=== PATIENT | male | born 1935 | race Caucasian/White ===

== ENCOUNTER 2023-11-28 12:00 | Inpatient (IN) | payer MEDICARE, SELFPAY ==
[2023-11-26 16:48] VITALS: BMI 20.9
[2023-11-26 16:52] VITALS: BP 122/97
[2023-11-26 16:53] VITALS: BP 122/97
[2023-11-26 17:00] VITALS: BP 129/72
[2023-11-26 17:09] LABS: % Basophils 0.5 % (0-2); % Eosinophils 0.1 % (0-6); % Immature Granulocytes 0.4 % (0-0.5); % Lymphocytes 9.1 % (20.5-51.1); % Monocytes 8.4 % (1.7-9.3); % Neutrophils 81.5 % (42.2-75.2); Absolute Basophils 0.1 10^3/uL (0-0.2); Absolute Monocytes 0.9 10^3/uL (0.1-0.6); Hematocrit 36.9 % (39.0-52.0); Mean Corp Hgb Conc. 35.2 g/dL (33.0-37.0); Mean Corpuscular Hgb 32.2 pg (27.0-31.0); Mean Corpuscular Volume 91.3 fL (80.0-94.0); Mean Platelet Volume 9.7 fL (7.4-10.4); Nucleated Red Blood Cells % 0 % (-); Platelet Count 215 10^3/uL (130-400); Red Blood Cell Count 4.04 10^6/uL (4.70-6.10); Red Cell Dist. Width 12.8 % (11.5-14.5)
[2023-11-26 17:25] LABS: ALT (SGPT) 37 U/L (0-50); AST (SGOT) 84 U/L (17-59); Albumin 4.6 g/dl (3.5-5.0); Alkaline Phosphatase 80 U/L (38-126); Blood Urea Nitrogen 24 mg/dl (9-20); Calcium 9.5 mg/dl (8.4-10.2); Carbon Dioxide 21 mmol/L (22-30); Chloride 107 mmol/L (98-107); Estimated Creatinine Clearance 55 ml/min; Glucose 90 mg/dl (70-99); Potassium 4.1 mmol/L (3.5-5.1); Sodium 136 mmol/L (135-145); Total Bilirubin 0.8 mg/dl (0.2-1.3); Total Protein 6.8 g/dl (6.3-8.2); eGFR > 60.00
[2023-11-26 17:54] LABS: Urine Albumin Trace (Neg - Trace); Urine Bilirubin Negative (Negative); Urine Character Clear (Clear); Urine Color Yellow; Urine Glucose Negative (Negative); Urine Ketone 1+ (Negative); Urine Leukocyte Negative (Negative); Urine Nitrite Negative (Negative); Urine Occult Blood 3+ (Negative); Urine Urobilinogen Negative (Neg - 1+)
[2023-11-26 18:00] VITALS: BP 135/57
[2023-11-26 18:11] LABS: Urine Mucus Few
[2023-11-26 18:12] LABS: Urine Bacteria Few (Negative); Urine Red Blood Cell 0-2 /HPF (0-2); Urine Squamous Cell 0-2 /LPF (Few); Urine White Cell 0-2 /HPF (0-5)
[2023-11-26 19:00] VITALS: BP 156/70
--- NOTE | 2023-11-26 19:04 | ED.GENMED ---
History of Present Illness
General
Chief Complaint: Weakness
Source: patient
Exam Limitations: none
Time Seen by Provider: 11/26/23 18:55
Nursing documentation reviewed up to this point in time: agreed with
Travel History
Have you had any contact with someone who has COVID-19?: No
Do you have any symptoms of coronavirus? Fever > 100 degrees, chills, cough, shortness of breath, sore throat, loss of taste or smell, muscle aches, or headache?: No
History of Present Illness
History of Present Illness:
Patient presents to ED secondary to sudden onset of lower leg weakness, which caused him to fall multiple times this afternoon. He had difficult time standing up after he fell, due to weakness. Denies loss of sensation. Denies back pain. Denies
headache. Denies dizziness. Denies chest palpitations. Denies loss of consciousness. Of note, since arrival to ED, patient states that despite having the urge, he is having trouble urinating. Denies recent illness. Denies recent change in
medications or diet. Denies previous history of similar symptoms.
Past History
Past History
ED Past Medical History: Cancer
ED Past Surgical History: Urological
Social History
Tobacco: Non-smoker
Review of Systems
Review of Systems
Allergies reviewed?: Yes
All Other Systems: ROS reviewed and negative except as documented in HPI and ROS
Constitutional: Reports no symptoms
EENT: Reports no symptoms
Respiratory: Reports no symptoms
Cardiac: Reports no symptoms
ABD/GI: Reports no symptoms
: Reports difficulty voiding
Musculoskeletal: Reports no symptoms; Denies back pain
Skin: Reports no symptoms
Neurological: Reports other (leg weakness)
Phy Exam
Physical Exam
Physical Exam:
Physical Exam
General: no apparent distress, not acutely ill. afebrile
Head: nc/at. eomi
Neck: supple. no meningeal signs.
Heart: s1/s2 regular rate and rhythm, no murmur. equal radial pulses.
Lungs: no acute respiratory distress. clear bilaterally
Abdomen: normal bowel sounds. not tender.
Neuro: alert and oriented. no focal neurological deficits
Skin: no rash
Psychiatric: well kept. interactive and cooperative
Extremities: no edema. no calf tenderness.
Course
Orders/Labs/Results
Orders:
Orders
11/26/23 16:58
CMP [Comprehensive Metabolic Panel] Urgent
Complete Blood Count/With Diff Urgent
11/26/23 17:40
UA Reflex to Culture [Urinalysis Reflex To Culture] Urgent
Date Specimen was Collected: 11/26/23
Time Specimen was Collected: 16:53
Urine Microscopic Reflex Cult Urgent
11/26/23 19:02
Bladder Scan- Treatment ONCE
11/26/23 19:07
Lidocaine 2% [Lidocaine Uro-Jet 2%] 1 syringe .ROUTE .[facility]
11/26/23 19:15
Fry [Fry Placement- Treatment] ONCE
Reason for insertion: Acute Retention
11/26/23 22:26
0.9% Sodium Chloride 500 ml [Nss] 500 ml IV BOLUS
11/26/23 22:38
Admit/Transfer Patient As Directed
Co-Sign Provider:
Level of Care: Observation services
Assign to:: Medical/Surgical
Physician / Group: Hospitalist
Diagnosis: urinary retention, weakness
Reason for Hospitalization: weakness,
Expected length of stay greater than two midnights?: No
ELOS- Estimated Length of Stay in days: 1
I certify the patient meets the requirements for IP care: No
11/26/23 22:41
Code Status As Directed
Resuscitation Status: Full Code
11/27/23 00:00
CT Head W/o Iv Contrast Urgent
Reason For Exam: mental status change
11/27/23 02:05
0.9% Sodium Chloride 1000 ml [Nss] 1,000 ml IV 75 mls/hr
Acetaminophen [Tylenol] 650 mg PO Q4HPRN PRN
11/27/23 02:05
Consult Notification Routine
Specialty to Notify: Urology
Date consulting provider notified: 11/27/23
Time consulting provider notified: 09:28
Notified:: Provider
UROLOGY CONSULT Routine
Consulting Provider: Rodri Vivar
Was physician already notified: No
Comment: acute urinary retention
Activity As Directed
Activity Level: With Assistance
Fry Catheter [Catheter- Indwelling] As Directed
Reason for insertion: Acute Retention
Discontinue Date/Time: 11/29/23 0600
Orthostatic Vital Signs As Directed
Orthostatic VS Frequency: Daily
Vital Signs As Directed
Frequency: Per unit guidelines
PT Consult [Pt Eval And Treat] Routine
Activity Level: With Assistance
11/27/23 06:45
Basic Metabolic Panel IN AM
Complete Blood Count/No Diff IN AM
TSH IN AM
Vitamin B12 IN AM
11/27/23 08:00
Ascorbic Acid [Vitamin C] 250 mg PO DAILY
Metoprolol Xl [Toprol Xl] 12.5 mg PO DAILY
11/27/23 Dinner
Regular
At Your Request: Limited Participation
Abnormal Lab Results
11/26/23 11/26/23
16:58 17:40
WBC 11.0 H 10^3/uL
(4.8-10.8)
RBC 4.04 L 10^6/uL
(4.70-6.10)
Hct 36.9 L %
(39.0-52.0)
MCH 32.2 H pg
(27.0-31.0)
Absolute Neuts (auto) 9.0 H 10^3/uL
(1.4-6.5)
Absolute Lymphs (auto) 1.0 L 10^3/uL
(1.2-3.4)
Absolute Monos (auto) 0.9 H 10^3/uL
(0.1-0.6)
Neutrophils % 81.5 H %
(42.2-75.2)
Lymphocytes % 9.1 L %
(20.5-51.1)
Carbon Dioxide 21 L mmol/L
(22-30)
BUN 24 H mg/dl
(9-20)
AST 84 H U/L
(17-59)
Urine Ketones 1+ A
(Negative)
Ur Occult Blood Reflex 3+ A
(Negative)
Urine Bacteria (Reflex) Few A
(Negative)
11/26/23 16:58
11/26/23 16:58
Vital Signs
Initial and Last Documented VS:
Initial Vital Signs
Temp Pulse Resp BP Pulse Ox
98.9 F 92 16 122/97 94
11/26/23 16:52 11/26/23 16:52 11/26/23 16:52 11/26/23 16:52 11/26/23 16:52
Last Documented Vital Signs
Temp Pulse Resp BP Pulse Ox
98.2 F 73 16 125/58 93
11/27/23 07:00 11/27/23 08:19 11/27/23 07:00 11/27/23 08:19 11/27/23 07:00
MDM/Problems Addressed
MDM/Problems Addressed:
Bladder scan : > 300 ml urine. After fry insertion, immediate removal of 600ml urine noted with improved symptoms.
Pt with difficulty ambulating with use of walker in ED, due to weakness. No sensory deficit. Motor strength intact while lying in bed. No back pain. ? dehydration, as patient admittedly doesn't drink enough water. Will admit for further evaluation
and treatment, including hydration. If symptoms persist, may benefit from neurology evaluation.
*Critical Care Note
Total Time (30-74mins, 75-104mins- exclusive of procedures): Not Applicable
ED Attending Note
-
Portions of this chart may have been created with voice recognition software.� Occasional wrong word or��sound alike� substitutions may have occurred due to the inherent limitations of voice recognition software.
Discharge Plan
Departure
Patient Disposition: Admit
Date of Disposition: 11/26/23
Time of Disposition: 22:25
Admit to: Med/Surg
Presentation/result/management discussed w/ accepting MD/DO: Hospitalist
Discharge Problem:
Weakness, Dehydration, Acute urinary retention
Interventions
Interventions:
*Risk Screen - Suicide Last Done: 11/26/23 16:52
*General Assessment Last Done: 11/26/23 16:52
*Neglect/Abuse Screening Last Done: 11/26/23 16:52
ED- Fall Risk Assessment Last Done: 11/26/23 16:52
*ED COVID-19 Vaccine History Last Done: 11/26/23 16:52
*Nursing Disposition Last Done: 11/27/23 01:55
ED- Cardiac Assessment Last Done: 11/26/23 16:52
ED- Neurological Assessment Last Done: 11/26/23 16:52
ED- Pulmonary Assessment Last Done: 11/26/23 16:52
Discharge Date and Time
Discharge Date/Time: 11/27/23 01:55
[2023-11-26 20:00] VITALS: BP 143/58
--- NOTE | 2023-11-26 22:48 | HPS.HSE ---
Family Physician
-
Family Physician: * NONE
Chief Complaint
-
Weakness
History of Present Illness
This is an 88-year-old male who has past medical history of remote prostate cancer status post radical prostatectomy, hypertension, aortic insufficiency, afib, presents to the emergency department with bilateral lower extremity weakness and falls
and found to be in acute urinary retention.
Patient lives at home with spouse and uses a walker. Reports being in generally good health and denied sense of weakness, ataxia or vertigo prior to today. He reports that after getting up he suddenly felt very weak in his lower extremities and
could not support himself. He fell to the floor. This then occurred multiple times. He had 1 episode where he hit the back of his head. Before today patient denied any recent falls stating that his last fall was about 4 years ago. He goes very
regularly to physical therapy and has been doing well there. He denies any pain in his hips, knees or ankles. He denies any swelling in his lower extremities. He is status post left total hip arthroplasty several years ago. Patient denies any
paresthesias, numbness or tingling. He denies any back pain. He denies any bladder or bowel incontinence.
Patient does have a history of nocturia getting up up to 6 times at night to urinate by the bedside. He is status post radical prostectomy from 20 years ago. Denies receiving any radiation or chemotherapy. Denies any recent dysuria or hematuria.
While he was in the emergency department had a large to urinate but could not and had a bladder scan which showed urinary retention and a urinary catheter was placed. After placement of urinary cath patient then also had a rather large bowel
movement.
Patient denies any dizziness, lightheadedness, palpitations, chest pain, dyspnea on exertion, or shortness of breath total lower extremity edema. He reports that he has been on 2 blood pressure medications for at least the last 6 months including
metoprolol and losartan. Medical records indicate that the patient takes metoprolol for arrhythmia with history of atrial fibrillation.
In the emergency department patient was hemodynamically stable with a blood pressure of 140/58, of 94, oxygen saturation of 90% on room air. CBC was unremarkable. Chemistries also unremarkable. He had a UA which was negative for an acute
infection.
Medical History
Past Medical History
Past Medical History: Reports Arrhythmia
Past Surgical History: Reports None
Social History
Tobacco: Non-smoker
Alcohol: None
Drug: None
Personal: Single
Living: Assisted Living
Employment: Retired
Family History
Family History: Not pertinent
Allergies / Home Medications
Allergies reflects when Allergies were last updated in [employer].
Home Medications with original date entered in [employer]
Allergy/Medication List:
Allergies
Allergy/AdvReac Type Severity Reaction Status Date / Time
No Known Allergies Allergy Verified 11/26/23 16:49
Home Medications
Res-Q [place] 2 cap PO DAILY Supplement 06/25/23
ascorbic acid (vitamin C) 250 mg tablet (Vitamin C) 250 mg PO DAILY Supplement 06/25/23
apixaban 5 mg tablet (Eliquis) 5 mg PO BID Blood clot prevention/tx #60 tabs 06/29/23
metoprolol succinate 25 mg tablet,extended release 24 hr 12.5 mg PO DAILY Arrhythmia #30 tabs 06/29/23
guaifenesin 600 mg tablet, extended release 12 hr 600 mg PO Q12 #20 tabs 07/01/23
Review of Systems
-
History Source: Patient
Constitutional: Reports Fatigue
EENT: Reports No Symptoms
Respiratory: Reports No Symptoms
Cardiac: Reports No Symptoms
Abdomen/GI: Reports No Symptoms
: Reports Frequency and Urgency
Musculoskeletal: Reports No Symptoms
Skin: Reports No Symptoms
Neurological: Reports Weakness
Endocrine: Reports No Symptoms
Hematologic/Lymphatic: Reports No Symptoms
Psych: Reports No Symptoms
Physical Exam
Vital Signs
Vital Signs
Temp Pulse Resp BP Pulse Ox
98.9 F 94 17 143/58 93
11/26/23 16:52 11/26/23 20:00 11/26/23 19:00 11/26/23 20:00 11/26/23 18:30
Physical Exam
General: Well Developed, No Apparent Distress, Comfortable and Conversant
HEENT: NormoCephalic, Anicteric, Moist mucous membranes, Atraumatic and PERRLA
Respiratory: Clear
Cardiac: S1/S2, Regular Rhythm and Murmur
Breast: Deferred by me
GI: Soft, Non Tender and Non Distended
Rectal: Deferred by Provider
Genito-urinary: Clear Urine and Kee
Musculoskeletal: No Clubbing, No Cyanosis and No Edema
Skin: Warm
Neuro: AO x 3, Nonfocal/grossly intact, Cranial Nerves Intact, No Sensory Deficits and DTR's Intact & Symmetrical
Hematologic/Lymphatic: No Lymphadenopathy
Psych: Calm and Intact Judgment/Insight
Laboratory Results
-
11/26/23 16:58
11/26/23 16:58
Laboratory Results
Total Bilirubin 0.8 mg/dl (0.2-1.3) 11/26/23 16:58
AST 84 U/L (17-59) H 11/26/23 16:58
ALT 37 U/L (0-50) 11/26/23 16:58
Alkaline Phosphatase 80 U/L (38-126) 11/26/23 16:58
Data Reviewed
-
CT Scan: Report Reviewed by me
Lab Data: Labs Reviewed by me
Old Records: Reviewed
Impression/Plan
-
IMPRESSION:
PLAN:
1. Weakness/Fall - Multiple falls with complaint of bilateral lower extremity weakness and ambulatory dysfunction. No focal neurological deficits. While laying down, strenght 5/5 bilaterally in LE. No bladder/bowel incontinence and other alarm
signs. No evidence of acute myopathy and patient not on abx or statin currently. No signs of acute infection. No joint pain or swelling. Suspect mild dehydration given elvation in BUN/Cr ratio. Patient very knowledgeable but unaware of his
atrial fibrillation diagnosis suggesting some memory loss.
- admit to [facility]
- head ct
- iv fluids
- orthostatic vs, check tsh, cpk, b12
- orthostatic vital signs
- PT evaluation
2. Urinary retention - H/O prostate Ca s/p radical prostatectomy. Nocturia and urinary frequency now with urinary retention.
- s/p urinary catheter, since no prostate hold off tamsulosin
- urology consultation
3. AFIB - AFIb last year in setting of COVID 19 infection. States he no longer takes the apixaban.
- hold apixaban in setting of fall
- continue metoprolol succinate
DVT PPX lovenox sq
Full Code.
[2023-11-26] MEDS: NSS 500 IV (23:07)
[2023-11-27 02:08] VITALS: BP 123/60; BMI 18.3
--- NOTE | 2023-11-27 02:30 | PTCARENOTE ---
Patient arrived from ED via stretcher to 338-1 -- pulled from stretcher to bed with assist of 3 people. Patient alert, appears to be confused to situation at times. Patient forgetful. Call fletcher within reach, demonstrates appropriate use of call fletcher
and rings for assistance. Will monitor.
[2023-11-27] MEDS: NSS 1000 IV ×2 (03:30→16:49)
[2023-11-27 07:00] VITALS: BP 113/48
[2023-11-27 07:31] LABS: Hematocrit 35.7 % (39.0-52.0); Hemoglobin 12.2 g/dL (13.0-18.0); Mean Corp Hgb Conc. 34.2 g/dL (33.0-37.0); Mean Corpuscular Hgb 31.7 pg (27.0-31.0); Mean Corpuscular Volume 92.7 fL (80.0-94.0); Platelet Count 215 10^3/uL (130-400); Red Blood Cell Count 3.85 10^6/uL (4.70-6.10); Red Cell Dist. Width 12.9 % (11.5-14.5); White Blood Cell Count 6.6 10^3/uL (4.8-10.8)
[2023-11-27 08:11] LABS: Blood Urea Nitrogen 18 mg/dl (9-20); Calcium 8.7 mg/dl (8.4-10.2); Carbon Dioxide 19 mmol/L (22-30); Chloride 110 mmol/L (98-107); Estimated Creatinine Clearance 52 ml/min; Glucose 85 mg/dl (70-99); Potassium 3.8 mmol/L (3.5-5.1); Sodium 136 mmol/L (135-145); eGFR > 60.00
[2023-11-27] MEDS: TOPROL XL 12.5 MG PO (08:19)
[2023-11-27] MEDS: VITAMIN C 250 MG PO (08:19)
[2023-11-27 08:22] LABS: Creatine Phosphokinase 4313 U/L (55-170)
[2023-11-27 08:26] LABS: TSH 3.56 uIU/ml (0.47-4.68)
[2023-11-27 08:45] LABS: Vitamin B12 825 pg/ml (239-931)
[2023-11-27 11:07] VITALS: BP 116/52; PULSE 92; O2SAT 91
--- NOTE | 2023-11-27 12:41 | W.PN.URO.CBU ---
Today's Communication / Plan
-
Plan voiding trial before discharge home
Assessment / Plan
-
History of prostate cancer s/p radical prostatectomy > 20 years ago
---
New urine retention possibly secondary to constipation v. neurogenic give acute LE weakness
Diagnosis
-
Date of Service: November 27, 2023
-
Patient Diagnosis:
Patient was admitted 11/26/23 due to LE weakness/sudden inability to walk
---
He was found to be in acute urine retention
A Kee catheter was placed w/o event
Subsequently, he had a large BM
Renal function was preserved
Microscopic urinalysis was benign
---
Past urologic history is notable for prostate cancer
Patient is s/p radical retropubic prostatectomy over 20 years ago: Dr. Javier @ [facility]
His PSA has remained undetectable
He has had no urine retention or significant voiding dysfunction before yesterday
Subjective
-
Comfortable
Objective
-
Vital Signs
Temp Pulse Resp BP Pulse Ox
98.2 F 73 16 125/58 93
11/27/23 07:00 11/27/23 08:19 11/27/23 07:00 11/27/23 08:19 11/27/23 07:00
Intake and Output
11/26/23 11/27/23 11/28/23
06:59 06:59 06:59
Intake Total 480 / 480
Output Total 200 / 200
Balance 480 / 480 -200 / -200
Intake:
Oral fluids 240 / 240
IV fluids (Total) 200 / 200
IV piggybacks 40 / 40
Output:
Urine, Kee 200 / 200
Laboratory Results
11/27/23 06:45
11/27/23 06:45
Review of Systems
-
Constitutional: No Symptoms
Respiratory: No Symptoms
Cardiac: No Symptoms
Abdomen/GI: No Symptoms
: Difficulty Voiding
Physical Exam
-
General - well nourished, no acute distress
Abdomen - soft, non-tender
Genitalia - normal with indwelling Kee draining clear urine
Skin - warm & dry with no rash
[2023-11-27 15:00] VITALS: BP 111/55
--- NOTE | 2023-11-27 15:04 | W.PN.HOSP.TC ---
Today's Communication/Plan
-
continue IVF
add OT
Assessment / Plan
Assessment / Plan
Assessment:
Weakness/Fall - Multiple falls with complaint of bilateral lower extremity weakness and ambulatory dysfunction.� No focal neurological deficits.� While laying down, strength 5/5 bilaterally in LE.� No bladder/bowel incontinence and other alarm
signs.� No evidence of acute myopathy and patient not on abx or statin currently.� No signs of acute infection.� No joint pain or swelling.� Suspect mild dehydration given elevation in BUN/Cr ratio.� Patient very knowledgeable but unaware of his
atrial fibrillation diagnosis suggesting some memory loss.
- head CT negative
- check orthostatics
- TSH/B12 ok
- PT/OT- SNF recommended
Rhabdomyolysis from fall
- continue IVF; trend CPK
Urinary retention - H/O prostate Ca s/p radical prostatectomy.� Nocturia and urinary frequency now with urinary retention.�
- s/p urinary catheter, since no prostate hold off tamsulosin
- urology following; eventual void trial prior to DC or at [facility] pending dispo outcome.
Parox A. FIB - AFIb last year in setting of COVID 19 infection.� States he no longer takes the apixaban.�
- hold apixaban in setting of fall; possibly resume in 24 hours
- continue metoprolol succinate
DVT ppx: Lovenox
code: Full
Anticipated Discharge: 24 - 48 hours
Subjective/Interval History
-
Date of Service: November 27, 2023
reports weakness is slightly improving
Objective Data
-
Labs:
Laboratory Results
11/27/23
06:45
WBC 6.6
Hgb 12.2 L
Hct 35.7 L
Plt Count 215
Sodium 136
Potassium 3.8
Chloride 110 H
Carbon Dioxide 19 L
BUN 18
Creatinine 0.8
Glucose 85
Calcium 8.7
Vital Signs:
Vital Signs
Temp Pulse Resp BP Pulse Ox
98.2 F 73 16 125/58 93
11/27/23 07:00 11/27/23 08:19 11/27/23 07:00 11/27/23 08:19 11/27/23 07:00
I&O
11/26/23 11/27/23 11/28/23
06:59 06:59 06:59
Intake Total 480 / 480
Output Total 200 / 200
Balance 480 / 480 -200 / -200
Physical Exam
-
General: Well Developed and Well Nourished
HEENT: Normocephalic and Atraumatic
Respiratory: Negative Wheezes or Rales
Cardiac: Regular Rhythm and S1/S2
GI: Soft and Nontender
Genito-urinary: No Costovertebral Tender
Musculoskeletal: No Edema
Neuro: AO x 3
Hematologic / Lymphatic: No Lymphadenopathy
Psych: Calm
Data Reviewed
-
Total Time Spent with Patient (in minutes): 45
Labs: Labs Reviewed by me
--- NOTE | 2023-11-27 15:54 | CM ---
Reviewed chart, placed a call to patient's son to obtain information for assessment. He stated that patient lives with his spouse in a multistory home with two steps to enter. Patient is dependent with his ADLs, personal care, dressing and bathing
and therefore he has private aids who come in 6 days a week from 10am to 5pm. His also helps support him the best that she can.
The aids do all the ruling machine operator, cooking, cleaning and laundry. They do the shopping and run the other errands and can take patient to the doctors when he has an appointment.
Patient's son stated that patient has a commode, grab bars in the shower and a shower chair.
He has never had VN services. He goes to outpatient PTx1 a week.
He has never been to a SNF and is adverse to going.
Patient's stated that he is aware that the indication on behalf of medical staff will most likely be SNF, he feels that between his support, the aids and his , patient can safely come home. He expressed that he would discuss VN services with
patient to determine whether he is agreeable.
Plan: Case management will continue to follow and assist with discharge planning. Tentative home with VN.
[2023-11-27 16:05] VITALS: BP 113/54; BP 124/58; BP 131/70; PULSE 121; PULSE 89; PULSE 93
[2023-11-27 17:59] LABS: Creatine Phosphokinase 3326 U/L (55-170)
[2023-11-28 00:09] VITALS: BP 121/52
[2023-11-28] MEDS: NSS 1000 IV (02:49)
[2023-11-28 05:47] LABS: Hematocrit 34.7 % (39.0-52.0); Hemoglobin 11.9 g/dL (13.0-18.0); Mean Corp Hgb Conc. 34.3 g/dL (33.0-37.0); Mean Corpuscular Hgb 31.9 pg (27.0-31.0); Mean Platelet Volume 9.9 fL (7.4-10.4); Platelet Count 181 10^3/uL (130-400); Red Blood Cell Count 3.73 10^6/uL (4.70-6.10); Red Cell Dist. Width 12.8 % (11.5-14.5); White Blood Cell Count 6.8 10^3/uL (4.8-10.8)
[2023-11-28 06:09] LABS: Blood Urea Nitrogen 16 mg/dl (9-20); Calcium 8.2 mg/dl (8.4-10.2); Carbon Dioxide 19 mmol/L (22-30); Chloride 112 mmol/L (98-107); Estimated Creatinine Clearance 60 ml/min; Glucose 85 mg/dl (70-99); Potassium 3.7 mmol/L (3.5-5.1); Sodium 134 mmol/L (135-145); eGFR > 60.00
[2023-11-28 06:18] LABS: Creatine Phosphokinase 2461 U/L (55-170)
--- NOTE | 2023-11-28 06:36 | W.PN.HOSP.TC ---
Addendum entered and electronically signed by Rpi Lozano MD 11/28/23 12:36:
Passed trial of Void, discharge moved up to 2pm pending meat pickler by family/home health aide, discussed with patient and his son.
Original Note:
Today's Communication/Plan
-
IVF completed
Trial of Void
Likely discharge later today 5PM pending trial of void results
Home with VN
Assessment / Plan
Assessment / Plan
Physical Exam
General: Well Developed and Well Nourished
HEENT: Normocephalic and Atraumatic
Respiratory: Negative Wheezes or Rales
Cardiac: Regular Rhythm and S1/S2
GI: Soft and Nontender
Genito-urinary: No Costovertebral Tender, Kee in placed
Musculoskeletal: No Edema
Neuro: AO x 3
Hematologic / Lymphatic: No Lymphadenopathy
Psych: Calm
Assessment:
Weakness/Fall - Multiple falls with complaint of bilateral lower extremity weakness and ambulatory dysfunction.� No focal neurological deficits.� While laying down, strength 5/5 bilaterally in LE.� No bladder/bowel incontinence and other alarm
signs.� No evidence of acute myopathy and patient not on abx or statin currently.� No signs of acute infection.� No joint pain or swelling.� Suspect mild dehydration given elevation in BUN/Cr ratio.� Patient very knowledgeable but unaware of his
atrial fibrillation diagnosis suggesting some memory loss.
- head CT negative for acute abn's
- orthostatics negative for hypotension, possible postural tachycardia syndrome noted HR increased from 89 supine to 121 standing, outpatient follow up recommended
- TSH/B12 wnl
- PT/OT- SNF recommended patient however declines preferring home VN
Rhabdomyolysis from fall
- IVF completed; CPK trending down, outpatient follow up labwork recommended.
Mild Hypocalcemia repleted
Urinary retention - H/O prostate Ca s/p radical prostatectomy.� Nocturia and urinary frequency now with urinary retention.�
- s/p urinary catheter
- urology eval appreciated, trial of void prior to discharge.
Parox A. FIB - AFIb last year in setting of COVID 19 infection.� States he no longer takes the apixaban.�
- hold apixaban in setting of fall
- continue metoprolol succinate
-follow up with cardiology Dr Newman outpatient in 1 week recommended
DVT ppx: Lovenox
code: Full
Medically stable for discharge home with home services and outpatient follow up recommendations.
Discussed with patient and his son Clifton Paulson
Total Time Preparing Discharge ___50____ minutes including examination of the patient, summary of the hospital stay, instructions for continuing care to all relevant caregivers; and preparation of discharge records, prescriptions, and referral
forms if necessary.
Anticipated Discharge: Today
Subjective/Interval History
-
Date of Service: November 28, 2023
Seen and examined at bedside in no acute distress resting comfortably in bed. Reports overall feeling well, eager to go home. Refuses rehab, though agreeable to visiting nurse services.
Objective Data
-
Labs:
Laboratory Results
11/28/23
05:13
WBC 6.8
Hgb 11.9 L
Hct 34.7 L
Plt Count 181
Sodium 134 L
Potassium 3.7
Chloride 112 H
Carbon Dioxide 19 L
BUN 16
Creatinine 0.7
Glucose 85
Calcium 8.2 L
Vital Signs:
Vital Signs
Temp Pulse Resp BP Pulse Ox
98.3 F 76 20 121/52 93
11/28/23 00:09 11/28/23 00:09 11/28/23 00:09 11/28/23 00:09 11/28/23 00:09
I&O
11/26/23 11/27/23 11/28/23
06:59 06:59 06:59
Intake Total 480 / 480 3410 / 3410
Output Total 500 / 500
Balance 480 / 480 2910 / 2910
[2023-11-28 07:00] VITALS: BP 124/60
[2023-11-28] MEDS: VITAMIN C 250 MG PO (08:03)
[2023-11-28] MEDS: TOPROL XL 12.5 MG PO (08:03)
--- NOTE | 2023-11-28 08:57 | W.PN.URO.CBU ---
Today's Communication / Plan
-
Voiding trial before discharge home
Assessment / Plan
-
History of prostate cancer s/p radical prostatectomy > 20 years ago
---
New urine retention possibly secondary to constipation v. neurogenic give acute LE weakness
Diagnosis
-
Date of Service: November 28, 2023
-
Patient Diagnosis:
Patient was admitted 11/26/23 due to LE weakness/sudden inability to walk
---
He was found to be in acute urine retention
A Kee catheter was placed w/o event
Subsequently, he had a large BM
Renal function was preserved
Microscopic urinalysis was benign
---
Past urologic history is notable for prostate cancer
Patient is s/p radical retropubic prostatectomy over 20 years ago: Dr. Javier @ [facility]
His PSA has remained undetectable
He has had no urine retention or significant voiding dysfunction before yesterday
Subjective
-
Feels well
Stronger
Objective
-
Vital Signs
Temp Pulse Resp BP Pulse Ox
98.1 F 78 18 124/60 93
11/28/23 07:00 11/28/23 07:00 11/28/23 07:00 11/28/23 07:00 11/28/23 07:00
Intake and Output
11/27/23 11/28/23 11/29/23
06:59 06:59 06:59
Intake Total 480 / 480 3410 / 3410
Output Total 500 / 500 625 / 625
Balance 480 / 480 2910 / 2910 -625 / -625
Intake:
Oral fluids 240 / 240 960 / 960
IV fluids (Total) 200 / 200 2450 / 2450
IV piggybacks 40 / 40
Output:
Urine, Kee 500 / 500 625 / 625
Laboratory Results
11/28/23 05:13
11/28/23 05:13
Review of Systems
-
Constitutional: Fatigue
Respiratory: No Symptoms
Cardiac: No Symptoms
Abdomen/GI: No Symptoms
: Difficulty Voiding
Neurological: No Symptoms
Physical Exam
-
General - well developed, well nourished, no acute distress
Abdomen - soft, non-tender
Genitalia - normal with Kee draining clear urine
[2023-11-28 09:15] VITALS: BP 129/66; PULSE 86
[2023-11-28] MEDS: CALCIUM GLUCONATE 100 IV (09:47)
--- NOTE | 2023-11-28 12:24 | W.DCSUMMARY ---
Discharge Summary
Discharge Data
Date of Admission: 11/26/23
Date of Discharge: 11/28/23
-
Pending Results: No
Discharge Plan
-
Patient Disposition: Home with Home Care
Discharge Diagnosis/Procedures: Rhabdomyolysis, Weakness/Falls, history paroxysmal atrial fibrillation, Possible Postural Tachycardia Syndrome, Urinary Retention
Condition: Fair
Diet: Regular
Activity: As tolerated and With Walker
Driving Restrictions: Not until seen by your Dr
Bathing Restrictions: None
Blood Work: Please repeat Creatine Kinase and BMP with primary care provider in 1 week of discharge.
Other Services: VN, PT and OT
Activity Restrictions/Additional Instructions:
Please follow up with Primary Care Provider and Cardiology in 1 week of discharge.
Referrals:
Donovan Newman MD [Active] - in one week
NONE,* [Family Provider] -
Prescriptions:
Continued
ascorbic acid (vitamin C) [Vitamin C] 250 mg Tablet
250 mg PO DAILY
Res-Q Power Of [place]
2 cap PO DAILY
Patient Comments:
06/25/23- vitamin d3 25mcg, omega 1500mg, epa 520mg, dha 880mg
metoprolol succinate 25 mg Tablet Extended Release 24 Hr
12.5 mg PO DAILY Qty: 30 11RF
guaifenesin 600 mg Tablet Extended Release 12hr
600 mg PO Q12 Qty: 20 0RF
Discontinued
Eliquis 5 mg Tablet
5 mg PO BID Qty: 60 11RF
Discharge Orders:
Discharge Patient (As Directed); Ordered 11/28/23
Ordered By: Rpi Lozano
--- NOTE | 2023-11-28 15:37 | CM ---
MD entered order for discharge.
Spoke with patient he said he was ready for discharge.
IMM reviewed and signed on chart.
Offered VN he requested [facility] and referral placed in care port.
His lawn caretaker will drive him home.
PLAN : Home with care givers and [facility] fax [phone]
== END 2023-11-28 14:34 | disposition home health service (06) | DRG 558 ==
LOC: EICU 12:00
PROVIDERS: Emergency Medicine; Internal Medicine; ADMITTING PHYSICIAN Internal Medicine; ATTENDING PHYSICIAN Internal Medicine; CONSULT PHYSICIAN Specialist; EMERGENCY PHYSICIAN Emergency Medicine
DX: M62.82 Rhabdomyolysis (principal); E83.51 Hypocalcemia; R33.9 Retention of urine, unspecified
CPT/HCPCS: 51702; 51798; 70450; 80048; 80053; 81003; 81015; 82550; 82607; 84443; 85025; 85027; 97116; 97162; 97166; 97530; 99285; G0378

== ENCOUNTER → 2024-01-10 13:10 | Outpatient (REF) | payer MEDICARE, OTHER, SELFPAY ==
[2024-01-10 14:25] LABS: Blood Urea Nitrogen 33 mg/dl (9-20); Calcium 9.9 mg/dl (8.4-10.2); Carbon Dioxide 20 mmol/L (22-30); Chloride 107 mmol/L (98-107); Creatine Phosphokinase 122 U/L (55-170); Glucose 113 mg/dl (70-99); Potassium 4.4 mmol/L (3.5-5.1); Sodium 135 mmol/L (135-145); eGFR > 60.00
== END ==
LOC: REG 13:10
PROVIDERS: ATTENDING PHYSICIAN Internal Medicine Cardiovascular Disease; FAMILY PHYSICIAN Internal Medicine
DX: I48.0 Paroxysmal atrial fibrillation (principal); M62.82 Rhabdomyolysis
CPT/HCPCS: 36415; 80048; 82550

== ENCOUNTER 2024-03-03 19:00 | Inpatient (IN) | payer MEDICARE, OTHER, SELFPAY ==
[2024-03-03 16:01] VITALS: BMI 19.8
--- NOTE | 2024-03-03 16:22 | ED.GENMED ---
History of Present Illness
General
Chief Complaint: Fainting Sensation
Source: patient and family
Exam Limitations: none
Time Seen by Provider: 03/03/24 16:04
Nursing documentation reviewed up to this point in time: agreed with
History of Present Illness
History of Present Illness:
88-year-old male presents emergency department after feeling weak and son lowering to the ground. He was in the parking lot, to get a haircut. His son came yesterday and noted the temperature to be 85 degrees in the house, heat was turned on.
Past History
Past History
ED Past Medical History: Cancer
ED Past Surgical History: Urological
Social History
Tobacco: Non-smoker
Alcohol: None
Drug: None
Personal:
Living: with family
Employment: Retired
Review of Systems
Review of Systems
Allergies reviewed?: Yes
All Other Systems: Not applicable
Constitutional: Reports no symptoms
EENT: Reports no symptoms
Respiratory: Reports no symptoms
Cardiac: Reports other (Near syncope)
ABD/GI: Reports no symptoms
: Reports no symptoms
Musculoskeletal: Reports no symptoms
Skin: Reports no symptoms
Neurological: Reports weakness
Endocrine: Reports no symptoms
Hematologic/Lymphatic: Reports no symptoms
Psychiatric: Reports no symptoms
Phy Exam
Physical Exam
Physical Exam:
Physical Exam
General: Elderly, frail
Neck: supple. no meningeal signs. normal posterior pharynx
Heart: s1/s2 regular rate and rhythm, no murmur. equal radial
pulses.
HEENT: Pupils equal round reactive to light, EOMI
Lungs: no acute respiratory distress. clear bilaterally
Abdomen: normal bowel sounds. not tender. no CVAT
Neuro: alert and oriented. no focal neurological deficits cranial nerves II through XII intact
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
Psychiatric: well kept. interactive and cooperative
Extremities: no edema. no calf tenderness. negative homans. good distal pulses
Course
Orders/Labs/Results
Orders:
Orders
03/03/24 16:18
CT Head W/o Iv Contrast Urgent
Comment:
Reason For Exam: fall, difficulty walking
03/03/24 16:19
IV Insert/Care/Rem.- Treatment PRN
03/03/24 16:21
0.9% Sodium Chloride 1000 ml [Nss] 1,000 ml IV BOLUS
03/03/24 16:32
Complete Blood Count/With Diff Urgent
Comprehensive Metabolic Panel Urgent
Magnesium Urgent
Abnormal Lab Results
03/03/24
16:32
RBC 3.76 L 10^6/uL
(4.70-6.10)
Hgb 11.9 L g/dL
(13.0-18.0)
Hct 33.1 L %
(39.0-52.0)
MCH 31.6 H pg
(27.0-31.0)
Absolute Neuts (auto) 6.9 H 10^3/uL
(1.4-6.5)
Absolute Monos (auto) 1.0 H 10^3/uL
(0.1-0.6)
Lymphocytes % 15.7 L %
(20.5-51.1)
Monocytes % 9.9 H %
(1.7-9.3)
Carbon Dioxide 20 L mmol/L
(22-30)
BUN 26 H mg/dl
(9-20)
Glucose 104 H mg/dl
(70-99)
03/03/24 16:32
03/03/24 16:32
Vital Signs
Initial and Last Documented VS:
Initial Vital Signs
Temp Pulse Resp Pulse Ox
98.4 F 102 30 91
03/03/24 16:02 03/03/24 16:02 03/03/24 16:02 03/03/24 16:02
Last Documented Vital Signs
Temp Pulse Resp Pulse Ox
98.4 F 102 30 91
03/03/24 16:02 03/03/24 16:02 03/03/24 16:02 03/03/24 16:02
MDM/Problems Addressed
Differential Diagnosis Includes:
Heat exhaustion, syncope, dysrhythmia
MDM/Problems Addressed:
88-year-old male with syncope episode, possibly due to heat exhaustion. No dysrhythmia noted on EKG or cardiac tracing. Admit to hospital for further evaluation
Chronic conditions affecting care: Arrhythmia
Acute Exacerbation and/or Progression of Chronic Illness: Arrhythmia
*Radiology
Radiology exam reviewed: preliminary read by ED provider (CT head no acute findings)
*Pulse Oximetry
Patient hypoxic: no
*EKG
Interpreted by ED Provider?: Yes
EKG Intrepretation Date: 03/03/24
EKG Intrepretation Time: 16:08
Interpretation: abnormal
Comparison EKG: no comparison EKG present
Heart Rate: 100
Rate: normal
Rhythm: sinus
[place]: normal axis
Interval: normal interval
QRS Pattern: right bundle branch block and other (lafb)
Ischemia: no ischemia
*Airplane Pilot Commercial Interpretation
Rate: normal
Interpretation: normal
Heart Rate: 85
Rhythm: sinus and PVC's
*Critical Care Note
Total Time (30-74mins, 75-104mins- exclusive of procedures): Not Applicable
Patient Management
Social determinants of health affecting care: Living situation
Discussion with other providers: Hospitalist
Escalation/DeEscalation of care consider admission/obs:
admit indicated
ED Attending Note
-
Portions of this chart may have been created with voice recognition software.� Occasional wrong word or��sound alike� substitutions may have occurred due to the inherent limitations of voice recognition software.
Discharge Plan
Departure
Patient Disposition: Admit
Date of Disposition: 03/03/24
Time of Disposition: 17:31
Admit to: Telemetry
Presentation/result/management discussed w/ accepting MD/DO: Hospitalist
Patient with high blood pressure during this ER visit?: Yes
Condition: Good
Discharge Problem:
Syncope
Prescriptions:
No Action
ascorbic acid (vitamin C) [Vitamin C] 250 mg Tablet
250 mg PO DAILY
Res-Q Power Of The Sea
2 cap PO DAILY
Patient Comments:
06/25/23- vitamin d3 25mcg, omega 1500mg, epa 520mg, dha 880mg
metoprolol succinate 25 mg Tablet Extended Release 24 Hr
12.5 mg PO DAILY Qty: 30 11RF
guaifenesin 600 mg Tablet Extended Release 12hr
600 mg PO Q12 Qty: 20 0RF
Referrals:
Jong Beaver MD [Family Provider] -
Interventions
Interventions:
*Risk Screen - Suicide Last Done: 03/03/24 16:02
*General Assessment Last Done: 03/03/24 16:02
*Neglect/Abuse Screening Last Done: 03/03/24 16:02
*ED COVID-19 Vaccine History Last Done: 03/03/24 16:02
ED- Cardiac Assessment Last Done: 03/03/24 16:16
ED- Neurological Assessment Last Done: 03/03/24 16:16
Discharge Date and Time
Print Language: [place]
[2024-03-03] MEDS: NSS 1000 IV ×2 (16:35→21:00)
[2024-03-03 16:39] LABS: % Basophils 0.5 % (0-2); % Eosinophils 1.4 % (0-6); % Immature Granulocytes 0.2 % (0-0.5); % Lymphocytes 15.7 % (20.5-51.1); % Monocytes 9.9 % (1.7-9.3); % Neutrophils 72.3 % (42.2-75.2); Absolute Basophils 0.1 10^3/uL (0-0.2); Absolute Eosinophils 0.1 10^3/uL (0-0.7); Absolute Lymphocytes 1.5 10^3/uL (1.2-3.4); Absolute Neutrophils 6.9 10^3/uL (1.4-6.5); Hematocrit 33.1 % (39.0-52.0); Hemoglobin 11.9 g/dL (13.0-18.0); Mean Corpuscular Hgb 31.6 pg (27.0-31.0); Mean Platelet Volume 9.4 fL (7.4-10.4); Nucleated Red Blood Cells % 0 % (-); Platelet Count 313 10^3/uL (130-400); Red Blood Cell Count 3.76 10^6/uL (4.70-6.10); Red Cell Dist. Width 12.9 % (11.5-14.5); White Blood Cell Count 9.6 10^3/uL (4.8-10.8)
[2024-03-03 16:56] LABS: ALT (SGPT) 25 U/L (0-50); AST (SGOT) 31 U/L (17-59); Albumin 3.7 g/dl (3.5-5.0); Alkaline Phosphatase 69 U/L (38-126); Blood Urea Nitrogen 26 mg/dl (9-20); Carbon Dioxide 20 mmol/L (22-30); Chloride 105 mmol/L (98-107); Estimated Creatinine Clearance 65 ml/min; Glucose 104 mg/dl (70-99); Magnesium 2.1 mg/dl (1.6-2.3); Potassium 4.2 mmol/L (3.5-5.1); Sodium 135 mmol/L (135-145); Total Bilirubin 0.7 mg/dl (0.2-1.3); Total Protein 6.3 g/dl (6.3-8.2); eGFR > 60.00
--- NOTE | 2024-03-03 18:43 | HPS.HSE ---
Family Physician
-
Family Physician: Jong Beaver MD
Chief Complaint
-
near syncope
History of Present Illness
Patient is an 88-year-old male with a history of aortic insufficiency and prostate cancer status post surgery who was with his son (he is a electrophysiology mold closer visiting from [place]) in the parking lot of a [employer]. He walked
further across the parking lot since they could not get a spot of close. He started to feel weak and went to his knees, his son helped lower him to the ground. The patient specifically denied chest pain, shortness of breath, headache,
lightheadedness, feeling faint, dizziness, nausea, vomiting, constipation, diarrhea. He stated that he has not been eating nor drinking well. He has not had any weight loss. In addition, his heater in his home was on (despite it being over 90
degrees outside). Patient attributes this to 'stupidity'. Patient is being admitted.
Medical History
Past Medical History
Past Medical History: Reports Other
Additional Past Medical History:
Aortic insufficiency
Prostate cancer
Past Surgical History: Reports Other
Additional Past Surgical History:
Prostate cancer surgery
Social History
Tobacco: Former Smoker
Alcohol: None
Drug: None
Personal:
Living: With Family
Family History
Family History: Not pertinent
Allergies / Home Medications
Allergies reflects when Allergies were last updated in [facility].
Home Medications with original date entered in [facility]
Allergy/Medication List:
Allergies
Allergy/AdvReac Type Severity Reaction Status Date / Time
No Known Allergies Allergy Verified 11/26/23 16:49
Home Medications
ascorbic acid (vitamin C) 500 mg tablet (Vitamin C) 500 mg PO DAILY 03/03/24
cholecalciferol (vitamin D3) 25 mcg (1,000 unit) tablet (Vitamin D3) 25 mcg PO DAILY 03/03/24
omega 2-jxr-qqr-fish oil 1,000 mg (120 mg-180 mg) capsule (Fish Oil) 1 cap PO DAILY 03/03/24
Review of Systems
-
History Source: Patient
A 12 point ROS was completed and negative except as noted: Yes
Constitutional: Reports Fatigue (Weakness)
EENT: Reports No Symptoms
Respiratory: Reports No Symptoms
Cardiac: Reports No Symptoms
Abdomen/GI: Reports No Symptoms
: Reports No Symptoms
Musculoskeletal: Reports No Symptoms
Skin: Reports No Symptoms
Neurological: Reports Weakness
Endocrine: Reports No Symptoms
Hematologic/Lymphatic: Reports No Symptoms
Psych: Reports No Symptoms
Physical Exam
Vital Signs
Vital Signs
Temp Pulse Resp Pulse Ox
98.4 F 102 30 91
03/03/24 16:02 03/03/24 16:02 03/03/24 16:02 03/03/24 16:02
Physical Exam
General: Other (Elderly frail male in no apparent distress)
HEENT: NormoCephalic, Anicteric and Oxygen
Respiratory: Clear; No Wheezes, Rales, Rhonchi or Crackles
Cardiac: S1/S2 and Regular Rhythm; No Bradycardia or Tachycardia
GI: Soft, Non Tender, Non Distended and Normal Bowel Sounds
Musculoskeletal: No Clubbing, No Cyanosis and No Edema
Skin: Warm and Dry
Neuro: Awake and Alert
Psych: Calm
Laboratory Results
-
03/03/24 16:32
03/03/24 16:32
Laboratory Results
Total Bilirubin 0.7 mg/dl (0.2-1.3) 03/03/24 16:32
AST 31 U/L (17-59) 03/03/24 16:32
ALT 25 U/L (0-50) 03/03/24 16:32
Alkaline Phosphatase 69 U/L (38-126) 03/03/24 16:32
Impression/Plan
-
Patient is an 88-year-old male
Near syncope--I suspect this is some mild dehydration from inadequate p.o. intake especially with fluids along with having the heater on in his home--ADMIT to telemetry--continue IV fluids for rehydration--PT/OT in a.m.
Prostate cancer--noted
DVT prophylaxis--none, low risk
CODE STATUS--full code
[2024-03-03 19:00] VITALS: BP 140/105
[2024-03-03 20:17] VITALS: BP 119/53
[2024-03-03 22:27] VITALS: BP 100/51
--- NOTE | 2024-03-03 23:39 | PTCARENOTE ---
Pt noted with very mild R sd facial droop at times, able to lift both sides of lips when asked evenly, showed pt his reflection pt stating he looks baseline. House EMPLOYMENT SUPERVISOR aware no new orders at this time .
[2024-03-04] VITALS (9 sets, daily range): BP systolic 101–139; BP diastolic 50–72; PULSE 98–107; O2SAT 94–95
--- NOTE | 2024-03-04 01:56 | W.PN.UPDATE ---
Update Note
Progress Note Update
son would like ua and culture checked and cxr checked in am
[2024-03-04 04:54] LABS: Urine Albumin Negative (Neg - Trace); Urine Bilirubin Negative (Negative); Urine Character Clear (Clear); Urine Color Yellow; Urine Glucose Negative (Negative); Urine Ketone 1+ (Negative); Urine Leukocyte Negative (Negative); Urine Nitrite Negative (Negative); Urine Occult Blood Negative (Negative); Urine Urobilinogen Negative (Neg - 1+)
--- NOTE | 2024-03-04 05:30 | PTCARENOTE ---
Pt refusing AM labs.
[2024-03-04] MEDS: VITAMIN D3 (cholecalciferol) 25 MCG PO (07:59)
[2024-03-04] MEDS: VITAMIN C 500 MG PO (07:59)
--- NOTE | 2024-03-04 08:03 | W.PN.HOSP.TC ---
Today's Communication/Plan
-
await cards eval
await PT/OT
await CXR
await orthostatic VS
stop IVF
wean O2 off
Assessment / Plan
Assessment / Plan
Patient is an 88-year-old male
Near syncope--I suspect this is some mild dehydration from inadequate p.o. intake especially with fluids along with having the heater on in his home--stop IV fluids--PT/OT in a.m.--check orthostatic VS
abnormal tele--reading as afib but not convinced this is not sinus rhythm with PACs--nevertheless, will consult cards
Prostate cancer--noted
DVT prophylaxis--none, low risk
CODE STATUS--full code
pt refused labs this AM
Anticipated Discharge: Within 24 hours
Subjective/Interval History
-
Date of Service: March 04, 2024
pt sitting in the chair saying he is fine--nursing reports confusion
Objective Data
-
Labs:
Laboratory Results
03/04/24
06:00
WBC Pending
Hgb Pending
Hct Pending
Plt Count Pending
Sodium Pending
Potassium Pending
Chloride Pending
Carbon Dioxide Pending
BUN Pending
Creatinine Pending
Glucose Pending
Calcium Pending
Vital Signs:
max temp for 24 hours
03/03/24
16:02
Temp 98.4 F
Vital Signs
Temp Pulse Resp BP Pulse Ox
98.2 F 80 16 138/61 95
03/04/24 07:55 03/04/24 07:55 03/04/24 07:55 03/04/24 07:55 03/04/24 07:55
I&O
06/22/24 06/23/24 06/24/24
06:59 06:59 06:59
Intake Total 800 / 800
Output Total 210 / 210
Balance 590 / 590
Review of Systems
-
All other systems: Reviewed and negative
Physical Exam
-
General: Other (chronically ill frail elderly male in NAD)
HEENT: Normocephalic, Atraumatic and Oxygen
Respiratory: Clear to Auscultation; Negative Wheezes or Rhonchi
Cardiac: Regular Rhythm (with ectopy) and S1/S2; Negative Murmur
GI: Soft, Nontender, Nondistended and Normal Bowel Sounds
Musculoskeletal: No Clubbing, No Cyanosis and No Edema
Neuro: Awake and Alert
Psych: Calm
[2024-03-04 10:38] LABS: Hematocrit 34.8 % (39.0-52.0); Hemoglobin 12.2 g/dL (13.0-18.0); Mean Corp Hgb Conc. 35.1 g/dL (33.0-37.0); Mean Corpuscular Hgb 31.4 pg (27.0-31.0); Mean Corpuscular Volume 89.5 fL (80.0-94.0); Mean Platelet Volume 9.4 fL (7.4-10.4); Platelet Count 281 10^3/uL (130-400); Red Blood Cell Count 3.89 10^6/uL (4.70-6.10); Red Cell Dist. Width 12.8 % (11.5-14.5); White Blood Cell Count 9.3 10^3/uL (4.8-10.8)
[2024-03-04 10:53] LABS: Blood Urea Nitrogen 18 mg/dl (9-20); Calcium 9.1 mg/dl (8.4-10.2); Carbon Dioxide 20 mmol/L (22-30); Chloride 107 mmol/L (98-107); Estimated Creatinine Clearance 76 ml/min; Glucose 98 mg/dl (70-99); Magnesium 2.1 mg/dl (1.6-2.3); Potassium 3.9 mmol/L (3.5-5.1); Sodium 136 mmol/L (135-145); eGFR > 60.00
[2024-03-04] MEDS: SENOKOT-S 1 TABLET PO ×2 (11:32→21:12)
[2024-03-04 11:36] LABS: TSH 3.49 uIU/ml (0.47-4.68)
--- NOTE | 2024-03-04 12:36 | CM ---
Addendum entered by Kenisha Cee 03/04/24 15:24:
Of note, stairglide is being installed tomorrow.
Addendum entered by Kenisha Cee 03/04/24 12:39:
Of note, son resides in [place] and daughter resides 2 hours away.
Original Note:
CM following re: d/c planning.
CM met with pt and son at bedside to complete IA.
Pt resides with in private residence.
He has stairs to get upstairs to bedroom.
Pt uses a walker as ambulatory aid.
He has a SLITTING MACHINE OPERATOR who assists with all ADS 6 days per week, 10am-8pm.
Son states pt's is physically independent, although cognitively declining.
Pt is current with [facility].
He would like to resume services once d/c'd.
Per son, they likely would not pursue rehab.
PCP is Dr. Beaver and pharmacy [facility].
CM will continue to follow and watch therapy notes/recs.
--- NOTE | 2024-03-04 15:57 | W.PN.UPDATE ---
Update Note
Progress Note Update
Spoke with patient's son Clifton, regarding physical therapy and Occupational Therapy recommendations for either skilled or acute rehab
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
He wants to transition him to more wheelchairs and scooters if at all possible. They are installing a stair lift in his home (the patient's) tomorrow.
Based on this information, will place consult to case management to restart visiting nurses/PT/OT as outpatient.
Plan for discharge after echocardiogram in AM.
--- NOTE | 2024-03-04 17:22 | CON.CAR ---
Consultation
Consultation Request
Date/Time Consultation Requested: 03/03/24
Date/Time Consultation Performed: 03/03/24
Requesting Provider: Dr. Montes De Oca
Performing Provider: Dr. Leon
Reason for Consultation: Evaluation for arrhythmia
Medical History
-
Chief Complaint: Weakness,near syncope
History of Present Illness:
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
recently transitioned care to Dr. Donovan Newman. Dr. Paulson has a past medical history of new atrial fibrillation diagnosed in June 2023 in the setting of COVID, nonischemic cardiomyopathy, aortic valve insufficiency, history of cerebellar
infarct, history of normal pressure hydrocephalus, recurrent falls and gait dysfunction. He also has a history of prostate cancer status post radical retropubic prostatectomy over 20 years ago at [facility]. No history of known coronary artery
disease; no recent ischemic evaluation. His son Clifton who is an bioinformatics associate out of state has been visiting his father and was with him at the time of his event. They were together in [place] to go get a haircut when he had profound
weakness and was guided onto the ground by his son. No overt syncope, no head trauma and fortunately no injuries. His son who arrived the day before found his father had the heat on his house turned on and it was [address] Paulson and
his son both admit that he does not drink enough water. EMS was called with initial vitals, pulse 116 bpm, blood pressure 121/73. Pulse ox 92% on room air. CT of the head 03/03/2024 with no acute intracranial abnormality with moderate atrophy and
small vessel ischemic disease. Visualized sinuses were clear. Twelve-lead EKG sinus rhythm with fusion complexes and PACs. Right bundle branch block/left anterior hemiblock. Septal infarct age-indeterminate. Overnight patient was treated with
IV fluids with improved symptoms. Orthostatic vitals were negative. Cardiology was asked to see him for concern for atrial fibrillation. Patient has a history of atrial fibrillation diagnosed in June 2023 in the setting of COVID. He was
briefly on anticoagulation which was then discontinued due to concern for falls. He had also previously been on metoprolol which was also discontinued. At the time of his visit with Dr. Newman in January plan was for a repeat quality assurance monitor and 2D
echocardiogram. 5-day Bard[facility] CAM back in January showed sinus rhythm with average heart rate 76 bpm, range 47-97 bpm. No significant bradycardia arrhythmia or AV block or pauses. No recurrent atrial fibrillation or flutter. 98 episodes of atrial
tachycardia longest 34.3 seconds with a range of 128 to 205 bpm. He had 3 episodes of NSVT, longest/fastest 5 beats at 148 bpm. He had occasional PACs, burden 2.9% and rare P VCs, 1%. His 2D echocardiogram is yet to be completed
Past medical/surgical history: Hypertension not currently on antihypertensive therapy, nonischemic cardiomyopathy without recent decompensations or use of outpatient diuretics, aortic insufficiency, prostate cancer, history of paroxysmal atrial
fibrillation diagnosed July 04 in the setting of COVID, COVID June 2023, recurrent falls, left hip T CARO, normal pressor hydrocephalus, history of silver infarct
Past Medical History
Past Medical History: Other (See HPI)
Past Surgical History: Other (See HPI)
Social History
Tobacco: Non-Smoker
Alcohol: None
Drug: None
Living: Alone
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
Family History
Family History: Reviewed & Not Pertinent
Allergies / Home Medications
Allergy/AdvReac Type Severity Reaction Status Date / Time
No Known Allergies Allergy Verified 11/26/23 16:49
�Medication �Instructions �Recorded �Confirmed �Type
ascorbic acid (vitamin C) 500 mg 500 mg PO DAILY 03/03/24 03/03/24 History
tablet (Vitamin C)
cholecalciferol (vitamin D3) 25 25 mcg PO DAILY 03/03/24 03/03/24 History
mcg (1,000 unit) tablet (Vitamin
D3)
omega 0-hco-ipw-fish oil 1,000 mg 1 cap PO DAILY 03/03/24 03/03/24 History
(120 mg-180 mg) capsule (Fish Oil)
Review of Systems
-
History Source: Patient, Family and Transfer Record
All other systems: Negative unless noted
Constitutional: Fatigue
EENT: No Symptoms
Respiratory: No Symptoms
Cardiac: No Symptoms
Abdomen/GI: No Symptoms
Musculoskeletal: No Symptoms
Neurological: Dizzy and Weakness
Endocrine: No Symptoms
Hematologic/Lymphatic: No Symptoms
Physical Exam
Vital Signs
Temp Pulse Resp BP Pulse Ox
98.8 F 88 16 119/60 92
03/04/24 15:20 03/04/24 15:20 03/04/24 15:20 03/04/24 15:20 03/04/24 15:20
Lab Results
03/04/24 10:25
03/04/24 10:25
Physical Exam
General: Well Developed, Well Nourished, No Apparent Distress and Comfortable
HEENT: Normocephalic, Anicteric and Moist Mucous Membranes
Respiratory: Other (Bronchovesicular breath sounds decreased right base. No wheezes or rhonchi)
Cardiac: S1/S2, Regular Rhythm (With ectopy) and Murmur (2/6 SM)
GI: Soft, Non Tender, Non Distended and Normal Bowel Sounds
Musculoskeletal: No Edema
Neuro: AO x 3 and Nonfocal/Grossly Intact
Psych: Calm
Impression / Plan
-
Bmw Service Technician: Dr. Newman
Impression:
Near syncope, suspect dehydration but patient also has history of rapid PAT as well as a prior history of atrial fibrillation and frequent ectopy which may have contributed to his event
Paroxysmal atrial fibrillation, episode in June 2023 in the setting of COVID
Occasional PACs/frequent PAT on recent quality assurance monitor in January 2024 with rare PVCs and NSVT
Bifascicular block on twelve-lead EKG
Aortic insufficiency
History of nonischemic cardiomyopathy
History of prostate cancer status post prostatectomy
History of falls/gait dysfunction
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
Plan:
Near syncope likely multifactorial with known gait dysfunction and deconditioning, dehydration and possibly cardiac arrhythmia
-Blood pressures stable and patient clinically improved with IV hydration
-Available EKGs and telemetry reviewed this admission with frequent PACs, PVCs with brief bigeminy, NSVT and runs of brief PAT but no definite atrial fibrillation
-Could reinitiate low-dose Toprol-XL however we will hold off given lower blood pressure trends
-Discussed with patient's son who is an bioinformatics associate in [place]. Could offer outpatient repeat quality assurance monitor however he prefers to wait until outpatient follow-up with Dr. Newman to discuss further
History of cardiomyopathy and aortic insufficiency previously advised to have outpatient 2D echocardiogram not yet completed
-Will arrange for 2D echocardiogram Tuesday morning.
History of paroxysmal atrial fibrillation in the setting of COVID June 2023
-Was briefly on Eliquis anticoagulation which was then discontinued due to fall risk
Case and plan discussed with patient's son Clifton who is an bioinformatics associate in [place]
Case reviewed with Dr. Newman
Anticipate discharge home tomorrow following echocardiogram
Outpatient cardiac follow-up to be arranged with Dr. Newman
Data Reviewed
-
EKG: Report Reviewed by me
Radiology: Report Reviewed by me
Medical Tests (Nuc Med, Echo etc): Report Reviewed by me
Labs: Labs Reviewed by me
Old Records: Reviewed
--- NOTE | 2024-03-04 20:24 | PTCARENOTE ---
Pt refusing orthostatic vital signs for shift.
[2024-03-05] VITALS (7 sets, daily range): BP systolic 108–141; BP diastolic 50–64; PULSE 86–102; BMI 19.6
--- NOTE | 2024-03-05 03:25 | PTCARENOTE ---
Pts pulse ox 90-91% RA- pt refusing o2 at this time.
[2024-03-05] MEDS: VITAMIN C 500 MG PO (08:25)
[2024-03-05] MEDS: SENOKOT-S 1 TABLET PO (08:25)
[2024-03-05] MEDS: VITAMIN D3 (cholecalciferol) 25 MCG PO (08:26)
[2024-03-05 09:22] LABS: Glucose - Point of Care 108 mg/dl (70-99)
--- NOTE | 2024-03-05 09:28 | W.PN.CARDCBS ---
Addendum entered and electronically signed by Mikala Leon DO 03/05/24 13:48:
I saw and examined the patient.
The Python Programmer's note was reviewed and I agree with the note.
Comment: Patient seen and examined following rapid response this morning for SVT. Rhythm strips and EKG reviewed favoring rapid symptomatic atrial tachycardia with brief syncopal episode. 2D echocardiogram pending. Updated family over the phone.
Patient is currently lying supine without complaints. Denies chest pain pressure. Denies shortness of breath or dizziness.
GEN: No distress lying supine.
LUNGS: CTA b/l, no wheezes/rales
CV: Regular with ectopy, S1/S2, 2/6 syst murmur
EXT: No edema
Echo 03/05/2024: Study pending.
Plan:
-Presented with near syncope. Morgan to be multifactorial w/ gait dysfunction, deconditioning, dehydration, and possible cardiac arrhythmia.
-BP stable and patient symptomatically improved w/ IV hydration, however in AM 03/05 patient having rapid bursts of atrial tachycardia into the 190s. During one episode, patient briefly lost consciousness. EMERGENCY SERVICE RESTORER called, however patient quickly
recovered. He reports he felt a warmth as his only symptom and denied feeling dizzy, lightheaded, chest pain, palpitations, or SOB. He feels improved currently despite HR briefly going into 180s still.
-Given episode of tachycardia w/ brief syncope, will start low dose Toprol 12.5mg daily with now dose and hopefully uptitrate to twice daily
-Given history of hypertension would prefer to monitor on telemetry another 24 hours
-Echo pending 03/05/2024-discussed with echo tach and he will be done soon
-Does have h/o afib in the setting of Covid 06/2023. Briefly anticoagulated, however then was d/c due to fall risk.
-K stable at 3.9. Mag 2.1 03/04.
-TSH 3.49 03/04.
-Trop pending.
-Plan discussed with son, Dr. Paulson over the phone
-Discussed with Dr. Blake
Original Note:
Today's Communication / Plan
-
Follow on telemetry.
Start Toprol 12.5mg daily
BP stable, follow.
Echo pending
Impression / Plan
-
Ict Managers: Dr. Newman
Impression:
Near syncope, suspect dehydration but patient also has history of rapid PAT as well as a prior history of atrial fibrillation and frequent ectopy which may have contributed to his event
Paroxysmal atrial fibrillation, episode in June 2023 in the setting of COVID
Occasional PACs/frequent PAT on recent ekg monitor tech in January 2024 with rare PVCs and NSVT
Bifascicular block on twelve-lead EKG
Aortic insufficiency
History of nonischemic cardiomyopathy
History of prostate cancer status post prostatectomy
History of falls/gait dysfunction
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
Echo 03/05/2024: Study pending.
Plan:
-Presented with near syncope. Morgan to be multifactorial w/ gait dysfunction, deconditioning, dehydration, and possible cardiac arrhythmia.
-BP stable and patient symptomatically improved w/ IV hydration, however in AM 03/05 patient having rapid bursts of atrial tachycardia into the 190s. During one episode, patient briefly lost consciousness. EMERGENCY SERVICE RESTORER called, however patient quickly
recovered. He reports he felt a warmth as his only symptom and denied feeling dizzy, lightheaded, chest pain, palpitations, or SOB. He feels improved currently despite HR briefly going into 180s still.
-Given episode of tachycardia w/ brief syncope, will start low dose Toprol 12.5mg daily with now dose. Follow HR on telemetry.
-Echo pending 03/05/2024.
-BP stable this AM, follow w/ initiation of Toprol. Does have h/o hypotension for which toprol was previously discontinued.
-Does have h/o afib in the setting of Covid 06/2023. Briefly anticoagulated, however then was d/c due to fall risk.
-K stable at 3.9. Mag 2.1 03/04.
-TSH 3.49 03/04.
-Trop pending.
HPI: I had the pleasure to meet Dr. Paulosn after he presented to [facility] yesterday with with an episode of profound leg weakness and near syncope. 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
but recently transitioned care to Dr. Donovan Newman. Dr. Paulson has a past medical history of new atrial fibrillation diagnosed in June 2023 in the setting of COVID, nonischemic cardiomyopathy, aortic valve insufficiency, history of cerebellar
infarct, history of normal pressure hydrocephalus, recurrent falls and gait dysfunction. He also has a history of prostate cancer status post radical retropubic prostatectomy over 20 years ago at [facility]. No history of known coronary artery
disease; no recent ischemic evaluation. His son Clifton who is an swage tender out of state has been visiting his father and was with him at the time of his event. They were together in [place] to go get a haircut when he had profound
weakness and was guided onto the ground by his son. No overt syncope, no head trauma and fortunately no injuries. His son who arrived the day before found his father had the heat on his house turned on and it was [address] Paulson and
his son both admit that he does not drink enough water. EMS was called with initial vitals, pulse 116 bpm, blood pressure 121/73. Pulse ox 92% on room air. CT of the head 03/03/2024 with no acute intracranial abnormality with moderate atrophy and
small vessel ischemic disease. Visualized sinuses were clear. Twelve-lead EKG sinus rhythm with fusion complexes and PACs. Right bundle branch block/left anterior hemiblock. Septal infarct age-indeterminate. Overnight patient was treated with
IV fluids with improved symptoms. Orthostatic vitals were negative. Cardiology was asked to see him for concern for atrial fibrillation. Patient has a history of atrial fibrillation diagnosed in June 2023 in the setting of COVID. He was
briefly on anticoagulation which was then discontinued due to concern for falls. He had also previously been on metoprolol which was also discontinued. At the time of his visit with Dr. Newman in January plan was for a repeat ekg monitor tech and 2D
echocardiogram. 5-day Bardy CAM back in January showed sinus rhythm with average heart rate 76 bpm, range 47-97 bpm. No significant bradycardia arrhythmia or AV block or pauses. No recurrent atrial fibrillation or flutter. 98 episodes of atrial
tachycardia longest 34.3 seconds with a range of 128 to 205 bpm. He had 3 episodes of NSVT, longest/fastest 5 beats at 148 bpm. He had occasional PACs, burden 2.9% and rare P VCs, 1%. His 2D echocardiogram is yet to be completed
Progress Note - Ict Managers
Subjective
Date of Service: March 05, 2024
Feeling well after brief syncopal episode this AM. No complaints currently.
Objective
Labs:
03/04/24 10:25
Labs
Hgb 12.2 g/dL (13.0-18.0) L 03/04/24 10:25
Hct 34.8 % (39.0-52.0) L 03/04/24 10:25
Plt Count 281 10^3/uL (130-400) 03/04/24 10:25
Sodium Cancelled 03/05/24 06:47
Potassium Cancelled 03/05/24 06:47
BUN Cancelled 03/05/24 06:47
Creatinine Cancelled 03/05/24 06:47
Glucose Cancelled 03/05/24 06:47
Vital Signs and I&O:
Vital Signs
Temp Pulse Resp BP Pulse Ox
98.2 F 86 18 113/59 91
03/05/24 07:30 03/05/24 07:30 03/05/24 07:30 03/05/24 07:30 03/05/24 07:30
Vital Signs
Temp Pulse Resp BP Pulse Ox
98.2 F 86 18 113/59 91
03/05/24 07:30 03/05/24 07:30 03/05/24 07:30 03/05/24 07:30 03/05/24 07:30
Intake & Output
03/03/24 03/04/24 03/05/24 03/06/24
06:59 06:59 06:59 06:59
Intake Total 800 / 800 720 / 720
Output Total 210 / 210 125 / 125
Balance 590 / 590 595 / 595
Physical Exam
Physical Exam
GEN: No distress, awake, alert, oriented x3
HEENT: supple, anicteric, mmm
LUNGS: CTA b/l, no wheezes/rales
CV: Irreg, S1/S2, 2/6 syst murmur
EXT: No clubbing, cyanosis, or edema
NEURO: Gross non-focal
SKIN: Warm, dry, no rash
[2024-03-05 09:38] LABS: % Basophils 0.6 % (0-2); % Immature Granulocytes 0.3 % (0-0.5); % Lymphocytes 13.8 % (20.5-51.1); % Monocytes 9.4 % (1.7-9.3); % Neutrophils 74.9 % (42.2-75.2); Absolute Basophils 0.1 10^3/uL (0-0.2); Absolute Eosinophils 0.1 10^3/uL (0-0.7); Absolute Lymphocytes 1.5 10^3/uL (1.2-3.4); Absolute Neutrophils 8.1 10^3/uL (1.4-6.5); Hematocrit 40.1 % (39.0-52.0); Hemoglobin 13.8 g/dL (13.0-18.0); Mean Corp Hgb Conc. 34.4 g/dL (33.0-37.0); Mean Corpuscular Volume 90.1 fL (80.0-94.0); Mean Platelet Volume 9.1 fL (7.4-10.4); Nucleated Red Blood Cells % 0 % (-); Platelet Count 323 10^3/uL (130-400); Red Blood Cell Count 4.45 10^6/uL (4.70-6.10); Red Cell Dist. Width 12.6 % (11.5-14.5); White Blood Cell Count 10.8 10^3/uL (4.8-10.8)
[2024-03-05 09:51] LABS: INR 1.08; PT 13.9 Sec (11.4-14.6)
[2024-03-05 09:52] LABS: APTT 32.8 Sec (23.4-35.0)
[2024-03-05] MEDS: TOPROL XL 12.5 MG PO ×2 (10:17→20:21)
[2024-03-05 10:43] LABS: Blood Urea Nitrogen 16 mg/dl (9-20); Calcium 9.1 mg/dl (8.4-10.2); Carbon Dioxide 20 mmol/L (22-30); Chloride 105 mmol/L (98-107); Estimated Creatinine Clearance 75 ml/min; Glucose 98 mg/dl (70-99); Potassium 3.9 mmol/L (3.5-5.1); Sodium 133 mmol/L (135-145); eGFR > 60.00
[2024-03-05 10:55] LABS: Troponin I 0.029 ng/ml
--- NOTE | 2024-03-05 11:12 | RR ---
A Rapid Response was called on this patient, please see Rapid Response form.
--- NOTE | 2024-03-05 12:22 | W.PN.HOSP.TC ---
Today's Communication/Plan
-
Echocardiogram
Assessment / Plan
Assessment / Plan
Episode of supraventricular tachycardia this morning prolonged, with HR 190 range, 03/05 with LOC lasting ~5 seconds
will hold on dc awaiting cardio input, Metoprolol added to Tx
Rhythm primarily NSR with freq PAC's, acute episode appears to be a.fib with rvr
Near syncope prior to admission
concern that this was arrythmia
Hx of nonischemic cardiomyopathy
Hx of CVA
Covid 06/2023
Hx of Prostate Cancer
P:echo
await further input from cardio
Anticipated Discharge: 24 - 48 hours
Subjective/Interval History
-
Date of Service: March 05, 2024
Awake, alert currently
Objective Data
-
Labs:
Laboratory Results
03/05/24 03/05/24 03/05/24
06:47 07:53 09:20
WBC 10.8
Hgb 13.8
Hct 40.1
Plt Count 323
PT 13.9
INR 1.08
APTT 32.8
Sodium Cancelled Cancelled Cancelled
Potassium Cancelled Cancelled Cancelled
Chloride Cancelled Cancelled Cancelled
Carbon Dioxide Cancelled Cancelled Cancelled
BUN Cancelled Cancelled Cancelled
Creatinine Cancelled Cancelled Cancelled
Glucose Cancelled Cancelled Cancelled
Calcium Cancelled Cancelled Cancelled
03/05/24
10:25
WBC
Hgb
Hct
Plt Count
PT
INR
APTT
Sodium 133 L
Potassium 3.9
Chloride 105
Carbon Dioxide 20 L
BUN 16
Creatinine 0.6 L
Glucose 98
Calcium 9.1
Vital Signs:
Vital Signs
Temp Pulse Resp BP Pulse Ox
98.7 F 91 20 112/50 99
03/05/24 11:10 03/05/24 11:10 03/05/24 11:10 03/05/24 11:10 03/05/24 11:10
I&O
03/04/24 03/05/24 03/06/24
06:59 06:59 06:59
Intake Total 800 / 800 720 / 720
Output Total 210 / 210 125 / 125
Balance 590 / 590 595 / 595
Review of Systems
-
History Source: Patient and Coordinated Provider (reviewed with JOSEPH Rausch)
Constitutional: Denies Fever
EENT: Reports No Symptoms Reported
Respiratory: Reports No Symptoms
Cardiac: Denies Chest Pain
Abdomen/GI: Reports No Symptoms; Denies Abdominal Pain
Physical Exam
-
General: Well Developed, Well Nourished and No Apparent Distress
HEENT: Normocephalic and Atraumatic
Respiratory: Clear to Auscultation; Negative Wheezes, Rales or Rhonchi
Cardiac: Regular Rhythm and S1/S2
GI: Soft, Nontender and Nondistended
Musculoskeletal: No Clubbing, No Cyanosis and No Edema
Neuro: Awake, Alert and Oriented (mild cognitive impairment)
--- NOTE | 2024-03-05 17:26 | CM ---
Spoke with pt and his son Babatunde [phone] who is a MD at bedside.He had a rapid this am.
PT barby said SNF VS home
Pt and son requested [facility] again at in.Referral placed [facility] Friedman Aware.
Pt had a stair glide installed today,
He has an aid Shahem 6 days a week will increases to 7 days.
On oxygen 2 liters 97% .
PLAN Home with [facility] for oxygen need
[2024-03-06 03:55] VITALS: BP 123/63
[2024-03-06 07:55] VITALS: BP 121/56
[2024-03-06] MEDS: VITAMIN D3 (cholecalciferol) 25 MCG PO (08:52)
[2024-03-06] MEDS: TOPROL XL 12.5 MG PO (08:52)
[2024-03-06] MEDS: VITAMIN C 500 MG PO (08:52)
--- NOTE | 2024-03-06 10:40 | W.PN.CARDCBS ---
Addendum entered and electronically signed by Ariel Galaviz DO 03/06/24 13:31:
I saw and examined the patient.
The Supervisor Erection Shop's note was reviewed and I agree with the note.
Comment:
Plan:
Continue Toprol XL 12.5 mg twice daily for atrial tachycardia.
Recent echo reviewed and stable.
Troponins were negative.
He had a history of atrial fibrillation in the setting of COVID in June 2023 and was briefly anticoagulated however this was stopped due to his significant bleeding risk with his fall risk.
Status and plan was discussed with his son who is an solar applications development engineer in [place].
Outpatient follow-up set up.
Stable for DC from cardiac standpoint.
Original Note:
Today's Communication / Plan
-
Cont Toprol XL 12.5 mg BID
Stable for d/c to home from a cardiac standpoint
Impression / Plan
-
PCP: Dr. Beaver
Investigation Manager: Dr. Newman
Impression:
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
Near syncope, suspect dehydration but patient also has history of rapid PAT as well as a prior history of atrial fibrillation and frequent ectopy which may have contributed to his event
Paroxysmal atrial fibrillation, episode in June 2023 in the setting of COVID
Occasional PACs/frequent PAT on recent microbiology lab technician in January 2024 with rare PVCs and NSVT
Bifascicular block on twelve-lead EKG
Aortic insufficiency
History of nonischemic cardiomyopathy
History of prostate cancer status post prostatectomy
History of falls/gait dysfunction
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
Echo 04/05/23: AMS study, EF 50-55%, no significant change, trace MR, mild TR, moderate aortic insufficiency
Echo 03/05/24: EF 50-55%, mild conc LVH, mild to mod MR, mod to sev aortic regurgitation, mild TR with PAP 32 mmHg
Plan:
-Overnight tele reviewed and patient has PVCs, but no recurrence of rapid arrhythmia.
-BP and resting HR tolerating addition of Toprol XL 12.5 mg BID.
-Troponin undetectable
-Echo reviewed and is stable
-Does have h/o afib in the setting of Covid 06/2023. Briefly anticoagulated, however then was d/c due to fall risk.
-Called and talked with patient's son, Cliftonsofiya Paulson, who is an EP in [place]. Reviewed the tele from 03/05/24 and overnight. Reviewed addition of Toprol XL 12.5 mg BID. Patient and son would prefer d/c to home 03/06/24. Patient is stable from a
cardiac standpoint for d/c to home.
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
but recently transitioned care to Dr. Donovan Newman. Dr. Paulson has a past medical history of new atrial fibrillation diagnosed in June 2023 in the setting of COVID, nonischemic cardiomyopathy, aortic valve insufficiency, history of cerebellar
infarct, history of normal pressure hydrocephalus, recurrent falls and gait dysfunction. He also has a history of prostate cancer status post radical retropubic prostatectomy over 20 years ago at [facility]. No history of known coronary artery
disease; no recent ischemic evaluation. His son Clifton who is an solar applications development engineer out of state has been visiting his father and was with him at the time of his event. They were together in [place] to go get a haircut when he had profound
weakness and was guided onto the ground by his son. No overt syncope, no head trauma and fortunately no injuries. His son who arrived the day before found his father had the heat on his house turned on and it was [address] Paulson and
his son both admit that he does not drink enough water. EMS was called with initial vitals, pulse 116 bpm, blood pressure 121/73. Pulse ox 92% on room air. CT of the head 03/03/2024 with no acute intracranial abnormality with moderate atrophy and
small vessel ischemic disease. Visualized sinuses were clear. Twelve-lead EKG sinus rhythm with fusion complexes and PACs. Right bundle branch block/left anterior hemiblock. Septal infarct age-indeterminate. Overnight patient was treated with
IV fluids with improved symptoms. Orthostatic vitals were negative. Cardiology was asked to see him for concern for atrial fibrillation. Patient has a history of atrial fibrillation diagnosed in June 2023 in the setting of COVID. He was
briefly on anticoagulation which was then discontinued due to concern for falls. He had also previously been on metoprolol which was also discontinued. At the time of his visit with Dr. Newman in January plan was for a repeat microbiology lab technician and 2D
echocardiogram. 5-day Bardy CAM back in January showed sinus rhythm with average heart rate 76 bpm, range 47-97 bpm. No significant bradycardia arrhythmia or AV block or pauses. No recurrent atrial fibrillation or flutter. 98 episodes of atrial
tachycardia longest 34.3 seconds with a range of 128 to 205 bpm. He had 3 episodes of NSVT, longest/fastest 5 beats at 148 bpm. He had occasional PACs, burden 2.9% and rare P VCs, 1%. His 2D echocardiogram is yet to be completed
Progress Note - Investigation Manager
Subjective
Date of Service: March 06, 2024
He feels well, he wants to go home
Objective
Labs:
03/05/24 09:20
03/05/24 10:25
Labs
Hgb 13.8 g/dL (13.0-18.0) 03/05/24 09:20
Hct 40.1 % (39.0-52.0) 03/05/24 09:20
Plt Count 323 10^3/uL (130-400) 03/05/24 09:20
PT 13.9 Sec (11.4-14.6) 03/05/24 09:20
INR 1.08 03/05/24 09:20
APTT 32.8 Sec (23.4-35.0) 03/05/24 09:20
Sodium 133 mmol/L (135-145) L 03/05/24 10:25
Potassium 3.9 mmol/L (3.5-5.1) 03/05/24 10:25
BUN 16 mg/dl (9-20) 03/05/24 10:25
Creatinine 0.6 mg/dL (0.7-1.3) L 03/05/24 10:25
Glucose 98 mg/dl (70-99) 03/05/24 10:25
Troponins
03/05/24 03/05/24
09:20 10:25
Troponin I Cancelled 0.029
Vital Signs and I&O:
Vital Signs
Temp Pulse Resp BP Pulse Ox
98.4 F 91 20 121/56 93
03/06/24 07:55 03/06/24 08:52 03/06/24 07:55 03/06/24 08:52 03/06/24 07:55
Vital Signs
Temp Pulse Resp BP Pulse Ox
98.4 F 91 20 121/56 93
03/06/24 07:55 03/06/24 08:52 03/06/24 07:55 03/06/24 08:52 03/06/24 07:55
Intake & Output
03/04/24 03/05/24 03/06/24 03/07/24
06:59 06:59 06:59 06:59
Intake Total 800 / 800 720 / 720 780 / 780
Output Total 210 / 210 125 / 125 175 / 175
Balance 590 / 590 595 / 595 605 / 605
Physical Exam
Physical Exam
GEN: NAD. AAOx3
HEENT: EOMI, MMM
LUNGS: No audible wheeze
CV: SR with PVCs on tele
EXT: No edema B/L
NEURO: Gross non-focal
SKIN: No rash
[2024-03-06 11:35] VITALS: BP 109/50
--- NOTE | 2024-03-06 12:30 | CM ---
Son Babatunde [phone] who is a MD at bedside.
PT eval said SNF VS home
Pt weaned off oxygen Now Room air.
Pt and son requested [facility] again at [facility].Referral placed [facility] Aware.Pt accepted
Pt had a stair glide installed .
He has an aid Shahem 6 days a week will increases to 7 days.
PLAN Home with [facility] fax [phone]
--- NOTE | 2024-03-06 13:00 | W.PN.HOSP.TC ---
Today's Communication/Plan
-
dc to home, pt refuses SNF. Has home health aide
Assessment / Plan
Assessment / Plan
Episode of supraventricular tachycardia yesterday morning prolonged, with HR 190 range, 03/05 with LOC lasting ~5 seconds
cardio started Metoprolol added to Tx and has cleared for dc. Call placed to son, let message on voice mail
reviewed with cardio
Rhythm primarily NSR with freq PAC's, acute episode appears to be a.fib with rvr
Near syncope prior to admission
concern that this was arrhythmia
Hx of nonischemic cardiomyopathy
Hx of CVA
Covid 06/2023
Hx of Prostate Cancer
echo: Normal left ventricular chamber size. Low normal left ventricular systolic
function. No gross regional wall motion abnormalities. Left ventricular
ejection fraction is 50-55% by visual estimate. Mild concentric left
ventricular hypertrophy.
Normal right ventricular size and function.
Mild to moderate mitral regurgitation.
Moderate to severe aortic regurgitation.
Mild tricuspid regurgitation. Estimated pulmonary artery pressure of 32 mmHg
assuming a right atrial pressure of 3 mmHg.
P:dc now
see dictated note
More than 30 minutes spent in discharge including
Final examination of the patient
Summarizing hospital stay
Instructions for continuing care to all relevant caregivers
Preparation of discharge records, prescriptions, and referral forms
Total time spent (in minutes): 45
Anticipated Discharge: Today
Subjective/Interval History
-
Date of Service: March 06, 2024
Feels well and is anxiously awaiting dc
Objective Data
-
Vital Signs:
Vital Signs
Temp Pulse Resp BP Pulse Ox
98.6 F 89 24 109/50 94
03/06/24 11:35 03/06/24 11:35 03/06/24 11:35 03/06/24 11:35 03/06/24 11:35
I&O
03/05/24 03/06/24 03/07/24
06:59 06:59 06:59
Intake Total 720 / 720 780 / 780
Output Total 125 / 125 175 / 175
Balance 595 / 595 605 / 605
Review of Systems
-
History Source: Patient and Physician (reviewed with cardio)
Constitutional: Denies Fever
EENT: Reports No Symptoms Reported
Respiratory: Reports No Symptoms
Cardiac: Denies Chest Pain
Abdomen/GI: Reports No Symptoms; Denies Abdominal Pain
Physical Exam
-
General: Well Developed, Well Nourished and No Apparent Distress
HEENT: Normocephalic and Atraumatic
Respiratory: Clear to Auscultation; Negative Wheezes, Rales or Rhonchi
Cardiac: Regular Rhythm and S1/S2
GI: Soft, Nontender and Nondistended
Musculoskeletal: No Clubbing, No Cyanosis and No Edema
Neuro: Awake, Alert and Oriented (mild cognitive impairment)
--- NOTE | 2024-03-06 15:45 | W.DS.TRANS ---
DC Summary - Contact And Service Clerks Supervisor
-
Discharge Instructions:
Discharge Diagnosis/Procedures Near syncope, prostate cancer, history of normal
pressure hydrocephalus, history of cerebellar
infarct
Diet As tolerated,Regular
Activity As tolerated
Driving Restrictions Not until seen by your Dr
Bathing Restrictions None
Other Services VN,PT,OT
Instructions:
Stand-Alone Forms:
Changes to Home Medications: Yes
Discharge Medications:
DC Medications w/original date entered in [employer]
ascorbic acid (vitamin C) 500 mg tablet (Vitamin C) 500 mg PO DAILY 03/03/24
cholecalciferol (vitamin D3) 25 mcg (1,000 unit) tablet (Vitamin D3) 25 mcg PO DAILY 03/03/24
omega [id number] oil 1,000 mg (120 mg-180 mg) capsule (Fish Oil) 1 cap PO DAILY 03/03/24
metoprolol succinate 25 mg tablet,extended release 24 hr 12.5 mg (1/2 x 25 mg) PO BID Arrhythmia #60 tabs 03/06/24
polyethylene glycol 3350 17 gram oral powder packet (HealthyLax) 17 g PO DAILYPRN PRN constipation #0 ea 03/06/24
sennosides 8.6 mg-docusate sodium 50 mg tablet (Stool Softener-Laxative) 1 tab PO BIDPRN PRN constipation #0 tabs 03/06/24
Home Medication Changes
Toprol XL added
prn laxatives added
Pending Results: No
== END 2024-03-06 13:49 | disposition home health service (06) | DRG 309 ==
LOC: 4 EAST ACU 19:00
PROVIDERS: Nurse Practitioner Family; ADMITTING PHYSICIAN Internal Medicine; ATTENDING PHYSICIAN Internal Medicine; CONSULT PHYSICIAN Internal Medicine Cardiovascular Disease; EMERGENCY PHYSICIAN Emergency Medicine; FAMILY PHYSICIAN Internal Medicine
DX: I47.19 Other supraventricular tachycardia (principal); I42.8 Other cardiomyopathies; R55 Syncope and collapse; I10 Essential (primary) hypertension; I08.3 Combined rheumatic disorders of mitral, aortic and tricuspid valves; I45.2 Bifascicular block; E86.0 Dehydration; I49.3 Ventricular premature depolarization; R53.81 Other malaise; R26.89 Other abnormalities of gait and mobility; Z91.81 History of falling; Z85.46 Personal history of malignant neoplasm of prostate; Z90.79 Acquired absence of other genital organ(s); Z87.891 Personal history of nicotine dependence; Z86.73 Personal history of transient ischemic attack (TIA), and cerebral infarction without residual deficits; Z86.16 Personal history of COVID-19; Z86.79 Personal history of other diseases of the circulatory system
CPT/HCPCS: 70450; 71046; 80048; 80053; 81003; 82962; 83735; 84443; 84484; 85025; 85027; 85610; 85730; 93005; 93306; 96360; 97162; 97166; 99284

== ENCOUNTER 2024-03-15 15:05 | Inpatient (IN) | payer MEDICARE, OTHER, SELFPAY ==
[2024-03-15] VITALS (40 sets, daily range): BP systolic 68–150; BP diastolic 51–93; PULSE 2–169; BMI 19.8
[2024-03-15] MEDS: CARDIZEM 10 MG IV (11:58)
[2024-03-15] MEDS: CARDIZEM 125 IV (12:02)
[2024-03-15 12:17] LABS: % Basophils 0.3 % (0-2); % Immature Granulocytes 0.8 % (0-0.5); % Lymphocytes 7.5 % (20.5-51.1); % Monocytes 5.2 % (1.7-9.3); % Neutrophils 86.2 % (42.2-75.2); Absolute Basophils 0.1 10^3/uL (0-0.2); Absolute Immature Granulocytes 0.3 10^3/uL (0-0.05); Absolute Lymphocytes 2.4 10^3/uL (1.2-3.4); Absolute Monocytes 1.6 10^3/uL (0.1-0.6); Absolute Neutrophils 27.1 10^3/uL (1.4-6.5); Hematocrit 39.7 % (39.0-52.0); Hemoglobin 13.9 g/dL (13.0-18.0); Mean Corpuscular Hgb 30.9 pg (27.0-31.0); Mean Corpuscular Volume 88.2 fL (80.0-94.0); Mean Platelet Volume 9.2 fL (7.4-10.4); Nucleated Red Blood Cells % 0 % (-); Platelet Count 483 10^3/uL (130-400); Red Cell Dist. Width 13.2 % (11.5-14.5); White Blood Cell Count 31.4 10^3/uL (4.8-10.8)
[2024-03-15] MEDS: MORPHINE SULFATE 2 MG IV (12:24)
[2024-03-15 12:30] LABS: AST (SGOT) 41 U/L (17-59); Albumin 3.7 g/dl (3.5-5.0); Alkaline Phosphatase 80 U/L (38-126); Blood Urea Nitrogen 32 mg/dl (9-20); Calcium 9.6 mg/dl (8.4-10.2); Carbon Dioxide 23 mmol/L (22-30); Chloride 103 mmol/L (98-107); Glucose 125 mg/dl (70-99); Potassium 4.7 mmol/L (3.5-5.1); Sodium 139 mmol/L (135-145); Total Bilirubin 0.8 mg/dl (0.2-1.3); Total Protein 6.5 g/dl (6.3-8.2); eGFR > 60.00
[2024-03-15 12:43] LABS: NT-proBNP 3300 pg/ml; Troponin I 0.045 ng/ml
[2024-03-15] MEDS: NSS 500 IV (12:53)
[2024-03-15 13:07] LABS: ALT (SGPT) 44 U/L (0-50)
[2024-03-15] MEDS: ZOSYN 100 IV (13:10)
[2024-03-15] MEDS: VANCOCIN 535 MG IV (13:24)
[2024-03-15] MEDS: NSS 1000 IV ×2 (13:37→19:42)
[2024-03-15 13:39] LABS: COVID-19 Antigen Negative (Negative)
--- NOTE | 2024-03-15 15:08 | ED.GENMED ---
History of Present Illness
General
Chief Complaint: Breathing Problem
Source: patient and ambulance crew
Exam Limitations: none
Time Seen by Provider: 03/15/24 11:52
Nursing documentation reviewed up to this point in time: agreed with
History of Present Illness
History of Present Illness:
The patient is a 88-year-old man with a past medical history of atrial fibrillation not on blood thinners brought in by ambulance for severe shortness of breath and elevated heart rate. Patient arrived on nasal oxygen and acute respiratory
distress. Patient denies chest pain. Patient tells me he does not want to be intubated. BiPAP ordered. Patient tells me he has a history of A-fib
Past History
Past History
ED Past Medical History: Arrthythmia, Cancer (Prostate) and NIDDM
ED Past Surgical History: Urological
Social History
Tobacco: Former smoker
Alcohol: None
Drug: None
Personal:
Living: with family
Employment: Retired
Family History
Family History: Other
Review of Systems
Review of Systems
Allergies reviewed?: Yes
Unable to obtain full review of systems at this time due to: due to acuity
Other source history: ambulance crew
Phy Exam
Physical Exam
Physical Exam:
Physical Exam
General: Patient appears anxious, very tachypneic but awake and able to answer simple questions
Neck: supple. no meningeal signs. normal psoterior pharynx
Heart: Tachycardic, irregular
Lungs: Severe tachypnea
Abdomen: normal bowel sounds. not tender. no CVAT
Neuro: alert and oriented. no focal neurological deficits
Skin: no rash
Psychiatric: well kept. interactive and cooperative
Extremities: no edema. no calf tenderness. negative homans. good distal pulses
Scores
Heart Failure Risk
Heart Failure Risk Score: Not Applicable
Course
Orders/Labs/Results
Orders:
Orders
03/15/24
Electrocardiogram (*1) Stat
Reason for Study: Atrial Fibrillation
03/15/24 11:56
Diltiazem 125 mg/125 ml Nss [Cardizem] 125 mg in 125 ml .ROUTE .STK-MED
Diltiazem HCl [Cardizem] 25 mg .ROUTE .STK-MED ONE
03/15/24 11:57
Diltiazem HCl [Cardizem] 10 mg IV NOW STA
03/15/24 11:58
CR Chest Portable - 1 View Urgent
Comment:
Reason For Exam: SOB
Reason Study Needs to be Portable: Patient Unstable
03/15/24 12:00
Diltiazem 125 mg/125 ml Nss [Cardizem] 125 mg in 125 ml IV PER PROTOCOL
Initial dose in mg/hr, then titrate:: 5
Titrate to keep:: Heart rate 80-100 bpm
Titrate by mg/hr:: 5 mg/hr
Frequency of titrations (minutes):: 15
Maximum dose in mg/hr:: 15
03/15/24 12:07
Complete Blood Count/With Diff Urgent
Comprehensive Metabolic Panel Urgent
NT-proBNP Urgent
Troponin I Urgent
03/15/24 12:14
Morphine Sulfate 2 mg IV NOW STA
03/15/24 12:22
Furosemide [Lasix] 100 mg .ROUTE .STK-MED ONE
03/15/24 12:45
Piperacillin/Tazo 4.5 Gram [Zosyn] 4.5 gram in 100 ml IV NOW
03/15/24 12:48
0.9% Sodium Chloride 500 ml [Nss] 500 ml IV BOLUS
03/15/24 12:57
Vancomycin [Vancocin] 1,750 mg 0.9% Sodium Chloride 500 ml [Nss] 500 ml IV NOW
03/15/24 13:04
COVID-19 Antigen Urgent
Source: Nasal Swab
Blood Culture Urgent
JUAN Source: Blood/Venous
Specimen Description:
03/15/24 13:37
0.9% Sodium Chloride 1000 ml [Nss] 1,000 ml IV BOLUS
03/15/24 14:30
Troponin I Q6H
03/15/24 14:31
Admit/Transfer Patient As Directed
Co-Sign Provider:
Level of Care: Inpatient admission
Assign to:: ICU
Physician / Group: Hospitalist
Transfer to: ICU
Diagnosis: Acute hypoxic respiratory insufficiency
Patient Condition: Critical
Reason for Hospitalization: Acute hypoxic respiratory insufficiency
Expected length of stay greater than two midnights?: Yes
ELOS- Estimated Length of Stay in days: 6
I certify the patient meets the requirements for IP care: Yes
03/15/24 14:33
Code Status As Directed
Resuscitation Status: Limited DNR
Limited DNR: -No intubation
03/15/24 14:53
PULMONARY CONSULT Routine
Consulting Provider: Gopal England
Was physician already notified: Yes
03/15/24 20:30
Troponin I Q6H
03/16/24 02:30
Troponin I Q6H
03/16/24 08:30
Troponin I Q6H
Abnormal Lab Results
03/15/24
12:07
WBC 31.4 H 10^3/uL
(4.8-10.8)
RBC 4.50 L 10^6/uL
(4.70-6.10)
Plt Count 483 H 10^3/uL
(130-400)
Abs Immat Gran (auto) 0.3 H 10^3/uL
(0-0.05)
Absolute Neuts (auto) 27.1 H 10^3/uL
(1.4-6.5)
Absolute Monos (auto) 1.6 H 10^3/uL
(0.1-0.6)
Immature Gran % 0.8 H %
(0-0.5)
Neutrophils % 86.2 H %
(42.2-75.2)
Lymphocytes % 7.5 L %
(20.5-51.1)
BUN 32 H mg/dl
(9-20)
Glucose 125 H mg/dl
(70-99)
Troponin I 0.045 H* ng/ml
03/15/24 12:07
03/15/24 12:07
Vital Signs
Initial and Last Documented VS:
Initial Vital Signs
Pulse Resp BP Pulse Ox
170 38 110/83 78
03/15/24 11:50 03/15/24 11:50 03/15/24 11:50 03/15/24 11:50
Last Documented Vital Signs
Temp Pulse Resp BP Pulse Ox
98.1 F 142 27 92/53 96
03/15/24 12:10 03/15/24 14:45 03/15/24 14:45 03/15/24 14:45 03/15/24 14:45
MDM/Problems Addressed
Differential Diagnosis Includes:
CHF, pneumonia, PE
MDM/Problems Addressed:
Patient presents with acute respiratory distress
Chronic conditions affecting care: Arrhythmia
Acute Exacerbation and/or Progression of Chronic Illness:
Patient presents with rapid A-fib
Acute Exacerbation and/or Progression of Chronic Illness: Arrhythmia
*Radiology
Radiology exam reviewed: preliminary read by ED provider (Large right-sided infiltrate) and radiology read reviewed
*Pulse Oximetry
Patient hypoxic: yes
*EKG
Interpreted by ED Provider?: Yes
Interpretation: abnormal
Comparison EKG: changes noted
Rate: tachycardiac
Rhythm: a-fib
Merom: left axis deviation
Interval: normal interval
QRS Pattern: normal QRS
Ischemia: non-specific ST changes
*Dragline Operator Helper Interpretation
Rate: tachycardiac
Interpretation: abnormal
Rhythm: a-fib
*Critical Care Note
Total Time (30-74mins, 75-104mins- exclusive of procedures): 76 minutes
comment:
76 minutes critical care given to patient occluding frequent reassessments of his respiratory effort, heart rate, reviewing his blood work, recent discharge, speaking to his , reviewing his chest x-ray and EKG
Data Reviewed
Review of Other/Old Records Reveals: Discharge Summary (Discharge summary reviewed from February 2024 when patient was admitted for syncope likely due to cardiac arrhythmia)
Source: patient and ambulance crew
ED Attending Note
-
Portions of this chart may have been created with voice recognition software.� Occasional wrong word or��sound alike� substitutions may have occurred due to the inherent limitations of voice recognition software.
Discharge Plan
Departure
Patient Disposition: Admit
Date of Disposition: 03/15/24
Time of Disposition: 12:49
Admit to: ICU
Presentation/result/management discussed w/ accepting MD/DO: Hospitalist
Patient with high blood pressure during this ER visit?: No
Condition: Critical
Covid-19: Negative COVID-19
Prescriptions:
No Action
ascorbic acid (vitamin C) [Vitamin C] 500 mg Tablet
500 mg PO DAILY
cholecalciferol (vitamin D3) [Vitamin D3] 25 mcg (1,000 unit) Tablet
25 mcg PO DAILY
omega 8-ewy-jby-fish oil [Fish Oil] 1,000 mg (120 mg-180 mg) Capsule
1 cap PO DAILY
metoprolol succinate 25 mg Tablet Extended Release 24 Hr
12.5 mg PO BID Qty: 60 11RF
polyethylene glycol 3350 [HealthyLax] 17 gram Powder In Packet
17 g PO DAILYPRN PRN (Reason: constipation) Qty: 0 0RF
alendronate 70 mg Tablet
70 mg PO QWEEK
multivitamin Tablet
1 tab PO DAILY
triamcinolone acetonide 0.025 % Cream
1 applic TOPICAL DAILY
docusate sodium 100 mg Tablet
100 mg PO TID
resveratrol 100 mg Capsule
100 mg PO DAILY
Interventions
Interventions:
*Risk Screen - Suicide Last Done: 03/15/24 12:00
*General Assessment Last Done: 03/15/24 12:00
*Neglect/Abuse Screening Last Done: 03/15/24 12:00
ED- Fall Risk Assessment Last Done: 03/15/24 12:00
ED- Cardiac Assessment Last Done: 03/15/24 14:37
ED- Pulmonary Assessment Last Done: 03/15/24 12:00
Discharge Date and Time
Print Language: HUNGARIAN
--- NOTE | 2024-03-15 15:47 | CON.INTV ---
Consultation
Consultation Request
Date/Time Consultation Requested: 03/15
Date/Time Consultation Performed: 03/15
Reason for Consultation: Critical care
Medical History
-
History of Present Illness:
History primarily obtained from the at the bedside, some history from the patient but most history from the chart. 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
03/06/2024. At that time he was recommended to have oxygen therapy at home but he refused. He also refused snf facility. He went home with a home health aide. According to his , also things are going wrong including weakness,
shortness of breath with simple activity, difficulty swallowing, choking. There is no clear history of falls. Patient is not on blood thinners. He was brought by ambulance because of shortness of breath, and upon arrival he was very clear about
not wanting to be intubated. ED records suggest tachypnea, rapid shallow breathing. Initial vitals pulse 170, breathing at 38, blood pressure 110/83, 78% on nasal cannula. Patient was placed on BiPAP, given morphine, Lasix, nebulized therapy, IV
fluids, vancomycin/Zosyn. Chest x-ray suggested right-sided pneumonia. Patient was also given diltiazem but reports suggest hypotension. Patient admitted to ICU for further management
During my assessment, patient is on BiPAP with no use of accessory muscles, able to answer short answer questions. He is moving all extremities. He denies chest pain, nausea, abdominal pain, palpitations, lightheadedness. was at bedside to
corroborate
.
PMH: Tachyarrhythmia, history of prostate cancer, diabetes, history of atrial fibrillation not on anticoagulation, cardiomyopathy, records that suggest exertional rhabdomyolysis, history of total hip replacement complicated by postoperative DVT.
History of COVID infection hospitalized in 2022. Multiple falls in the past
Past Medical History
Past Medical History: None (See above)
Past Surgical History: None (See above)
Social History
Tobacco: Non-smoker
Alcohol: None
Drug: None
Personal:
Living: With Family
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
Family History
Family History: Reviewed & Not Pertinent
Allergies / Home Medications
Allergies
Allergy/AdvReac Type Severity Reaction Status Date / Time
No Known Allergies Allergy Verified 11/26/23 16:49
Home Medications
�Medication �Instructions �Recorded �Confirmed �Last Taken �Type
ascorbic acid (vitamin C) 500 mg 500 mg PO DAILY 03/03/24 03/15/24 03/03/24 History
tablet (Vitamin C)
cholecalciferol (vitamin D3) 25 25 mcg PO DAILY 03/03/24 03/15/24 03/03/24 History
mcg (1,000 unit) tablet (Vitamin
D3)
omega 3-tsz-ugk-fish oil 1,000 mg 1 cap PO DAILY Supplement 03/03/24 03/15/24 03/03/24 History
(120 mg-180 mg) capsule (Fish Oil)
metoprolol succinate 25 mg 12.5 mg (1/2 x 25 mg) PO BID 03/06/24 03/15/24 Unknown Rx
tablet,extended release 24 hr Arrhythmia #60 tabs
polyethylene glycol 3350 17 gram 17 g PO DAILYPRN PRN constipation 03/06/24 03/15/24 Unknown Rx
oral powder packet (HealthyLax) #0 ea
alendronate 70 mg tablet 70 mg PO QWEEK osteoporosis 03/15/24 03/15/24 Unknown History
docusate sodium 100 mg tablet 100 mg PO TID Constipation 03/15/24 03/15/24 Unknown History
multivitamin 1 tab PO DAILY Supplement 03/15/24 03/15/24 Unknown History
resveratrol 100 mg capsule 100 mg PO DAILY Supplement 03/15/24 03/15/24 Unknown History
triamcinolone acetonide 0.025 % 1 applic topical DAILY 03/15/24 03/15/24 Unknown History
topical cream
Review of Systems
-
Unable to Obtain full review of systems at this time due to: Acuity
History Source: Family
Vitals / Labs / Diagnostic Testing
Vital Signs
Temp Pulse Resp BP Pulse Ox
98.1 F 142 27 92/53 96
03/15/24 12:10 03/15/24 14:45 03/15/24 14:45 03/15/24 14:45 03/15/24 14:45
Lab Data
03/15/24 12:07
03/15/24 12:07
Diagnostic Testing:
Physical Exam
-
HEENT: Normocephalic and Anicteric
Cardiovascular: S1/S2, Regular Rhythm (Tachycardic), Murmur (n), Rub (n), Peripheral Edema (n) and Calf Tenderness (n)
Respiratory: Wheeze (n), Rales (n), Rhonchi (n), Non-Labored Respirations and Other (Slight decreased right base)
GI: Soft, Non Distended and Tender
Neurology: Awake, Alert and No Motor Deficits (Moving all extremities, follows commands)
Skin: Other (No clubbing, no cyanosis)
General: Comfortable (Lying flat)
Assessment
-
88-year-old male with history of atrial fibrillation not on anticoagulation, aortic insufficiency, history of postoperative DVT with recent hospital stay for syncope in the setting of rapid atrial tachycardia/dehydration. Patient was initially
treated with beta-nancy therapy and was discharged home. Now presents with hypoxia, right-sided pneumonia, tachycardia. Respiratory status improved on BiPAP, present with 78% saturation on nasal cannula. Patient admitted to ICU for further
management
Acute hypoxic respiratory insufficiency
78% on nasal cannula
Requiring noninvasive ventilation
Right-sided pleural parenchymal infiltrate
Suspect combination of fluid and pneumonitis
Tachycardia, SVT
Heart rate 170s
Recent hospital stay for atrial tachycardia in the s. with LOC
Leukocytosis with left shift
Possible aspiration syndrome
Mild elevated troponin
Moderate MR/severe AR
Per echo 03/05/2024
Conditions present prior to admission
History of atrial fibrillation
Not on anticoagulation due to fall risk
Bifascicular block
History of nonischemic cardiomyopathy
Recent EF normal
History of cerebellar stroke
History of normal pressure hydrocephalus
History of postoperative DVT, left hip replacement
History of exertional rhabdomyolysis
History of COVID June 2023,
Plan/recommendations
At this time, patient remains critically ill. Presented in respiratory distress, tachypnea, rapid shallow breathing
Patient is clear about no intubation
Was given morphine, antibiotics, Lasix and IV fluids
Placed on BiPAP, now much more comfortable
Patient is presently lying flat without difficulty
Blood work and chest x-ray suggestive of possible right pneumonia
describes possible aspiration syndrome
Moving forward
Continue with noninvasive ventilation, BiPAP
Empiric antibiotics for suspected aspiration pneumonia. Zosyn/vancomycin is appropriate
Patient was given diltiazem for rate control
Patient was discharged on beta-nancy therapy during last hospital stay
Consider IV Lopressor as needed as blood pressure tolerates
Patient is well-known to cardiology (patient's son is EP physician)
Would not hesitate to have cardiology involved for rate control. During prior hospital stay, heart rate was as high as 190 with syncopal event
Especially given valvular disease
Aspiration precautions, head of bed elevated as able
Follow fluid status carefully given valvular disease. Recent echocardiogram with normal EF
Patient at risk for flash pulmonary edema
Patient and have made it clear that they do not want intubation
Once improved from current setting, may benefit from speech and swallow evaluation
Reviewed at length with critical care nursing, , patient and primary service
TCCT 35 min
--- NOTE | 2024-03-15 16:00 | PTCARENOTE ---
Received patient to room 3366 on Bipap. Patient is AAOx3. 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 Patient is on Bipap 15/5 with oxygen saturation in mid 90s. He has coarse decreased breath sounds
throughout. He is in a rapid afib rhythm in 160s-170s. No edema noted. Call placed to Cardiology for rate control. Patient is NPO, was grossly incontinent of urine. Condom cath placed. Skin is intact, although there is a large area of bruising
over sternum. Was not told of any CPR or falls during handoff. Full CHG bath completed. Will review orders and obtain labs.
[2024-03-15] MEDS: DECADRON 4 MG IV ×2 (16:43→21:27)
[2024-03-15] MEDS: CORDARONE 103 MG IV (16:52)
[2024-03-15] MEDS: CORDARONE 518 MG IV (16:53)
[2024-03-15 16:56] LABS: Lactic Acid 2.4 mmol/L (0.7-2.0)
[2024-03-15 16:59] LABS: APTT 28.2 Sec (23.4-35.0); INR 1.31; PT 16.3 Sec (11.4-14.6)
[2024-03-15 17:09] LABS: Magnesium 2.2 mg/dl (1.6-2.3)
[2024-03-15] MEDS: STERILE WATER FOR INJECTION 10 ML IV (17:11)
[2024-03-15] MEDS: LOVENOX 40 MG SC (17:11)
[2024-03-15] MEDS: MAXIPIME 2000 MG IV (17:11)
[2024-03-15 17:12] LABS: Troponin I 0.093 ng/ml
--- NOTE | 2024-03-15 18:11 | PTCARENOTE ---
Patient now in sinus rhythm, strip on chart
--- NOTE | 2024-03-15 18:15 | HPS.HSE ---
Addendum entered and electronically signed by Farhat Peña MD 03/16/24 03:07:
Attending Addendum-
I performed a history and physical exam of the patient and discussed his management with the resident. I reviewed the resident's note and agree with the documented findings and plan of care CC/HPI-came to ed with due to extreme SOB and CP. Seen
in ed and started on bipap currently patient feels improved on it. Feels weak Full 12 point ROS reviewed and negative except as documented Exam- vitals reviewed in EMR Gen mod distress heart irreg irreg lungs- rhonchi RLL abd soft LE +1 pitting
edema
# Sepsis secondary to PNA
- likely aspiration
- start decadron
- cont vanco/zosyn day 1
- repeat labs on am
# Acute Hypoxemic Respiratory failure
- admit to ICU 03/15
- cont bipap for now
- wean as tolerated
- pulm consult
# NIMI
- trend trop- peaked at .093
# Atrial Fibrillation with RVR and hypotension
- dc Cardizem gtt
- start amiodarone
- appreciate cards input - t/c NOAC when more stable
# Leukocytosis
- repeat CBC
- from sepsis
# prostate ca-
- care per onc
CODE- DNI
Dispo eventual dc home with if possible
Time spent coordinating care, review of plan of care with resident, personally reviewed previous records in EMR, med rec, labs, radiology, d/w nursing, family, and cards �- 80 mins
Original Note:
Family Physician
-
Family Physician: NOT KNOW UNKNOWN - PT DOES
Chief Complaint
-
Shortness of breath and weakness
History of Present Illness
Record obtained from patient's previous chart, patient's and home health provider. Patient is a 88-year-old male with known past medical history of sinus tachycardia presented to the emergency department with severe shortness of breath and
increased heart rate. Patient had difficulty providing history because of shortness of breath, however his home health informed that the patient was feeling shortness of breath and weakness for more than 1 week but it dramatically worsened over the
last few hours . During evaluation, his oxygen saturation was found to be 78% and pulse of 170 he was put on a BiPAP. EKG showed poor tracing and probable atrial fibrillation with PVC and Cardizem drip was started which improved the heart rate
however his blood pressure dropped to 68/54 which prompted to stop the Cardizem drip and bolus of normal saline was administered. Chest x-ray showed right middle and lower lobe opacity suspicious of pneumonia. He was started on vancomycin and Zosyn
Medical History
Past Medical History
Past Medical History: Reports Arrhythmia
Additional Past Medical History:
Prostate cancer, NIDDM, Covid-19
Past Surgical History: Reports Urological
Additional Past Surgical History:
Urological
Social History
Tobacco: Non-smoker
Living: With Family
Family History
Family History: Not pertinent
Allergies / Home Medications
Allergies reflects when Allergies were last updated in [facility].
Home Medications with original date entered in [facility]
Allergy/Medication List:
NKDA
Review of Systems
-
History Source: Family and Other (Home health provider)
Respiratory: Reports Trouble Breathing
Cardiac: Reports Palpitations
Neurological: Reports Weakness
Physical Exam
Vital Signs
Vital Signs
Temp Pulse Resp BP Pulse Ox
98.1 F 97 23 92/59 94
03/15/24 12:10 03/15/24 18:02 03/15/24 18:02 03/15/24 18:02 03/15/24 18:10
Physical Exam
General: Respiratory Distress and Appears in Distress
Respiratory: Wheezes
Cardiac: Irregular Rhythm
GI: Soft
Neuro: Awake
Psych: Intact Judgment/Insight
Laboratory Results
-
03/15/24 12:07
03/15/24 12:07
Laboratory Results
PT 16.3 Sec (11.4-14.6) H 03/15/24 16:34
INR 1.31 03/15/24 16:34
APTT 28.2 Sec (23.4-35.0) 03/15/24 16:34
pH Cancelled 03/15/24 16:07
pCO2 Cancelled 03/15/24 16:07
pO2 Cancelled 03/15/24 16:07
HCO3 Cancelled 03/15/24 16:07
Lactic Acid 2.4 mmol/L (0.7-2.0) H 03/15/24 16:34
Total Bilirubin 0.8 mg/dl (0.2-1.3) 03/15/24 12:07
AST 41 U/L (17-59) 03/15/24 12:07
ALT 44 U/L (0-50) 03/15/24 12:07
Alkaline Phosphatase 80 U/L (38-126) 03/15/24 12:07
Troponin I 0.093 ng/ml H* D 03/15/24 16:34
Data Reviewed
-
Diagnostic Radiology: Report Reviewed by me and Discussed with Physician
Lab Data: Labs Reviewed by me, Discussed with Physician and Discussed with Patient
Impression/Plan
-
88-year-old male with known past medical history of sinus tachycardia presented to the emergency department with severe shortness of breath and increased heart rate.
# SEPSIS
- WBC 31.4
- Suspicion of aspiration pneumonia
- Aspiration precautions, head of bed elevated as tolerated
- start Maxipime
- Continue Dexamethasone Q6
# Acute hypoxic respiratory insufficiency
- Improving O2 sat
- Continue BIPAP
- Speech eval pending
# Tachycardia/ A-Fib with PVC
- Repeat EKG
- Continue Telemetry
- Appreciate cardio input
- Moderate MR/severe AR(Per echo 03/05/2024)
- Continue Amiodarone
- Trop I High- series pending
Limited code( No intubation)
DVT Prophylaxis: Lovenox
--- NOTE | 2024-03-15 19:00 | PTCARENOTE ---
Received patient at 1900. Pt. currently in bed. Somnolent but arousable, oriented. Afebrile. Heart rhythm currently sinus. Amiodarone gtt infusing. Blood pressure normotensive. Currently on Bipap. Lungs sound coarse. Pt. is NPO. Condom catheter in
place, draining without issue. Skin as documented. Discussed plan of care with patient. Vital signs stable at this time.
[2024-03-15 20:43] LABS: Urine Albumin Trace (Neg - Trace); Urine Bilirubin Negative (Negative); Urine Character Very Cloudy (Clear); Urine Color Yellow; Urine Glucose Negative (Negative); Urine Ketone Trace (Negative); Urine Leukocyte Negative (Negative); Urine Nitrite Negative (Negative); Urine Occult Blood Trace (Negative); Urine Urobilinogen Negative (Neg - 1+)
[2024-03-15 20:46] LABS: Lactic Acid 1.3 mmol/L (0.7-2.0)
[2024-03-15 20:55] LABS: Urine Amorphous Seen
[2024-03-15 20:59] LABS: Troponin I 0.089 ng/ml
--- NOTE | 2024-03-15 23:45 | PTCARENOTE ---
Pt. assessment unchanged. Remains on amiodarone gtt. Heart rhythm normal sinus. Patient with no complaints of pain or discomfort. Vital signs stable at this time.
[2024-03-16] VITALS (22 sets, daily range): BP systolic 91–114; BP diastolic 43–88; PULSE 2–102; O2SAT 98–99; BMI 20.2
[2024-03-16] MEDS: STERILE WATER FOR INJECTION 10 ML IV (01:01)
[2024-03-16] MEDS: MAXIPIME 2000 MG IV (01:01)
[2024-03-16] MEDS: VANCOCIN 200 IV (03:58)
--- NOTE | 2024-03-16 04:30 | PTCARENOTE ---
Pt. assessment remains unchanged. AM labs drawn. Vital signs stable at this time.
[2024-03-16 04:40] LABS: % Basophils 0.1 % (0-2); % Immature Granulocytes 0.8 % (0-0.5); % Lymphocytes 3.5 % (20.5-51.1); % Monocytes 4.2 % (1.7-9.3); % Neutrophils 91.4 % (42.2-75.2); Absolute Immature Granulocytes 0.2 10^3/uL (0-0.05); Absolute Lymphocytes 0.8 10^3/uL (1.2-3.4); Absolute Neutrophils 21.8 10^3/uL (1.4-6.5); Hematocrit 34.4 % (39.0-52.0); Hemoglobin 11.5 g/dL (13.0-18.0); Mean Corp Hgb Conc. 33.4 g/dL (33.0-37.0); Mean Corpuscular Hgb 30.4 pg (27.0-31.0); Mean Platelet Volume 9.4 fL (7.4-10.4); Nucleated Red Blood Cells % 0 % (-); Platelet Count 337 10^3/uL (130-400); Red Blood Cell Count 3.78 10^6/uL (4.70-6.10); Red Cell Dist. Width 13.2 % (11.5-14.5); White Blood Cell Count 23.9 10^3/uL (4.8-10.8)
[2024-03-16] MEDS: ZOSYN 100 IV ×4 (04:47→21:53)
[2024-03-16] MEDS: DECADRON 4 MG IV (04:48)
[2024-03-16 05:16] LABS: Blood Urea Nitrogen 30 mg/dl (9-20); Calcium 8.6 mg/dl (8.4-10.2); Carbon Dioxide 19 mmol/L (22-30); Chloride 111 mmol/L (98-107); Estimated Creatinine Clearance 58 ml/min; Glucose 130 mg/dl (70-99); Potassium 4.6 mmol/L (3.5-5.1); Sodium 139 mmol/L (135-145); eGFR > 60.00
[2024-03-16] MEDS: NSS 1000 IV (06:28)
--- NOTE | 2024-03-16 07:17 | W.PN.INTV ---
Today's Communication / Plan
Recommendations
Transition to high flow
Right chest ultrasound
Aspiration precautions
Amiodarone therapy per cardiology
Discontinue Decadron
Okay for transfer out of ICU. Pulmonary will continue to follow
Assessment
-
88-year-old male with history of atrial fibrillation not on anticoagulation, aortic insufficiency, history of postoperative DVT with recent hospital stay for syncope in the setting of rapid atrial tachycardia/dehydration. Patient was initially
treated with beta-nancy therapy and was discharged home. Now presents with hypoxia, right-sided pneumonia, tachycardia. Respiratory status improved on BiPAP, present with 78% saturation on nasal cannula. Patient admitted to ICU for further
management
Acute hypoxic respiratory insufficiency
78% on nasal cannula
Requiring noninvasive ventilation
Right-sided pleural parenchymal infiltrate
Suspected pleural fluid with mild tracheal shift
Tachycardia, SVT
Heart rate 170s
Recent hospital stay for atrial tachycardia in the 190s. with LOC
Leukocytosis with left shift
Possible aspiration syndrome
Mild elevated troponin
Moderate MR/severe AR
Per echo 03/05/2024
Conditions present prior to admission
History of atrial fibrillation
Not on anticoagulation due to fall risk
Bifascicular block
History of nonischemic cardiomyopathy
Recent EF normal
History of cerebellar stroke
History of normal pressure hydrocephalus
History of postoperative DVT, left hip replacement
History of exertional rhabdomyolysis
History of COVID June 2023,
Plan/recommendations
At this time, patient is improved from respiratory standpoint, remains on BiPAP
Patient is clear about no intubation
Chest x-ray this morning with suspected right pleural effusion with mild tracheal shift
Converted to sinus rhythm, on amiodarone
Patient is presently lying flat without difficulty
Blood work and chest x-ray suggestive of possible right pneumonia
describes possible aspiration syndrome
Moving forward
Continue with current supportive care
Will transition from BiPAP to high flow
Check right chest ultrasound. Suspect he will require thoracentesis for therapeutic reasons. Patient is refusing thoracentesis at this time. Lets see what the ultrasound shows
Empiric antibiotics for suspected aspiration pneumonia. Zosyn/vancomycin is appropriate. Will discontinue vancomycin as indicated
Patient was given diltiazem for rate control, developed hypotension
Now on amiodarone, in sinus rhythm
Patient was discharged on beta-nancy therapy during last hospital stay
Cardiology following
Patient is well-known to cardiology (patient's son is EP physician)
Aspiration precautions, head of bed elevated as able
Follow fluid status carefully given valvular disease. Recent echocardiogram with normal EF
Patient at risk for flash pulmonary edema
DVT prophylaxis: On enoxaparin. History of atrial fibrillation noted, no anticoagulation due to fall risk
Patient and have made it clear that they do not want intubation
Patient confirmed this this morning
Reviewed at length with critical care nursing, primary service, cardiology
Okay for transfer out of ICU. Pulmonary will continue to follow briefly
Subjective Dataa
Subjective Data
Date of Service:
Date of Service: March 16, 2024
Subjective:
Patient converted to sinus rhythm, started on amiodarone drip last p.m. Remains on BiPAP this morning. Patient without complaints.
Objective Data
Data Reviewed
Vital Signs / I&O / Oxygen:
Vital Signs
Temp Pulse Resp BP Pulse Ox
97.5 F 85 27 105/50 94
03/16/24 07:09 03/16/24 07:00 03/16/24 07:00 03/16/24 07:00 03/16/24 07:00
Intake and Output
03/15/24 03/16/24 03/17/24
06:59 06:59 06:59
Intake Total 2300.1 / 2300.1
Output Total 500 / 500
Balance 1800.1 / 1800.1
SaO2 94
Physical Exam
General: Comfortable
HEENT: Normocephalic, Anicteric and Other (BiPAP in place)
Cardiovascular: S1-S2, Regular Rhythm, Murmur (n) and Rub (n)
Respiratory: Wheeze (n), Crackles (n), Rhonchi (n), Non-Labored Respirations and Other (Decreased right side)
GI: Soft, Non Distended and Non Tender
Neurology: Awake, Alert, Oriented and No Motor Deficits (Moves all extremities)
Skin: Cyanosis (n) and Rash (Petechial rash chest wall, chronic per family)
Labs/Micro/Reports
Lab Data
03/16/24 04:26
03/16/24 04:26
Laboratory Results
03/15/24 03/15/24
16:07 16:34
PT 16.3 H
INR 1.31
APTT 28.2
pH Cancelled
pCO2 Cancelled
pO2 Cancelled
HCO3 Cancelled
O2 Delivery Level Cancelled
--- NOTE | 2024-03-16 07:41 | CON.CAR ---
Addendum entered and electronically signed by Augustin Pat MD 03/16/24 13:15:
Per request of son, who is an it support technician, start heparin, consider DOAC if no invasive procedures
Addendum entered and electronically signed by Augustin Pat MD 03/16/24 12:59:
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
Now readmitted with dyspnea and acute hypoxemic respiratory failure necessitating BiPAP. Patient had refused intubation, now with right-sided pneumonia and with rapid atrial fibrillation, initially on diltiazem and now on amiodarone with conversion
to sinus rhythm, now, does not thoracentesis
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
hydrocephalus, postoperative DVT
SH: Retired [employer], , non-smoker, does not drink alcohol
PSH: Prostatectomy, ORIF left hip
FH: Noncontributory
ROS negative except as above
95/51, pulse 79, 28, afebrile, sats 96%'s, weight is 63.8 kg, ill-appearing but not uncomfortable, tachypneic, relatively frail, head neck exam unremarkable, diminished breath sounds on right greater than left, regular rate and rhythm with loud
aortic regurgitation murmur, JVD somewhat elevated abdomen benign, not much edema
Chest x-ray diffuse opacification right lung, no mediastinal shift
Ultrasound right chest with effusion
EKG atrial fibrillation, left axis deviation, PVCs versus aberrant ventricular conduction, right bundle branch block
White count 23.9, hemoglobin 11.5, BUN and creatinine 30 and 0.8, potassium 4.6, troponin 0.07, proBNP 3300
Echo 02/2024: EF 50-55%, mild LVH, mild to moderate MR, moderate to severe AI, mild TR
Assessment:
Acute hypoxic respiratory failure, requiring BIPAP on arrival
Paroxysmal atrial fibrillation
Possible R PNA, concern for aspiration
Suspected acute on chronic HFpEF
Moderate to severe aortic regurgitation
Mild to moderate mitral regurgitation
Atrial tachycardia
Paroxysmal atrial fibrillation, with RVR on arrival
Not anticoagulated due to fall risk
Elevated troponin, suspected nonischemic myocardial injury in setting of above
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
Bifascicular block
Nonischemic cardiomyopathy with improved ejection fraction
History of prostate cancer s/p prostatectomy
History of falls/gait dysfunction
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
History of L hip fracture s/p repair with post op DVT
DNI code status
ECHO 03/05/24: EF 50 to 55%, mild concentric LVH, mild to moderate MR, moderate to severe AR, mild TR, PAP 32 mmHg
Plan:
He presents with paroxysmal atrial fibrillation with acute respiratory failure, possible pneumonia and a large effusion. Small effusion was likely present in late February, so unclear whether current effusion is parapneumonic from pneumonia or whether
it represents HFpEF. Patient probably would be best served with thoracentesis though unclear he will consent. He asked if he could be dealt with with diuretics and I suggested this may be unlikely. Will discuss with son.
He is not a candidate for anticoagulation related to fall risk.
He has converted to sinus rhythm on amiodarone. Would favor oral amiodarone. Will call his son who is an it support technician.
He likely has an element of acute on chronic HFpEF related to aortic regurgitation. proBNP is 3300.
We will continue to follow.
Original Note:
Consultation
Consultation Request
Date/Time Consultation Performed: 03/16/24
Requesting Provider: Dr. Peña
Performing Provider: Adele Matamoros PA-C for Dr. COURTNEY Pat
Reason for Consultation: afib with RVR, SOB
Medical History
-
Chief Complaint: SOB
History of Present Illness:
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
post prostatectomy with admission to [facility] 02/2024 for syncope in setting of rapid atrial tachycardia. Toprol 12.5 mg twice daily was added, and patient was recommended SNF, however went home based on his preferences. He had been
recommended home oxygen therapy last admission as well, however refused. Since his discharge, he has had weakness, shortness of breath, and reported difficulty swallowing/choking. Patient denies this when asked this morning. On arrival to ER
last night, patient was tachypneic and hypoxic with O2 sat of 78% on nasal cannula. He was then placed on BiPAP therapy. He refuses intubation. His chest x-ray read as right-sided pneumonia. He was given morphine, Lasix, nebulizer, antibiotics,
IVF. He was initially placed on IV Cardizem gtt for atrial fibrillation with rapid ventricular response, however was hypotensive with this. Was transitioned to IV Amio gtt. he is in sinus rhythm this morning. Cardiology consulted for evaluation
PMH:
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
Paroxysmal atrial fibrillation
Not anticoagulated due to fall risk
Occasional PACs/frequent PAT on recent cafeteria monitor in January 2024 with rare PVCs and NSVT
Bifascicular block
Mod to severe aortic insufficiency by echo 02/2024
History of nonischemic cardiomyopathy, recovered
History of prostate cancer status post prostatectomy
History of falls/gait dysfunction
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
History of L hip fracture s/p repair with post op DVT
Past Medical History
Past Medical History: Other (See HPI)
Past Surgical History: Other (See HPI)
Social History
Tobacco: Non-Smoker
Alcohol: None
Drug: None
Living: Alone
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
Family History
Family History: Reviewed & Not Pertinent
Allergies / Home Medications
Allergy/AdvReac Type Severity Reaction Status Date / Time
No Known Allergies Allergy Verified 11/26/23 16:49
�Medication �Instructions �Recorded �Confirmed �Type
ascorbic acid (vitamin C) 500 mg 500 mg PO DAILY 03/03/24 03/15/24 History
tablet (Vitamin C)
cholecalciferol (vitamin D3) 25 25 mcg PO DAILY 03/03/24 03/15/24 History
mcg (1,000 unit) tablet (Vitamin
D3)
omega 9-bmb-zcf-fish oil 1,000 mg 1 cap PO DAILY Supplement 03/03/24 03/15/24 History
(120 mg-180 mg) capsule (Fish Oil)
metoprolol succinate 25 mg 12.5 mg (1/2 x 25 mg) PO BID 03/06/24 03/15/24 Rx
tablet,extended release 24 hr Arrhythmia #60 tabs
polyethylene glycol 3350 17 gram 17 g PO DAILYPRN PRN constipation 03/06/24 03/15/24 Rx
oral powder packet (HealthyLax) #0 ea
alendronate 70 mg tablet 70 mg PO QWEEK osteoporosis 03/15/24 03/15/24 History
docusate sodium 100 mg tablet 100 mg PO TID Constipation 03/15/24 03/15/24 History
multivitamin 1 tab PO DAILY Supplement 03/15/24 03/15/24 History
resveratrol 100 mg capsule 100 mg PO DAILY Supplement 03/15/24 03/15/24 History
triamcinolone acetonide 0.025 % 1 applic topical DAILY 03/15/24 03/15/24 History
topical cream
Review of Systems
-
History Source: Patient
All other systems: Negative unless noted
Physical Exam
Vital Signs
Temp Pulse Resp BP Pulse Ox
97.5 F 85 27 105/50 94
03/16/24 07:09 03/16/24 07:00 03/16/24 07:00 03/16/24 07:00 03/16/24 07:00
Lab Results
03/16/24 04:26
03/16/24 04:26
Troponin I Cancelled 03/16/24 08:30
Qek-D-Irfyyiwlcam Pept 3300 pg/ml 03/15/24 12:07
Physical Exam
General: Other (on BIPAP. frail appearing elderly male)
HEENT: Normocephalic, Anicteric and Moist Mucous Membranes
Respiratory: Other (decreased at R base)
Cardiac: S1/S2, Regular Rhythm and Murmur
GI: Soft, Non Tender, Non Distended and Normal Bowel Sounds
Musculoskeletal: No Clubbing, No Cyanosis and No Edema
Skin: Warm and Dry
Neuro: Awake, Alert and Oriented
Impression / Plan
-
Primary Lieutenant Governor: Dr. Newman
Assessment:
Presentation with SOB
Acute hypoxic respiratory failure, requiring BIPAP on arrival
Leukocytosis
R PNA
Concern for aspiration
Atrial tachycardia
Paroxysmal atrial fibrillation, with RVR on arrival
Not anticoagulated due to fall risk
Elevated troponin, suspected nonischemic myocardial injury in setting of above
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
Bifascicular block
Mild to mod MR by echo 02/2024
Mod to severe AI by echo 02/2024
History of NICM, recovered
History of prostate cancer s/p prostatectomy
History of falls/gait dysfunction
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
History of L hip fracture s/p repair with post op DVT
DNI code status
ECHO 03/05/24: EF 50 to 55%, mild concentric LVH, mild to moderate MR, moderate to severe AR, mild TR, PAP 32 mmHg
Plan:
-Patient presented in respiratory distress, requiring BiPAP. He refuses intubation
-Continue treatment of pneumonia per pole shaver helper/primary service. concern for aspiration contributing
-proBNP 3300. was given dose of IV lasix in ER 03/15. weight may be up 1-2 pounds from DC 03/05 if accurate. CXR also with possible effusion, not able to be excluded. would consider dose of IV lasix again today as BP tolerates
-EKG from admission appears most consistent with atrial fibrillation with rapid ventricular response, however also has history of PAT.
-Was initially placed on IV Cardizem, however given hypotension was then transitioned to IV amiodarone. He is now back in a normal rhythm.
-He is to be trialed off BiPAP and if able to tolerate po, will plan to transition to po amiodarone later today
-he has previously refused OAC given history of falls/orthostasis. [id number] score of 5 for age, vascular disease, history of CVA. can discuss again with patient this admission.
-recent echo with results as above, will not repeat at this time
-trop peaked at 0.09 overnight. no CP. suspected nonischemic myocardial injury. will manage conservatively
-d/w nursing. d/w pole shaver helper
Data Reviewed
-
EKG: Tracing Personally Visualized and interpreted
Radiology: Report Reviewed by me
Medical Tests (Nuc Med, Echo etc): Report Reviewed by me
Labs: Labs Reviewed by me
Old Records: Reviewed
--- NOTE | 2024-03-16 08:14 | PHA.VAN.IN ---
Assessment
- Assessment
Renal Function: Appears similar to baseline (SCr 0.6-0.8)
Maximum Temperature: 99.2
Minimum Temperature: 97.5
Concomitant Antimicrobials: piperacilin-tazobactam
AUC Dosing Plan
- Dosing Variables
Dosing Weight (kg): 63.8
Dosing CrCl (ml/min): 58
Vd coefficient (L/kg): 0.7
- Empiric Dosing
Initial / Loading Dose: 1750 mg 03/15 13:24
Maintenance Regimen: 1250 mg q24h starting 03/17; 1000 mg given 03/16 at 03:58
Estimated AUC (mcg*h/mL): 547
Estimated Peak (mcg*h/mL): 39.1
Estimated Trough (mcg/ml): 11.7
Estimated Half Life (H): 13.2
- Monitoring
No levels ordered at this time: consider in the upcoming days
MRSA Screen: Ordered per protocol (PCR)
Pharmacokinetics Vancomycin I
- -
Patient Age: 88
Patient Sex: Male
Vancomycin Day #: 1
Indication: Pulmonary/Respiratory
Requesting Provider: Dr Peña
Pertinent Antimicrobial Allergies:
no known allergies
Height / Weight:
Height 5 ft 10 in
Actual Weight 63.8 kg
- Vital Signs / Lab Results
Temp Pulse Resp BP Pulse Ox
97.5 F 85 27 105/50 98
03/16/24 07:09 03/16/24 07:00 03/16/24 07:00 03/16/24 07:00 03/16/24 08:07
Lab Results - Hematology
03/15/24 03/16/24
12: 04:26
WBC 31.4 H 23.9 H
Lab Results - Chemistry
03/15/24 03/16/24
12: 04:26
BUN 32 H 30 H
Creatinine 1.0 0.8
Estimated Creat Clear 58
Albumin 3.7
03/15/24 03/15/24 03/16/24
16:34 20:17 06:00
Lactic Acid 2.4 H 1.3 Cancelled
Lab Results - Urine
03/15/24
20:17
Urine Nitrite (Reflex) Negative
Leukocyte Esterase Rfl Negative
Urine WBC (Reflex)
--- NOTE | 2024-03-16 08:41 | PTCARENOTE ---
Received pt this am on bipap, requesting it's removal. After speaking with Dr England, pt transitioned to high flow with sats high 90s, tachypneic, but in no distress. Mouth care completed. Pt assisted to wash face. Bedside swallow eval
completed and pt did well, resident aware and diet ordered. Otherwise please refer to flowsheets.
--- NOTE | 2024-03-16 09:15 | W.PN.HOSP.TC ---
Addendum entered and electronically signed by Farhat Peña MD 03/16/24 21:25:
Attending Addendum-
I saw and evaluated the patient. I reviewed the resident�s note and agree with findings and plan as documented in the resident�s note. refusing thoracentesis. states he feels SOB. per coughs with food. patient refusing VFSS. Full 12 point ROS
reviewed and negative except as documented Exam- vitals reviewed in EMR Gen mod distress heart irreg irreg lungs- decreased BS RLL abd soft LE +1 pitting edema non palp bladder
# Sepsis secondary to PNA
- likely aspiration
- DC decadron
- cont vanco/zosyn day 2
- repeat labs on am
# Right Pleural Effusion
- advised to obtain therapeutic and diagnostic thoracentesis
- patient states he will think about it
- son (EP doc) updated and states he will convince his dad to get it done
- check US to quantify
# Acute Hypoxemic Respiratory failure
- weaned off bipap to high flow NC
- transfer to IMU
- pulm consult appreciated
# NIMI
- trend trop- peaked at .093
# Atrial Fibrillation with RVR and hypotension
- convert gtt to PO amiodarone
- reverted back to NSR
- appreciate cards input
- start heparin gtt follow aptt per protocol
- transition to NOAC when able
# Leukocytosis
- resolving
- follow cbc until resolution
- from sepsis
# prostate ca-
- care per onc
CODE- DNI
Dispo eventual dc home with if possible likely will require increased assistance on DC
Time spent coordinating care, review of plan of care with resident, personally reviewed previous records in EMR, med rec, labs, radiology, d/w nursing, family, POA, pulm and cards �- 65 mins
Original Note:
Today's Communication/Plan
-
- Amiodarone p.o.
- Transfer to IMU
-Continue Zosyn
Assessment / Plan
Assessment / Plan
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 He was then placed on BiPAP therapy. He refuses intubation. His
chest x-ray read as right-sided pneumonia.
# Sepsis secondary to PNA
-Likely aspiration
-Discontinue Decadron
-Continue Zosyn day 2
-Repeat labs
-Appreciate speach/swallow evaluation
# Acute hypoxemic respiratory failure
-Currently on High flow 5L
-Wean as tolerated
-Speech eval pending
# Pleural effusion
-CXR #2 shows opacity within the right hemithorax, slightly worsened, large pleural effusion and underlying airspace consolidation
-Ultrasound: Large right pleural effusion, amendable to thoracocentesis
-Successful ultrasound-guided thoracentesis, yielding 1650 cc of cloudy greenish-yellow pleural fluid.
-Post procedure CXR shows significant improved Right Pleural effusion.
# Nonischemic MO
-Troponin peaked at 0.093 overnight. No chest pain
-Troponin decreased to 0.070
-Manage conservatively per cardio recommendations
# Atrial fibrillation with RVR
-Amiodarone p.o.
-Appreciate cardio input
-CHADS2 VASC score 5
-Moderate MR/severe AR(Per echo 03/05/2024)
# Leukocytosis
-Likely from sepsis
# Prostate cancer
-Status post prostatectomy
CODE STATUS: DNI
Anticipated Discharge: 24 - 48 hours
Subjective/Interval History
-
Date of Service: March 16, 2024
Objective Data
-
Labs:
Laboratory Results
03/16/24
04:26
WBC 23.9 H
Hgb 11.5 L
Hct 34.4 L
Plt Count 337 D
Sodium 139
Potassium 4.6
Chloride 111 H
Carbon Dioxide 19 L
BUN 30 H
Creatinine 0.8
Glucose 130 H
Calcium 8.6
Vital Signs:
Vital Signs
Temp Pulse Resp BP Pulse Ox
97.5 F 85 27 105/50 98
03/16/24 07:09 03/16/24 07:00 03/16/24 07:00 03/16/24 07:00 03/16/24 08:07
I&O
03/15/24 03/16/24 03/17/24
06:59 06:59 06:59
Intake Total 2300.1 / 2416.8 233.4 / 233.4
Output Total 500 / 500
Balance 1800.1 / 1916.8 233.4 / 233.4
Review of Systems
-
History Source: Patient
Respiratory: Reports Trouble Breathing; Denies Cough
Cardiac: Denies Chest Pain
Abdomen/GI: Denies Abdominal Pain
Musculoskeletal: Denies Joint Pain
Neuro: Denies Dizzy or Headache
Physical Exam
-
General: Well Developed, Well Nourished and Other (on High flow O2)
HEENT: Normocephalic and Atraumatic
Respiratory: Rhonchi
Cardiac: Regular Rhythm and S1/S2
GI: Soft and Nontender
Skin: Warm
Neuro: Awake, Alert and Oriented
Psych: Calm
Data Reviewed
-
Ultrasound: Report Reviewed by me, Discussed with Physician, Discussed with Patient and Discussed with Family
Labs: Labs Reviewed by me, Discussed with Physician and Discussed with Patient
--- NOTE | 2024-03-16 10:08 | PTCARENOTE ---
bedside us completed. Pt currently being seen by speech
[2024-03-16] MEDS: PACERONE 400 MG PO ×3 (10:42→21:52)
--- NOTE | 2024-03-16 11:04 | CM ---
CM reviewed chart. CM introduced self and role. ST was in room assessing patient's swallowing capabilities. One ST's assessment was complete, CM interviewed patient at bedside. He is alert and oriented and sitting upright in his bed.
PCP: Dr. Elvis Torres
Pharmacy: [facility]
Living situation: Patient lives with his , daughter and caregiver, who all provide care for patient. He lives in a 2-story home.
Finances: Patient denies any social insecurities. He able to afford his housing, clothing, medications, food, utilities and transportation.
DME/Ambulation: Patient owns a transport chair, w/c, has an elevator on 2nd floor and ramp. Ambulates with a gait and is followed.
Transportation: Patient will most likely need transportation set up once he is discharged. Patient does not drive.
Agreeable to home health care?: Yes, current with [facility]. Current with Palliative care.
Case management spoke with patient about discharge plan and gave CM's main office phone number. Caregiver and patient verbalized understanding.
ANTICIPATED DISCHARGE DISPOSITION:
Return to home. Will have resumption of care with [facility].
CM will continue to follow case and available for further assistance.
--- NOTE | 2024-03-16 11:04 | PTOTSP ---
SPEECH THERAPY SWALLOW EVALUATION:
Patient exhibits clinical signs of oropharyngeal dysphagia, likely chronic related to predisposing dysphagia risk factors (history of cerebellar infarct, HF), and exacerbated by precipitating dysphagia risk factors including weakness related to
sepsis secondary to suspected aspiration pneumonia in the setting of advanced age. Patient remains at high risk for aspiration and related complications given increased mean peak pharyngeal pressure secondary to HFNC and current respiratory and
pulmonary status. Patient is not exhibiting any overt signs of aspiration at beside; However, given pneumonia in Right lobe, suspicious for aspiration-related infection, along with report of choking per chart review, unable to rule out
aspiration at bedside. Recommend Videofluoroscopic Swallowing Study to further assess swallow physiology prior to diet initiation. Discussed with patient recommendation for VSE including rationale as well as risk factors for aspiration and related
complications. Patient refused VSE, reporting it was 'foolish and worthless.' Discussed with Dr. Peña and RN Danielle. ST to continue to follow, monitor CXR and labs, provide ongoing patient/family education regarding aspiration risks/precautions and
rationale for VSE, complete VSE if/when patient becomes agreeable, and provide continued diagnostic swallow therapy as able/appropriate. Educated patient on aspiration risks and precautions; Patient verbally reported he understood recommendations;
Continued to refused VSE. Defer to MD for diet recommendation at this time. Medications whole with water, one at a time. Strict aspiration precautions in place including: Supervision/assist as needed with meals; Only provide p.o. if SpO2>90% or
RR<30; Upright positioning; Small single sips/bites; Slow rate of intake; Oral care 3x/day to reduce risk for nosocomial infection; Close monitoring of CXR and labs/respiratory status; D/c oral diet if any signs of aspiration or a decline in mental
or respiratory status.
RECOMMEND:
1) Videofluoroscopic Swallowing Study - patient refusing at this time
2) Defer to MD for diet given patient refusing VSE
3) Medications whole with liquid, one at a time as tolerated
4) Aspiration precautions: Supervision/assist as needed with meals; Only provide p.o. if SpO2>90% or RR<30; Upright positioning; Small single sips/bites; Slow rate of intake; Oral care 3x/day to reduce risk for nosocomial infection; Close monitoring
of CXR and labs/respiratory status; D/c oral diet if any signs of aspiration or a decline in mental or respiratory status
5) Speech therapy to follow as able/appropriate
--- NOTE | 2024-03-16 11:10 | PTCARENOTE ---
pt without complaint. refused lunch. not very hungry. pt also refused to have thoracentesis. wants to rest, condom cath replaced after pt incontinent/leaked from previous cc. high flow has been weaned as charted. currently 50/50. no resp
distress noted sats mid90s. otherwise please see flowsheets.
--- NOTE | 2024-03-16 13:37 | W.PN.UPDATE ---
Update Note
Progress Note Update
Reviewed ultrasound findings with the patient. Large right pleural effusion, amenable to thoracentesis
Patient is adamant about not pursuing right thoracentesis despite multiple conversations regarding potential benefit
He remains on high flow oxygen but he is adamant about being short of breath. He denies shortness of breath.
I recommended therapeutic thoracentesis on the right especially going of the weekend.
He continues to refuse.
I spoke with his son Dr. Babatunde Paulson by phone reviewing workup to date and recommendation for right thoracentesis. Son is in agreement for thoracentesis and will be discussing with his father regarding the importance of this. If patient refuses
thoracentesis, the son states we should be considering comfort measures which she thinks his father is not ready for therefore suspect thoracentesis will be pursued later today
Discussed briefly with interventional radiology. Awaiting approval by patient/family
[2024-03-16 14:18] LABS: APTT 30.4 Sec (23.4-35.0)
--- NOTE | 2024-03-16 14:27 | PTCARENOTE ---
weaned to midflow by resp therapist and then transported to IR for thoracentesis after son called and convinced pt to have procedure.
--- NOTE | 2024-03-16 15:03 | CM ---
CM reviewed patient's chart. Patient laying in hospital bed in room and alert and oriented to person, place, time and situation. CM introduced self and role. CM spoke with patient at bedside
PCP: Dr. Beaver
Pharmacy: [facility]
Living situation: Patient lives with his in a ranch-style home. Patient stated there are a few steps to go up, once inside of the home. No steps to enter from outside.
Finances: Patient denies any social insecurities. He able to afford his housing, clothing, medications, food, utilities and transportation. 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
DME/Ambulation: Patient owns a walker. He independent and utilizes the walker for ambulation.
Transportation: Patient will most likely need transportation set up once he is discharged. Patient does not drive. He has a haul driver named Venkata Randhawa.
Agreeable to home health care?: Yes, if needed. Per case management note from ; patient has a LIME TRIMMER come into the home 6 days/week and is there from 10AM to 8PM.
Case management spoke with patient about discharge planning and gave CM's main office phone number. Patient verbalized understanding.
ANTICIPATED DISCHARGE DISPOSITION:
Return to home with possible home oxygen.
CM will continue to follow case and available for further assistance.
[2024-03-16 15:24] LABS: Body Fluid pH 6.81
[2024-03-16 15:28] LABS: Body Fluid Mononuclear 5.8 %; Body Fluid Polymorphonuclear 94.2 %; Body Fluid WBC 8159 /CUMM
[2024-03-16 15:30] LABS: Body Fluid Second Tech LD
[2024-03-16] MEDS: HEPARIN 2000 UNITS IV (15:39)
[2024-03-16 15:40] LABS: Body Fluid Glucose < 30 mg/dl; Body Fluid Protein 4.3 g/dl; Body Fluid Triglycerides 32 mg/dl
[2024-03-16] MEDS: TYLENOL 650 MG PO (15:40)
[2024-03-16] MEDS: HEPARIN 25000 UNITS/250 ML IV (15:41)
[2024-03-16 15:50] LABS: Body Fluid LDH 1197 U/L
--- NOTE | 2024-03-16 16:05 | PTCARENOTE ---
Pt returned from IR after thora, c/o pain 02/19 to puncture area. Site c/d/i with dry bandaid. Oxygen further weaned to 8lmidflow with sats 94-95%. Upon return, pt started on heparin gtt as ordered, with initial bolus of 2000u. ABX also given as
ordered. Pt given oral meds, some coughing noted with oral meds, cues given to put head down to swallow and no coughing noted. Otherwise no changes.
[2024-03-16] MEDS: SENOKOT-S 1 TABLET PO (16:56)
--- NOTE | 2024-03-16 22:25 | PTCARENOTE ---
Pt with no urine out put, bladder scanned for 300ml, pt is not uncomfortable at this time, educated patient the importance of needing to be straight cathed at 400ml, and pt made it clear he does not want to be straight cathed. education provided.
[2024-03-17] VITALS (12 sets, daily range): BP systolic 88–104; BP diastolic 41–92; BMI 19.7
[2024-03-17] MEDS: ZOSYN 100 IV ×4 (04:45→22:08)
[2024-03-17 05:31] LABS: APTT 61.8 Sec (23.4-35.0)
--- NOTE | 2024-03-17 05:39 | W.PN.INTV ---
Today's Communication / Plan
Recommendations
Continue antibiotics
Remains on heparin drip
Wean oxygen as able
Aspiration precautions
Repeat chest x-ray 03/19 or sooner if clinically indicated
Assessment
-
88-year-old male with history of atrial fibrillation not on anticoagulation, aortic insufficiency, history of postoperative DVT with recent hospital stay for syncope in the setting of rapid atrial tachycardia/dehydration. Patient was initially
treated with beta-nancy therapy and was discharged home. Now presents with hypoxia, right-sided pneumonia, tachycardia. Respiratory status improved on BiPAP, present with 78% saturation on nasal cannula. Patient admitted to ICU for further
management
Acute hypoxic respiratory insufficiency
78% on nasal cannula
Requiring noninvasive ventilation
Right-sided pleural parenchymal infiltrate
Suspected pleural fluid with mild tracheal shift
S/P RT THORA 03/17 (-[id number])
Exudate/pH less than 7
Tachycardia, SVT
Heart rate 170s
Recent hospital stay for atrial tachycardia in the s. with LOC
Leukocytosis with left shift
Possible aspiration syndrome
Mild elevated troponin
Moderate MR/severe AR
Per echo 03/05/2024
Conditions present prior to admission
History of atrial fibrillation
Not on anticoagulation due to fall risk
Bifascicular block
History of nonischemic cardiomyopathy
Recent EF normal
History of cerebellar stroke
History of normal pressure hydrocephalus
History of postoperative DVT, left hip replacement
History of exertional rhabdomyolysis
History of COVID June 2023,
Plan/recommendations
At this time, patient is improved from respiratory standpoint, on nasal cannula
Status post right thoracentesis, consistent with exudate, pH less than 7
Empyema characteristics
Post thoracentesis chest x-ray with residual right pleural effusion
Upon reviewing prior x-ray from last hospital stay, there may have been a mild posterior basilar infiltrate on the lateral view
No symptoms or signs suggestive of pneumonia during prior hospital stay
Remains in sinus rhythm on amiodarone
Moving forward
Continue with current supportive care
Continue to wean oxygen as able
Empiric antibiotics, Zosyn continues for suspected aspiration pneumonia, parapneumonic effusion
Follow clinically for recurrence
Consider repeat chest x-ray 03/19
Patient was given diltiazem for rate control, developed hypotension
Now on amiodarone, in sinus rhythm
Patient was discharged on beta-nancy therapy during last hospital stay
Cardiology following
Patient is well-known to cardiology (patient's son is EP physician: Clifton Paulson)
Heparin therapy started
Aspiration precautions, head of bed elevated as able
Follow fluid status carefully given valvular disease. Recent echocardiogram with normal EF
DVT prophylaxis: currently on heparin drip. History of atrial fibrillation noted, no anticoagulation due to fall risk
Patient and have made it clear that they do not want intubation
Reviewed at length with critical care nursing
Subjective Dataa
Subjective Data
Date of Service:
Date of Service: March 17, 2024
Subjective:
Patient is feeling well. He denies any shortness of breath, chest pain, nausea or currently eating breakfast. Appears to be in good spirits
Objective Data
Data Reviewed
Vital Signs / I&O / Oxygen:
Vital Signs
Temp Pulse Resp BP Pulse Ox
96.0 F L 72 25 95/46 96
03/17/24 03:17 03/17/24 05:00 03/17/24 05:00 03/17/24 04:00 03/17/24 05:00
Intake and Output
03/15/24 03/16/24 03/17/24
06:59 06:59 06:59
Intake Total 2300.1 / 2416.8 1499.8 / 1499.8
Output Total 500 / 500 200 / 200
Balance 1800.1 / 1916.8 1299.8 / 1299.8
SaO2 96
Nasal Cannula flow liters per 40
minute
Physical Exam
General: Comfortable
HEENT: Normocephalic, Anicteric and Other (BiPAP in place)
Cardiovascular: S1-S2, Regular Rhythm, Murmur (n) and Rub (n)
Respiratory: Wheeze (n), Crackles (n), Rhonchi (n), Non-Labored Respirations and Other (Slight decreased right base)
GI: Soft, Non Distended and Non Tender
Neurology: Awake, Alert, Oriented and No Motor Deficits (Moves all extremities)
Skin: Cyanosis (n) and Rash (Petechial rash chest wall, chronic per family)
Labs/Micro/Reports
Lab Data
03/16/24 13:13
03/16/24 04:26
Laboratory Results
03/16/24 03/16/24
13:59 22:10
APTT 30.4 47.0 H
Microbiology
03/16/24 15:02 Pleural Fluid Gram Stain - Preliminary
03/15/24 18:00 Blood/Venous Blood Culture - Preliminary
No Growth in 24 hours- Final report to follow
03/15/24 13:04 Blood/Venous Blood Culture - Preliminary
No Growth in 24 hours- Final report to follow
03/16/24 08:45 Nose Nasal Screen MRSA (PCR) - Final
MRSA not detected - performed by PCR methodology.
[2024-03-17] MEDS: PACERONE 400 MG PO ×3 (07:31→22:08)
[2024-03-17] MEDS: SENOKOT-S 1 TABLET PO ×2 (07:31→19:58)
--- NOTE | 2024-03-17 07:51 | W.PN.CARDCBS ---
Today's Communication / Plan
-
Doing better
Decrease amiodarone to 200 mg 3 times daily
Stop heparin, start Eliquis
Impression / Plan
-
Primary International First Officer: Dr. Newman
Assessment:
Presentation with SOB
Acute hypoxic respiratory failure, requiring BIPAP on arrival
Leukocytosis
R PNA
Concern for aspiration
Atrial tachycardia
Paroxysmal atrial fibrillation, with RVR on arrival
Not anticoagulated due to fall risk
Elevated troponin, suspected nonischemic myocardial injury in setting of above
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
Bifascicular block
Mild to mod MR by echo 02/2024
Mod to severe AI by echo 02/2024
History of NICM, recovered
History of prostate cancer s/p prostatectomy
History of falls/gait dysfunction
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
History of L hip fracture s/p repair with post op DVT
DNI code status
ECHO 03/05/24: EF 50 to 55%, mild concentric LVH, mild to moderate MR, moderate to severe AR, mild TR, PAP 32 mmHg
Plan:
He is markedly improved status postthoracentesis of what seemed to be an early empyema.
Antibiotics per hospitalist and primary team.
No evidence of HFpEF at present, presumably mid flow oxygen result of pneumonia. AI murmur is more difficult to hear today.
Stop heparin, start Eliquis for presumably 5 mg twice daily based on renal function today
QT interval is prolonged decrease amiodarone to 200 mg 3 times daily, then 200 mg twice daily for 1 month then 200 mg a day
All of the above had been discussed with son Clifton who is an merchant mill utility worker yesterday
Progress Note - International First Officer
Subjective
Date of Service: March 17, 2024:
Patient feels much better
Status post thoracentesis of 1.65 L of cloudy right pleural fluid yesterday, chemistries below
PMH/PSH/SH/FH: Reviewed
Allergies: None
Outpatient cardiac medications: Metoprolol ER 12.5 mg twice daily omega-3 fatty acids
Current meds: IV heparin
Zosyn, amiodarone 400 3 times daily, albuterol nebs as needed
ROS: Negative except as above
Fluid pH 6.81, glucose less than 30, white count is 8159, LDH is 1197, protein is 4.3
White count was 23.9 yesterday, BUN and creatinine are 30 and 0.8 with a potassium of 4.6, troponin is 0.070
EKG today sinus rhythm, prolonged QT, incomplete right bundle branch block, left anterior fascicular block, nonspecific ST segment elevation lateral leads
Objective
Labs:
03/16/24 13:13
03/16/24 04:26
Labs
Hgb Cancelled 03/16/24 13:13
Hct Cancelled 03/16/24 13:13
Plt Count Cancelled 03/16/24 13:13
PT 16.3 Sec (11.4-14.6) H 03/15/24 16:34
INR 1.31 03/15/24 16:34
APTT 61.8 Sec (23.4-35.0) H 03/17/24 04:58
Sodium 139 mmol/L (135-145) 03/16/24 04:26
Potassium 4.6 mmol/L (3.5-5.1) 03/16/24 04:26
BUN 30 mg/dl (9-20) H 03/16/24 04:26
Creatinine 0.8 mg/dL (0.7-1.3) 03/16/24 04:26
Glucose 130 mg/dl (70-99) H 03/16/24 04:26
Troponins
03/15/24 03/15/24 03/15/24
12:07 16:34 20:17
Troponin I 0.045 H* 0.093 H* D 0.089 H*
03/16/24 03/16/24
04:26 08:30
Troponin I 0.070 H* Cancelled
Vital Signs and I&O:
Vital Signs
Temp Pulse Resp BP Pulse Ox
35.6 C L 72 25 95/46 96
03/17/24 03:17 03/17/24 05:00 03/17/24 05:00 03/17/24 04:00 03/17/24 05:00
Vital Signs
Temp Pulse Resp BP Pulse Ox
35.6 C L 72 25 95/46 96
03/17/24 03:17 03/17/24 05:00 03/17/24 05:00 03/17/24 04:00 03/17/24 05:00
Intake & Output
03/14/24 03/15/24 03/16/24 03/17/24
07:59 07:59 07:59 07:59
Intake Total 2416.8 / 2533.5 1390.6 / 1390.6
Output Total 500 / 500 200 / 200
Balance 1916.8 / 2033.5 1190.6 / 1190.6
Physical Exam
Physical Exam
95/46, pulse 72, weight is 62.3 kg, down 1.5 kg from yesterday, saturations 96% now on mid flow
No distress, wants to eat breakfast, head neck exam unremarkable, markedly diminished breath sounds on right, regular rate and rhythm, soft AI murmur, abdomen benign, extremities without clubbing cyanosis or edema, JVD okay, neuro nonfocal
--- NOTE | 2024-03-17 09:38 | PTCARENOTE ---
Assumed care of pt. VSS. Assessment performed as documented. Tolerated breakfast and meds without issue. O2 weaned to 6L nc with SpO2 93%. Discussed plan of care with son via telephone. Max assist OOB to chair.
--- NOTE | 2024-03-17 09:59 | W.PN.HOSP.TC ---
Addendum entered and electronically signed by Farhat Peña MD 03/17/24 22:34:
Attending Addendum-
I saw and evaluated the patient. I reviewed the resident�s note and agree with findings and plan as documented in the resident�s note. went into rapid afib overnight. feels greatly improved after thoracentesis 'they took out 600ccs' Patient not
clear on events. Full 12 point ROS reviewed and negative except as documented Exam- vitals reviewed in EMR Gen NAD heart irreg irreg lungs- decreased BS RLL abd soft LE +1 pitting edema non palp bladder fry in place
# Sepsis secondary to PNA
- likely aspiration
- DC decadron
- cont zosyn day 3
- vanco dc'd (MRSA neg)
- repeat labs in am
# Right Pleural Effusion
- s/p thoracentesis 7/5 - 1650mls
- fluid sent for analysis
- exudate per lights criteria
- check PFO3 (pleural fluid only 3)
- await cx results also sent for cytology w h/o cancer
- repeat cxr in am
# Acute Hypoxemic Respiratory failure
- weaned off bipap to 6L high flow NC
- continue care in ICU
- pulm input appreciated
# NIMI
- trend trop- peaked at .093
# Atrial Fibrillation with RVR and hypotension
- paroxysmal
- convert gtt to PO amiodarone- decrease amio due to QT prolongation
- appreciate cards input
- hep gtt->eliquis
# Transaminitis-
- unclear etiology ? passive congestion vs amiodarone
- cont to trend
- check abd US
- check acute hep panel
- hold tylenol
# Urinary Retention/BPH
- Fry placed
- start Flomax
- voiding trial soon when more ambultory
-
# Leukocytosis
- resolving
- follow cbc until resolution
- from sepsis
# Prostate ca-
- care per onc a OP
CODE- DNI
Dispo eventual dc home with if possible likely will require increased assistance on DC
Time spent coordinating care, review of plan of care with resident, personally reviewed previous records in EMR, med rec, labs, radiology, d/w nursing, cards�- 60 mins
Original Note:
Today's Communication/Plan
-
-d/c vanco, continue zosyn
-decrease amiodarone
-d/c heparin, start eliquis
- aspiration precautions
- Bowel regimen
Assessment / Plan
Assessment / Plan
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 He was then placed on BiPAP therapy. He refuses intubation. His
chest x-ray read as right-sided pneumonia and Large pleural effusion and he underwent thoracocentesis on 03/16/24, 1650 cc of cloudy greenish-yellow pleural fluid was removed.
# Sepsis secondary to PNA
-Likely aspiration
-Discontinue Decadron
-d/c Vanco
-MRSA screen negatuve.
-Continue Zosyn day 3
-Repeat labs
-Appreciate speach/swallow evaluation
# Acute hypoxemic respiratory failure
-markedly improved status post thoracentesis
-Currently on mid flow 6L, 02 sat 94
-Wean as tolerated
# Pleural effusion
-CXR #2 shows opacity within the right hemithorax, slightly worsened, large pleural effusion and underlying airspace consolidation
-Ultrasound: Large right pleural effusion, amendable to thoracocentesis
-Successful ultrasound-guided thoracentesis, yielding 1650 cc of cloudy greenish-yellow pleural fluid.
-Post procedure CXR shows significant improved Right Pleural effusion.
- Check repeat CXR
- Per Lights criteria exudative pleural effusion
# Nonischemic MD
-Troponin peaked at 0.093 on 03/15. No chest pain
-Troponin decreased to 0.070
-Manage conservatively per cardio recommendations
# Atrial fibrillation with RVR
-NSR in the morning however develped A fib with RVR in the evening
-Qt prolongation
-Amiodarone p.o., decreased to 200mg TID by cardio
- Stop heparin, Start Eliquis
-Appreciate cardio input
-CHADS2 VASC score 5
-Moderate MR/severe AR(Per echo 03/05/2024)
# Constipation/Abdomen fullness
- bowel regimen
- Abd Xray clear
# Leukocytosis
-Likely from sepsis
# Prostate cancer
-Status post prostatectomy
CODE STATUS: DNI
Dispo to home with and health aide
Anticipated Discharge: 24 - 48 hours
Subjective/Interval History
-
Date of Service: March 17, 2024
Objective Data
-
Labs:
Laboratory Results
03/16/24 03/17/24 03/17/24
22:10 04:58 09:35
WBC Pending
Hgb Pending
Hct Pending
Plt Count Pending
APTT 47.0 H 61.8 H
Sodium
Potassium
Chloride
Carbon Dioxide
BUN
Creatinine
Glucose
Calcium
03/17/24 03/17/24
09:36 11:45
WBC
Hgb
Hct
Plt Count
APTT Cancelled
Sodium Pending
Potassium Pending
Chloride Pending
Carbon Dioxide Pending
BUN Pending
Creatinine Pending
Glucose Pending
Calcium Pending
Vital Signs:
Vital Signs
Temp Pulse Resp BP Pulse Ox
97.5 F 76 27 97/46 94
03/17/24 08:06 03/17/24 09:00 03/17/24 09:00 03/17/24 08:00 03/17/24 08:00
I&O
03/16/24 03/17/24 03/18/24
06:59 06:59 06:59
Intake Total 2300.1 / 2416.8 1507.3 / 1518.8 34.5 / 34.5
Output Total 500 / 500 200 / 200
Balance 1800.1 / 1916.8 1307.3 / 1318.8 34.5 / 34.5
Review of Systems
-
History Source: Patient
Respiratory: Denies Cough
Cardiac: Denies Chest Pain
Abdomen/GI: Denies Abdominal Pain
Physical Exam
-
General: Well Developed and No Apparent Distress
HEENT: Normocephalic
Respiratory: Decreased Breath Sounds (Right)
Cardiac: Irregular Rhythm
GI: Soft and Nontender
Skin: Warm and Dry
Psych: Calm
Data Reviewed
-
Diagnostic Radiology: Report Reviewed by me
Labs: Labs Reviewed by me, Discussed with Physician and Discussed with Patient
[2024-03-17 10:32] LABS: % Basophils 0.1 % (0-2); % Immature Granulocytes 1.3 % (0-0.5); % Lymphocytes 5.9 % (20.5-51.1); % Monocytes 4.3 % (1.7-9.3); % Neutrophils 88.4 % (42.2-75.2); Absolute Immature Granulocytes 0.3 10^3/uL (0-0.05); Absolute Lymphocytes 1.3 10^3/uL (1.2-3.4); Absolute Monocytes 0.9 10^3/uL (0.1-0.6); Absolute Neutrophils 19.3 10^3/uL (1.4-6.5); Hemoglobin 11.5 g/dL (13.0-18.0); Mean Corp Hgb Conc. 34.8 g/dL (33.0-37.0); Mean Corpuscular Hgb 30.9 pg (27.0-31.0); Mean Corpuscular Volume 88.7 fL (80.0-94.0); Mean Platelet Volume 9.8 fL (7.4-10.4); Nucleated Red Blood Cells % 0 % (-); Platelet Count 368 10^3/uL (130-400); Red Blood Cell Count 3.72 10^6/uL (4.70-6.10); Red Cell Dist. Width 13.2 % (11.5-14.5); White Blood Cell Count 21.8 10^3/uL (4.8-10.8)
[2024-03-17] MEDS: ELIQUIS 5 MG PO ×2 (10:40→19:58)
[2024-03-17 10:48] LABS: Blood Urea Nitrogen 30 mg/dl (9-20); Calcium 8.7 mg/dl (8.4-10.2); Carbon Dioxide 20 mmol/L (22-30); Chloride 106 mmol/L (98-107); Estimated Creatinine Clearance 56 ml/min; Glucose 110 mg/dl (70-99); Potassium 4.1 mmol/L (3.5-5.1); Sodium 135 mmol/L (135-145); eGFR > 60.00
[2024-03-17 11:25] LABS: ALT (SGPT) 142 U/L (0-50); AST (SGOT) 245 U/L (17-59); Albumin 2.8 g/dl (3.5-5.0); Alkaline Phosphatase 83 U/L (38-126); Direct Bilirubin 0.3 mg/dl (0.0-0.4); LDH 332 U/L (120-246); Total Bilirubin 0.6 mg/dl (0.2-1.3); Total Protein 5.3 g/dl (6.3-8.2)
--- NOTE | 2024-03-17 13:56 | PTCARENOTE ---
Pt returned to afib. ECG performed, hospitalist team at bedside and aware. Dr. COURTNEY Pat notified by text and amiodarone 1600 dose given early as instructed. Maintaining MAP>65
[2024-03-17] MEDS: MIRALAX 17 GRAMS PO (19:58)
[2024-03-18] VITALS (10 sets, daily range): BP systolic 84–128; BP diastolic 47–71
[2024-03-18] MEDS: ZOSYN 100 IV ×4 (04:20→21:48)
[2024-03-18 04:46] LABS: Hematocrit 29.6 % (39.0-52.0); Hemoglobin 10.9 g/dL (13.0-18.0); Mean Corp Hgb Conc. 36.8 g/dL (33.0-37.0); Mean Corpuscular Hgb 31.1 pg (27.0-31.0); Mean Corpuscular Volume 84.6 fL (80.0-94.0); Mean Platelet Volume 9.7 fL (7.4-10.4); Platelet Count 324 10^3/uL (130-400); Red Cell Dist. Width 13.2 % (11.5-14.5); White Blood Cell Count 12.8 10^3/uL (4.8-10.8)
[2024-03-18 05:12] LABS: ALT (SGPT) 150 U/L (0-50); AST (SGOT) 159 U/L (17-59); Albumin 2.6 g/dl (3.5-5.0); Alkaline Phosphatase 79 U/L (38-126); Blood Urea Nitrogen 31 mg/dl (9-20); Calcium 8.6 mg/dl (8.4-10.2); Carbon Dioxide 20 mmol/L (22-30); Chloride 108 mmol/L (98-107); Estimated Creatinine Clearance 56 ml/min; Glucose 96 mg/dl (70-99); Potassium 4.2 mmol/L (3.5-5.1); Sodium 135 mmol/L (135-145); Total Bilirubin 0.7 mg/dl (0.2-1.3); eGFR > 60.00
--- NOTE | 2024-03-18 06:34 | PTCARENOTE ---
Pt Aox3, VSS, Afib on monitor HR 100-11, continued Amiodarone 400 TID. BP were stable overnight. Pt c/o of constipation, Miralax and Senna given, pt requesting suppository, reached out to house COMBAT CONTROL MANAGER.
--- NOTE | 2024-03-18 07:06 | W.PN.INTV ---
Today's Communication / Plan
Recommendations
Chest x-ray 03/19
Consider repeat right thoracentesis depending on findings
Continue antibiotics, follow-up pleural fluid cultures
Aspiration precautions
Constipation regimen
Assessment
-
88-year-old male with history of atrial fibrillation not on anticoagulation, aortic insufficiency, history of postoperative DVT with recent hospital stay for syncope in the setting of rapid atrial tachycardia/dehydration. Patient was initially
treated with beta-nancy therapy and was discharged home. Now presents with hypoxia, right-sided pneumonia, tachycardia. Respiratory status improved on BiPAP, present with 78% saturation on nasal cannula. Patient admitted to ICU for further
management
Acute hypoxic respiratory insufficiency
78% on nasal cannula
Requiring noninvasive ventilation
Right-sided pleural parenchymal infiltrate
Suspected pleural fluid with mild tracheal shift
S/P RT THORA 03/17 (-[id number])
Exudate/pH less than 7
Tachycardia, SVT
Heart rate 170s
Recent hospital stay for atrial tachycardia in the 190s. with LOC
Leukocytosis with left shift
Possible aspiration syndrome
Mild elevated troponin
Moderate MR/severe AR
Per echo 03/05/2024
Constipation
Conditions present prior to admission
History of atrial fibrillation
Not on anticoagulation due to fall risk
Bifascicular block
History of nonischemic cardiomyopathy
Recent EF normal
History of cerebellar stroke
History of normal pressure hydrocephalus
History of postoperative DVT, left hip replacement
History of exertional rhabdomyolysis
History of COVID June 2023,
Plan/recommendations
At this time, patient is improved from respiratory standpoint, on nasal cannula, 4 L
Status post right thoracentesis, consistent with exudate, pH less than 7
Empyema characteristics
Post thoracentesis chest x-ray with residual right pleural effusion
Upon reviewing prior x-ray from last hospital stay, there may have been a mild posterior basilar infiltrate on the lateral view
No symptoms or signs suggestive of pneumonia during prior hospital stay
Remains on amiodarone, atrial fibrillation noted
Primary complaint is constipation
Moving forward
Continue with current supportive care
Continue to wean oxygen as able
Empiric antibiotics, Zosyn continues for suspected aspiration pneumonia, parapneumonic effusion
Follow clinically for recurrence
Repeat chest x-ray 03/19
Follow-up pleural fluid cultures
Patient was given diltiazem for rate control, developed hypotension
Now on amiodarone
Patient was discharged on beta-nancy therapy during last hospital stay
Cardiology following
Patient is well-known to cardiology (patient's son is EP physician: Clifton Paulson)
Heparin therapy started, transitioned to Eliquis
Aspiration precautions, head of bed elevated as able
Follow fluid status carefully given valvular disease. Recent echocardiogram with normal EF
Constipation regimen
DVT prophylaxis: transition to Eliquis. History of atrial fibrillation noted, no anticoagulation in the past due to fall risk
Disposition efforts
Subjective Dataa
Subjective Data
Date of Service:
Date of Service: March 18, 2024
Subjective:
Patient denies any respiratory distress, shortness of breath, chest pain, cough. Primary complaint is constipation. He is demanding a suppository. Otherwise lying flat without any respiratory distress. Atrial fibrillation noted, given additional
dose of amiodarone
Objective Data
Data Reviewed
Vital Signs / I&O / Oxygen:
Vital Signs
Temp Pulse Resp BP Pulse Ox
97.6 F 123 20 114/67 94
03/18/24 03:14 03/18/24 06:00 03/18/24 06:00 03/18/24 06:00 03/18/24 06:00
Intake and Output
03/17/24 03/18/24 03/19/24
06:59 06:59 06:59
Intake Total 1507.3 / 1518.8 46.0 / 46.0
Output Total 200 / 200 650 / 650
Balance 1307.3 / 1318.8 -604.0 / -604.0
SaO2 94
Nasal Cannula flow liters per 6
minute
Physical Exam
General: Comfortable
HEENT: Normocephalic, Anicteric and Other (BiPAP in place)
Cardiovascular: S1-S2, Irregular Rhythm, Murmur (n) and Rub (n)
Respiratory: Wheeze (n), Crackles (n), Rhonchi (n), Non-Labored Respirations and Other (Slight decreased right base)
GI: Soft, Non Distended and Non Tender
Neurology: Awake, Alert, Oriented and No Motor Deficits (Moves all extremities)
Skin: Cyanosis (n) and Rash (Petechial rash chest wall, chronic per family)
Labs/Micro/Reports
Lab Data
03/18/24 04:19
03/18/24 04:19
Laboratory Results
03/17/24
11:45
APTT Cancelled
Microbiology
03/16/24 15:02 Pleural Fluid Body Fluid Culture - Preliminary
No Growth After 18-24 Hours
03/16/24 15:02 Pleural Fluid Gram Stain - Preliminary
03/15/24 18:00 Blood/Venous Blood Culture - Preliminary
No Growth in 48 hours- Final report to follow
03/15/24 13:04 Blood/Venous Blood Culture - Preliminary
No Growth in 48 hours- Final report to follow
03/16/24 08:45 Nose Nasal Screen MRSA (PCR) - Final
MRSA not detected - performed by PCR methodology.
[2024-03-18] MEDS: MIRALAX 17 GRAMS PO ×2 (07:24→20:11)
[2024-03-18] MEDS: SENOKOT-S 1 TABLET PO ×2 (07:25→20:08)
[2024-03-18] MEDS: DULCOLAX 10 MG RECTAL (07:30)
[2024-03-18] MEDS: PACERONE 400 MG PO ×3 (07:35→21:47)
[2024-03-18] MEDS: ELIQUIS 5 MG PO ×2 (07:35→20:08)
[2024-03-18] MEDS: FLOMAX PO (07:52)
--- NOTE | 2024-03-18 08:40 | PTCARENOTE ---
Assumed care at 0700. Pt anxious and very concerned about current constipation. Stating his abdomen is cramping and gassy. Abd appears mildly distended and tympanic. Gave AM meds including laxative and stool softener. Administered suppository as
requested by patient. Afib continues with HR 100-120. BP WNL. Assessment as noted.
--- NOTE | 2024-03-18 09:53 | W.PN.HOSP.TC ---
Addendum entered and electronically signed by Farhat Peña MD 03/18/24 22:51:
Attending Addendum-
I saw and evaluated the patient. I reviewed the resident�s note and agree with findings and plan as documented in the resident�s note. was in afib yesterday and this morning. feels greatly improved after thoracentesis. seen with family present. Full
12 point ROS reviewed and negative except as documented Exam- vitals reviewed in EMR Gen NAD heart NSR lungs- decreased BS RLL abd soft LE +1 pitting edema non palp bladder
# Sepsis secondary to PNA
- likely aspiration
- cont zosyn day 3
- vanco dc'd (MRSA neg)
- repeat labs in am
- refusing VFSS
# Right Pleural Effusion
- s/p thoracentesis 03/16 - 1650mls
- fluid sent for analysis- cx NGTD
- exudate
- await cx results also sent for cytology w h/o cancer
- repeat cxr 03/19
- may need repeat tap
# Acute Hypoxemic Respiratory failure
- weaned off bipap to 4L now
- continue care in ICU
- pulm input appreciated
# NIMI
- trend trop- peaked at .093
# AE HFpEF
- elevated pBNP
- lasix IV x 1
# Atrial Fibrillation with RVR and hypotension
- paroxysmal
- convert gtt to PO amiodarone- per cards decrease amiodarone due to QT prolongation EKG reviewed [id number]
- appreciate cards input
- hep gtt->eliquis
# Transaminitis-
- improving
- unclear etiology ? passive congestion vs amiodarone
- cont to trend
- check abd US
- check acute hep panel
- hold tylenol
# Urinary Retention/BPH
- start Flomax- pt refusing
-
# Leukocytosis
- resolving
- follow cbc daily
- from sepsis
# Prostate ca-
- care per onc a OP
CODE- DNI
Dispo eventual dc home with if possible likely will require increased assistance on DC
Time spent coordinating care, review of plan of care with resident, personally reviewed previous records in EMR, med rec, labs, radiology, d/w nursing, cards, POA and daughter�- 58 mins
Original Note:
Today's Communication/Plan
-
- transfer to gen floor
- continue amiodarone
- continue eliquis
- 1x dose of Lasix per cardio
- repeat CXR 03/19
Assessment / Plan
Assessment / Plan
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 He was then placed on BiPAP therapy. He refuses intubation. His
chest x-ray read as right-sided pneumonia and Large pleural effusion and he underwent thoracocentesis on 03/16/24, 1650 cc of cloudy greenish-yellow pleural fluid was removed.
# Sepsis secondary to PNA
-Likely aspiration
-Discontinue Decadron
-d/c Vanco
-MRSA screen negatuve.
-Continue Zosyn day 3
-Repeat labs
-Appreciate speach/swallow evaluation
# Acute hypoxemic respiratory failure
-markedly improved status post thoracentesis
-Currently on NC 4L, 02 sat 96
-Wean as tolerated
# Pleural effusion
-CXR #2 shows opacity within the right hemithorax, slightly worsened, large pleural effusion and underlying airspace consolidation
-Ultrasound: Large right pleural effusion, amendable to thoracocentesis
-Successful ultrasound-guided thoracentesis, yielding 1650 cc of cloudy greenish-yellow pleural fluid.- pending cytology
-Post procedure CXR shows significant improved Right Pleural effusion.
- Check repeat Abdomen/CXR shows Persistent pulmonary opacity in the right lung base, potentially airspace disease and/or small pleural fluid.
- Per Lights criteria exudative pleural effusion
- Check repeat CXR- pending
- pro BNP elevated;1 dose of Lasix IV 40mg per cardio
# Nonischemic ID
-Troponin peaked at 0.093 on 03/15. No chest pain
-Troponin decreased to 0.070
-Manage conservatively per cardio recommendations
# Atrial fibrillation with RVR
- A fib with RVR in the morning
- Repeat EKG in evening: SINUS RHYTHM WITH PREMATURE SUPRAVENTRICULAR COMPLEXES.
- continue Amiodarone p.o. 400mg TID by cardio
- continue Eliquis
-Appreciate cardio input
-CHADS2 VASC score 5
-Moderate MR/severe AR(Per echo 03/05/2024)
# Urinary retention
-Kee placed
-Voiding trial soon
# Transaminitis
-Elevated AST, ALT
-Unclear etiology
-pending USG
# Constipation/Abdomen fullness
- bowel regimen
- Abd Xray clear
- bisacodyl suppository
# Leukocytosis
-Likely from sepsis
# Prostate cancer
-Status post prostatectomy
CODE STATUS: DNI
Dispo to home with and health aide
Anticipated Discharge: 24 - 48 hours
Subjective/Interval History
-
Date of Service: March 18, 2024
Objective Data
-
Labs:
Laboratory Results
03/18/24
04:19
WBC 12.8 H
Hgb 10.9 L
Hct 29.6 L
Plt Count 324
Sodium 135
Potassium 4.2
Chloride 108 H
Carbon Dioxide 20 L
BUN 31 H
Creatinine 0.8
Glucose 96
Calcium 8.6
Total Bilirubin 0.7
AST 159 H
ALT 150 H
Alkaline Phosphatase 79
Vital Signs:
Vital Signs
Temp Pulse Resp BP Pulse Ox
97.0 F 107 24 109/60 94
03/18/24 08:03 03/18/24 08:00 03/18/24 08:00 03/18/24 08:00 03/18/24 08:00
I&O
03/17/24 03/18/24 03/19/24
06:59 06:59 06:59
Intake Total 1507.3 / 1518.8 46.0 / 46.0 200 / 200
Output Total 200 / 200 650 / 650
Balance 1307.3 / 1318.8 -604.0 / -604.0 200 / 200
Review of Systems
-
History Source: Patient
Constitutional: Denies Fever
Respiratory: Denies Cough
Cardiac: Denies Palpitations
Abdomen/GI: Denies Abdominal Pain
Genitourinary: Denies Dysuria
Musculoskeletal: Denies Joint Pain
Neuro: Denies Headache
Hematologic / Lymphatic: Denies Bleeding
Physical Exam
-
General: Well Developed and Well Nourished
HEENT: Normocephalic and Atraumatic
Respiratory: Decreased Breath Sounds
Cardiac: Irregular Rhythm
GI: Nontender
Neuro: Awake, Alert and Oriented
Psych: Calm
Data Reviewed
-
Labs: Labs Reviewed by me, Discussed with Physician and Discussed with Patient
--- NOTE | 2024-03-18 10:01 | PTCARENOTE ---
Pt continues to be fowcused on constipation with no relief from suppository, requesting 2nd suppository. Milk and molasses emema given as ordered and requested.
[2024-03-18 10:41] LABS: NT-proBNP 4760 pg/ml
--- NOTE | 2024-03-18 11:02 | PTCARENOTE ---
Multiple large BMs noted. Pt stating +relief.
--- NOTE | 2024-03-18 11:59 | W.PN.CARDCBS ---
Today's Communication / Plan
-
Lasix 40 mg IV x 1
Continue amiodarone 400 3 times daily
Continue Eliquis
Impression / Plan
-
Primary Technology Infusion Specialist: Dr. Newman
Assessment:
Presentation with SOB
Acute hypoxic respiratory failure, requiring BIPAP on arrival
Leukocytosis
R PNA
Concern for aspiration
Atrial tachycardia
Paroxysmal atrial fibrillation, with RVR on arrival
Not anticoagulated due to fall risk
Elevated troponin, suspected nonischemic myocardial injury in setting of above
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
Bifascicular block
Mild to mod MR by echo 02/2024
Mod to severe AI by echo 02/2024
History of NICM, recovered
History of prostate cancer s/p prostatectomy
History of falls/gait dysfunction
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
History of L hip fracture s/p repair with post op DVT
DNI code status
ECHO 03/05/24: EF 50 to 55%, mild concentric LVH, mild to moderate MR, moderate to severe AR, mild TR, PAP 32 mmHg
Plan:
He continues to improve a bit day by day.
He was in atrial fibrillation throughout most of yesterday and into this morning but now back in sinus rhythm on amiodarone 400 3 times daily instead of 200 3 times daily.
Continue current dose of amiodarone, continue Eliquis.
proBNP is elevated to 4770, given IV Lasix 40 mg x 1. We could consider spironolactone, SGLT2 antagonist, though utility may be limited. Eventual possible restart of metoprolol.
Recheck EKG for QT interval, reestablishment of sinus rhythm, etc.
He is markedly improved status postthoracentesis of what seemed to be an early empyema.
Antibiotics per hospitalist and primary team.
No evidence of HFpEF at present, presumably mid flow oxygen result of pneumonia. AI murmur is more difficult to hear today.
Stop heparin, start Eliquis for presumably 5 mg twice daily based on renal function today
QT interval is prolonged decrease amiodarone to 200 mg 3 times daily, then 200 mg twice daily for 1 month then 200 mg a day
Discussed with Babatunde
Progress Note - Technology Infusion Specialist
Subjective
Date of Service: March 18, 2024:
He feels well, went into atrial fibrillation yesterday afternoon, remained in A-fib throughout the night but converted to sinus rhythm recently as amiodarone was increased back to 400 3 times daily. He feels well, now on telemetry. proBNP this
morning is elevated. He has received Lasix x 1. LFTs are relatively stable
PMH/PSH/SH/FH: Reviewed
Allergies: None
Outpatient medications: Metoprolol ER 12.5 mg twice daily,
Current medications: Albuterol/ipratropium nebs as needed, Zosyn, apixaban 5 twice daily, amiodarone 400 3 times daily, tamsulosin
ROS: Negative except as above
125/71, pulse 110, still atrial fibrillation, respirate 26, sats 92% on 6 L, weight is 63.1 kg, up 1 kg, was 63.4 kg on admission, intake and output incomplete, diminished breath sounds on right greater than left left relatively clear, JVD not bad,
AR murmur is not loud. Heart rate now 90s.
KUB yesterday unremarkable
White count 12.8, hemoglobin 10.9, platelets 324, CO2 20, BUN and creatinine 31 and 0.8, potassium 4.2, proBNP is 4760, had been 3330, AST is 159, had been 245, was normal on admission, ALT is 150 had been 142
EKG atrial fibrillation, right bundle branch block, left anterior fascicular block, cannot exclude lateral PA
Objective
Labs:
03/18/24 04:19
03/18/24 04:19
Labs
Hgb 10.9 g/dL (13.0-18.0) L 03/18/24 04:19
Hct 29.6 % (39.0-52.0) L 03/18/24 04:19
Plt Count 324 10^3/uL (130-400) 03/18/24 04:19
PT 16.3 Sec (11.4-14.6) H 03/15/24 16:34
INR 1.31 03/15/24 16:34
APTT Cancelled 03/17/24 11:45
Sodium 135 mmol/L (135-145) 03/18/24 04:19
Potassium 4.2 mmol/L (3.5-5.1) 03/18/24 04:19
BUN 31 mg/dl (9-20) H 03/18/24 04:19
Creatinine 0.8 mg/dL (0.7-1.3) 03/18/24 04:19
Glucose 96 mg/dl (70-99) 03/18/24 04:19
Troponins
03/15/24 03/15/24 03/15/24
12:07 16:34 20:17
Troponin I 0.045 H* 0.093 H* D 0.089 H*
03/16/24 03/16/24
04: 08:30
Troponin I 0.070 H* Cancelled
Vital Signs and I&O:
Vital Signs
Temp Pulse Resp BP Pulse Ox
36.7 C 110 26 125/71 92
03/18/24 11:48 03/18/24 11:00 03/18/24 11:00 03/18/24 10:00 03/18/24 09:00
Vital Signs
Temp Pulse Resp BP Pulse Ox
36.7 C 110 26 125/71 92
03/18/24 11:48 03/18/24 11:00 03/18/24 11:00 03/18/24 10:00 03/18/24 09:00
Intake & Output
07/02/0203/17/24 03/18/24 03/19/24
07:59 07:59 07:59 07:59
Intake Total 2416.8 / 2533.5 1402.1 / 1413.6 34.5 / 234.5 200 / 200
Output Total 500 / 500 200 / 200 650 / 650
Balance 1916.8 / 2033.5 1202.1 / 1213.6 -615.5 / -415.5 200 / 200
Physical Exam
Physical Exam
See above
--- NOTE | 2024-03-18 12:52 | PTCARENOTE ---
Report given to 4W RN. Pt pulled to new bed and escorted by RN and family to [id number].
[2024-03-18] MEDS: LASIX 40 MG IV (14:31)
[2024-03-18] MEDS: FLUSH (NSS) 2 FLUSH IV (14:33)
[2024-03-18] MEDS: KCL 20 MEQ PO (14:33)
[2024-03-18] MEDS: FLUSH (NSS) 1 FLUSH IV (17:12)
[2024-03-19] VITALS (8 sets, daily range): BP systolic 104–120; BP diastolic 48–56; PULSE 83–87; O2SAT 93–95; BMI 19.7
[2024-03-19] MEDS: ZOSYN 100 IV ×4 (03:20→21:01)
[2024-03-19] MEDS: SENOKOT-S PO (07:27)
[2024-03-19] MEDS: MIRALAX PO (07:27)
[2024-03-19] MEDS: ELIQUIS 5 MG PO (07:30)
[2024-03-19] MEDS: PACERONE 400 MG PO (07:30)
[2024-03-19] MEDS: FLOMAX PO (07:33)
--- NOTE | 2024-03-19 09:13 | W.PN.HOSP.TC ---
Addendum entered and electronically signed by Maikol Hernandez MD 03/20/24 14:23:
Add on to diagnosis list:
Left Heel, deep dermal stage 2 vs stage 3 Pressure Injury
Addendum entered and electronically signed by Maikol Hernandez MD 03/19/24 18:03:
I saw and evaluated the patient. I reviewed the resident�s note and agree with findings and plan as documented in the resident�s note.
Complaining of some dry cough. Remains hypoxic on 3 to oxygen through nasal cannula. Not dyspneic.
Lung exam relatively clear except minute crackles at lung bases. No wheezing.
Regular rhythm, no murmur on auscultation
1. Sepsis secondary to pneumonia -suspected aspiration related
-Chest x-ray from admission reviewed
-Patient currently on IV Zosyn continue
-WBC has trended down remains afebrile
-Blood culture negative.
-Patient declined of undergo VSE
2. Acute hypoxic respiratory failure
Right-sided pleural effusion
-Patient is s/p thoracentesis of 1.6 L exudative fluid. Culture negative. Cytopathology pending
-Suspecting parapneumonic in nature versus other reason
-Repeat chest x-ray ordered and pending
-Home oxygen assessment done -oxygenation 95% on room air.
3. Parox afib / RVR
Problem QTc
-Currently on oral amiodarone, dose has been decreased to 200 mg twice daily
-Remains in sinus rhythm, continue monitoring on telemetry
-Cardiology has signed off
4. Generalized weakness
-PT recommended for patient to undergo rehab placement although patient declined. Spouse at bedside
-High risk for fall and further complication, will discuss again tomorrow.
Possible discharge tomorrow AM
Will need to consider for repeat pulmonary imaging based on clinical improvement.
Original Note:
Today's Communication/Plan
-
- continue/decrease amiodarone
- continue eliquis
- repeat CXR 03/20
Assessment / Plan
Assessment / Plan
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 He was then placed on BiPAP therapy. He refuses intubation. His
chest x-ray read as right-sided pneumonia and Large pleural effusion and he underwent thoracocentesis on 03/16/24, 1650 cc of cloudy greenish-yellow pleural fluid was removed.
# Sepsis secondary to PNA
-Likely aspiration
-d/c Vanco
-MRSA screen negatuve.
-Continue Zosyn day 4
-Repeat labs in AM
# Acute hypoxemic respiratory failure
-markedly improved status post thoracentesis
-Currently on NC 3L, 02 sat 96
-Wean as tolerated
-Check Home Oxygen assessment
# Right Pleural effusion
-Successful ultrasound-guided thoracentesis, yielding 1650 cc of cloudy greenish-yellow pleural fluid.- pending cytology
-Post procedure -CXR 03/19: Small to moderate partially layering right pleural effusion with associated atelectasis, slightly progressed.
-Per Lights criteria exudative pleural effusion
- Check repeat CXR
- pro BNP elevated;1 dose of Lasix IV 40mg per cardio on 03/18
# Nonischemic DE
-Troponin peaked at 0.093 on 03/15. No chest pain
-Troponin decreased to 0.070
-Manage conservatively per cardio recommendations
- hold toprol xl per cardio
# Atrial fibrillation with RVR
- 03/19 EKG : Normal SINUS RHYTHM
- continue/decrease Amiodarone p.o. 200mg BID by cardio
- continue Eliquis
-Appreciate cardio input
-CHADS2 VASC score 5
-Moderate MR/severe AR(Per echo 03/05/2024)
# Urinary retention
-Kee placed
-Voiding trial soon
# Transaminitis
-Elevated AST, ALT
-Unclear etiology
- USG: Hepatomegaly and slightly increased echogenicity in the liver, compatible with underlying hepatocellular disease, which most commonly relates to mild fatty infiltration of the liver.
# Constipation/Abdomen fullness
- bowel regimen
- Abd Xray clear
# Leukocytosis
-Likely from sepsis
# Prostate cancer
-Status post prostatectomy
CODE STATUS: DNI
Dispo to home with and health aide
Anticipated Discharge: 24 - 48 hours
Subjective/Interval History
-
Date of Service: March 19, 2024
Objective Data
-
Labs:
Laboratory Results
03/19/24 03/19/24
08:32 08:42
WBC Pending
Hgb Pending
Hct Pending
Plt Count Pending
Sodium Pending
Potassium Pending
Chloride Pending
Carbon Dioxide Pending
BUN Pending
Creatinine Pending
Glucose Pending
Calcium Pending
Vital Signs:
Vital Signs
Temp Pulse Resp BP Pulse Ox
98.7 F 71 20 108/54 95
03/19/24 07:29 03/19/24 07:29 03/19/24 07:29 03/19/24 07:29 03/19/24 07:29
I&O
03/18/24 03/19/24 03/20/24
06:59 06:59 06:59
Intake Total 46.0 / 46.0 780 / 780
Output Total 650 / 650
Balance -604.0 / -604.0 780 / 780
Review of Systems
-
History Source: Patient
Constitutional: Denies Fever
Respiratory: Denies Trouble Breathing
Cardiac: Denies Chest Pain
Musculoskeletal: Denies Joint Pain
Neuro: Reports Weakness; Denies Headache
Physical Exam
-
General: Well Nourished and No Apparent Distress
HEENT: Normocephalic and Atraumatic
Respiratory: Decreased Breath Sounds
Cardiac: Regular Rhythm
GI: Soft and Nontender
Skin: Warm and Dry
Psych: Calm
Data Reviewed
-
Labs: Labs Reviewed by me, Discussed with Physician and Discussed with Patient
[2024-03-19 09:19] LABS: % Basophils 0.1 % (0-2); % Eosinophils 0.3 % (0-6); % Immature Granulocytes 1.7 % (0-0.5); % Lymphocytes 9.8 % (20.5-51.1); % Monocytes 8.1 % (1.7-9.3); Absolute Immature Granulocytes 0.2 10^3/uL (0-0.05); Absolute Lymphocytes 1.3 10^3/uL (1.2-3.4); Absolute Monocytes 1.1 10^3/uL (0.1-0.6); Absolute Neutrophils 10.7 10^3/uL (1.4-6.5); Hemoglobin 11.8 g/dL (13.0-18.0); Mean Corp Hgb Conc. 34.7 g/dL (33.0-37.0); Mean Corpuscular Hgb 30.2 pg (27.0-31.0); Mean Platelet Volume 9.7 fL (7.4-10.4); Nucleated Red Blood Cells % 0.1 % (-); Platelet Count 352 10^3/uL (130-400); Red Blood Cell Count 3.91 10^6/uL (4.70-6.10); Red Cell Dist. Width 13.2 % (11.5-14.5); White Blood Cell Count 13.4 10^3/uL (4.8-10.8)
[2024-03-19 09:37] LABS: Blood Urea Nitrogen 24 mg/dl (9-20); Calcium 8.7 mg/dl (8.4-10.2); Carbon Dioxide 18 mmol/L (22-30); Chloride 107 mmol/L (98-107); Estimated Creatinine Clearance 56 ml/min; Glucose 91 mg/dl (70-99); Potassium 3.6 mmol/L (3.5-5.1); Sodium 137 mmol/L (135-145); eGFR > 60.00
--- NOTE | 2024-03-19 09:52 | W.PN.CARDCBS ---
Addendum entered and electronically signed by Ariel Galaviz DO 03/19/24 12:28:
I saw and examined the patient.
The Truss Builder's note was reviewed and I agree with the note.
Comment:
Plan:
Remains sinus rhythm. Reduce amiodarone to 200 mg twice daily. He will continue amiodarone for 2 weeks at twice daily then once daily after.
Telemetry reviewed.
Continue Eliquis.
With blood pressure on the lower side, will hold off on resuming Toprol-XL at this time.
EF is preserved by echo.
Outpatient cardiac follow-up to be arranged.
Discussed with primary service
Stable from a cardiac standpoint for discharge.
Original Note:
Today's Communication / Plan
-
Amiodarone dose lowered
Impression / Plan
-
Primary Surface Lay Out Technician: Dr. Newman
Assessment:
Presentation with SOB
Acute hypoxic respiratory failure, requiring BIPAP on arrival
Leukocytosis
R PNA
Concern for aspiration
Atrial tachycardia
Paroxysmal atrial fibrillation
Not anticoagulated due to fall risk
Elevated troponin, suspected nonischemic myocardial injury in setting of above
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
Bifascicular block
Mild to mod MR by echo 02/2024
Mod to severe AI by echo 02/2024
History of NICM, recovered
History of prostate cancer s/p prostatectomy
History of falls/gait dysfunction
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
History of L hip fracture s/p repair with post op DVT
DNI code status
Echo 04/05/23: AMS study, EF 50-55%, no significant change, trace MR, mild TR, moderate aortic insufficiency
ECHO 03/05/24: EF 50 to 55%, mild concentric LVH, mild to moderate MR, moderate to severe AR, mild TR, PAP 32 mmHg
Plan:
-Tele reviewed by me 03/19/24 and he appears to be in SR with occasional PACs. Will decrease amiodarone to 200 mg BID starting 03/19/24. Plan will be for amiodarone 200 mg BID for 2 weeks then once daily thereafter.
-Recheck ECG in AM, ordered
-Outpatient dose of Eliquis 5 mg BID restarted 03/17/24 AM.
-Weight is down 2 lbs overnight after Lasix 40 mg IV x1 on 03/18/24. Patient denies symptomatic change.
-EF preserved at 50-55% by echo
-Will not restart outpatient dose of Toprol XL 12.5 mg daily due to BP 108/54
Progress Note - Surface Lay Out Technician
Subjective
Date of Service: March 19, 2024
He feels well, he thinks he is better than he was at admission
Objective
Labs:
03/19/24 08:42
03/19/24 08:32
Labs
Hgb 11.8 g/dL (13.0-18.0) L 03/19/24 08:42
Hct 34.0 % (39.0-52.0) L 03/19/24 08:42
Plt Count 352 10^3/uL (130-400) 03/19/24 08:42
PT 16.3 Sec (11.4-14.6) H 03/15/24 16:34
INR 1.31 03/15/24 16:34
APTT Cancelled 03/17/24 11:45
Sodium 137 mmol/L (135-145) 03/19/24 08:32
Potassium 3.6 mmol/L (3.5-5.1) 03/19/24 08:32
BUN 24 mg/dl (9-20) H 03/19/24 08:32
Creatinine 0.8 mg/dL (0.7-1.3) 03/19/24 08:32
Glucose 91 mg/dl (70-99) 03/19/24 08:32
Vital Signs and I&O:
Vital Signs
Temp Pulse Resp BP Pulse Ox
98.7 F 71 20 108/54 95
03/19/24 07:29 03/19/24 07:29 03/19/24 07:29 03/19/24 07:29 03/19/24 07:29
Vital Signs
Temp Pulse Resp BP Pulse Ox
98.7 F 71 20 108/54 95
03/19/24 07:29 03/19/24 07:29 03/19/24 07:29 03/19/24 07:29 03/19/24 07:29
Intake & Output
03/17/24 03/18/24 03/19/24 03/20/24
06:59 06:59 06:59 06:59
Intake Total 1507.3 / 1518.8 46.0 / 46.0 780 / 780
Output Total 200 / 200 650 / 650
Balance 1307.3 / 1318.8 -604.0 / -604.0 780 / 780
Physical Exam
Physical Exam
GEN: NAD. AAOx3
HEENT: EOMI, MMM
LUNGS: No audible wheeze
CV: SR with PVCs on tele
EXT: No edema B/L
NEURO: Gross non-focal
SKIN: No rash
[2024-03-19] MEDS: FLUSH (NSS) 1 FLUSH IV (10:42)
[2024-03-19 10:47] LABS: ALT (SGPT) 117 U/L (0-50); AST (SGOT) 64 U/L (17-59); Alkaline Phosphatase 74 U/L (38-126)
--- NOTE | 2024-03-19 13:17 | W.PN.PUL3 ---
Today's Communication / Plan
-
NPO p MN for chest tube given complicated parapneumonic effusion with medium risk of 3-month mortality
Hold off on additional diuresis
Continue with broad-spectrum antibiotics
PT/OT, as tolerated
Supplemental oxygen to maintain SpO2 >90-94%
Assessment
-
88-year-old male with history of atrial fibrillation not on anticoagulation, aortic insufficiency, history of postoperative DVT with recent hospital stay for syncope in the setting of rapid atrial tachycardia/dehydration. Patient was initially
treated with beta-nancy therapy and was discharged home. Now presents with hypoxia, right-sided pneumonia, tachycardia. Respiratory status improved on BiPAP, present with 78% saturation on nasal cannula. Patient admitted to ICU for further
management
Acute hypoxic respiratory insufficiency
78% on nasal cannula requiring noninvasive ventilation now on supplemental oxygen
Right-sided pleural parenchymal infiltrate
Right sided pleural effusion with mild tracheal shift s/p right-sided thoracentesis on 03/16 with removal of 1.65L of greenish-yellow pleural fluid with pleural fluid pH 6.81 and glucose <30, consistent with complicated effusion, likely parapneumonic
vs malignant - RAPID score: 4
Tachycardia, SVT
Heart rate 170s
Recent hospital stay for atrial tachycardia in the s. with LOC
Leukocytosis with left shift
Possible aspiration syndrome
Mild elevated troponin
Moderate MR/severe AI
Per echo 03/05/2024
Constipation
Conditions present prior to admission
History of atrial fibrillation
Not on anticoagulation due to fall risk
Bifascicular block
History of nonischemic cardiomyopathy
Recent EF normal
History of cerebellar stroke
History of normal pressure hydrocephalus
History of postoperative DVT, left hip replacement
History of exertional rhabdomyolysis
History of COVID June 2023,
Plan/recommendations
At this time, patient is improved from respiratory standpoint, on nasal cannula, 4 L
Status post right thoracentesis, consistent with exudate, pH less than 7
Empyema characteristics
Post thoracentesis chest x-ray with residual right pleural effusion
Upon reviewing prior x-ray from last hospital stay, there may have been a mild posterior basilar infiltrate on the lateral view
No symptoms or signs suggestive of pneumonia during prior hospital stay
Remains on amiodarone, atrial fibrillation noted
Primary complaint is constipation
Moving forward
Continue with current supportive care
Continue to wean oxygen as able
Empiric antibiotics, Zosyn (started 03/16) continues for suspected aspiration pneumonia, parapneumonic effusion
Follow clinically for recurrence
Repeat chest x-ray today shows slight worsening of RLL opacification, likely due to re-accumulation of pleural fluid compared to last CXR from 03/16/2024 --> IR consult for chest tube insertion given pleural fluid pH<7.2, glucose <40 and LDH>1000;
RAPID score is 4, indicating a medium risk of 3-month mortality (17.8%)
Follow-up pleural fluid cultures - NGTD
Follow-up pleural fluid cytopathology
Patient was given diltiazem for rate control, developed hypotension
Now on amiodarone
Patient was discharged on beta-nancy therapy during last hospital stay
Cardiology following
Patient is well-known to cardiology (patient's son is EP physician: Clifton Paulson)
Continue with Eliquis
Aspiration precautions, head of bed elevated as able
Follow fluid status carefully given valvular disease. Recent echocardiogram with normal EF
Constipation regimen
DVT prophylaxis: Eliquis. History of atrial fibrillation noted, no anticoagulation in the past due to fall risk --> risk versus benefit discussion regarding continuation of Eliquis should occur before patient is discharged on NOAC
Total time spent today was 35 minutes for this encounter. Time includes reviewing laboratory test/imaging results, reviewing pertinent medical records, obtaining and reviewing medical history, performing an appropriate exam, ordering medications,
tests and procedures. Time also includes documentation of this encounter, coordinating patient care and communicating with other healthcare professionals. Total time does not include separately billed tests performed on this date of service.
Subjective Data
-
Date of Service:
Date of Service: March 19, 2024
Chief Complaint: Pulmonary Follow Up
Subjective:
Seen and evaluated today at bedside. Currently on 4 L/min nasal cannula. Sleeping with at bedside as well as forensic computer examiner. No acute events reported overnight.
Review of Systems
General: Other (Negative unless mentioned above)
Objective Data
Data Reviewed
Vital Signs / I&O / Oxygen:
Vital Signs
Temp Pulse Resp BP Pulse Ox
98.7 F 71 20 108/54 95
03/19/24 07:29 03/19/24 07:29 03/19/24 07:29 03/19/24 07:29 03/19/24 07:29
Intake and Output
03/18/24 03/19/24 03/20/24
06:59 06:59 06:59
Intake Total 46.0 / 46.0 780 / 780
Output Total 650 / 650
Balance -604.0 / -604.0 780 / 780
SaO2 95
Nasal Cannula flow liters per 4
minute
Physical Exam
General: Respiratory Distress (Negative) and Comfortable
HEENT: Normocephalic and Anicteric
Cardiovascular: S1-S2 and Peripheral Edema (Trace LE edema b/l)
Respiratory: Wheeze (Negative), Crackles (Bibasilar (R >L)), Rhonchi (Negative) and Other (Reduced inspiratory effort)
GI: Soft, Non Distended and Non Tender
Neurology: Tremors (Negative) and Other (Sleeping but easily arousable and following commands)
Skin: Warm, Dry and Jaundice (Negative)
Labs/Micro/Reports
Lab Data
03/19/24 08:42
03/19/24 08:32
Microbiology
03/15/24 13:04 Blood/Venous Blood Culture - Preliminary
No Growth in 4 days- Final report to follow
03/16/24 15:02 Pleural Fluid Body Fluid Culture - Final
No Growth After 72 Hours
03/16/24 15:02 Pleural Fluid Gram Stain - Final
03/15/24 18:00 Blood/Venous Blood Culture - Preliminary
No Growth in 72 hours- Final report to follow
03/16/24 08:45 Nose Nasal Screen MRSA (PCR) - Final
MRSA not detected - performed by PCR methodology.
--- NOTE | 2024-03-19 15:30 | WOUNDNOTE ---
[facility] RN note: Patient seen for HAPU report for a L heel DTI. Patient admitted 03/15/24 for respiratory failure. Patient lives with his and has paid caregivers. Patient has a small stage 3 vs deep dermal stage 2 L heel pressure injury upper
posterior heel. Unsure if was present on admission or admitted with. Scant ss drainage. Ulcer pink with some yellow fibrin. Sacrum blanchable red. Patient for discharge tomorrow as per JOSEPH Mariano. present who states he drinks Boost protein drink
daily at home but that he hasn't been drinking the Boost she brings in for him from home. PO intake poor. Instructed patient and pressure injury prevention measures and heel relief measures. Patient at risk for pressure injury despite
preventative measures in place d/t overall medical condition and poor nutrition. +Palpable pedal pulses. Foam dressing changed on L heel. Protective foam applied R heel. Assisted patient from chair to bed with walker and help from JOSEPH Mariano. Calazime
ointment being used to sacral/buttocks/sujatha skin. t/c SPD and ordered Minh Екатерина lite boots. JOSEPH Mariano to apply. Updated Dr. Hernandez who approved local care and soft heel relief boots as tolerated. Care plan and discharge instructions updated. [place] texted
CM Beverly Antunez re: recommend VN; patient has a L heel pressure injury.
--- NOTE | 2024-03-19 16:01 | WOUNDNOTE ---
[facility] RN note: Patient seen for HAPU report for a L heel DTI. Patient admitted 03/15/24 for respiratory failure. Patient lives with his and has paid caregivers. Patient has a small stage 3 vs deep dermal stage 2 L heel pressure injury upper
posterior heel. Unsure if was present on admission or admitted with. Scant ss drainage. Ulcer pink with some yellow fibrin. +Palpable pedal pulses. Sacrum blanchable red. Patient for discharge tomorrow as per JOSEPH Mariano. present who states he
drinks Boost protein drink daily at home but that he hasn't been drinking the Boost she brings in for him from home. PO intake poor. Instructed patient and pressure injury prevention measures and heel relief measures. Foam dressing changed on
L heel. Protective foam applied R heel. Assisted patient from chair to bed with walker and help from JOSEPH Mariano. Calazime ointment being used to sacral/buttocks/sujatha skin. t/c SPD and ordered Minh Екатерина lite boots. JOSEPH Mariano to apply. Updated Dr. Hernandez who
approved local care and soft heel relief boots as tolerated. Care plan and discharge instructions updated. [place] texted Cotton Farmer Beverly Antunez re: recommend VN; patient has L heel pressure injury.
--- NOTE | 2024-03-19 17:04 | CM ---
chart reviewed and recommendation is for skilled placement, adult protective caseworker spoke with patient and spouse caregiver also present, will need to follow up with family for possible skilled placement.
Plan; Physical therapy are recommending skilled placement.
[2024-03-19 19:22] LABS: Hepatitis B Surface Antigen Negative (Negative)
[2024-03-19 19:32] LABS: Hepatitis A IgM Antibody Negative (Negative); Hepatitis B Core Ab, IgM Negative (Negative)
[2024-03-19 19:41] LABS: Hepatitis B Core Ab, Total Negative (Negative); Hepatitis B Surface Antibody Positive; Hepatitis C Antibody Negative (Negative)
[2024-03-19] MEDS: PACERONE 200 MG PO (20:55)
[2024-03-19] MEDS: SENOKOT-S 1 TABLET PO (20:55)
[2024-03-19] MEDS: MIRALAX 17 GRAMS PO (20:56)
[2024-03-20] VITALS (14 sets, daily range): BP systolic 0–126; BP diastolic 45–94; BMI 19.2
[2024-03-20] MEDS: ZOSYN 100 IV ×3 (03:15→19:48)
--- NOTE | 2024-03-20 07:02 | W.PN.HOSP.TC ---
Addendum entered and electronically signed by Maikol Hernandez MD 03/20/24 15:24:
I saw and evaluated the patient. I reviewed the resident�s note and agree with findings and plan as documented in the resident�s note.
Patient is off oxygen. Denies dyspnea.
No acute issues overnight
1. Sepsis secondary to pneumonia -suspected aspiration related
-Chest x-ray from admission reviewed
-Patient currently on IV Zosyn continue, declined the dose.
-WBC has trended down remains afebrile
-Blood culture negative.
-Patient declined of undergo VSE
2. Acute hypoxic respiratory failure - resolved
Right-sided pleural effusion
-Patient is s/p thoracentesis of 1.6 L exudative fluid. Culture negative. Cytopathology pending
-Suspecting parapneumonic in nature versus other reason
-Repeat chest x-ray showing some mod effusion.
-Home oxygen assessment done -oxygenation 95% on room air.
-Discussed with pulmonology and planning to get evaluated for CT tube placement.
3. Parox afib / RVR
Problem QTc
-Currently on oral amiodarone, dose has been decreased to 200 mg twice daily
-Remains in sinus rhythm, continue monitoring on telemetry
-Eliquis held from yesterday for chest tube placement , could be restarted after CT tube placed.
4. Generalized weakness
-PT recommended for patient to undergo rehab placement although patient declined. Spouse at bedside
-High risk for fall and further complication, patient adamant being discharged home
Care plan discussed with pulmonology
Original Note:
Today's Communication/Plan
-
- Chest tube placement
- continue amiodarone, resume eliquis after tube.
- continue zosyn- will switch to augmentin if d/c home
Assessment / Plan
Assessment / Plan
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 He was then placed on BiPAP therapy. He refuses intubation. His
chest x-ray read as right-sided pneumonia and Large pleural effusion and he underwent thoracocentesis on 03/16/24, 1650 cc of cloudy greenish-yellow pleural fluid was removed.
# Sepsis secondary to PNA
-Likely aspiration
-MRSA screen negative- d/c vanco.
-Continue Zosyn day 5
-Repeat labs in AM
# Acute hypoxemic respiratory failure
-markedly improved status post thoracentesis
-O2 sat 93% on room air
# Right Pleural effusion- exudative
-03/16 Successful ultrasound-guided thoracentesis, yielding 1650 cc of cloudy greenish-yellow pleural fluid.- pending cytology
-Post procedure -CXR 03/19: Small to moderate partially layering right pleural effusion with associated atelectasis, slightly progressed.
- 03/20 CXR: Small to moderate right pleural effusion
- Pulmonology recommended Chest Tube given complicated parapneumonic effusion
- pro BNP elevated;1 dose of Lasix IV 40mg per cardio on 03/18
# Nonischemic PR
-Troponin peaked at 0.093 on 03/15. No chest pain
-Troponin decreased to 0.070
-Manage conservatively per cardio recommendations
- hold toprol xl per cardio due to intermittent hypotension
# Atrial fibrillation with RVR
- 03/20 EKG : Normal SINUS RHYTHM
- continue Amiodarone p.o. 200mg BID
- Eliquis dose held starting 03/19/24 PM for planned chest tube to be placed by IR 03/20/24
- Resume Eliquis after chest tube placement
-Appreciate cardio input
-CHADS2 VASC score 5
-Moderate MR/severe AR(Per echo 03/05/2024)
# Left heel ulcer- pressure ulcer stage 2
- clean with saline, honey gel, silicone border foam, change every 2 days and prn loosened dressing.
# Urinary retention
-Kee placed
-Voiding trial soon
# Transaminitis
-Elevated AST, ALT
-Unclear etiology
-USG: Hepatomegaly and slightly increased echogenicity in the liver, compatible with underlying hepatocellular disease, which most commonly relates to mild fatty infiltration of the liver.
# Constipation/Abdomen fullness
- bowel regimen
- Abd Xray clear
# Leukocytosis
-Likely from sepsis
# Prostate cancer
-Status post prostatectomy
CODE STATUS: DNI
Dispo to home with and health aide
Anticipated Discharge: Within 24 hours
Subjective/Interval History
-
Date of Service: March 20, 2024
Objective Data
-
Labs:
Laboratory Results
03/20/24
06:00
WBC Pending
Hgb Pending
Hct Pending
Plt Count Pending
Sodium Pending
Potassium Pending
Chloride Pending
Carbon Dioxide Pending
BUN Pending
Creatinine Pending
Glucose Pending
Calcium Pending
Total Bilirubin Pending
AST Pending
ALT Pending
Alkaline Phosphatase Pending
Vital Signs:
Vital Signs
Temp Pulse Resp BP Pulse Ox
97.6 F 68 16 111/57 97
03/20/24 03:35 03/20/24 03:35 03/20/24 03:35 03/20/24 03:35 03/20/24 03:35
I&O
03/19/24 03/20/24 03/21/24
06:59 06:59 06:59
Intake Total 780 / 780 680 / 680
Output Total 500 / 500
Balance 780 / 780 180 / 180
Review of Systems
-
History Source: Patient
Constitutional: Denies Fever
Respiratory: Denies Cough
Cardiac: Denies Chest Pain
Abdomen/GI: Denies Abdominal Pain
Musculoskeletal: Denies Joint Pain
Neuro: Denies Headache
Physical Exam
-
General: Well Nourished and No Apparent Distress
HEENT: Normocephalic and Atraumatic
Respiratory: Decreased Breath Sounds
Cardiac: Regular Rhythm
GI: Soft and Nontender
Skin: Warm and Dry
Neuro: Awake, Alert and Oriented
Psych: Calm
Data Reviewed
-
Labs: Labs Reviewed by me, Discussed with Physician and Discussed with Patient
[2024-03-20] MEDS: PACERONE PO (08:45)
[2024-03-20] MEDS: FLOMAX PO (08:45)
[2024-03-20] MEDS: ZOSYN IV (08:45)
[2024-03-20] MEDS: SENOKOT-S PO (08:45)
[2024-03-20] MEDS: MIRALAX PO (08:45)
--- NOTE | 2024-03-20 08:45 | PTCARENOTE ---
Addendum entered by Rochelle Pereira RN 03/20/24 09:18:
03/20- Patient accepts nursing assessment and speaking with Physician. He is still refusing all medications including his antibiotics at this time. Will continue to monitor.
Original Note:
03/20- Patient is AAOX3, currently refusing all meds stating he wants to leave AMA. He states he does not want to discuss Hospice but does not want any further medical care either. He has a hx refusing all treatment as well. Educated patient on
respiratory and cardiology conditions as per [employer]; educated on chest tubes, treatment options and risks of refusing treatments including refusing his chronic and cardiac medications. Patient verbalizes understanding to all education but still
adamantly refuses all medications and wants to refuse chest tube placement today. Notified Physician. Called patient's primary contact, Babatunde, his son. Assisted patient in contacting son Babatunde via his cell phone and made the connection. Continue to
monitor and await further orders/discussion.
[2024-03-20 10:31] LABS: % Basophils 0.1 % (0-2); % Eosinophils 0.9 % (0-6); % Immature Granulocytes 2.8 % (0-0.5); % Monocytes 6.8 % (1.7-9.3); % Neutrophils 80.4 % (42.2-75.2); Absolute Eosinophils 0.1 10^3/uL (0-0.7); Absolute Immature Granulocytes 0.4 10^3/uL (0-0.05); Absolute Lymphocytes 1.3 10^3/uL (1.2-3.4); Absolute Neutrophils 11.5 10^3/uL (1.4-6.5); Hematocrit 32.8 % (39.0-52.0); Hemoglobin 11.2 g/dL (13.0-18.0); Mean Corp Hgb Conc. 34.1 g/dL (33.0-37.0); Mean Corpuscular Hgb 30.2 pg (27.0-31.0); Mean Corpuscular Volume 88.4 fL (80.0-94.0); Mean Platelet Volume 9.6 fL (7.4-10.4); Nucleated Red Blood Cells % 0 % (-); Platelet Count 359 10^3/uL (130-400); Red Blood Cell Count 3.71 10^6/uL (4.70-6.10); Red Cell Dist. Width 13.4 % (11.5-14.5); White Blood Cell Count 14.3 10^3/uL (4.8-10.8)
[2024-03-20 10:55] LABS: ALT (SGPT) 92 U/L (0-50); AST (SGOT) 54 U/L (17-59); Albumin 2.8 g/dl (3.5-5.0); Alkaline Phosphatase 73 U/L (38-126); Blood Urea Nitrogen 21 mg/dl (9-20); Calcium 8.6 mg/dl (8.4-10.2); Carbon Dioxide 27 mmol/L (22-30); Chloride 104 mmol/L (98-107); Estimated Creatinine Clearance 49 ml/min; Glucose 81 mg/dl (70-99); Potassium 3.9 mmol/L (3.5-5.1); Sodium 137 mmol/L (135-145); Total Bilirubin 0.9 mg/dl (0.2-1.3); Total Protein 5.2 g/dl (6.3-8.2); eGFR > 60.00
--- NOTE | 2024-03-20 11:14 | W.PN.CARDCBS ---
Addendum entered and electronically signed by Ariel Galaviz DO 03/20/24 12:43:
I saw and examined the patient.
The Professor Of Environmental Studies's note was reviewed and I agree with the note.
Comment:
Resume Eliquis after chest tube placed
Continue amiodarone 200 mg twice a day until April 19 and reduced to 200 mg daily after
Discussed with nursing.
Original Note:
Today's Communication / Plan
-
Restart Eliquis after chest tube placed
Cont amiodarone 200 mg BID until 04/19/24 then reduce to 200 mg dialy thereafter
Impression / Plan
-
Primary Director Of Testing: Dr. Newman
Assessment:
Presentation with SOB
Acute hypoxic respiratory failure, requiring BIPAP on arrival
Leukocytosis
R PNA
Concern for aspiration
Atrial tachycardia
Paroxysmal atrial fibrillation
Previously not anticoagulated due to fall risk, but agreeable to starting Eliquis 03/15/24 admission
Elevated troponin, suspected nonischemic myocardial injury in setting of above
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
Bifascicular block
Mild to mod MR by echo 02/2024
Mod to severe AI by echo 02/2024
History of NICM, recovered
History of prostate cancer s/p prostatectomy
History of falls/gait dysfunction
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
History of L hip fracture s/p repair with post op DVT
DNI code status
Echo 04/05/23: AMS study, EF 50-55%, no significant change, trace MR, mild TR, moderate aortic insufficiency
ECHO 03/05/24: EF 50 to 55%, mild concentric LVH, mild to moderate MR, moderate to severe AR, mild TR, PAP 32 mmHg
Plan:
-Remains in SR by ECG 03/20/24 as reviewed by me. QTc 531 ms which is stable.
-Patient has received a 4.2 gram amiodarone PO load this admission. Patient refused amiodarone 03/20/24 AM, but otherwise has been accepting of amiodarone dosing. Plan is for amiodarone 200 mg BID for 2 weeks then once daily thereafter.
-Eliquis dose held starting 03/19/24 PM for planned chest tube to be placed by IR 03/20/24, Pulmonology recommending chest tube due to reaccumulation of pleural fluid and parapneumonic effusion on admission. Patient initially refusing chest tube, but
after talking with his son and other family he was finally agreeable while I was in the room 03/20/24.
-Patient was given Lasix 40 mg IV x1 on 03/18/24 due to elevated pro-BNP. Weight has been drifting down throughout admission and no subjective improvement. Would not consider this to be an acute HF exacerbation. No additional IV diuresis planned.
-EF preserved at 50-55% by echo
-Will not restart outpatient dose of Toprol XL 12.5 mg daily due to intermittent hypotension
Progress Note - Director Of Testing
Subjective
Date of Service: March 20, 2024
He is upset, he feels like people are pushing procedures on him that he does not want, he doesn't trust anyone right now
Objective
Labs:
03/20/24 09:38
03/20/24 09:38
Labs
Hgb 11.2 g/dL (13.0-18.0) L 03/20/24 09:38
Hct 32.8 % (39.0-52.0) L 03/20/24 09:38
Plt Count 359 10^3/uL (130-400) 03/20/24 09:38
PT 16.3 Sec (11.4-14.6) H 03/15/24 16:34
INR 1.31 03/15/24 16:34
APTT Cancelled 03/17/24 11:45
Sodium 137 mmol/L (135-145) 03/20/24 09:38
Potassium 3.9 mmol/L (3.5-5.1) 03/20/24 09:38
BUN 21 mg/dl (9-20) H 03/20/24 09:38
Creatinine 0.9 mg/dL (0.7-1.3) 03/20/24 09:38
Glucose 81 mg/dl (70-99) 03/20/24 09:38
Vital Signs and I&O:
Vital Signs
Temp Pulse Resp BP Pulse Ox
98.7 F 76 20 115/63 98
03/20/24 07:37 03/20/24 07:37 03/20/24 07:37 03/20/24 07:37 03/20/24 07:37
Vital Signs
Temp Pulse Resp BP Pulse Ox
98.7 F 76 20 115/63 98
03/20/24 07:37 03/20/24 07:37 03/20/24 07:37 03/20/24 07:37 03/20/24 07:37
Intake & Output
03/18/24 03/19/24 03/20/24 03/21/24
06:59 06:59 06:59 06:59
Intake Total 46.0 / 46.0 780 / 780 680 / 680
Output Total 650 / 650 500 / 500
Balance -604.0 / -604.0 780 / 780 180 / 180
Physical Exam
Physical Exam
GEN: Agitated
HEENT: EOMI, MMM
LUNGS: No audible wheeze
CV: SR with PVCs on tele
EXT: No edema B/L
NEURO: Gross non-focal
SKIN: No rash
--- NOTE | 2024-03-20 11:16 | PN.CDI ---
CDI
- -
CDI:
Physician Documentation Request
Admit Date: 03/15/24 15:[address] Mendez/,
Clinical Indicators:
Patient admitted with sepsis.
03/19 [facility] RN skin wound assessment: Left Heel, deep dermal stage 2 vs stage 3 Pressure Injury
Treatment: Cleansed with saline, adhesive foam dressing
Physician documentation of the type and location of wounds is required for compliant documentation. Based on the above clinical findings and your assessment, please provide the following in your progress note:
1. Location of the ulcer/wound, including laterality.
2. Type (etiology) of ulcer/wound:
- Pressure (decubitus) ulcer
- Other, please specify
- Unable to determine
3. If a pressure ulcer, please also include the stage* of the ulcer:
- Stage 1 - Skin intact, non-blanchable redness
- Stage 2 - Partial thickness loss of dermis, includes intact or open blister
- Stage 3 - Full thickness tissue not including bone, tendon or muscle
- Stage 4 - Full thickness tissue loss, including exposed bone, tendon or muscle
- Unstageable - Full thickness loss in which the base of the ulcer is covered by slough (yellow, vasquez, kimble, green or brown) and/or eschar (vasquez, brown or black) in the wound bed.
- Unable to determine
Use of terms such as suspected, likely, concern for, or probable (associated with a specific diagnosis that is being evaluated, monitored, or treated as if it exists) are acceptable and can be coded in the inpatient setting, when documented at the
time of discharge.
Thank you,
YOSSI Williamson RN
CDI Specialist
available via tiger text
Please use your independent medical judgment in providing your response.
*Source: National Pressure Ulcer Advisory Panel (NPUAP)
--- NOTE | 2024-03-20 12:17 | W.DCSUMMARY ---
Documented by User: Dinesh Love MD, Resident 03/21/24 08:21
Discharge Summary
Discharge Data
Date of Admission: 03/15/24
Date of Discharge: 03/21/24
-
Pending Results: Yes
Hospital Course
Discharging Physician :
Disposition :
Primary care physician :
Principal Discharge diagnosis :
Chronic Discharge diagnosis :
Hospital Course :
Important imaging findings :
Procedure findings :
Discharge Plan
-
Patient Disposition: Home with Home Care
Discharge Diagnosis/Procedures: Acute hypoxic respiratory insufficiency, Paroxysmal atrial fibrillation,
Condition: Fair
Diet: Regular
Activity: As tolerated
Driving Restrictions: No driving
Bathing Restrictions: None
Other Services: VN
Activity Restrictions/Additional Instructions:
Wound Care Instructions
Sacrum-protective silicone border foam, change q 3 days and prn loosened dressing.
L heel ulcer-clean with saline, honey gel, silicone border foam, change every 2 days and prn loosened dressing.
Protective foam to R heel, change every 3 days and as needed for loosened dressing.
Zinc barrier ointment to sujatha/buttocks twice a day.
Pressure redistributing chair cushion (i.e. Air chair cushion)
Elevate heels off bed; soft heel relief boots as tolerated (i.e. TruVue lite boots). Elevate heels off bed with pillow and/or air chair cushion while boots off.
Turning schedule to prevent pressure injury.
Evaluate for hospital bed with air mattress or air overlay mattress.
Follow up at wound care center call for an appointment.
Referrals:
Donovan Newman MD [Active] - in less than 1 week
UNKNOWN - PT DOES,NOT KNOW [Family Provider] -
Additional Discharge Medication Instructions: Take amiodarone 200 mg tablets by mouth twice daily until 04/02/2024, and take 200 mg tablets by mouth once daily thereafter.
Take Eliquis 5 mg tablets by mouth twice daily
Take tamsulosin 0.4 mg capsule by mouth once daily
take Amoxicillin-Clavulanate one tablet twice daily for three days
Prescriptions:
New
tamsulosin 0.4 mg Capsule
0.4 mg PO DAILY Qty: 30 0RF
Eliquis 5 mg Tablet
5 mg PO BID Qty: 60 0RF
amiodarone 200 mg Tablet
200 mg PO BID Qty: 60 1RF
Rx Instructions:
Take 200 mg by mouth twice daily until 04/19/2024, take 200 mg by mouth once daily thereafter.
amoxicillin-pot clavulanate 875-125 mg tablet
1 tab PO BID Qty: 4 0RF
Continued
ascorbic acid (vitamin C) [Vitamin C] 500 mg Tablet
500 mg PO DAILY
cholecalciferol (vitamin D3) [Vitamin D3] 25 mcg (1,000 unit) Tablet
25 mcg PO DAILY
omega 3-hvf-nfk-fish oil [Fish Oil] 1,000 mg (120 mg-180 mg) Capsule
1 cap PO DAILY
metoprolol succinate 25 mg Tablet Extended Release 24 Hr
12.5 mg PO BID Qty: 60 11RF
polyethylene glycol 3350 [HealthyLax] 17 gram Powder In Packet
17 g PO DAILYPRN PRN (Reason: constipation) Qty: 0 0RF
alendronate 70 mg Tablet
70 mg PO QWEEK
multivitamin Tablet
1 tab PO DAILY
triamcinolone acetonide 0.025 % Cream
1 applic TOPICAL DAILY
docusate sodium 100 mg Tablet
100 mg PO TID
resveratrol 100 mg Capsule
100 mg PO DAILY
Discharge Date and Time
Print Language: CITIZEN [place]

Documented by User: George Mendez MD, Resident 03/23/24 16:38
Discharge Summary
Discharge Data
Date of Admission: 03/15/24
Date of Discharge: 03/23/24
Hospital Course
Discharging Physician : George Mendez MD ; Maikol Hernandez MD
Disposition : Home with health aide
Primary care physician : Not known.
Principal Discharge diagnosis : Sepsis secondary to pneumonia, acute hypoxemic respiratory failure, right pleural effusion, A-fib
Chronic Discharge diagnosis : Osteoporosis, arrhythmia
Hospital Course : 88-year-old male with past medical history of A-fib presented with severe shortness of breath and tachycardia. His oxygen saturation was 78% and pulse of 170. He was put on a BiPAP in the ER an EKG was performed which showed
probable atrial fibrillation with PVC, Cardizem drip was started which improved his heart rate however his blood pressure dropped to 68/55 which prompted to stop the Cardizem drip and a bolus of normal saline was administered. Chest x-ray showed
right middle and lower lobe opacity suspicious of pneumonia and he was started on vancomycin and Zosyn. Pulmonology and cardiology was on board to manage his care during hospitalization. It was also found that his troponins were elevated with the
highest value of 0.093 but they trended down. Patient had multiple episodes of A-fib with RVR. He was started on p.o. amiodarone to manage atrial fibrillation per cardio recommendations. Ultrasound confirmed the presence of pleural effusion,
though initially he refused but upon discussing with his son who is a supervisor assembly room, patient proceeded with thoracocentesis. 1.6 L of fluid was drained and upon further testing was found to be exudative in nature. He was transferred from ICU
to medical floor for further management. MRSA screen came back negative and vancomycin was discontinued. Repeat chest x-ray showed some residual/re collection of pleural effusion. Cytopathology was negative for any cancers. Chest tube was placed
to help with the drainage. Additionally during his stay in the hospital he had trouble with urination, Flomax was prescribed but he refused to use it. Per the cardio recommendations he was advised to continue use of Eliquis 5 mg p.o. twice daily,
amiodarone 200 mg twice daily until 04/02 and then once daily thereafter. Supplemental oxygen was also provided to maintain oxygen saturation >90%.
Important imaging findings : CXR: 03/16/24 confluent opacity within the right hemithorax which is slightly worsened compared to prior study compatible with a large pleural effusion and likely underlying airspace consolidation/atelectasis.
US/5 Large RIGHT pleural effusion which should be amenable to thoracentesis.
Abdomen USG: Hepatomegaly and slightly increased echogenicity in the liver, compatible with underlying hepatocellular disease, which most commonly relates to mild fatty infiltration of the liver.
03/23/24 Chest USG: Scanning over the right chest demonstrates a small-sized pleural effusion, with right chest tube in place
Procedure findings : 03/16/24: Successful ultrasound-guided thoracentesis, yielding 1650 cc of cloudy greenish-yellow pleural fluid
03/20:Ultrasound and fluoroscopically guided right chest tube placement
Discharge Plan
-
Patient Disposition: Home with Home Care
Discharge Diagnosis/Procedures: Acute hypoxic respiratory insufficiency, Paroxysmal atrial fibrillation,
Condition: Fair
Diet: Regular
Activity: As tolerated
Driving Restrictions: No driving
Bathing Restrictions: None
Other Services: VN
Activity Restrictions/Additional Instructions:
Wound Care Instructions
Sacrum-protective silicone border foam, change q 3 days and prn loosened dressing.
L heel ulcer-clean with saline, honey gel, silicone border foam, change every 2 days and prn loosened dressing.
Protective foam to R heel, change every 3 days and as needed for loosened dressing.
Zinc barrier ointment to sujatha/buttocks twice a day.
Pressure redistributing chair cushion (i.e. Air chair cushion)
Elevate heels off bed; soft heel relief boots as tolerated (i.e. TruVue lite boots). Elevate heels off bed with pillow and/or air chair cushion while boots off.
Turning schedule to prevent pressure injury.
Evaluate for hospital bed with air mattress or air overlay mattress.
Follow up at wound care center call for an appointment.
Referrals:
Donovan Newman MD [Active] - in less than 1 week
UNKNOWN - PT DOES,NOT KNOW [Family Provider] -
Additional Discharge Medication Instructions: Take amiodarone 200 mg tablets by mouth twice daily until 04/02/2024, and take 200 mg tablets by mouth once daily thereafter.
Take Eliquis 5 mg tablets by mouth twice daily
Take tamsulosin 0.4 mg capsule by mouth once daily
take Amoxicillin-Clavulanate one tablet twice daily for three days
Prescriptions:
New
tamsulosin 0.4 mg Capsule
0.4 mg PO DAILY Qty: 30 0RF
Eliquis 5 mg Tablet
5 mg PO BID Qty: 60 0RF
amiodarone 200 mg Tablet
200 mg PO BID Qty: 60 1RF
Rx Instructions:
Take 200 mg by mouth twice daily until 04/19/2024, take 200 mg by mouth once daily thereafter.
amoxicillin-pot clavulanate 875-125 mg tablet
1 tab PO BID Qty: 4 0RF
Continued
ascorbic acid (vitamin C) [Vitamin C] 500 mg Tablet
500 mg PO DAILY
cholecalciferol (vitamin D3) [Vitamin D3] 25 mcg (1,000 unit) Tablet
25 mcg PO DAILY
omega 4-hjw-ycb-fish oil [Fish Oil] 1,000 mg (120 mg-180 mg) Capsule
1 cap PO DAILY
metoprolol succinate 25 mg Tablet Extended Release 24 Hr
12.5 mg PO BID Qty: 60 11RF
polyethylene glycol 3350 [HealthyLax] 17 gram Powder In Packet
17 g PO DAILYPRN PRN (Reason: constipation) Qty: 0 0RF
alendronate 70 mg Tablet
70 mg PO QWEEK
multivitamin Tablet
1 tab PO DAILY
triamcinolone acetonide 0.025 % Cream
1 applic TOPICAL DAILY
docusate sodium 100 mg Tablet
100 mg PO TID
resveratrol 100 mg Capsule
100 mg PO DAILY
Discharge Date and Time
Print Language: CITIZEN [place]
--- NOTE | 2024-03-20 12:35 | W.PN.PUL3 ---
Today's Communication / Plan
-
Underwent chest tube today given complicated parapneumonic effusion with medium risk of 3-month mortality
Follow-up chest tube output daily; document qshift
Hold off on additional diuresis
Continue with broad-spectrum antibiotics
PT/OT, as tolerated
Supplemental oxygen to maintain SpO2 >90-94%
Pain control
Assessment
-
88-year-old male with history of atrial fibrillation not on anticoagulation, aortic insufficiency, history of postoperative DVT with recent hospital stay for syncope in the setting of rapid atrial tachycardia/dehydration. Patient was initially
treated with beta-nancy therapy and was discharged home. Now presents with hypoxia, right-sided pneumonia, tachycardia. Respiratory status improved on BiPAP, present with 78% saturation on nasal cannula. Patient admitted to ICU for further
management
Impression:
Acute hypoxic respiratory insufficiency
78% on nasal cannula requiring noninvasive ventilation now on supplemental oxygen
Right-sided pleural parenchymal infiltrate
Right sided pleural effusion with mild tracheal shift s/p right-sided thoracentesis on 03/16 with removal of 1.65L of greenish-yellow pleural fluid with pleural fluid pH 6.81 and glucose <30, consistent with complicated effusion, likely parapneumonic
vs malignant - RAPID score: 4
Tachycardia, SVT - resolved
Recent hospital stay for atrial tachycardia in the s. with LOC
Leukocytosis with left shift
Possible aspiration syndrome
Mild elevated troponin
Moderate MR/severe AI
Per echo 03/05/2024
Constipation
Conditions present prior to admission
History of atrial fibrillation
Not on anticoagulation due to fall risk
Bifascicular block
History of nonischemic cardiomyopathy
Recent EF normal
History of cerebellar stroke
History of normal pressure hydrocephalus
History of postoperative DVT, left hip replacement
History of exertional rhabdomyolysis
History of COVID June 2023,
Plan/recommendations
At this time, patient is improved from respiratory standpoint, on nasal cannula, 4 L
Status post right thoracentesis on 03/16/2024, consistent with exudate, pH less than 7
Empyema characteristics
Post thoracentesis chest x-ray with residual right pleural effusion
Upon reviewing prior x-ray from last hospital stay, there may have been a mild posterior basilar infiltrate on the lateral view
No symptoms or signs suggestive of pneumonia during prior hospital stay
Remains on amiodarone, atrial fibrillation noted
Primary complaint is constipation
Moving forward
Continue with current supportive care
Continue to wean oxygen as able
Empiric antibiotics, Zosyn (started 03/16) continues for suspected aspiration pneumonia, parapneumonic effusion
Follow clinically for recurrence
Repeat chest x-ray on 03/19/2024 showed slight worsening of RLL opacification, likely due to re-accumulation of pleural fluid compared to last CXR from 03/16/2024 --> IR consult for chest tube insertion given pleural fluid pH<7.2, glucose <40 and
LDH>1000; RAPID score is 4, indicating a medium risk of 3-month mortality (17.8%) --> chest tube inserted today
Follow-up pleural fluid cultures - NGTD
Follow-up pleural fluid cytopathology
Follow-up pleural fluid output
Patient was given diltiazem for rate control, developed hypotension
Now on amiodarone
Patient was discharged on beta-nancy therapy during last hospital stay
Cardiology following
Patient is well-known to cardiology (patient's son is EP physician: Clifton Paulson)
Continue with Eliquis now the chest tube has been placed
Aspiration precautions, head of bed elevated as able
Follow fluid status carefully given valvular disease. Recent echocardiogram with normal EF
Constipation regimen
DVT prophylaxis: Eliquis. History of atrial fibrillation noted, no anticoagulation in the past due to fall risk --> risk versus benefit discussion regarding continuation of Eliquis should occur before patient is discharged on NOAC
Total time spent today was 35 minutes for this encounter. Time includes reviewing laboratory test/imaging results, reviewing pertinent medical records, obtaining and reviewing medical history, performing an appropriate exam, ordering medications,
tests and procedures. Time also includes documentation of this encounter, coordinating patient care and communicating with other healthcare professionals. Total time does not include separately billed tests performed on this date of service.
Subjective Data
-
Date of Service:
Date of Service: March 20, 2024
Chief Complaint: Pulmonary Follow Up
Subjective:
Patient seen today at bedside after returning from for right-sided chest tube. He is currently on 4 L nasal cannula and he says he feels well. No immediate complications from chest tube insertion. Chest tube is on suction at -20 cmH2O with
approximately 600 cc of serous pleural fluid and no airleak. Glass Vial Bending Conveyor Feeder at bedside. Patient denies chest pain, headache, abdominal pain, fevers or chills. The patient wants to know if he can get up and wash his face.
Review of Systems
General: Other (Negative unless mentioned above)
Objective Data
Data Reviewed
Vital Signs / I&O / Oxygen:
Vital Signs
Temp Pulse Resp BP Pulse Ox
98.3 F 76 19 117/53 94
03/20/24 11:28 03/20/24 11:28 03/20/24 11:28 03/20/24 11:28 03/20/24 11:28
Intake and Output
03/19/24 03/20/24 03/21/24
06:59 06:59 06:59
Intake Total 780 / 780 680 / 680
Output Total 500 / 500
Balance 780 / 780 180 / 180
SaO2 94
Nasal Cannula flow liters per 3
minute
Physical Exam
General: Respiratory Distress (Negative) and Comfortable
HEENT: Normocephalic and Anicteric
Cardiovascular: S1-S2 and Peripheral Edema (Trace LE edema b/l)
Respiratory: Wheeze (Negative), Crackles (Bibasilar (R >L)), Rhonchi (Negative), Non-Labored Respirations and Chest Tube (Right-sided chest tube)
GI: Soft, Non Distended and Non Tender
Neurology: Tremors (Negative) and Other (Sleeping but easily arousable and following commands)
Skin: Warm, Dry and Jaundice (Negative)
Labs/Micro/Reports
Lab Data
03/20/24 09:38
03/20/24 09:38
Microbiology
03/15/24 18:00 Blood/Venous Blood Culture - Preliminary
No Growth in 4 days- Final report to follow
03/15/24 13:04 Blood/Venous Blood Culture - Preliminary
No Growth in 4 days- Final report to follow
03/16/24 15:02 Pleural Fluid Body Fluid Culture - Final
No Growth After 72 Hours
03/16/24 15:02 Pleural Fluid Gram Stain - Final
--- NOTE | 2024-03-20 12:51 | CM ---
Patient is refusing skilled placement but is agreeable to visiting nurses, options reviewed and patient has selected [facility], [facility] liaison contacted.
Plan; Home at discharge with [facility] and private caregiver.
--- NOTE | 2024-03-20 15:02 | VNURNOTE ---
Attempted to meet patient at bedside to introduce [facility] services. He was out of the room. Will attempt later.
--- NOTE | 2024-03-20 15:16 | VNURNOTE ---
Home Health Liaison spoke with patient's son over the phone to discuss [facility] nurse/therapy, visits, schedule and homebound status. Son Babatunde is agreeable and understands that visits at home will be 2-3 x per week to assess and teach medical management
and teach and manage potential Asept. [facility] contact info provided to son. Patient is aware that [facility] will contact them for start of care in 1-2 days after discharge from .
[facility] referral completed in [facility].
--- NOTE | 2024-03-20 16:08 | PTCARENOTE ---
03/20- Patient transferred back to Unit with R-lateral Chest Tube set to Wall Suction. Closed System Intact; Dressing CDI; Currently 600cc yellow cloudy drainage. Patient denies pain, SOB or CP. Patient able to fully inspire/. L-Lung Base
still with crackles; R-base has clearer sound that previous assessment. POX=95% on 4L; HR=83. Continue to monitor.
[2024-03-20] MEDS: PACERONE 200 MG PO (19:55)
[2024-03-20] MEDS: SENOKOT-S 1 TABLET PO (19:55)
[2024-03-20] MEDS: MIRALAX 17 GRAMS PO (19:55)
[2024-03-20] MEDS: ELIQUIS 5 MG PO (20:01)
[2024-03-21] VITALS (8 sets, daily range): BP systolic 100–116; BP diastolic 47–58; PULSE 88–98; O2SAT 85; BMI 19.1
[2024-03-21] MEDS: ZOSYN 100 IV ×4 (02:01→19:35)
[2024-03-21] MEDS: MIRALAX PO ×2 (08:19→19:34)
[2024-03-21] MEDS: ELIQUIS 5 MG PO ×2 (08:19→19:35)
[2024-03-21] MEDS: FLOMAX 0.4 MG PO (08:19)
[2024-03-21] MEDS: SENOKOT-S 1 TABLET PO (08:19)
[2024-03-21] MEDS: PACERONE 200 MG PO ×2 (08:19→19:35)
--- NOTE | 2024-03-21 08:50 | W.PN.HOSP.TC ---
Addendum entered and electronically signed by Maikol Hernandez MD 03/21/24 16:21:
I saw and evaluated the patient. I reviewed the resident�s note and agree with findings and plan as documented in the resident�s note.
Chest tube drainage 1.3 L over last 24 hours.
Follow-up chest x-ray showing improvement in effusion.
Case discussed with pulmonology and will need to be monitored here in the hospital
Maintain on IV Zosyn
Pleural fluid culture negative for any bacterial growth. Cytopathology pending.
Original Note:
Today's Communication/Plan
-
- resume eliquis
- Continue amiodarone
- monitor for 24 hours
Assessment / Plan
Assessment / Plan
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 He was then placed on BiPAP therapy. He refuses intubation. His
chest x-ray read as right-sided pneumonia and Large pleural effusion and he underwent thoracocentesis on 03/16/24, 1650 cc of cloudy greenish-yellow pleural fluid was removed.
# Sepsis secondary to PNA
-Likely aspiration
-MRSA screen negative- d/c vanco.
-Continue Zosyn day 6
# Acute hypoxemic respiratory failure
-markedly improved status post thoracentesis
-O2 sat 91% on room air
# Right Pleural effusion- exudative
-03/16 Successful ultrasound-guided thoracentesis, yielding 1650 cc of cloudy greenish-yellow pleural fluid.- pending cytology
-Post procedure -CXR 03/19: Small to moderate partially layering right pleural effusion with associated atelectasis, slightly progressed.
- 03/20 CXR: Small to moderate right pleural effusion
- 03/20 Chest Tube given complicated parapneumonic effusion
- monitor for 24 hrs before taking out chest tube
- CX s/p chest tube confirmed decrease in pleural effusion
- pro BNP elevated;1 dose of Lasix IV 40mg per cardio on 03/18
# Nonischemic [place]
-Troponin peaked at 0.093 on 03/15. No chest pain
-Troponin decreased to 0.070
-Manage conservatively per cardio recommendations
- hold toprol xl per cardio due to intermittent hypotension
# Atrial fibrillation with RVR
- 03/20 EKG : Normal SINUS RHYTHM
- continue Amiodarone p.o. 200mg BID
- Resume Eliquis after chest tube placement
-Appreciate cardio input
-CHADS2 VASC score 5
-Moderate MR/severe AR(Per echo 03/05/2024)
# Left heel ulcer- pressure ulcer stage 2
- clean with saline, honey gel, silicone border foam, change every 2 days and prn loosened dressing.
# Urinary retention
-resolved per patient
# Transaminitis
-Elevated AST, ALT
-Unclear etiology
-USG: Hepatomegaly and slightly increased echogenicity in the liver, compatible with underlying hepatocellular disease, which most commonly relates to mild fatty infiltration of the liver.
# Constipation/Abdomen fullness
- bowel regimen
- Abd Xray clear
# Leukocytosis
-Likely from sepsis
# Prostate cancer
-Status post prostatectomy
CODE STATUS: DNI
Dispo to home with and health aide
Anticipated Discharge: Within 24 hours
Subjective/Interval History
-
Date of Service: March 21, 2024
Objective Data
-
Labs:
Laboratory Results
03/21/24
07:23
WBC Pending
Hgb Pending
Hct Pending
Plt Count Pending
Sodium Pending
Potassium Pending
Chloride Pending
Carbon Dioxide Pending
BUN Pending
Creatinine Pending
Glucose Pending
Calcium Pending
Vital Signs:
Vital Signs
Temp Pulse Resp BP Pulse Ox
98.3 F 77 18 116/48 90
03/21/24 07:33 03/21/24 07:33 03/21/24 07:33 03/21/24 07:33 03/21/24 07:33
I&O
03/20/24 03/21/24 03/22/24
06:59 06:59 06:59
Intake Total 680 / 680 680 / 680
Output Total 500 / 500 655 / 655
Balance 180 / 180
Review of Systems
-
History Source: Patient
Constitutional: Denies Fever
Respiratory: Denies Cough or Trouble Breathing
Cardiac: Denies Chest Pain
Abdomen/GI: Denies Abdominal Pain
Musculoskeletal: Reports Joint Pain
Neuro: Reports Weakness; Denies Headache
Physical Exam
-
General: Well Developed and Well Nourished
HEENT: Normocephalic and Atraumatic
Respiratory: Clear to Auscultation
Cardiac: Regular Rhythm
GI: Soft and Nontender
Skin: Warm and Dry
Psych: Calm
Data Reviewed
-
Diagnostic Radiology: Report Reviewed by me, Discussed with Physician and Discussed with Patient
Labs: Labs Reviewed by me, Discussed with Physician and Discussed with Patient
--- NOTE | 2024-03-21 10:12 | W.PN.CARDCBS ---
Addendum entered and electronically signed by Dannie Butterfield MD 03/21/24 10:28:
I saw and examined the patient.
The CRO or PA's note was reviewed and I agree with the note.
Comment: General: Well developed, well nourished in NAD.
Neck: Supple, no JVD, HJR, carotids +2 B/L, no bruits bilaterally.
Heart: Non displaced PMI, RRR, no murmurs, No S3, S4, no rubs.
Lungs: Scattered rhonchi
Extremities: No clubbing, cyanosis or edema bilaterally.
Neuro: Grossly nonfocal, awake, alert and oriented x3.
Remains in sinus rhythm. Stable cardiology status. Await clearance to restart Eliquis status post chest tube
Original Note:
Today's Communication / Plan
-
Labs pending
No med changes at this point
Impression / Plan
-
Primary Territory Sales Executive: Dr. Newman
Assessment:
Presentation with SOB
Acute hypoxic respiratory failure, requiring BIPAP on arrival
Leukocytosis
R PNA
Concern for aspiration
Atrial tachycardia
Paroxysmal atrial fibrillation
Previously not anticoagulated due to fall risk, but agreeable to starting Eliquis 03/15/24 admission
Elevated troponin, suspected nonischemic myocardial injury in setting of above
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
Bifascicular block
Mild to mod MR by echo 02/2024
Mod to severe AI by echo 02/2024
History of NICM, recovered
History of prostate cancer s/p prostatectomy
History of falls/gait dysfunction
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
History of L hip fracture s/p repair with post op DVT
DNI code status
Echo 04/05/23: AMS study, EF 50-55%, no significant change, trace MR, mild TR, moderate aortic insufficiency
ECHO 03/05/24: EF 50 to 55%, mild concentric LVH, mild to moderate MR, moderate to severe AR, mild TR, PAP 32 mmHg
Plan:
-Labs pending for 03/21/24.
-Remains in SR by ECG 03/20/24 as reviewed by me. QTc 531 ms which is stable.
-Patient has received a 4.4 gram amiodarone PO load as of 03/21/24 AM. Plan is for amiodarone 200 mg BID for 2 weeks (until 04/02/24) then once daily thereafter.
-Eliquis restarted 03/20/24 PM following successful right-sided chest tube placement.
-Chest tube placed due to reaccumulation of pleural fluid and parapneumonic effusion on admission. Patient initially refusing chest tube, but after talking with his son and other family he was agreeable.
-Patient was given Lasix 40 mg IV x1 on 03/18/24 due to elevated pro-BNP. Weight has been drifting down throughout admission and no subjective improvement. Would not consider this to be an acute HF exacerbation. No additional IV diuresis planned.
-EF preserved at 50-55% by echo
-Will not restart outpatient dose of Toprol XL 12.5 mg daily due to intermittent hypotension
-Patient refused rehab placement and wants to go home with VN.
Progress Note - Territory Sales Executive
Subjective
Date of Service: March 21, 2024
He feels like he isn't better after CT placed
Objective
Labs:
Labs
Hgb 11.2 g/dL (13.0-18.0) L 03/20/24 09:38
Hct 32.8 % (39.0-52.0) L 03/20/24 09:38
Plt Count 359 10^3/uL (130-400) 03/20/24 09:38
PT 16.3 Sec (11.4-14.6) H 03/15/24 16:34
INR 1.31 03/15/24 16:34
APTT Cancelled 03/17/24 11:45
Sodium 137 mmol/L (135-145) 03/20/24 09:38
Potassium 3.9 mmol/L (3.5-5.1) 03/20/24 09:38
BUN 21 mg/dl (9-20) H 03/20/24 09:38
Creatinine 0.9 mg/dL (0.7-1.3) 03/20/24 09:38
Glucose 81 mg/dl (70-99) 03/20/24 09:38
Vital Signs and I&O:
Vital Signs
Temp Pulse Resp BP Pulse Ox
98.3 F 77 18 116/48 90
03/21/24 07:33 03/21/24 07:33 03/21/24 07:33 03/21/24 07:33 03/21/24 07:33
Vital Signs
Temp Pulse Resp BP Pulse Ox
98.3 F 77 18 116/48 90
03/21/24 07:33 03/21/24 07:33 03/21/24 07:33 03/21/24 07:33 03/21/24 07:33
Intake & Output
03/19/24 03/20/24 03/21/24 03/22/24
06:59 06:59 06:59 06:59
Intake Total 780 / 780 680 / 680 680 / 680
Output Total 500 / 500 1355 / 1355
Balance 780 / 780 180 / 180 -675 / -675
Physical Exam
Physical Exam
GEN: Agitated
HEENT: EOMI, MMM
LUNGS: No audible wheeze
CV: SR with PVCs on tele
EXT: No edema B/L
NEURO: Gross non-focal
SKIN: No rash
--- NOTE | 2024-03-21 10:18 | W.PN.PUL3 ---
Today's Communication / Plan
-
Underwent chest tube yesterday given complicated parapneumonic effusion with medium risk of 3-month mortality
Follow-up chest tube output daily; document qshift
Will not remove until <150cc in a 24-hour period
Hold off on additional diuresis
Continue with broad-spectrum antibiotics
PT/OT, as tolerated
Supplemental oxygen to maintain SpO2 >90-94%
Pain control
Assessment
-
88-year-old male with history of atrial fibrillation not on anticoagulation, aortic insufficiency, history of postoperative DVT with recent hospital stay for syncope in the setting of rapid atrial tachycardia/dehydration. Patient was initially
treated with beta-nancy therapy and was discharged home. Now presents with hypoxia, right-sided pneumonia, tachycardia. Respiratory status improved on BiPAP, present with 78% saturation on nasal cannula. Patient admitted to ICU for further
management
Impression:
Acute hypoxic respiratory insufficiency
78% on nasal cannula requiring noninvasive ventilation now on room air
Right-sided pleural parenchymal infiltrate
Right sided pleural effusion with mild tracheal shift s/p right-sided thoracentesis on 03/16 with removal of 1.65L of greenish-yellow pleural fluid with pleural fluid pH 6.81 and glucose <30, consistent with complicated effusion, likely parapneumonic
vs malignant - RAPID score: 4 now s/p chest tube (placed 03/20/2024 by IR)
Tachycardia, SVT - resolved
Recent hospital stay for atrial tachycardia in the 190s. with LOC
Leukocytosis with left shift
Possible aspiration syndrome
Mild elevated troponin
Moderate MR/severe AI
Per echo 03/05/2024
Constipation
Conditions present prior to admission
History of atrial fibrillation
Not on anticoagulation due to fall risk
Bifascicular block
History of nonischemic cardiomyopathy
Recent EF normal
History of cerebellar stroke
History of normal pressure hydrocephalus
History of postoperative DVT, left hip replacement
History of exertional rhabdomyolysis
History of COVID June 2023,
Plan/recommendations
At this time, patient is improved from respiratory standpoint, on room air but he is exquisitely weak
Status post right thoracentesis on 03/16/2024, consistent with exudate, pH less than 7
Empyema characteristics
Post thoracentesis chest x-ray with residual right pleural effusion
Upon reviewing prior x-ray from last hospital stay, there may have been a mild posterior basilar infiltrate on the lateral view
No symptoms or signs suggestive of pneumonia during prior hospital stay
Remains on amiodarone, atrial fibrillation noted
Primary complaint is constipation
Moving forward
Continue with current supportive care
Continue to wean oxygen as able
Empiric antibiotics, Zosyn (started 03/16) continues for suspected aspiration pneumonia, parapneumonic effusion
Follow clinically for recurrence
Repeat chest x-ray on 03/19/2024 showed slight worsening of RLL opacification, likely due to re-accumulation of pleural fluid compared to last CXR from 03/16/2024 --> IR consult for chest tube insertion given pleural fluid pH<7.2, glucose <40 and
LDH>1000; RAPID score is 4, indicating a medium risk of 3-month mortality (17.8%) --> chest tube inserted on 03/20
Follow-up pleural fluid cultures - NGTD
Follow-up pleural fluid cytopathology
Follow-up pleural fluid output
Patient was given diltiazem for rate control, developed hypotension
Now on amiodarone
Patient was discharged on beta-nancy therapy during last hospital stay
Cardiology following
Patient is well-known to cardiology (patient's son is EP physician: Clifton Paulson)
Continue with Eliquis now the chest tube has been placed
Aspiration precautions, head of bed elevated as able
Follow fluid status carefully given valvular disease. Recent echocardiogram with normal EF
Constipation regimen
PT/OT
DVT prophylaxis: Eliquis. History of atrial fibrillation noted, no anticoagulation in the past due to fall risk --> risk versus benefit discussion regarding continuation of Eliquis should occur before patient is discharged on NOAC
Total time spent today was 35 minutes for this encounter. Time includes reviewing laboratory test/imaging results, reviewing pertinent medical records, obtaining and reviewing medical history, performing an appropriate exam, ordering medications,
tests and procedures. Time also includes documentation of this encounter, coordinating patient care and communicating with other healthcare professionals. Total time does not include separately billed tests performed on this date of service.
Subjective Data
-
Date of Service:
Date of Service: March 21, 2024
Chief Complaint: Pulmonary Follow Up
Subjective:
Seen and evaluated today at bedside. Afebrile overnight. Right-sided chest tube with 1.355 L output over the last 24 hours. CXR today shows improvement in right-sided pleural effusion. No air leak in Pleur-evac, and suction at -66heS1Q. He is
working with PT when I walked in, and he was on room air breathing comfortably. He is very weak, needing 2 assistance to just get out of bed.
Review of Systems
General: Other (Negative unless mentioned above)
Objective Data
Data Reviewed
Vital Signs / I&O / Oxygen:
Vital Signs
Temp Pulse Resp BP Pulse Ox
98.3 F 77 18 116/48 90
03/21/24 07:33 03/21/24 07:33 03/21/24 07:33 03/21/24 07:33 03/21/24 07:33
Intake and Output
03/20/24 03/21/24 03/22/24
06:59 06:59 06:59
Intake Total 680 / 680 680 / 680
Output Total 500 / 500 1355 / 1355
Balance 180 / 180 -675 / -675
SaO2 90
Nasal Cannula flow liters per 2
minute
Physical Exam
General: Respiratory Distress (Negative) and Comfortable
HEENT: Normocephalic and Anicteric
Cardiovascular: S1-S2 and Peripheral Edema (Trace LE edema b/l)
Respiratory: Wheeze (Negative), Crackles (Bibasilar (R >L)), Rhonchi (Negative), Non-Labored Respirations and Chest Tube (Right-sided chest tube at -27stW1L suction with no air leak)
GI: Soft, Non Distended and Non Tender
Neurology: Awake, Alert and Tremors (Negative)
Skin: Warm, Dry and Jaundice (Negative)
Labs/Micro/Reports
Microbiology
03/15/24 18:00 Blood/Venous Blood Culture - Final
No Growth - Final Report
03/15/24 13:04 Blood/Venous Blood Culture - Final
No Growth - Final Report
03/16/24 15:02 Pleural Fluid Body Fluid Culture - Final
No Growth After 72 Hours
03/16/24 15:02 Pleural Fluid Gram Stain - Final
--- NOTE | 2024-03-21 12:00 | WOUNDNOTE ---
[facility] RN note: Patient has a chest tube. A piece of exuderm satin hydrocolloid applied to red estrella from patient's glasses. Family plans to purchase pads for this eye glasses. Sacral/coccyx slow to nuris red and intact. Silicone border foam applied.
L heel foam dressing changed. Small L heel ulcer brown scab vs brown necrotic. R heel blanchable red and intact. Protective R heel foam dressing changed. Patient incontinent of loose brown stool. Jossy care given and patient turned with help from his
paid caregiver. Patient's TruVue lite boots applied. Discussed with JOSEPH Byrd who will coordinate switching patient's bed to an air bed. Spoke with bed Zyrra Ramiro who [facility] [employer] Will follow as needed.
[2024-03-21] MEDS: SENOKOT-S PO (19:35)
[2024-03-22] MEDS: ZOSYN 100 IV ×4 (01:51→20:06)
[2024-03-22 03:00] VITALS: BP 116/49
[2024-03-22 06:00] VITALS: BMI 19.1
[2024-03-22 08:03] VITALS: BP 129/48
[2024-03-22] MEDS: MIRALAX PO ×2 (08:16→20:06)
[2024-03-22] MEDS: ELIQUIS 5 MG PO ×2 (08:16→20:06)
[2024-03-22] MEDS: FLOMAX PO ×2 (08:16→08:21)
[2024-03-22] MEDS: SENOKOT-S PO ×2 (08:16→20:06)
[2024-03-22] MEDS: PACERONE 200 MG PO ×2 (08:16→20:06)
--- NOTE | 2024-03-22 09:00 | W.PN.HOSP.TC ---
Today's Communication/Plan
-
Continue IV Zosyn
Discontinuation of chest tube once output decrease below 150ml
Wean oxygen nasal cannula as tolerated
Assessment / Plan
Assessment / Plan
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 He was then placed on BiPAP therapy. He refuses intubation. His
chest x-ray read as right-sided pneumonia and Large pleural effusion and he underwent thoracocentesis on 03/16/24, 1650 cc of cloudy greenish-yellow pleural fluid was removed.
# Sepsis secondary to PNA
-Likely aspiration
-MRSA screen negative- d/c vanco.
-Continue Zosyn day 7
# Acute hypoxemic respiratory failure
-markedly improved status post thoracentesis
-O2 sat 87% on room air- Patient refused supplemental O2 initially
- now on 4L NC , O2 sat 95%
-wean as tolerated
# Right Pleural effusion- exudative
-03/16 Successful ultrasound-guided thoracentesis, yielding 1650 cc of cloudy greenish-yellow pleural fluid.- pending cytology
-Post procedure -CXR 03/19: Small to moderate partially layering right pleural effusion with associated atelectasis, slightly progressed.
- 03/20 CXR: Small to moderate right pleural effusion
- 03/20 Chest Tube given complicated parapneumonic effusion- 230 ml in last 24 hrs
-Discontinue chest tube once output decreased less than 150ml per pulmonology
- CX s/p chest tube confirmed decrease in pleural effusion
- pro BNP elevated;1 dose of Lasix IV 40mg per cardio on 03/18
-Cytopathology: Negative for any malignancy
# Nonischemic NC
-Troponin peaked at 0.093 on 03/15. No chest pain
-Troponin decreased to 0.070
-Manage conservatively per cardio recommendations
- hold toprol xl per cardio due to intermittent hypotension
# Atrial fibrillation with RVR
- 03/20 EKG : Normal SINUS RHYTHM
- continue Amiodarone p.o. 200mg BID uptill 04/02/24
- Continue Eliquis
-Appreciate cardio input
-CHADS2 VASC score 5
-Moderate MR/severe AR(Per echo 03/05/2024)
# Left heel ulcer- pressure ulcer stage 2
- clean with saline, honey gel, silicone border foam, change every 2 days and prn loosened dressing.
# Urinary retention
-resolved per patient
-Refused Flomax
# Transaminitis
-Elevated AST, ALT
-Unclear etiology
-USG: Hepatomegaly and slightly increased echogenicity in the liver, compatible with underlying hepatocellular disease, which most commonly relates to mild fatty infiltration of the liver.
# Constipation/Abdomen fullness
- resolved
- Abd Xray clear
# Leukocytosis
-Likely from sepsis
# Prostate cancer
-Status post prostatectomy
CODE STATUS: DNI
Dispo to home with and health aide
Anticipated Discharge: Within 24 hours
Subjective/Interval History
-
Date of Service: March 22, 2024
Objective Data
-
Labs:
Laboratory Results
03/21/24 03/22/24
07:23 07:01
WBC Cancelled Pending
Hgb Cancelled Pending
Hct Cancelled Pending
Plt Count Cancelled Pending
Sodium Pending
Potassium Pending
Chloride Pending
Carbon Dioxide Pending
BUN Pending
Creatinine Pending
Glucose Pending
Calcium Pending
Vital Signs:
Vital Signs
Temp Pulse Resp BP Pulse Ox
97.5 F 81 16 129/48 88
03/22/24 08:03 03/22/24 08:16 03/22/24 08:03 03/22/24 08:16 03/22/24 08:03
I&O
03/21/24 03/22/24 03/23/24
06:59 06:59 06:59
Intake Total 680 / 680 1160 / 1160
Output Total 1355 / 1355 230 / 230
Balance -675 / -675 930 / 930
Review of Systems
-
History Source: Patient
Constitutional: Denies Fever
Respiratory: Denies Cough
Cardiac: Denies Chest Pain
Abdomen/GI: Denies Abdominal Pain
Genitourinary: Denies Dysuria
Musculoskeletal: Denies Joint Pain
Hematologic / Lymphatic: Denies Bleeding
Physical Exam
-
General: Well Developed, Well Nourished and No Apparent Distress
HEENT: Normocephalic and Atraumatic
Respiratory: Clear to Auscultation
Cardiac: Regular Rhythm
GI: Soft and Nontender
Skin: Warm and Dry
Neuro: Awake, Alert and Oriented
Psych: Agitated
Data Reviewed
-
Labs: Other (Patient refused labs 03/21, 03/22)
--- NOTE | 2024-03-22 09:37 | W.PN.CARDCBS ---
Addendum entered and electronically signed by Dorothy Mandujano MD 03/22/24 14:58:
I saw and examined the patient.
The Green Pipefitter's note was reviewed and I agree with the note.
Comment: Cardiac stable. Heart rate stable. Plan for amiodarone noted below. Continue oral anticoagulation.
Continue treatment of pneumonia andempyema.
Have arranged cardiology follow-up.
Will sign off. Please reconsult us if new issues develop.
Original Note:
Today's Communication / Plan
-
Continue amiodarone 200mg BID until 04/02, then decrease to 200mg daily therafter
Continue Eliquis 5mg BID
Follow up arranged
Impression / Plan
-
Primary Fixture Relamper: Dr. Newman
Assessment:
Presentation with SOB
Acute hypoxic respiratory failure, requiring BIPAP on arrival
Leukocytosis
R PNA
Concern for aspiration
Atrial tachycardia
Paroxysmal atrial fibrillation
Previously not anticoagulated due to fall risk, but agreeable to starting Eliquis 03/15/24 admission
Elevated troponin, suspected nonischemic myocardial injury in setting of above
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
Bifascicular block
Mild to mod MR by echo 02/2024
Mod to severe AI by echo 02/2024
History of NICM, recovered
History of prostate cancer s/p prostatectomy
History of falls/gait dysfunction
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
History of L hip fracture s/p repair with post op DVT
DNI code status
Echo 04/05/23: AMS study, EF 50-55%, no significant change, trace MR, mild TR, moderate aortic insufficiency
ECHO 03/05/24: EF 50 to 55%, mild concentric LVH, mild to moderate MR, moderate to severe AR, mild TR, PAP 32 mmHg
Plan:
-Remains in SR on review of telemetry QTc stable at 531 ms by EKG 03/20.
-Continue amiodarone 200mg BID until 04/02/2024 and transition to 200mg daily thereafter.
-Eliquis restarted 03/20/24 PM following successful right-sided chest tube placement.
-Chest tube placed due to reaccumulation of pleural fluid and parapneumonic effusion on admission.
-Patient was given Lasix 40 mg IV x1 on 03/18/24 due to elevated pro-BNP. Weight has been drifting down throughout admission and no subjective improvement. Would not consider this to be an acute HF exacerbation. No additional IV diuresis planned.
-EF preserved at 50-55% by echo
-Will not restart outpatient dose of Toprol XL 12.5 mg daily due to intermittent hypotension
-Patient refused rehab placement and wants to go home with VN.
-Follow up arranged
Progress Note - Fixture Relamper
Subjective
Date of Service: March 22, 2024
No cardiac complaints. Hopeful for discharge.
Objective
Labs:
Labs
Hgb Cancelled 03/21/24 07:23
Hct Cancelled 03/21/24 07:23
Plt Count Cancelled 03/21/24 07:23
PT 16.3 Sec (11.4-14.6) H 03/15/24 16:34
INR 1.31 03/15/24 16:34
APTT Cancelled 03/17/24 11:45
Sodium Cancelled 03/21/24 07:23
Potassium Cancelled 03/21/24 07:23
BUN Cancelled 03/21/24 07:23
Creatinine Cancelled 03/21/24 07:23
Glucose Cancelled 03/21/24 07:23
Vital Signs and I&O:
Vital Signs
Temp Pulse Resp BP Pulse Ox
97.5 F 81 16 129/48 88
03/22/24 08:03 03/22/24 08:16 03/22/24 08:03 03/22/24 08:16 03/22/24 08:03
Vital Signs
Temp Pulse Resp BP Pulse Ox
97.5 F 81 16 129/48 88
03/22/24 08:03 03/22/24 08:16 03/22/24 08:03 03/22/24 08:16 03/22/24 08:03
Intake & Output
03/20/24 03/21/24 03/22/24 03/23/24
06:59 06:59 06:59 06:59
Intake Total 680 / 680 680 / 680 1160 / 1160
Output Total 500 / 500 1355 / 1355 230 / 230
Balance 180 / 180 -675 / -675 930 / 930
Physical Exam
Physical Exam
GEN: No distress, awake, alert
HEENT: supple, anicteric, mmm
LUNGS: CTA b/l, no wheezes/rales
CV: Reg, S1/S2, no murmur
EXT: No clubbing, cyanosis or edema
NEURO: Gross non-focal
SKIN: Warm, dry, no rash
[2024-03-22 11:00] VITALS: BP 115/58
--- NOTE | 2024-03-22 12:21 | CM ---
Chart reviewed and plan is to home with spouse and [facility], [facility] nursing are following patient.
Plan; Home with [facility] when stable.
--- NOTE | 2024-03-22 13:20 | W.PN.PUL3 ---
Today's Communication / Plan
-
Underwent chest tube on 03/20 given complicated parapneumonic effusion with medium risk of 3-month mortality
Follow-up chest tube output daily; document qshift
Will not remove until <150cc in a 24-hour period
Hold off on additional diuresis
Continue with broad-spectrum antibiotics
PT/OT, as tolerated
Supplemental oxygen to maintain SpO2 >90-94%
Pain control
CXR tomorrow AM
Assessment
-
88-year-old male with history of atrial fibrillation not on anticoagulation, aortic insufficiency, history of postoperative DVT with recent hospital stay for syncope in the setting of rapid atrial tachycardia/dehydration. Patient was initially
treated with beta-nancy therapy and was discharged home. Now presents with hypoxia, right-sided pneumonia, tachycardia. Respiratory status improved on BiPAP, present with 78% saturation on nasal cannula. Patient admitted to ICU for further
management
Impression:
Acute hypoxic respiratory insufficiency
78% on nasal cannula requiring noninvasive ventilation now on 4L/min
Right-sided pleural parenchymal infiltrate
Right sided pleural effusion with mild tracheal shift s/p right-sided thoracentesis on 03/16 with removal of 1.65L of greenish-yellow pleural fluid with pleural fluid pH 6.81 and glucose <30, consistent with complicated effusion, likely parapneumonic
vs malignant - RAPID score: 4 --> s/p chest tube (placed 03/20/2024 by IR)
Tachycardia, SVT - resolved
Recent hospital stay for atrial tachycardia in the 190s. with LOC
Leukocytosis with left shift
Possible aspiration syndrome
Mild elevated troponin � peaked at 0.093 on 03/15/2024
Moderate MR/severe AI
Per echo 03/05/2024
Constipation
Conditions present prior to admission
History of atrial fibrillation
Not on anticoagulation due to fall risk
Bifascicular block
History of nonischemic cardiomyopathy
Recent EF normal
History of cerebellar stroke
History of normal pressure hydrocephalus
History of postoperative DVT, left hip replacement
History of exertional rhabdomyolysis
History of COVID June 2023,
Plan/recommendations
At this time, patient is improved from respiratory standpoint, on 4L/min but he is exquisitely weak
Status post right thoracentesis on 03/16/2024, consistent with exudate, pH less than 7
Empyema characteristics
Post thoracentesis chest x-ray with residual right pleural effusion
Upon reviewing prior x-ray from last hospital stay, there may have been a mild posterior basilar infiltrate on the lateral view
No symptoms or signs suggestive of pneumonia during prior hospital stay
Remains on amiodarone, atrial fibrillation noted
Primary complaint is constipation
Moving forward
Continue with current supportive care
Continue to wean oxygen as able
Empiric antibiotics, Zosyn (started 03/16) continues for suspected aspiration pneumonia, parapneumonic effusion
Follow clinically for recurrence
Repeat chest x-ray on 03/19/2024 showed slight worsening of RLL opacification, likely due to re-accumulation of pleural fluid compared to last CXR from 03/16/2024 --> IR consult for chest tube insertion given pleural fluid pH<7.2, glucose <40 and
LDH>1000; RAPID score is 4, indicating a medium risk of 3-month mortality (17.8%) --> chest tube inserted on 03/20
Follow-up pleural fluid cultures - NGTD
Pleural fluid cytopathology is negative for malignancy and shows acute inflammation
Follow-up pleural fluid output
Patient was given diltiazem for rate control, developed hypotension
Now on amiodarone
Patient was discharged on beta-nancy therapy during last hospital stay
Cardiology following
Patient is well-known to cardiology (patient's son is EP physician: Clifton Paulson)
Continue with Eliquis now the chest tube has been placed
Aspiration precautions, head of bed elevated as able
Follow fluid status carefully given valvular disease. Recent echocardiogram with normal EF
Constipation regimen
PT/OT
DVT prophylaxis: Eliquis. History of atrial fibrillation noted, no anticoagulation in the past due to fall risk --> risk versus benefit discussion regarding continuation of Eliquis should occur before patient is discharged on NOAC
Total time spent today was 35 minutes for this encounter. Time includes reviewing laboratory test/imaging results, reviewing pertinent medical records, obtaining and reviewing medical history, performing an appropriate exam, ordering medications,
tests and procedures. Time also includes documentation of this encounter, coordinating patient care and communicating with other healthcare professionals. Total time does not include separately billed tests performed on this date of service.
Subjective Data
-
Date of Service:
Date of Service: March 22, 2024
Chief Complaint: Pulmonary Follow Up
Subjective:
Seen and evaluated today at bedside. Chest tube has drained 230 mL over the last 24 hours. He is in poor spirits - very eager to get out of bed, knows that he is weak and he is upset by the whole situation of him being in the hospital. He says
his breathing is the 'best it has ever been.' Preparatory Technician at bedside - I answered all his and the patient's questions to their satisfaction. Patient currently on 4 L/min nasal cannula. He denies chest pain, shortness of breath, abdominal pain,
fevers or chills.
Review of Systems
General: Other (Negative unless mentioned above)
Objective Data
Data Reviewed
Vital Signs / I&O / Oxygen:
Vital Signs
Temp Pulse Resp BP Pulse Ox
97.6 F 80 16 115/58 96
03/22/24 11:00 03/22/24 11:00 03/22/24 11:00 03/22/24 11:00 03/22/24 11:00
Intake and Output
03/21/24 03/22/24 03/23/24
06:59 06:59 06:59
Intake Total 680 / 680 1160 / 1160
Output Total 1355 / 1355 230 / 230
Balance -675 / -675 930 / 930
SaO2 96
Nasal Cannula flow liters per 4
minute
Physical Exam
General: Respiratory Distress (Negative) and Comfortable
HEENT: Normocephalic and Anicteric
Cardiovascular: S1-S2 and Peripheral Edema (Trace LE edema b/l)
Respiratory: Wheeze (Negative), Crackles (Bibasilar (R >L)), Rhonchi (Negative), Non-Labored Respirations and Chest Tube (Right-sided chest tube at -[id number] suction with no air leak)
GI: Soft, Non Distended and Non Tender
Neurology: Awake, Alert and Tremors (Negative)
Skin: Warm, Dry and Jaundice (Negative)
Labs/Micro/Reports
Microbiology
03/15/24 18:00 Blood/Venous Blood Culture - Final
No Growth - Final Report
03/15/24 13:04 Blood/Venous Blood Culture - Final
No Growth - Final Report
03/16/24 15:02 Pleural Fluid Body Fluid Culture - Final
No Growth After 72 Hours
03/16/24 15:02 Pleural Fluid Gram Stain - Final
[2024-03-22 15:00] VITALS: BP 112/50
--- NOTE | 2024-03-22 15:13 | W.PN.UPDATE ---
Addendum entered and electronically signed by Maikol Hernandez MD 03/23/24 08:08:
I saw and evaluated the patient. I reviewed the resident�s note and agree with findings and plan as documented in the resident�s note.
Please see update note from today for further comments.
Original Note:
Update Note
Progress Note Update
I saw and evaluated the patient. I reviewed the resident�s note and agree with findings and plan as documented in the resident�s note.
Chest tube drainage decreasing, 230 mL today. Remains on oxygen through nasal cannula on 4 L, was able to be weaned off of yesterday.
1. Sepsis secondary to pneumonia -suspected aspiration related
-Chest x-ray from admission reviewed
-Patient currently on IV Zosyn continue. on Day 7 of abx.
-WBC has trended down remains afebrile
-Blood culture negative.
-Patient declined of undergo VSE
2. Acute hypoxic respiratory failure
Right-sided pleural effusion
-Patient is s/p thoracentesis of 1.6 L exudative fluid. Culture negative. Cytopathology of pleural fluid negative for any malignancy.
-Suspecting parapneumonic in nature versus other reason
-Repeat chest x-ray showing some mod effusion.
-Chest tube placed on 03/20, slowly decreasing output. 230 mL on last 24 hours
-Chest x-ray showing improvement in findings.
-Continue monitoring chest tube output, discontinuation of tube once output decreased or per pulmonology recommendation
-Patient again requiring oxygen support, continue wean off as possible
3. Parox afib / RVR
Problem QTc
-Currently on oral amiodarone, dose has been decreased to 200 mg twice daily
-Remains in sinus rhythm, continue monitoring on telemetry
-Eliquis resumed back
-Cardio signed off
4. Generalized weakness
-PT recommended for patient to undergo rehab placement although patient declined. Spouse at bedside
-High risk for fall and further complication, patient adamant being discharged home
[2024-03-22 19:00] VITALS: BP 124/51
[2024-03-22 23:00] VITALS: BP 117/50
[2024-03-23] VITALS (7 sets, daily range): BP systolic 111–129; BP diastolic 51–56; PULSE 88; O2SAT 91; BMI 19.1
[2024-03-23] MEDS: ZOSYN 100 IV ×3 (02:37→14:49)
--- NOTE | 2024-03-23 09:30 | PTCARENOTE ---
Addendum entered by Rochelle Pereira RN 03/23/24 12:58:
03/23- After continued education and reattempt at medication, patient still refuses. Will document daily PO medications as refused.
Addendum entered by Rochelle Pereira RN 03/23/24 10:12:
03/23- Patient accepted IV Zosyn at this time with education from both this RN and patient's son Clifton. He still refuses all others. Notified Physician. Continue to monitor.
Original Note:
03/23- Patient is AAOX3, adamantly refusing all medications again. Educated patient on purpose of medications and risks of refusing. He verbalized understanding but still refuses. He is agitated and verbally aggressive but able to be de-escalated
with calm therapeutic conversation. He still refuses. Will reattempt later when family comes.
[2024-03-23] MEDS: SENOKOT-S PO ×2 (10:10→19:52)
[2024-03-23] MEDS: MIRALAX PO ×2 (10:10→19:51)
[2024-03-23] MEDS: FLOMAX PO (10:10)
--- NOTE | 2024-03-23 12:17 | RESPNOTE ---
attempted to do home 02 assessment as order.
received pt 2 lpm of 02 with 02 sats of 94% at rest.
02 sats of 92% noted on room air at rest.
pt declined to walk at this time stating i don't want to walk.
Dr. Hernandez and nurse payton made aware.
--- NOTE | 2024-03-23 12:25 | WOUNDNOTE ---
WOC RN note: Naldo texted [facility] nurse liaison Ro Dan re: patient has a small L heel ulcer, he is on an air mattress because he doesn't turn self and sacrum is red. He may benefit having a hospital bed with an mike air mattress at home.
[2024-03-23] MEDS: PACERONE PO (12:58)
[2024-03-23] MEDS: ELIQUIS PO (12:58)
--- NOTE | 2024-03-23 13:38 | W.PN.HOSP.TC ---
Addendum entered and electronically signed by Maikol Hernandez MD 03/23/24 18:39:
I saw and evaluated the patient. I reviewed the resident�s note and agree with findings and plan as documented in the resident�s note.
Patient remains on oxygen through nasal cannula. Home oxygen assessment showing patient D satting 86% on room air. Will require home oxygen arrangement
Chest tube drainage decreased and has been removed today.
Zosyn has been changed to oral Augmentin
Possible discharge tomorrow home with home care if oxygen arranged for
Original Note:
Today's Communication/Plan
-
Discharge home with outpatient
Start Augmentin for 3 days
Assessment / Plan
Assessment / Plan
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 He was then placed on BiPAP therapy. He refuses intubation. His
chest x-ray read as right-sided pneumonia and Large pleural effusion and he underwent thoracocentesis on 03/16/24, 1650 cc of cloudy greenish-yellow pleural fluid was removed.
# Sepsis secondary to PNA
-Likely aspiration
-MRSA screen negative- d/c vanco.
-Continue Zosyn day 8 today
-switch to Augmen Po upon d/c 3x days
# Acute hypoxemic respiratory failure
-markedly improved status post thoracentesis
- 4L NC , O2 sat 95%
- check Home O2 assessment
# Right Pleural effusion- exudative
-03/16 Successful ultrasound-guided thoracentesis, yielding 1650 cc of cloudy greenish-yellow pleural fluid.- pending cytology
-Post procedure -CXR 03/19: Small to moderate partially layering right pleural effusion with associated atelectasis, slightly progressed.
- 03/20 CXR: Small to moderate right pleural effusion
- 03/20 Chest Tube given complicated parapneumonic effusion- 230 ml in last 24 hrs
- CX s/p chest tube confirmed decrease in pleural effusion
- pro BNP elevated;1 dose of Lasix IV 40mg per cardio on 03/18
-Cytopathology: Negative for any malignancy
-Chest tube drainage decreasing, 1 2 0 mL today
# Nonischemic VA
-Troponin peaked at 0.093 on 03/15. No chest pain
-Troponin decreased to 0.070
-Manage conservatively per cardio recommendations
- hold toprol xl per cardio due to intermittent hypotension
# Atrial fibrillation with RVR
- 03/20 EKG : Normal SINUS RHYTHM
- continue Amiodarone p.o. 200mg BID uptill 04/02/24
- Continue Eliquis
-Appreciate cardio input
-CHADS2 VASC score 5
-Moderate MR/severe AR(Per echo 03/05/2024)
# Left heel ulcer- pressure ulcer stage 2
- clean with saline, honey gel, silicone border foam, change every 2 days and prn loosened dressing.
# Urinary retention
-resolved per patient
-Refused Flomax
# Transaminitis
-Elevated AST, ALT
-Unclear etiology
-USG: Hepatomegaly and slightly increased echogenicity in the liver, compatible with underlying hepatocellular disease, which most commonly relates to mild fatty infiltration of the liver.
# Constipation/Abdomen fullness
- resolved
- Abd Xray clear
# Leukocytosis
-Likely from sepsis
# Prostate cancer
-Status post prostatectomy
CODE STATUS: DNI
Dispo to home with and health aide
Anticipated Discharge: Today
Subjective/Interval History
-
Date of Service: March 23, 2024
Objective Data
-
Vital Signs:
Vital Signs
Temp Pulse Resp BP Pulse Ox
98.1 F 89 20 115/54 93
03/23/24 11:00 03/23/24 11:00 03/23/24 11:00 03/23/24 11:00 03/23/24 11:00
I&O
03/22/24 03/23/24 03/24/24
06:59 06:59 06:59
Intake Total 1160 / 1160 880 / 880
Output Total 230 / 230 120 / 120
Balance 930 / 930 760 / 760
Review of Systems
-
History Source: Patient
Constitutional: Denies Fever
Respiratory: Denies Cough
Cardiac: Denies Chest Pain
Abdomen/GI: Denies Abdominal Pain
Musculoskeletal: Denies Joint Swelling
Neuro: Denies Headache
Hematologic / Lymphatic: Denies Bleeding
Physical Exam
-
General: Well Developed and Well Nourished
HEENT: Normocephalic and Atraumatic
Respiratory: Clear to Auscultation
Cardiac: Regular Rhythm
GI: Soft and Nontender
Skin: Warm and Dry
Psych: Calm
--- NOTE | 2024-03-23 14:13 | CM ---
Addendum entered by Beverly Dee 03/23/24 16:31:
Please note when patient has ASEPT placed, visiting nurses need to know how often to drain and max amount of drainage to drain each time.
Addendum entered by Beverly Dee 03/23/24 16:21:
Still waiting on Asept prior to discharge, [facility] aware.
Original Note:
Chart reviewed and patient plans on returning to home when stable, home oxygen evaluation not completed as patient refused to ambulate. Plan is to home with [facility].
Plan; Home with [facility].
--- NOTE | 2024-03-23 15:20 | W.PN.UPDATE ---
Update Note
Progress Note Update
Chest tube was removed at bedside on 03/23/2024. Patient was instructed to exhale and hum while chest tube was removed. Chest tube was cut given stiffening wire inside chest tube to assist in removal. No immediate complications. Chest tube
insertion site was covered with petroleum gauze after insertion site was cleaned with ChloraPrep, and then this was covered with Tegaderm. CXR to be obtained again tomorrow to reassess right-sided pleural space. Patient in no acute distress,
family updated.
--- NOTE | 2024-03-23 15:33 | W.PN.PUL3 ---
Today's Communication / Plan
-
Previously he underwent chest tube on 03/20 given complicated parapneumonic effusion with medium risk of 3-month mortality --> Chest tube removed today
Hold off on additional diuresis, but re-assess daily
Continue with broad-spectrum antibiotics
PT/OT, as tolerated
Supplemental oxygen to maintain SpO2 >90-94%
Pain control
CXR again tomorrow AM to reassess if any reaccumulation of right-sided pleural fluid
Assessment
-
88-year-old male with history of atrial fibrillation not on anticoagulation, aortic insufficiency, history of postoperative DVT with recent hospital stay for syncope in the setting of rapid atrial tachycardia/dehydration. Patient was initially
treated with beta-nancy therapy and was discharged home. Now presents with hypoxia, right-sided pneumonia, tachycardia. Respiratory status improved on BiPAP, present with 78% saturation on nasal cannula. Patient admitted to ICU for further
management
Impression:
Acute hypoxic respiratory insufficiency
78% on nasal cannula requiring noninvasive ventilation now on 4L/min
Right-sided pleural parenchymal infiltrate
Right sided pleural effusion with mild tracheal shift s/p right-sided thoracentesis on 03/16 with removal of 1.65L of greenish-yellow pleural fluid with pleural fluid pH 6.81 and glucose <30, consistent with complicated effusion, likely parapneumonic
vs malignant - RAPID score: 4 --> s/p chest tube (placed 03/20/2024 by IR)
Tachycardia, SVT - resolved
Recent hospital stay for atrial tachycardia in the 190s. with LOC
Leukocytosis with left shift
Possible aspiration syndrome
Mild elevated troponin � peaked at 0.093 on 03/15/2024
Moderate MR/severe AI
Per echo 03/05/2024
Constipation
Conditions present prior to admission
History of atrial fibrillation
Not on anticoagulation due to fall risk
Bifascicular block
History of nonischemic cardiomyopathy
Recent EF normal
History of cerebellar stroke
History of normal pressure hydrocephalus
History of postoperative DVT, left hip replacement
History of exertional rhabdomyolysis
History of COVID June 2023,
Plan/recommendations
At this time, patient is improved from respiratory standpoint, on 4L/min but he is exquisitely weak
Status post right thoracentesis on 03/16/2024, consistent with exudate, pH less than 7
Empyema characteristics
Post thoracentesis chest x-ray with residual right pleural effusion
Upon reviewing prior x-ray from last hospital stay, there may have been a mild posterior basilar infiltrate on the lateral view
No symptoms or signs suggestive of pneumonia during prior hospital stay
Remains on amiodarone, atrial fibrillation noted
Primary complaint is constipation
Moving forward
Continue with current supportive care
Continue to wean oxygen as able
Empiric antibiotics, Augmentin started today s/p Zosyn (started 03/16-03/23) continues for suspected aspiration pneumonia, parapneumonic effusion
Follow clinically for recurrence
Repeat chest x-ray on 03/19/2024 showed slight worsening of RLL opacification, likely due to re-accumulation of pleural fluid compared to last CXR from 03/16/2024 --> IR consult for chest tube insertion given pleural fluid pH<7.2, glucose <40 and
LDH>1000; RAPID score is 4, indicating a medium risk of 3-month mortality (17.8%) --> chest tube inserted on 03/20 --> removed today
Follow-up pleural fluid cultures - NGTD
Pleural fluid cytopathology is negative for malignancy and shows acute inflammation
Patient was given diltiazem for rate control, developed hypotension
Now on amiodarone 200mg BID --> outpatient PFTs and annual CT Chest to monitor for amiodarone-pulmonary toxicity
Patient was discharged on beta-nancy therapy during last hospital stay
Cardiology following
Patient is well-known to cardiology (patient's son is EP physician: Clifton Paulson)
Continue with Eliquis now the chest tube has been placed
Aspiration precautions, head of bed elevated as able
Follow fluid status carefully given valvular disease. Recent echocardiogram with normal EF
Constipation regimen
PT/OT
DVT prophylaxis: Eliquis. History of atrial fibrillation noted, no anticoagulation in the past due to fall risk --> risk versus benefit discussion regarding continuation of Eliquis should occur before patient is discharged on NOAC
Pulmonary service will continue to briefly follow along
Total time spent today was 35 minutes for this encounter. Time includes reviewing laboratory test/imaging results, reviewing pertinent medical records, obtaining and reviewing medical history, performing an appropriate exam, ordering medications,
tests and procedures. Time also includes documentation of this encounter, coordinating patient care and communicating with other healthcare professionals. Total time does not include separately billed tests performed on this date of service.
Subjective Data
-
Date of Service:
Date of Service: March 23, 2024
Chief Complaint: Pulmonary Follow Up
Subjective:
Patient seen and evaluated this afternoon. Chest tube output over the last 24 hours is 120 mL. Afebrile overnight. Patient very eager to get the chest tube removed. Admit patient some and answered all of his questions. There has been about 55
cc output from the chest tube since this morning.
Review of Systems
General: Other (Negative unless mentioned above)
Objective Data
Data Reviewed
Vital Signs / I&O / Oxygen:
Vital Signs
Temp Pulse Resp BP Pulse Ox
98.1 F 89 20 115/54 93
03/23/24 11:00 03/23/24 11:00 03/23/24 11:00 03/23/24 11:00 03/23/24 11:00
Intake and Output
03/22/24 03/23/24 03/24/24
06:59 06:59 06:59
Intake Total 1160 / 1160 880 / 880
Output Total 230 / 230 120 / 120
Balance 930 / 930 760 / 760
SaO2 93
Nasal Cannula flow liters per 2
minute
Physical Exam
General: Respiratory Distress (Negative) and Comfortable
HEENT: Normocephalic and Anicteric
Cardiovascular: S1-S2 and Peripheral Edema (Trace LE edema b/l)
Respiratory: Wheeze (Negative), Crackles (Bibasilar (R >L)), Rhonchi (Negative), Non-Labored Respirations and Chest Tube (Right-sided chest tube at -[id number] suction with no air leak)
GI: Soft, Non Distended and Non Tender
Neurology: Awake, Alert and Tremors (Negative)
Skin: Warm, Dry and Jaundice (Negative)
Labs/Micro/Reports
Microbiology
03/15/24 18:00 Blood/Venous Blood Culture - Final
No Growth - Final Report
03/15/24 13:04 Blood/Venous Blood Culture - Final
No Growth - Final Report
[2024-03-23] MEDS: PACERONE 200 MG PO (20:16)
[2024-03-23] MEDS: ELIQUIS 5 MG PO (20:16)
[2024-03-23] MEDS: AUGMENTIN 875 MG/125 MG 1 TABLET PO (20:16)
--- NOTE | 2024-03-23 23:48 | PTCARENOTE ---
pt refused all labs
[2024-03-24 03:00] VITALS: BP 128/60
[2024-03-24 03:33] VITALS: BP 128/60
[2024-03-24 07:00] VITALS: BP 117/56
[2024-03-24] MEDS: AUGMENTIN 875 MG/125 MG 1 TABLET PO (09:00)
[2024-03-24] MEDS: PACERONE 200 MG PO (09:00)
[2024-03-24] MEDS: FLOMAX 0.4 MG PO (09:10)
[2024-03-24] MEDS: ELIQUIS 5 MG PO (09:10)
[2024-03-24] MEDS: MIRALAX PO (09:11)
[2024-03-24] MEDS: SENOKOT-S PO (09:12)
--- NOTE | 2024-03-24 10:42 | W.PN.PUL3 ---
Today's Communication / Plan
-
No new events, chest tube discontinued 03/23
Stable on RA, encouraged OOB/ambulation/IS
Discharge planning per team
Outpatient pulmonary FU recommended
We will sign off at this time/please call with questions
Assessment
-
88-year-old male with history of atrial fibrillation not on anticoagulation, aortic insufficiency, history of postoperative DVT with recent hospital stay for syncope in the setting of rapid atrial tachycardia/dehydration. Patient was initially
treated with beta-nancy therapy and was discharged home. Now presents with hypoxia, right-sided pneumonia, tachycardia. Respiratory status improved on BiPAP, present with 78% saturation on nasal cannula. Patient admitted to ICU for further
management
Impression:
Acute hypoxic respiratory insufficiency
78% on nasal cannula requiring noninvasive ventilation now on 4L/min
Right-sided pleural parenchymal infiltrate
Right sided pleural effusion with mild tracheal shift s/p right-sided thoracentesis on 03/16 with removal of 1.65L of greenish-yellow pleural fluid with pleural fluid pH 6.81 and glucose <30, consistent with complicated effusion, likely parapneumonic
vs malignant - RAPID score: 4 --> s/p chest tube (placed 03/20/2024 by IR)
Tachycardia, SVT - resolved
Recent hospital stay for atrial tachycardia in the 190s. with LOC
Leukocytosis with left shift
Possible aspiration syndrome
Mild elevated troponin � peaked at 0.093 on 03/15/2024
Moderate MR/severe AI
Per echo 03/05/2024
Constipation
Conditions present prior to admission
History of atrial fibrillation
Not on anticoagulation due to fall risk
Bifascicular block
History of nonischemic cardiomyopathy
Recent EF normal
History of cerebellar stroke
History of normal pressure hydrocephalus
History of postoperative DVT, left hip replacement
History of exertional rhabdomyolysis
History of COVID June 2023,
Plan/recommendations
At this time, patient is improved from respiratory standpoint, stable on room air
Improved
Status post right thoracentesis on 03/16/2024, consistent with exudate, pH less than 7
Empyema characteristics
Post thoracentesis chest x-ray with residual right pleural effusion
Upon reviewing prior x-ray from last hospital stay, there may have been a mild posterior basilar infiltrate on the lateral view
No symptoms or signs suggestive of pneumonia during prior hospital stay
Completed abx s/p Zosyn (started 03/16-03/23) for suspected aspiration pneumonia, parapneumonic effusion
Follow clinically for recurrence
Repeat chest x-ray on 03/19/2024 showed slight worsening of RLL opacification, likely due to re-accumulation of pleural fluid compared to last CXR from 03/16/2024
IR consult for chest tube insertion given pleural fluid pH<7.2, glucose <40 and LDH>1000
Chest tube inserted on 03/20 --> removed 03/23
Follow-up pleural fluid cultures - NGTD
Pleural fluid cytopathology is negative for malignancy and shows acute inflammation
Patient was given diltiazem for rate control, developed hypotension
Now on amiodarone 200mg BID --> outpatient PFTs and annual CT Chest to monitor for amiodarone-pulmonary toxicity
Patient was discharged on beta-nancy therapy during last hospital stay
Cardiology following
Patient is well-known to cardiology (patient's son is EP physician: Cilfton Paulson)
Continue with Eliquis now the chest tube has been placed
Aspiration precautions, head of bed elevated as able
PT/OT
DVT prophylaxis: Eliquis.
History of atrial fibrillation noted, no anticoagulation in the past due to fall risk --> risk versus benefit discussion regarding continuation of Eliquis should occur before patient is discharged on NOAC
Total time spent today was 35 minutes for this encounter. Time includes reviewing laboratory test/imaging results, reviewing pertinent medical records, obtaining and reviewing medical history, performing an appropriate exam, ordering medications,
tests and procedures. Time also includes documentation of this encounter, coordinating patient care and communicating with other healthcare professionals. Total time does not include separately billed tests performed on this date of service.
Subjective Data
-
Date of Service:
Date of Service: March 24, 2024
Chief Complaint: Pulmonary Follow Up
Subjective:
Doing well, would like to go home
No new complaints
Stable on RA
Objective Data
Data Reviewed
Vital Signs / I&O / Oxygen:
Vital Signs
Temp Pulse Resp BP Pulse Ox
98.0 F 81 18 117/56 91
03/24/24 07:00 03/24/24 09:00 03/24/24 07:00 03/24/24 09:00 03/24/24 07:00
Intake and Output
03/23/24 03/24/24 03/25/24
06:59 06:59 06:59
Intake Total 880 / 880 1800 / 1800
Output Total 120 / 120
Balance 760 / 760 1800 / 1800
SaO2 91
Nasal Cannula flow liters per 2
minute
Physical Exam
General: Respiratory Distress (Negative) and Comfortable
HEENT: Normocephalic and Anicteric
Cardiovascular: S1-S2 and Peripheral Edema (Trace LE edema b/l)
Respiratory: Wheeze (Negative), Crackles (Bibasilar (R >L)), Rhonchi (Negative), Non-Labored Respirations and Chest Tube (Right-sided chest tube at -[id number] suction with no air leak)
GI: Soft, Non Distended and Non Tender
Neurology: Awake, Alert and Tremors (Negative)
Skin: Warm, Dry and Jaundice (Negative)
Labs/Micro/Reports
Lab Data
03/23/24 15:00
03/23/24 20:49
--- NOTE | 2024-03-24 10:49 | W.PN.HOSP.TC ---
Today's Communication/Plan
-
d/c home
Assessment / Plan
Assessment / Plan
1. Sepsis secondary to pneumonia -suspected aspiration related
-Chest x-ray from admission reviewed
-Patient currently on IV Zosyn continue. on Day 7 of abx.
-WBC has trended down remains afebrile
-Blood culture negative.
-Patient declined of undergo VSE
2. Acute hypoxic respiratory failure
Right-sided pleural effusion - possible early empyema
-Patient is s/p thoracentesis of 1.6 L exudative fluid. Culture negative. Cytopathology of pleural fluid negative for any malignancy.
-Suspecting parapneumonic in nature versus other reason
-Repeat chest x-ray showing some mod effusion.
-Chest tube placed on 03/20, slowly decreasing output.
-Chest x-ray showing improvement in findings.
-CT tube removed on 03/23
3. Parox afib / RVR
Problem QTc
-Currently on oral amiodarone, dose has been decreased to 200 mg twice daily
-Remains in sinus rhythm, continue monitoring on telemetry
-Eliquis resumed back
-Cardio signed off
4. Generalized weakness
-PT recommended for patient to undergo rehab placement although patient declined. Spouse at bedside
-High risk for fall and further complication, patient adamant being discharged home
5. Nonischemic NJ
-Troponin peaked at 0.093 on 03/15. No chest pain
-Manage conservatively per cardio recommendations
6. Atrial fibrillation with RVR
Moderate MR/severe AR(Per echo 03/05/2024)
-03/20 EKG : Normal SINUS RHYTHM
-continue Amiodarone p.o. 200mg BID uptill 04/02/24
-Continue Eliquis
-Appreciate cardio input
-CHADS2 VASC score 5
7. Left heel ulcer- pressure ulcer stage 2
- clean with saline, honey gel, silicone border foam, change every 2 days and prn loosened dressing.
8. Urinary retention
-resolved per patient
-Refused Flomax
9.Acute Transaminitis
-Elevated AST, ALT
-Unclear etiology
-USG: Hepatomegaly and slightly increased echogenicity in the liver, compatible with underlying hepatocellular disease, which most commonly relates to mild fatty infiltration of the liver.
10. Constipation/Abdomen fullness
- resolved
- Abd Xray clear
11. Prostate cancer
-Status post prostatectomy
CODE STATUS: DNI
Dispo to home with and health aide
Patient is desaturating 86% on room air with activity. Patient required 2 L oxygen on exertion.
This is despite being after having CT chest tube draining of fluid.
Discharge home with home care
Patient seen while PT in the room and require almost 2-3 person to hold patient up with few stumbling steps to chair. Patient at very high risk of fall/hip fracture and related complication.
Discussed this with patient and family and everyone understands the risk
Anticipated Discharge: Today
Subjective/Interval History
-
Date of Service: March 24, 2024
No issues overnight
Objective Data
-
Labs:
Laboratory Results
03/23/24
20:49
Sodium Cancelled
Potassium Cancelled
Chloride Cancelled
Carbon Dioxide Cancelled
BUN Cancelled
Creatinine Cancelled
Glucose Cancelled
Calcium Cancelled
Vital Signs:
Vital Signs
Temp Pulse Resp BP Pulse Ox
98.0 F 81 18 117/56 91
03/24/24 07:00 03/24/24 09:00 03/24/24 07:00 03/24/24 09:00 03/24/24 07:00
I&O
03/23/24 03/24/24 03/25/24
06:59 06:59 06:59
Intake Total 880 / 880 1800 / 1800
Output Total 120 / 120
Balance 760 / 760 1800 / 1800
Review of Systems
-
Respiratory: Reports No Symptoms
Cardiac: Reports No Symptoms
Abdomen/GI: Reports No Symptoms
Physical Exam
-
General: Cachectic
HEENT: Oxygen
Respiratory: Clear to Auscultation; Negative Chest Tubes
Cardiac: Regular Rhythm and S1/S2; Negative Murmur
GI: Soft, Nontender and Normal Bowel Sounds
Skin: Warm and Dry
Neuro: Awake, Alert, Oriented and No Motor Deficits
Psych: Calm
[2024-03-24 11:00] VITALS: BP 119/52
--- NOTE | 2024-03-24 11:23 | CM ---
Addendum entered by Elba Owens 03/24/24 14:29:
Per [employer], oxygen has been delivered to the home.
Addendum entered by Elba Owens 03/24/24 12:12:
Ambulance transport 5:30 pm.
Original Note:
Patient for d/c home today.
Patient declined skilled rehab and home oxygen.
Spoke with son Babatunde, he is agreeable to home with private caregivers and would like the home oxygen.
Options reviewed, oxygen arranged with [facility] for delivery today.
Son also interested in transportation home.
Ambulance transport to be arranged after oxygen delivered.
IMM completed.
Plan[facility], oxygen from [employer].
[2024-03-24 15:00] VITALS: BP 118/61
--- NOTE | 2024-03-24 15:36 | PTCARENOTE ---
POX 86-90% with no signs of respiratory distress. Pt encouraged and educated to utilize supplemental O2. pt continues to refuse any supplemental oxygen. will continue to encourage and monitor.
== END 2024-03-24 17:15 | disposition home health service (06) | DRG 871 ==
LOC: 4 WEST ACU 15:05
PROVIDERS: Radiology Vascular & Interventional Radiology; Student in an Organized Health Care Education/Training Program; ADMITTING PHYSICIAN Family Medicine; ATTENDING PHYSICIAN Hospitalist; CONSULT PHYSICIAN Internal Medicine Critical Care Medicine; EMERGENCY PHYSICIAN Emergency Medicine; OTHER PHYSICIAN Internal Medicine Cardiovascular Disease
PROC: 5A0945A Assistance with Respiratory Ventilation, 24-96 Consecutive Hours, High Flow/Velocity Cannula (ICD-10-PCS; 2024-03-15)
PROC: 5A09357 Assistance with Respiratory Ventilation, Less than 24 Consecutive Hours, Continuous Positive Airway Pressure (ICD-10-PCS; 2024-03-15)
PROC: 0W993ZX Drainage of Right Pleural Cavity, Percutaneous Approach, Diagnostic (ICD-10-PCS; 2024-03-16)
PROC: 0W9930Z Drainage of Right Pleural Cavity with Drainage Device, Percutaneous Approach (ICD-10-PCS; 2024-03-20)
DX: A41.9 Sepsis, unspecified organism (principal); J69.0 Pneumonitis due to inhalation of food and vomit; J96.01 Acute respiratory failure with hypoxia; I47.19 Other supraventricular tachycardia; I5A Non-ischemic myocardial injury (non-traumatic); I45.2 Bifascicular block; J91.8 Pleural effusion in other conditions classified elsewhere; E11.9 Type 2 diabetes mellitus without complications; I08.0 Rheumatic disorders of both mitral and aortic valves; Z66 Do not resuscitate; L89.622 Pressure ulcer of left heel, stage 2; I95.9 Hypotension, unspecified; R54 Age-related physical debility; I48.0 Paroxysmal atrial fibrillation; I49.3 Ventricular premature depolarization; N40.1 Benign prostatic hyperplasia with lower urinary tract symptoms; R33.9 Retention of urine, unspecified; R74.01 Elevation of levels of liver transaminase levels; K59.00 Constipation, unspecified; Z79.899 Other long term (current) drug therapy; Z85.46 Personal history of malignant neoplasm of prostate; Z90.79 Acquired absence of other genital organ(s); Z91.81 History of falling; Z86.16 Personal history of COVID-19; Z86.718 Personal history of other venous thrombosis and embolism; Z86.73 Personal history of transient ischemic attack (TIA), and cerebral infarction without residual deficits; Z86.79 Personal history of other diseases of the circulatory system; Z87.39 Personal history of other diseases of the musculoskeletal system and connective tissue
CPT/HCPCS: 88305; 32555; 32557; 71045; 74018; 76604; 76700; 80048; 80053; 80076; 81003; 81015; 82945; 83605; 83615; 83735; 83880; 83986; 84075; 84157; 84450; 84460; 84478; 84484; 85025; 85027; 85610; 85730; 86704; 86705; 86706; 86709; 86803; 87015; 87040; 87070; 87205; 87340; 87641; 87811; 88112; 88341; 88342; 89051; 92610; 93005; 94660; 96365; 96366; 96368; 96375; 97163; 97167; 97530; 97535; 99152; 99291; 99292; C1729; C1769

== ENCOUNTER → 2024-04-06 11:21 | Outpatient (REF) | payer MEDICARE, OTHER, SELFPAY | LOC: REG 11:21 | PROVIDERS: ATTENDING PHYSICIAN Internal Medicine Cardiovascular Disease; FAMILY PHYSICIAN Internal Medicine | DX: J90 Pleural effusion, not elsewhere classified (principal) | CPT/HCPCS: 71046 ==

== ENCOUNTER → 2024-04-28 10:47 | Outpatient (REF) | payer MEDICARE, OTHER, SELFPAY | LOC: RAD 10:47 | PROVIDERS: ATTENDING PHYSICIAN Nurse Practitioner Adult Health; FAMILY PHYSICIAN Internal Medicine | DX: R05.1 Acute cough (principal); J91.8 Pleural effusion in other conditions classified elsewhere | CPT/HCPCS: 71046 ==

== ENCOUNTER → 2024-05-04 13:04 | Outpatient (REF) | payer MEDICARE, OTHER, SELFPAY ==
[2024-05-04 13:24] VITALS: BP 123/48; BP_SYST 83
[2024-05-04 13:55] VITALS: BP 113/46; BP_SYST 77
[2024-05-04 13:58] VITALS: BP 106/46
[2024-05-04 14:04] VITALS: BP 113/50
[2024-05-04 14:19] LABS: Body Fluid pH < 6.80
[2024-05-04 14:46] LABS: Body Fluid Mononuclear 55.9 %; Body Fluid Polymorphonuclear 44.1 %; Body Fluid WBC 388900 /CUMM
[2024-05-04 14:53] LABS: Body Fluid Second Tech LD
[2024-05-04 16:05] LABS: Body Fluid Glucose < 30 mg/dl
[2024-05-04 18:04] LABS: Body Fluid LDH > 10000 U/L
== END ==
LOC: RADI 13:04
PROVIDERS: ATTENDING PHYSICIAN Nurse Practitioner Adult Health; FAMILY PHYSICIAN Internal Medicine
DX: J90 Pleural effusion, not elsewhere classified (principal)
CPT/HCPCS: 32555; 88305; 71045; 82945; 83615; 83986; 84157; 87015; 87070; 87077; 87102; 87116; 87205; 87206; 88112; 89051

== ENCOUNTER 2024-05-04 17:27 | Inpatient (IN) | payer MEDICARE, OTHER, SELFPAY ==
[2024-05-04] VITALS (7 sets, daily range): BP systolic 94–121; BP diastolic 42–77; BMI 19.2; BMI 18.8
--- NOTE | 2024-05-04 15:20 | ED.GENMED ---
History of Present Illness
General
Chief Complaint: Breathing Problem
Source: patient
Exam Limitations: none
Time Seen by Provider: 05/04/24 15:02
Nursing documentation reviewed up to this point in time: agreed with
History of Present Illness
History of Present Illness:
88-year-old male presents emergency room status post thoracentesis. He came in from home today, and had a scheduled thoracentesis by interventional radiology. This resulted in purulent drainage 150 mL. Staff discussed with pulmonology who
referred him here. Patient denies fever, but has been coughing.
Past History
Past History
ED Past Medical History: Arrthythmia, Cancer (Prostate) and NIDDM
ED Past Surgical History: Urological
Social History
Tobacco: Former smoker
Alcohol: None
Drug: None
Personal:
Living: with family
Employment: Retired
Family History
Family History: Other
Review of Systems
Review of Systems
Allergies reviewed?: Yes
All Other Systems: Not applicable
Constitutional: Reports no symptoms
EENT: Reports no symptoms
Respiratory: Reports cough
Phy Exam
Physical Exam
Physical Exam:
Physical Exam
General: Afebrile
Neck: supple. no meningeal signs. normal posterior pharynx
Heart: s1/s2 regular rate and rhythm, no murmur. equal radial
pulses.
HEENT: Pupils equal round reactive to light, EOMI
Lungs: no acute respiratory distress. Decreased breath sounds right lower lung
Abdomen: normal bowel sounds. not tender. no CVAT
Neuro: alert and oriented, but intermittently confused and repetitive. no focal neurological deficits cranial nerves II through XII intact
Skin: no rash
Psychiatric: well kept. interactive and cooperative
Extremities: no edema. no calf tenderness. negative homans. good distal pulses
Scores
Heart Failure Risk
Heart Failure Risk Score: Not Applicable
Course
Orders/Labs/Results
Orders:
Orders
05/04/24 Breakfast
Cholesterol Lowering
At Your Request: Full Participation
Cholesterol Lowering: Sodium, 2 Gram
05/04/24 16:11
Complete Blood Count/With Diff Urgent
Comprehensive Metabolic Panel Urgent
Lactic Acid Q4H
Comment: CANCEL 2nd LACTIC ACID IF 1st LACTIC ACID IS LESS THAN 2
Blood Culture Urgent
JUAN Source: Blood/Venous
Specimen Description:
05/04/24 16:45
Piperacillin/Tazo 4.5 Gram [Zosyn] 4.5 gram in 100 ml IV NOW
Vancomycin [Vancocin] 2,000 mg 0.9% Sodium Chloride 500 ml [Nss] 500 ml IV NOW
05/04/24 17:11
EKG [Electrocardiogram (*1)] Stat
Reason for Study: Atrial Fibrillation
05/04/24 17:15
Admit/Transfer Patient As Directed
Co-Sign Provider:
Level of Care: Inpatient admission
Assign to:: Telemetry
Physician / Group: souleymane
Diagnosis: emphyema
Reason for Telemetry: Arrhythmia
Date to Stop Telemetry: 05/07/24
Time to Stop Telemetry: 11:00
Reason for Hospitalization: e,pyema
Expected length of stay greater than two midnights?: Yes
ELOS- Estimated Length of Stay in days: 3
I certify the patient meets the requirements for IP care: Yes
PRN Pain Medication Management As Directed
May give lesser potent ordered pain med per pt: Yes
preference::
Protocol:: Medication orders for pain may be administered in a
manner that supports deferring to patient preference
when the pt is:
- Requesting an ordered lesser potent pain medication.
Least to most potent pain medications are defined
as: acetaminophen < NSAID < tramadol < opioids
(morphine, oxycodone, hydromorphone).
- Requesting a lesser dose of the same medication IF
ORDERED.
- Requesting a less intrusive route of administration
if both routes are prescribed by the provider (PO <
IV).
05/04/24 17:16
Code Status As Directed
Resuscitation Status: Full Code
05/04/24 19:40
Acetaminophen [Tylenol] 650 mg PO Q4HPRN PRN
Bisacodyl [Dulcolax] 10 mg RECTAL [id number] PRN
Docusate W/Senna [Senokot-S] 1 tablet PO BIDPRN PRN
Polyethylene Glycol Powder [Miralax] 17 grams PO DAILYPRN PRN
Sodium Zirconium Cyclosilicate [Lokelma] 5 gram PO NOW STA
05/04/24 19:40
INFECTIOUS DISEASE CONSULT Routine
Consulting Provider: Alcides Sun
Was physician already notified: Yes
PULMONARY CONSULT Routine
Consulting Provider: [facility]
Was physician already notified: Yes
Activity As Directed
Activity Level: As Tolerated
Pneumatic Compression Sleeves As Directed
Type: Knee high
Vital Signs As Directed
Frequency: Per unit guidelines
DX Deep Vein Thrombosis Video Routine
05/04/24 22:00
Piperacillin/Tazo 3.375 Gram [Zosyn] 3.375 gram in 50 ml IV Q6H
05/05/24 06:00
Basic Metabolic Panel IN AM
Complete Blood Count/No Diff IN AM
05/05/24 08:00
Amiodarone [Pacerone] 200 mg PO DAILY
05/06/24 06:00
Basic Metabolic Panel IN AM
Complete Blood Count/No Diff IN AM
05/07/24 06:00
Basic Metabolic Panel IN AM
Complete Blood Count/No Diff IN AM
05/07/24 11:00
DC Protocol for Telemetry ONCE
05/08/24 06:00
Basic Metabolic Panel IN AM
Complete Blood Count/No Diff IN AM
05/09/24 06:00
Basic Metabolic Panel IN AM
Complete Blood Count/No Diff IN AM
Abnormal Lab Results
05/04/24
16:11
WBC 11.3 H 10^3/uL
(4.8-10.8)
RBC 3.76 L 10^6/uL
(4.70-6.10)
Hgb 11.2 L g/dL
(13.0-18.0)
Hct 33.3 L %
(39.0-52.0)
RDW 16.7 H %
(11.5-14.5)
Abs Immat Gran (auto) 0.1 H 10^3/uL
(0-0.05)
Absolute Lymphs (auto) 4.1 H 10^3/uL
(1.2-3.4)
Absolute Monos (auto) 0.9 H 10^3/uL
(0.1-0.6)
Immature Gran % 1.2 H %
(0-0.5)
Sodium 134 L mmol/L
(135-145)
Potassium 5.2 H mmol/L
(3.5-5.1)
BUN 26 H mg/dl
(9-20)
05/04/24 16:11
05/04/24 16:11
Vital Signs
Initial and Last Documented VS:
Initial Vital Signs
BP
114/50
05/04/24 14:22
Last Documented Vital Signs
Temp Pulse Resp BP Pulse Ox
97.4 F 67 20 121/50 94
05/04/24 19:20 05/04/24 19:20 05/04/24 19:20 05/04/24 19:20 05/04/24 19:20
MDM/Problems Addressed
Differential Diagnosis Includes:
Pneumonia, empyema
MDM/Problems Addressed:
88-year-old male with right-sided empyema. Discussed with pulmonology and hospitalist. Zosyn and vancomycin ordered.
Chronic conditions affecting care: HTN
Acute Exacerbation and/or Progression of Chronic Illness: HTN
*Radiology
Radiology exam reviewed: radiology read reviewed (CT chest shows right-sided pleural effusion, possible small hydropneumothorax)
*Pulse Oximetry
Patient hypoxic: no
*EKG
Interpreted by ED Provider?: Yes
EKG Intrepretation Date: 05/04/24
EKG Intrepretation Time: 18:00
Interpretation: abnormal
Comparison EKG: changes noted
Heart Rate: 72
Rate: normal
Rhythm: sinus
Cherry Log: normal axis
Interval: long QT
QRS Pattern: normal QRS
Ischemia: no ischemia
*Radiology Technician Interpretation
Rate: normal
Interpretation: normal
Heart Rate: 70
Rhythm: sinus
*Critical Care Note
Total Time (30-74mins, 75-104mins- exclusive of procedures): Not Applicable
Data Reviewed
Review of Other/Old Records Reveals: Operative Reports (Thoracentesis showing purulent fluid today)
Source: records
Patient Management
Social determinants of health affecting care: Living situation
Discussion with other providers: Hospitalist and Political Science Professor (Pulmonology, Dr. Regan)
Escalation/DeEscalation of care consider admission/obs:
Admit indicated
ED Attending Note
-
Portions of this chart may have been created with voice recognition software.� Occasional wrong word or��sound alike� substitutions may have occurred due to the inherent limitations of voice recognition software.
Discharge Plan
Departure
Patient Disposition: Admit
Date of Disposition: 05/04/24
Time of Disposition: 16:41
Admit to: Telemetry
Presentation/result/management discussed w/ accepting MD/DO: Hospitalist
Patient with high blood pressure during this ER visit?: No
Condition: Good
Discharge Problem:
Empyema, right
Interventions
Interventions:
*Risk Screen - Suicide Last Done: 05/04/24 14:33
*General Assessment Last Done: 05/04/24 14:35
*Neglect/Abuse Screening Last Done: 05/04/24 14:33
ED- Fall Risk Assessment Last Done: 05/04/24 14:30
*ED COVID-19 Vaccine History Last Done: 05/04/24 14:28
*Nursing Disposition Last Done: 05/04/24 19:10
ED- Cardiac Assessment Last Done: 05/04/24 14:32
ED- Pulmonary Assessment Last Done: 05/04/24 14:30
Discharge Date and Time
Discharge Date/Time: 05/04/24 19:12
[2024-05-04 16:11] LABS: Glucose - Point of Care 93 mg/dl (70-99)
[2024-05-04 16:36] LABS: ALT (SGPT) 19 U/L (0-50); AST (SGOT) 29 U/L (17-59); Albumin 3.6 g/dl (3.5-5.0); Alkaline Phosphatase 91 U/L (38-126); Blood Urea Nitrogen 26 mg/dl (9-20); Calcium 9.3 mg/dl (8.4-10.2); Carbon Dioxide 26 mmol/L (22-30); Chloride 99 mmol/L (98-107); Estimated Creatinine Clearance 56 ml/min; Glucose 89 mg/dl (70-99); Lactic Acid 1.1 mmol/L (0.7-2.0); Potassium 5.2 mmol/L (3.5-5.1); Sodium 134 mmol/L (135-145); Total Bilirubin 0.5 mg/dl (0.2-1.3); Total Protein 6.8 g/dl (6.3-8.2); eGFR > 60.00
--- NOTE | 2024-05-04 16:47 | HPS.HSE ---
Addendum entered and electronically signed by Holli Aguila MD 05/04/24 17:26:
see my update note for addendum
Original Note:
Family Physician
-
Family Physician: Jeannine Brady
Chief Complaint
-
, Cough
History of Present Illness
88-year-old with past medical history for aortic valve insufficiency, nonischemic cardiomyopathy, A-fib, prostate cancer, DVT presented to us from interventional radiology. Patient complained of persistent coughing for past few weeks. He had a
chest x-ray on 817 with impression of Moderate right pleural effusion. He underwent scheduled thoracentesis which yielded 150 cc of greenish to yellow pleural fluid. As per patient, he was very pussy which prompted IR physician to send him to ER.
Patient denied any short of breath or chest pain. Patient denied any headache, dizziness, syncopal episode. Patient denied fever, chills. Patient denied abdominal pain, nausea, vomiting, diarrhea. Patient denied dysuria hematuria.
Repeat chest x-ray with impression of no evidence of pneumothorax.There still hazy opacity within the right lung base suggestive of residual fluid
Admitting for further management. Fluids from thoracentesis were sent from IR. Patient received Zosyn and Vanco in ER blood cultures obtained in ER
his rag baler stopped his AC few days ago.
Medical History
Past Medical History
Past Medical History: Reports Other
Additional Past Medical History:
Prostate cancer
COVID-19
Atrial fibs
Pleural effusion
Past Surgical History: Reports Other
Additional Past Surgical History:
Left hip
Social History
Tobacco: Non-smoker
Alcohol: Occasional
Drug: None
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
Family History
Family History: Not pertinent
Allergies / Home Medications
Allergies reflects when Allergies were last updated in [employer].
Home Medications with original date entered in [employer]
Allergy/Medication List:
Allergies
Allergy/AdvReac Type Severity Reaction Status Date / Time
No Known Allergies Allergy Verified 11/26/23 16:49
Home Medications
ascorbic acid (vitamin C) 500 mg tablet (Vitamin C) 500 mg PO DAILY Supplement 03/03/24
cholecalciferol (vitamin D3) 25 mcg (1,000 unit) tablet (Vitamin D3) 25 mcg PO DAILY Supplement 03/03/24
omega [id number]-fish oil 1,000 mg (120 mg-180 mg) capsule (Fish Oil) 1 cap PO DAILY Supplement 03/03/24
metoprolol succinate 25 mg tablet,extended release 24 hr 12.5 mg (1/2 x 25 mg) PO BID Arrhythmia #60 tabs 03/06/24
polyethylene glycol 3350 17 gram oral powder packet (HealthyLax) 17 g PO DAILYPRN PRN constipation #0 ea 03/06/24
alendronate 70 mg tablet 70 mg PO QWEEK osteoporosis 03/15/24
docusate sodium 100 mg tablet 100 mg PO TID Constipation 03/15/24
multivitamin 1 tab PO DAILY Supplement 03/15/24
resveratrol 100 mg capsule 100 mg PO DAILY Supplement 03/15/24
triamcinolone acetonide 0.025 % topical cream 1 applic topical DAILY Skin Issues 03/15/24
amoxicillin 875 mg-potassium clavulanate 125 mg tablet 1 tab PO BID #4 tabs 03/20/24
apixaban 5 mg tablet (Eliquis) 5 mg PO BID Arrhythmia #60 tabs 03/20/24
tamsulosin 0.4 mg capsule 0.4 mg PO DAILY Urinary issue #30 caps 03/20/24
amiodarone 200 mg tablet 200 mg PO BID #60 tabs 03/24/24
Review of Systems
-
Constitutional: Reports No Symptoms
EENT: Reports No Symptoms
Respiratory: Reports Cough
Cardiac: Reports No Symptoms
Abdomen/GI: Reports No Symptoms
: Reports No Symptoms
Musculoskeletal: Reports No Symptoms
Skin: Reports No Symptoms
Neurological: Reports No Symptoms
Endocrine: Reports No Symptoms
Hematologic/Lymphatic: Reports No Symptoms
Psych: Reports No Symptoms
Physical Exam
Vital Signs
Vital Signs
Temp Pulse Resp BP Pulse Ox
97.6 F 75 28 119/54 92
05/04/24 14:26 05/04/24 16:30 05/04/24 16:30 05/04/24 15:00 05/04/24 16:30
Physical Exam
General: Well Developed, Well Nourished and No Apparent Distress
HEENT: NormoCephalic, Moist mucous membranes and Atraumatic
Respiratory: Clear
Cardiac: S1/S2 and Regular Rhythm; No Murmur or Rub
GI: Soft, Non Tender, Non Distended and Normal Bowel Sounds; No Organomegaly
Rectal: Deferred by Provider
Musculoskeletal: No Clubbing, No Cyanosis and No Edema
Skin: No Rash
Neuro: AO x 3 and Nonfocal/grossly intact
Psych: Calm
Laboratory Results
-
05/04/24 16:11
Laboratory Results
Lactic Acid Cancelled 05/04/24 19:30
Total Bilirubin 0.5 mg/dl (0.2-1.3) 05/04/24 16:11
AST 29 U/L (17-59) 05/04/24 16:11
ALT 19 U/L (0-50) 05/04/24 16:11
Alkaline Phosphatase 91 U/L (38-126) 05/04/24 16:11
Data Reviewed
-
Diagnostic Radiology: Report Reviewed by me
Lab Data: Labs Reviewed by me
Impression/Plan
-
#right sided empyema
-s/p thoracentesis yielded 150 cc
-WBCs 11.3, patient is afebrile
-Zosyn and Vanco continued
-Fluid culture sent from IR
-Blood culture sent from ER
-ID and cdl company driver consulted
# Anemia of chronic disease
-Hemoglobin stable at 11.2
-No active bleeding
-Continue to monitor
# Hyponatremia/hyperkalemia
-Sodium 134, K5.2
-Continue to monitor
# Parox afib
-Heart rate controlled
-amiodarone continued
# Prostate cancer
-Status post prostatectomy
CODE STATUS: Full
[2024-05-04 16:55] LABS: Hematocrit 33.3 % (39.0-52.0); Hemoglobin 11.2 g/dL (13.0-18.0); Mean Corp Hgb Conc. 33.6 g/dL (33.0-37.0); Mean Corpuscular Hgb 29.8 pg (27.0-31.0); Mean Corpuscular Volume 88.6 fL (80.0-94.0); Mean Platelet Volume 9.1 fL (7.4-10.4); Platelet Count 332 10^3/uL (130-400); Red Blood Cell Count 3.76 10^6/uL (4.70-6.10); Red Cell Dist. Width 16.7 % (11.5-14.5); White Blood Cell Count 11.3 10^3/uL (4.8-10.8)
[2024-05-04 16:58] LABS: % Eosinophils 2.5 % (0-6); % Immature Granulocytes 1.2 % (0-0.5); % Lymphocytes 36.4 % (20.5-51.1); % Monocytes 8.2 % (1.7-9.3); % Neutrophils 50.7 % (42.2-75.2); Absolute Basophils 0.1 10^3/uL (0-0.2); Absolute Eosinophils 0.3 10^3/uL (0-0.7); Absolute Immature Granulocytes 0.1 10^3/uL (0-0.05); Absolute Lymphocytes 4.1 10^3/uL (1.2-3.4); Absolute Monocytes 0.9 10^3/uL (0.1-0.6); Absolute Neutrophils 5.7 10^3/uL (1.4-6.5); Nucleated Red Blood Cells % 0 % (-)
[2024-05-04] MEDS: ZOSYN 100 IV (16:58)
--- NOTE | 2024-05-04 17:11 | PHANOTE ---
med rec taqueria(05/04/24)-patient has a new c winforms developer, has many vitamins at home but does not currently take any. Susanne ran out, but patient said he does not need it anymore.
--- NOTE | 2024-05-04 17:15 | W.PN.UPDATE ---
Update Note
Progress Note Update
I saw and examined the patient.
The TELEVISION CAMERA OPERATOR Zain's note was reviewed and I agree with the note.
Comment: 88 y/o M presenting to ER from [facility] suite today after thoracentesis. Patient was admitted in March for empyema and completed 7 days IV abx; repeat CXR showed effusion and today patient had thoracentesis revealing green/pus like fluid. He was
referred to ER and given IV abx and admitted for further management.
Physical Exam
General: Well Developed, Well Nourished and No Apparent Distress
HEENT: Normocephalic, Moist mucous membranes and Atraumatic
Respiratory: Clear
Cardiac: S1/S2 and Regular Rhythm; No Murmur or Rub
GI: Soft, Non Tender, Non Distended and Normal Bowel Sounds; No Organomegaly
Rectal: Deferred by Provider
Musculoskeletal: No Clubbing, No Cyanosis and No Edema
Skin: No Rash
Neuro: AO x 3 and Nonfocal/grossly intact
Psych: Calm
Assessment:
R sided pleural effusion, suspected empyema
- recent episode in March s/p 1 week IV Abx (path was negative for malignancy)
- repeat thoracentesis today with green/pus like drainage of 150 cc
- start broad spectrum Abx pending cultures
- ID and Pulm consults given quick recurrence
Hyperkalemia
- low K diet
- monitor BMP
History of atrial fibrillation
history of Bifascicular block
History of nonischemic cardiomyopathy
- off AC due to fall risks
- continue Amiodarone
Anemia of chronic disease
History of prostate Ca s/p radical prostatectomy
History of cerebellar stroke
History of normal pressure hydrocephalus
DVT ppx: Lovenox
Code: Full
[2024-05-04] MEDS: VANCOCIN 300 ML IV (17:48)
[2024-05-04] MEDS: VANCOCIN 300 MG IV (17:48)
[2024-05-04] MEDS: FLUSH (NSS) 1 FLUSH IV (17:53)
--- NOTE | 2024-05-04 20:16 | PHA.VAN.IN ---
Assessment
- Assessment
Renal Function: Appears similar to baseline
Concomitant Antimicrobials: ZOSYN
- Previous Dosing Experience
Previous Regimen: 1250MG IV Q24H
Date of Regimen: 03/17/24
Provided Trough of: 11.7 PREDICTED
Provided AUC of: 547
Patient's SCR is: Similar to previous dosing experience
Patient's weight is: Decreased compared to previous dosing experience (03/17/24 WT = 63.8 KG)
AUC Dosing Plan
- Dosing Variables
Dosing Weight (kg): 74.2
Dosing CrCl (ml/min): 67
Vd coefficient (L/kg): 0.7
- Empiric Dosing
Initial / Loading Dose: 1500MG
Maintenance Regimen: 750MG IV Q12H
Estimated AUC (mcg*h/mL): 496
Estimated Peak (mcg*h/mL): 28.1
Estimated Trough (mcg/ml): 14.5
Estimated Half Life (H): 11.5
Pharmacokinetics Vancomycin I
- -
Patient Age: 88
Patient Sex: Male
Vancomycin Day #: 1
Indication: Pulmonary/Respiratory
Requesting Provider: KEVEN
Height / Weight:
Height 5 ft 10.5 in
Actual Weight 61.6 kg
IBW in k.2
- Vital Signs / Lab Results
Temp Pulse Resp BP Pulse Ox
97.6 F 71 21 108/47 96
05/04/24 14:26 05/04/24 18:45 05/04/24 18:45 05/04/24 18:00 05/04/24 18:45
Lab Results - Hematology
05/04/24
16:11
WBC 11.3 H
Lab Results - Chemistry
05/04/24
16:11
BUN 26 H
Creatinine 0.8
Estimated Creat Clear 56
Albumin 3.6
05/04/24 05/04/24
16:11 19:30
Lactic Acid 1.1 Cancelled
[2024-05-04] MEDS: LOKELMA 5 GRAM PO (20:42)
[2024-05-04] MEDS: ZOSYN 50 IV (21:25)
[2024-05-05] VITALS (8 sets, daily range): BP systolic 72–118; BP diastolic 44–57; BMI 19.1
[2024-05-05] MEDS: ZOSYN 50 IV ×4 (03:49→22:13)
--- NOTE | 2024-05-05 06:25 | PTCARENOTE ---
Pt arrived to floor from ED. Very pleasant. but [place]. Pt placed on tele, VSS stable. Pt refused am labs.
[2024-05-05] MEDS: VANCOCIN 150 IV ×2 (06:38→16:41)
[2024-05-05] MEDS: PACERONE 200 MG PO (08:17)
--- NOTE | 2024-05-05 08:43 | W.PN.HOSP.TC ---
Today's Communication/Plan
-
follow pulm, ID, IR recs; possible CT placement today if pt agreeable
Assessment / Plan
Assessment / Plan
Assessment:
R sided pleural effusion, suspected empyema
- recent episode in March s/p 1 week IV Abx (path was negative for malignancy)
- s/p thoracentesis 05/04 with green/pus like drainage of 150 cc
- start broad spectrum Abx pending cultures
- CT tube recommended and IR consulted
- ID and Pulm consulted given quick recurrence
Hyperkalemia
- low K diet
- monitor BMP
History of atrial fibrillation
history of Bifascicular block
History of nonischemic cardiomyopathy
- off AC due to fall risks
- continue Amiodarone
Anemia of chronic disease
History of prostate Ca s/p radical prostatectomy
History of cerebellar stroke
History of normal pressure hydrocephalus
DVT ppx: Lovenox
Code: Full
Anticipated Discharge: > 48 hours
Subjective/Interval History
-
Date of Service: May 05, 2024
denies SOB, at present not eager for chest tube but wants to speak to pulmonary first
Objective Data
-
Labs:
Laboratory Results
05/05/24
06:00
WBC Pending
Hgb Pending
Hct Pending
Plt Count Pending
Sodium Pending
Potassium Pending
Chloride Pending
Carbon Dioxide Pending
BUN Pending
Creatinine Pending
Glucose Pending
Calcium Pending
Vital Signs:
Vital Signs
Temp Pulse Resp BP Pulse Ox
97.6 F 64 17 118/49 90
05/05/24 07:41 05/05/24 07:41 05/05/24 07:41 05/05/24 07:41 05/05/24 07:41
I&O
05/04/24 05/05/24 05/06/24
06:59 06:59 06:59
Intake Total 1020 / 1020
Output Total 300 / 300
Balance 720 / 720
Physical Exam
-
General: No Apparent Distress
HEENT: Normocephalic and Atraumatic
Respiratory: Decreased Breath Sounds (R side)
Cardiac: Regular Rhythm and S1/S2
GI: Soft
Genito-urinary: No Costovertebral Tender
Musculoskeletal: No Edema
Neuro: AO x 3
Psych: Calm
Data Reviewed
-
Total Time Spent with Patient (in minutes): 44
Labs: Labs Reviewed by me
--- NOTE | 2024-05-05 09:58 | CON.PUL ---
Consultation
Consultation Request
Date/Time Consultation Requested: 05/04/2024 - 194
Date/Time Consultation Performed: 05/05/2024 - 907
Requesting Provider: TAB Starr
Performing Provider: Naga House MD
Reason for Consultation: Empyema
Medical History
-
Chief Complaint: Worsening cough
History of Present Illness:
88-year-old male with a past medical history of prostate cancer, A-fib, history of COVID-19 and multiple falls who presents with worsening cough. He had a scheduled thoracentesis on 05/04/2024 and they removed 150 cc of greenish-yellow pus. Zosyn
given in the ER. Labs showed mild leukocytosis to 11.3, mild anemia to 11.2, and pleural fluid studies consistent with empyema with glucose <30, pH <6.8, and 388,900 white blood cells which are monocyte predominant. CT chest performed showing
suspected loculated hydropneumothorax in the right lower lobe. Chest tube was placed today by IR. Patient remains on vancomycin/Zosyn. Patient denies any recent travel or recent illnesses prior to this current admission. He says that he did
follow-up with [facility] pulmonology and had a CXR recently. Pulmonary service now consulted for additional management/recommendations. Of note he was recently hospitalized here from 03/24/2024 with chest tube placed on 03/20
for right lower lobe empyema; chest tube removed on 03/23 and he was discharged home on 03/24 with home health aide.
When I saw the patient he was resting in bed, in no acute distress. Right-sided chest tube in place on negative suction at 20 cm of water. There is less than 10 cc of bloody fluid in the canister, with no airleak seen. Still has a cough but
denies any chest pain, CARO, abdominal pain, fevers chills.
PMHx/PSHx: Tachyarrhythmia, history of prostate cancer, diabetes, history of atrial fibrillation not on anticoagulation, cardiomyopathy, records that suggest exertional rhabdomyolysis, history of total hip replacement complicated by postoperative
DVT. History of COVID infection hospitalized in 2022. Multiple falls in the past
Past Medical History
Past Medical History: Other (Above as per HPI)
Past Surgical History: Other (Above as per HPI)
Social History
Tobacco: Non-smoker
Alcohol: None
Drug: None
Personal:
Living: With Family
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
Family History
Family History: Reviewed & Not Pertinent
Allergies / Home Medications
Allergies
Allergy/AdvReac Type Severity Reaction Status Date / Time
No Known Allergies Allergy Verified 11/26/23 16:49
Home Medications
�Medication �Instructions �Recorded �Confirmed �Last Taken �Type
amiodarone 200 mg tablet 200 mg PO DAILY 05/04/24 05/04/24 05/04/24 History
Review of Systems
-
History Source: Patient
All other systems: Negative unless noted
Vitals / Labs / Diagnostic Testing
Vital Signs
Temp Pulse Resp BP Pulse Ox
97.8 F 75 16 107/52 91
05/05/24 10:33 05/05/24 10:33 05/05/24 10:33 05/05/24 10:33 05/05/24 10:33
Diagnostic Testing:
Physical Exam
-
HEENT: Normocephalic and Anicteric
Cardiovascular: S1/S2 and Peripheral Edema (negative)
Respiratory: Wheeze (negative), Rales (Anterior lung elliott (L >R)), Rhonchi (negative), Non-Labored Respirations and Other (Chest tube present on right hemithorax)
GI: Soft, Non Distended, Non Tender and Normal Bowel Sounds
Neurology: Awake, Alert and Tremors (n)
Skin: Warm and Dry
General: Respiratory Distress (negative), Comfortable, Chills (negative) and Sweats (negative)
Assessment
-
Assessment: 88-year-old male with a past medical history of prostate cancer, A-fib, history of COVID-19 and multiple falls who presents with worsening cough. He had a scheduled thoracentesis on 05/04/2024 and they removed 150 cc of greenish-yellow
pus. Zosyn given in the ER. Labs showed mild leukocytosis to 11.3, mild anemia to 11.2, and pleural fluid studies consistent with empyema with glucose <30, pH <6.8, and 388,900 white blood cells which are monocyte predominant. CT chest performed
showing suspected loculated hydropneumothorax in the right lower lobe. Chest tube was placed today by IR. Patient remains on vancomycin/Zosyn. Patient denies any recent travel or recent illnesses prior to this current admission. He says that he
did follow-up with [facility] pulmonology and had a CXR recently. Pulmonary service now consulted for additional management/recommendations. Of note he was recently hospitalized here from 03/24/2024 with chest tube placed on
03/20 for right lower lobe empyema; chest tube removed on 03/23 and he was discharged home on 03/24 with home health aide.
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
postoperative DVT. History of COVID infection hospitalized in 2022. Multiple falls in the past
Impression:
#Recurrent right-sided empyema s/p tube thoracostomy (small bore chest tube placed today by IR)
#Acute on chronic cough - likely due to above; unable to rule out component of chronic aspiration
#Anemia (mild)
#Hyponatremia (mild)
#Personal history of COVID-19
#History of prostate cancer
#DM type II
#History of A-fib
#History of CVA
#Recurrent right sided pleural effusion
#Valvular heart disease with moderate�severe AI, mild�moderate MR and mild TR with mild pulmonary hypertension (via TTE from 03/05/2024)
Plan:
- Continue broad spectrum ABx - currently on IV vanco + zosyn
- ID on board; recs appreciated
- Keep chest tube to suction at -[id number]
- Given minimal drainage, chest tube will likely need to be adjusted - keep NPO p MN and IR will assess tube in the AM and adjust it
- If no output after adjustment, then check CT chest, and if in proper placement then will administer tPA/dornase x [address] surgery consult as he may benefit from VATS
- Unclear what caused this recurrent empyema, but I am suspicious for aspiration PNA
- Check MANAGER WOUND CARE eval
- Follow-up pleural fluid cultures
- Follow-up blood cultures (collected 05/04/2024)
- Check immunoglobulin levels to see if any risk factors for recurrent pneumonia exists
- Given his severe AI with valvular heart disease, he is at risk of ADHF. Monitor I/O; consider repeating TTE if pt's right effusion worsens
- Maintain SpO2 >90-94% with supplemental O2 as needed
- Incentive spirometer encouraged
- Obtain medical records from prior chest imaging from [facility] to see if any recent PNA was seen
- Replete electrolytes with K>4, Mg>2
- Maintain euglycemia with goal BG >100 and <180
- prn nebulized bronchodilators - pt not currently bronchospastic
- DVT ppx: start LMWH
Pulmonary service will continue to follow along.
Total time spent today was 75 minutes for this encounter. Time includes reviewing laboratory test/imaging results, reviewing pertinent medical records, obtaining and reviewing medical history, performing an appropriate exam, ordering medications,
tests and procedures. Time also includes documentation of this encounter, coordinating patient care and communicating with other healthcare professionals. Total time does not include separately billed tests performed on this date of service.
Data:
CT Chest with IV contrast 05/04/2024:
Small moderate right pleural effusion is present. Within the posterior fusion, there is a slightly smaller loculated air and fluid collection with a slightly thickened enhancing rim, suggesting a loculated hydropneumothorax. Measurements given
above. Superimposed infection of this collection cannot be excluded in this patient with a reported history of empyema.
Confluent parenchymal opacity within the adjacent posterior right lower lobe of the lung, with main differential considerations of pneumonia and/or atelectasis.
Bronchiectasis within the lower lungs. Linear densities within the lower lungs, compatible with linear atelectasis and/or scarring.
--- NOTE | 2024-05-05 10:35 | PHA.VAN.FU ---
Vancomycin Assessment / Plan
- Assessment
Renal Function: No New Labs Today
In the past 24 hrs, patient has been: Afebrile
Concomitant Antimicrobials: piperacillin/tazo
- Dosing Plan
Continue: vancomycin 750 mg q12h - first dose 05/05/24 0600
- Monitoring Plan
No level(s) ordered at this time: conisder levels after Tuesday indio dose
- Follow Up
Pharmacy will continue to follow.
Vancomycin Follow UP
- -
Patient Age: 88
Patient Sex: Male
Vancomycin Day #: 2
Indication: Pulmonary/Respiratory
Requesting Provider: KEVEN
Height / Weight:
Height 5 ft 10.5 in
Actual Weight 60.328 kg
IBW in k.2
Pertinent Past Medical History: BMI 18.8;
- Vital Signs / Lab Results
Temp Pulse Resp BP Pulse Ox
97.6 F 64 17 118/49 90
05/05/24 07:41 05/05/24 07:41 05/05/24 07:41 05/05/24 07:41 05/05/24 07:41
Lab Results - Hematology
05/04/24
16:11
WBC 11.3 H
Lab Results - Chemistry
05/04/24
16:11
BUN 26 H
Creatinine 0.8
Estimated Creat Clear 56
Albumin 3.6
05/04/24 05/04/24
16:11 19:30
Lactic Acid 1.1 Cancelled
--- NOTE | 2024-05-05 11:01 | W.PN.UPDATE ---
Update Note
Progress Note Update
14 Thai thalquik placed, and wire used to break up loculations. Only a few cc's of bloody fluid were drained. If the tube doesn't start draining, may consider tpa/dornase.
--- NOTE | 2024-05-05 11:34 | CON.ID ---
Consultation
-
Date/Time Consultation Requested: 05/04/2024 1940
Date/Time Consultation Performed: 05/05/2024 1100
Requesting Provider: Jesica Pittman
Performing Provider: Dr. Sun
Reason for Consultation: Right empyema
Chief Complaint / Past History
History of Present Illness
Gold Paulson is an 88-year-old male being evaluated at the request of Jesica Pittman regarding a right-sided empyema. History is obtained from chart review, along with patient interview.
The patient was admitted to [facility] in early March (03/15 - 03/24), during which time he was treated for pneumonia. During that hospitalization he was also found to have a pleural effusion, but cultures from a thoracentesis did not reveal
any growth. Ultimately he was discharged to home on 03/24, to continue with antibiotics through 03/27.
He reports over the intervening month or so he has had a persistent cough, and according to reviewed records he had a chest x-ray on 04/28 which revealed a right pleural effusion. He underwent thoracentesis yesterday with recovery of 150 cc of
greenish to yellowish pleural fluid. He was then sent to the ER for further evaluation and likely admission. During this period of time he denies any pain. He denies any fevers or chills. He is currently status post chest tube placement.
Past History
Additional Past Medical History:
Prostate cancer
A-fib
Pleural effusion
Anemia
Hx cerebellar CVA
Hx normal pressure hydrocephalus
Additional Past Surgical History:
Right hip replacement
Allergy History:
No Known Allergies Allergy (Verified 11/26/23 16:49)
Medications Reviewed: Yes
Current Antibiotics:
Vancomycin
Zosyn 3.375 g IV every 6 hours
Social History
Tobacco: Former Smoker
Alcohol: None
Drug: None
Personal:
Living: With Family
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
Family History
Family History: Not Pertinent
Review of Systems
Vital Signs
Temp Pulse Resp BP Pulse Ox
98.1 F 73 17 118/56 91
05/05/24 11:28 05/05/24 11:28 05/05/24 11:28 05/05/24 11:28 05/05/24 11:28
Physical Exam
Physical Exam
Constitutional: No Acute Distress, Comfortable, Chronically Ill and Non-toxic
Head: Normocephalic
Eyes: Pupils Equal, Pupils Round, No Conjunctival Hemorrhage and Sclera Anicteric
Oral: Poor Dentition, No Thrush and No Ulcers
Cardiovascular: Regular Rate and S1/S2; Negative S3/S4
Pulmonary: Non Labored and Other (Right CT in place); Negative Wheezes or Rales
Gastrointestinal: Soft, Non Tender, Non Distended and Normal Bowel Sounds
Extremities: Negative Edema, Cyanosis or Erythema
Skin: Negative Rash or Jaundice
Neurological: Awake and Alert
Psychological: Calm
.
Lab / Diagnostic Study Results
Abs Immat Gran (auto) 0.1 10^3/uL (0-0.05) H 05/04/24 16:11
Absolute Neuts (auto) 5.7 10^3/uL (1.4-6.5) 05/04/24 16:11
Absolute Lymphs (auto) 4.1 10^3/uL (1.2-3.4) H 05/04/24 16:11
Absolute Monos (auto) 0.9 10^3/uL (0.1-0.6) H 05/04/24 16:11
Absolute Basos (auto) 0.1 10^3/uL (0-0.2) 05/04/24 16:11
Immature Gran % 1.2 % (0-0.5) H 05/04/24 16:11
Neutrophils % 50.7 % (42.2-75.2) 05/04/24 16:11
Lymphocytes % 36.4 % (20.5-51.1) 05/04/24 16:11
Monocytes % 8.2 % (1.7-9.3) 05/04/24 16:11
Eosinophils % 2.5 % (0-6) 05/04/24 16:11
Basophils % 1.0 % (0-2) 05/04/24 16:11
Lactic Acid Cancelled 05/04/24 19:30
Microbiology Results
Micro:
05/04/24 16:11 Blood Culture - Pending
Blood/Venous
Imaging:
05/04/2024 CT chest with contrast: Small moderate right pleural effusion is present. Within the posterior fusion, there is a slightly smaller loculated air and fluid collection with a slightly thickened enhancing rim, suggesting a loculated
hydropneumothorax. Measurements given above. Superimposed infection of this collection cannot be excluded in this patient with a reported history of empyema. Confluent parenchymal opacity within the adjacent posterior right lower lobe of the lung,
with main differential considerations of pneumonia and/or atelectasis. Bronchiectasis within the lower lungs. Linear densities within the lower lungs, compatible with linear atelectasis and/or scarring.
Assessment / Plan
Right-sided empyema
Leukocytosis
Prostate cancer
A-fib
Pleural effusion
Anemia
Hx cerebellar CVA
Hx normal pressure hydrocephalus
Recommendations:
Continue empiric vancomycin and Zosyn.
Follow Vanco levels closely.
Monitor white count and temperature curve.
Monitor chest tube output.
Await further cultures to guide antibiotic selection and potential de-escalation.
Further recommendations as additional data is returned.
--- NOTE | 2024-05-05 16:46 | CM ---
Reviewed chart, met with patient to obtain information for assessment. Patient stated that he lives with his in a two story home with 11 steps to enter. He has an aide who assists him with the steps. Patient has cg who come in 5 times a week
for 6 hours a day and assist with dressing, bathing, personal care and all other ADLs. They cook, clean, do laundry and other automotive shop foreman. The aides are able to drive and milk pickup driver groceries and takes patient to his appointments..
Patient has a walker and o2, a concentrator and portables.
He has never been to a SNF.
He is current with [facility] and selects for resumption. Will send referral.
Patient has a prescription plan and uses, [facility] in [place] for all of his medications.
His PCP is, Jeannine Cormier.
Patient is hopeful that he will be able to return home when medically cleared with resumption of services through [facility].
Plan: Case management will continue to follow and assist with discharge planning. Tentative home with through [facility].
[2024-05-06] VITALS (8 sets, daily range): BP systolic 69–125; BP diastolic 46–70
--- NOTE | 2024-05-06 03:27 | PTCARENOTE ---
Vitals were not recorded because patient refused Q4 vitals at this time.
--- NOTE | 2024-05-06 03:30 | PTCARENOTE ---
Q4 vitals were not recorded because patient refused vital signs at this time
--- NOTE | 2024-05-06 04:49 | PTCARENOTE ---
Q4 Vitals were not recorded at 0300 because patient refused having vitals taken.
[2024-05-06] MEDS: ZOSYN 50 IV ×4 (05:39→21:53)
--- NOTE | 2024-05-06 06:12 | PTCARENOTE ---
Pt continues to refuse care. VS, labs, hygiene.
[2024-05-06] MEDS: VANCOCIN 150 IV ×2 (06:24→18:18)
[2024-05-06] MEDS: PACERONE 200 MG PO (08:37)
--- NOTE | 2024-05-06 09:48 | W.PN.PUL3 ---
Today's Communication / Plan
-
Keep chest tube to -20 cm suction
Monitor chest tube output
Broad-spectrum antibiotics per ID
Aspiration precautions
Diet as per LE[employer]ER [employer] ASSEMBLER
Once chest tube drainage is minimal and then check CT chest to ensure empyema has been fully drained
Pulmonary service to continue to follow along
Assessment
-
Assessment: 88-year-old male with a past medical history of prostate cancer, A-fib, history of COVID-19 and multiple falls who presents with worsening cough. He had a scheduled thoracentesis on 05/04/2024 and they removed 150 cc of greenish-yellow
pus. Zosyn given in the ER. Labs showed mild leukocytosis to 11.3, mild anemia to 11.2, and pleural fluid studies consistent with empyema with glucose <30, pH <6.8, and 388,900 white blood cells which are monocyte predominant. CT chest performed
showing suspected loculated hydropneumothorax in the right lower lobe. Chest tube was placed today by IR. Patient remains on vancomycin/Zosyn. Patient denies any recent travel or recent illnesses prior to this current admission. He says that he
did follow-up with [facility] pulmonology and had a CXR recently. Pulmonary service now consulted for additional management/recommendations. Of note he was recently hospitalized here from 03/24/2024 with chest tube placed on
03/20 for right lower lobe empyema; chest tube removed on 03/23 and he was discharged home on 03/24 with home health aide.
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
postoperative DVT. History of COVID infection hospitalized in 2022. Multiple falls in the past
Impression:
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
#RLL PNA (HAP given recent hospitalization last month)
#Acute on chronic cough - likely due to above; suspect component of chronic aspiration
#Anemia (mild)
#Hyponatremia (mild)
#Personal history of COVID-19
#History of prostate cancer
#DM type II
#History of A-fib
#History of CVA
#Recurrent right sided pleural effusion
#Valvular heart disease with moderate�severe AI, mild�moderate MR and mild TR with mild pulmonary hypertension (via TTE from 03/05/2024)
Plan:
- Continue broad spectrum ABx - currently on IV vanco + zosyn
- ID on board; recs appreciated
- Keep chest tube to suction at -[id number]
- Given minimal drainage from first chest tube, chest tube was replaced today by IR
- Trend chest tube output while on negative suction at -[id number]
- Once output is <5-10cc in a day, then check CT chest to assess for full drainage of empyema; no current need for tPA/dornase
- Hold off on CT surgery consult as chest tube is now draining
- Unclear what caused this recurrent empyema, but I am suspicious for aspiration PNA
- ANYA dior saw pt today --> he has mild oropharyngeal dysphagia and was cleared for regular solids with thin liquids with aspiration precautions
- Follow-up pleural fluid cultures --> growing Streptococcus spp ---> follow-up sensitivities
- Follow-up blood cultures (collected 05/04/2024)
- Check immunoglobulin levels to see if any risk factors for recurrent pneumonia exists
- Given his severe AI with valvular heart disease, he is at risk of ADHF. Monitor I/O; consider repeating TTE if pt's right effusion worsens
- Maintain SpO2 >90-94% with supplemental O2 as needed
- Incentive spirometer encouraged
- Obtain medical records from prior chest imaging from [facility] to see if any recent PNA was seen
- Replete electrolytes with K>4, Mg>2
- Maintain euglycemia with goal BG >100 and <180
- prn nebulized bronchodilators - pt not currently bronchospastic
- DVT ppx: start LMWH
Pulmonary service will continue to follow along.
Total time spent today was 35 minutes for this encounter. Time includes reviewing laboratory test/imaging results, reviewing pertinent medical records, obtaining and reviewing medical history, performing an appropriate exam, ordering medications,
tests and procedures. Time also includes documentation of this encounter, coordinating patient care and communicating with other healthcare professionals. Total time does not include separately billed tests performed on this date of service.
Data:
CT Chest with IV contrast 05/04/2024:
Small moderate right pleural effusion is present. Within the posterior fusion, there is a slightly smaller loculated air and fluid collection with a slightly thickened enhancing rim, suggesting a loculated hydropneumothorax. Measurements given
above. Superimposed infection of this collection cannot be excluded in this patient with a reported history of empyema.
Confluent parenchymal opacity within the adjacent posterior right lower lobe of the lung, with main differential considerations of pneumonia and/or atelectasis.
Bronchiectasis within the lower lungs. Linear densities within the lower lungs, compatible with linear atelectasis and/or scarring.
CXR 05/06/2024:
1. Tiny right pleural effusion, without significant change. Pleural effusion was better visualized on prior CT chest dated 05/04/2024.
2. Hazy opacity at the right lung base, likely reflective of right lower lobe pneumonia or subsegmental atelectasis.
Subjective Data
-
Date of Service:
Date of Service: May 06, 2024
Chief Complaint: Pulmonary Follow Up
Subjective:
Patient was seen and evaluated this morning at bedside. Patient's , Laxmi, at bedside. All questions were answered. IR replaced right-sided chest tube this morning and there was 50 cc of output afterwards. When I saw the patient there was 70
cc total and Pleur-evac, which is on suction at -20 cmH2O. he is currently on 3 L/min nasal cannula, and denies chest pain or shortness of breath. He says he feels 'fine.' He wants to know when he can go home. He also denies CARO, abdominal pain,
nausea, fevers, chills.
Review of Systems
General: Other (Negative unless mentioned above)
Objective Data
Data Reviewed
Vital Signs / I&O / Oxygen:
Vital Signs
Temp Pulse Resp BP Pulse Ox
97.7 F 71 16 120/48 96
05/06/24 09:15 05/06/24 10:10 05/06/24 10:10 05/06/24 10:10 05/06/24 10:10
Intake and Output
05/05/24 05/06/24 05/07/24
06:59 06:59 06:59
Intake Total 1020 / 1020 520 / 520 0 / 0
Output Total 300 / 300 0 / 0 60 / 60
Balance 720 / 720 520 / 520 -60 / -60
SaO2 96
Nasal Cannula flow liters per 3
minute
Physical Exam
General: Respiratory Distress (negative), Comfortable, Pain (negative), Chills (negative) and Sweats (negative)
HEENT: Normocephalic and Anicteric
Cardiovascular: S1-S2 and Peripheral Edema (negative)
Respiratory: Wheeze (negative), Crackles (Right base), Rhonchi (negative), Non-Labored Respirations and Chest Tube (Right posterior hemithorax)
GI: Soft, Non Distended, Non Tender and Normal Bowel Sounds
Neurology: Awake, Alert and Tremors (negative)
Skin: Warm, Dry and Jaundice (negative)
Labs/Micro/Reports
Microbiology
05/04/24 16:11 Blood/Venous Blood Culture - Preliminary
No Growth in 24 hours- Final report to follow
--- NOTE | 2024-05-06 10:06 | W.PN.UPDATE ---
Update Note
Progress Note Update
Placed new right chest tube 14Fr thalquik, broke up loculations with a stiff wire, and got 60 cc of pus out. Removed first chest tube.
--- NOTE | 2024-05-06 10:55 | W.PN.HOSP.TC ---
Today's Communication/Plan
-
continue chest tube management per Pulm/IR
continue broad spectrum IV Abx per ID
follow cultures
encourage daily labs - refusing today
Assessment / Plan
Assessment / Plan
Assessment:
R sided pleural effusion, suspected empyema
- recent episode in March s/p 1 week IV Abx (path was negative for malignancy)
- reoccurrence could be related to aspiration pneumonia per pulmonary
- s/p thoracentesis 05/04 with green/pus like drainage of 150 cc
- continue broad spectrum Abx (Vanco requires intensive monitoring, Zosyn) pending cultures. ID following
- s/p chest tube placement 05/05
- s/p new chest tube placement 05/06; septations were broken up and 60 cc output
- Keep chest tube to suction at -[id number]
- IR and Pulm following
Hyperkalemia
- low K diet
- monitor BMP (pt refusing labs today)
History of atrial fibrillation
history of Bifascicular block
History of nonischemic cardiomyopathy
- off AC due to fall risks
- continue Amiodarone
Anemia of chronic disease
History of prostate Ca s/p radical prostatectomy
History of cerebellar stroke
History of normal pressure hydrocephalus
DVT ppx: Lovenox
Code: Full
Anticipated Discharge: > 48 hours
Subjective/Interval History
-
Date of Service: May 06, 2024
s/p IRAD re-upsizing of chest tube with 60 cc pus output
refusing AM labs for today; states he will reconsider tomorrow
Objective Data
-
Labs:
Laboratory Results
05/06/24
06:00
WBC Pending
Hgb Pending
Hct Pending
Plt Count Pending
Sodium Pending
Potassium Pending
Chloride Pending
Carbon Dioxide Pending
BUN Pending
Creatinine Pending
Glucose Pending
Calcium Pending
Vital Signs:
Vital Signs
Temp Pulse Resp BP Pulse Ox
97.7 F 71 16 120/48 96
05/06/24 09:15 05/06/24 10:10 05/06/24 10:10 05/06/24 10:10 05/06/24 10:10
I&O
05/05/24 05/06/24 05/07/24
06:59 06:59 06:59
Intake Total 1020 / 1020 520 / 520 0 / 0
Output Total 300 / 300 0 / 0 60 / 60
Balance 720 / 720 520 / 520 -60 / -60
Physical Exam
-
General: No Apparent Distress
HEENT: Normocephalic and Atraumatic
Respiratory: Chest Tubes; Negative Wheezes
Cardiac: Regular Rhythm and S1/S2
GI: Soft
Neuro: AO x 3
Psych: Calm
Data Reviewed
-
Total Time Spent with Patient (in minutes): 51
Labs: Labs Reviewed by me
--- NOTE | 2024-05-06 11:25 | PHA.VAN.FU ---
Vancomycin Assessment / Plan
- Assessment
Renal Function: No New Labs Today (pt is refusing labs -'he will reconsider tomorrow')
In the past 24 hrs, patient has been: Afebrile
Concomitant Antimicrobials: pip/tazo
- Dosing Plan
Continue: vancomycin 750 q12h - first dose 05/05 0600
- Monitoring Plan
Trough Level: trough only 0530 ( with AM labs)
Monitoring Comments: ordering trough only since pt is refusing labs today
- Follow Up
Pharmacy will continue to follow.
Vancomycin Follow UP
- -
Patient Age: 88
Patient Sex: Male
Vancomycin Day #: 3
Indication: Pulmonary/Respiratory
Requesting Provider: KEVEN
Height / Weight:
Height 5 ft 10.5 in
Actual Weight 60.328 kg
IBW in k.2
Pertinent Past Medical History: BMI 18.8;
- Vital Signs / Lab Results
Temp Pulse Resp BP Pulse Ox
98.3 F 67 17 120/53 97
05/06/24 11:04 05/06/24 11:04 05/06/24 11:04 05/06/24 11:04 05/06/24 11:04
Lab Results - Hematology
05/04/24 05/05/24
16:11 06:00
WBC 11.3 H Cancelled
Lab Results - Chemistry
05/04/24 05/05/24
16:11 06:00
BUN 26 H Cancelled
Creatinine 0.8 Cancelled
Estimated Creat Clear 56 Cancelled
Albumin 3.6
05/04/24 05/04/24
16:11 19:30
Lactic Acid 1.1 Cancelled
Microbiology Results
05/04/24 16:11 Blood Culture - Preliminary
Blood/Venous No Growth in 24 hours- Final report to follow
--- NOTE | 2024-05-06 11:42 | CM ---
Reviewed chart, spoke with attending who stated that patient needs repeat IR for placement.
Plan: Case management will continue to follow and assist with discharge planning. Will review indication from medical staff for post acute care.
--- NOTE | 2024-05-06 12:35 | W.PN.ID1 ---
Date of Service
Date of Service: May 06, 2024
Today's Communication
Continue antibiotics.
Assessment / Plan
Right-sided empyema
Leukocytosis
Prostate cancer
A-fib
Pleural effusion
Anemia
Hx cerebellar CVA
Hx normal pressure hydrocephalus
Recommendations:
Continue empiric vancomycin and Zosyn.
Follow Vanco levels closely. If no MRSA recovered, will likely discontinue vancomycin tomorrow.
Monitor white count and temperature curve.
Monitor chest tube output.
Await further cultures to guide antibiotic selection and potential de-escalation.
Further recommendations as additional data is returned.
Chief Complaint
-: Other (Right-sided empyema)
Subjective / Review of Systems
Review of Systems: No Fever
Vital Signs / Physical Exam
Vital Signs
Vital Signs
Temp Pulse Resp BP Pulse Ox
98.3 F 67 17 120/53 97
05/06/24 11:04 05/06/24 11:04 05/06/24 11:04 05/06/24 11:04 05/06/24 11:04
Physical Exam
Constitutional: Comfortable, Chronically Ill and Non-toxic
Cardiovascular: S1/S2; Negative S3/S4
Pulmonary: Non Labored and Other (Right-sided chest tube in place.)
Gastrointestinal: Soft and Non Distended
Skin: Negative Rash or Jaundice
Psychological: Calm
Objective Data
Lab Data
Estimated Creat Clear Cancelled 05/05/24 06:00
Lactic Acid Cancelled 05/04/24 19:30
Total Bilirubin 0.5 mg/dl (0.2-1.3) 05/04/24 16:11
AST 29 U/L (17-59) 05/04/24 16:11
ALT 19 U/L (0-50) 05/04/24 16:11
Alkaline Phosphatase 91 U/L (38-126) 05/04/24 16:11
Most recent labs reviewed.
Micro Results:
05/04/24 16:11 Blood Culture - Preliminary
Blood/Venous No Growth in 24 hours- Final report to follow
Imaging:
05/04/2024 CT chest with contrast: Small moderate right pleural effusion is present. Within the posterior fusion, there is a slightly smaller loculated air and fluid collection with a slightly thickened enhancing rim, suggesting a loculated
hydropneumothorax. Measurements given above. Superimposed infection of this collection cannot be excluded in this patient with a reported history of empyema. Confluent parenchymal opacity within the adjacent posterior right lower lobe of the lung,
with main differential considerations of pneumonia and/or atelectasis. Bronchiectasis within the lower lungs. Linear densities within the lower lungs, compatible with linear atelectasis and/or scarring.
--- NOTE | 2024-05-06 15:18 | PTOTSP ---
ST Acute Care Evaluation
Pt currently presents with clinical signs of mild oropharyngeal dysphagia characterized by impulsive bite size resulting in prolonged mastication and bolus formation as well as inconsistent inadequate airway protection as evidenced by coughing with
liquid ingestion.
Recommendations:
- Continue with regular solids, thin liquids, meds as tolerated.
- Aspiration precautions: Fully upright for all PO intake; SMALL BITES; alternate solids/liquids; eat/drink slowly; reduce distractions.
- TREE SCOUT to f/u re: pt's tolerance of current diet consistencies, pt's use of compensatory strategies, and need for instrumental swallow study.
- TREE SCOUT to f/u re: impaired cognitive linguistic status. Suspect pt is close to baseline. Will evaluate further if necessary.
[2024-05-06] MEDS: LOVENOX 40 MG SC (18:19)
[2024-05-07 03:10] VITALS: BP 109/44
[2024-05-07] MEDS: ZOSYN 50 IV ×2 (04:00→09:59)
[2024-05-07 06:00] LABS: Vancomycin Trough 14.3 ug/ml (5-20)
[2024-05-07 06:01] LABS: Hematocrit 30.9 % (39.0-52.0); Hemoglobin 10.6 g/dL (13.0-18.0); Mean Corp Hgb Conc. 34.3 g/dL (33.0-37.0); Mean Corpuscular Hgb 29.6 pg (27.0-31.0); Mean Corpuscular Volume 86.3 fL (80.0-94.0); Mean Platelet Volume 9.4 fL (7.4-10.4); Platelet Count 266 10^3/uL (130-400); Red Blood Cell Count 3.58 10^6/uL (4.70-6.10); Red Cell Dist. Width 16.6 % (11.5-14.5); White Blood Cell Count 9.6 10^3/uL (4.8-10.8)
[2024-05-07 06:05] LABS: NT-proBNP 1450 pg/ml
[2024-05-07] MEDS: VANCOCIN 150 IV (06:11)
[2024-05-07 06:22] LABS: Blood Urea Nitrogen 20 mg/dl (9-20); Calcium 9.1 mg/dl (8.4-10.2); Carbon Dioxide 23 mmol/L (22-30); Chloride 99 mmol/L (98-107); Estimated Creatinine Clearance 48 ml/min; Glucose 101 mg/dl (70-99); Potassium 4.7 mmol/L (3.5-5.1); Sodium 134 mmol/L (135-145); eGFR > 60.00
[2024-05-07 06:28] LABS: Procalcitonin < 0.05 ng/ml (0.0-0.25)
[2024-05-07 06:30] LABS: IgA 268 mg/dl (70-400); IgG 1220 mg/dl (700-1600); IgM 53 mg/dl (40-230)
[2024-05-07 07:28] VITALS: BP 108/46
[2024-05-07] MEDS: PACERONE 200 MG PO (08:04)
--- NOTE | 2024-05-07 09:54 | PHA.VAN.FU ---
Addendum entered and electronically signed by Edith Sales RPH 05/07/24 10:30:
Agree with resident's assessment and plan below.
Original Note:
Vancomycin Assessment / Plan
- Assessment
Renal Function: Stable
WBC's are: WNL
In the past 24 hrs, patient has been: Afebrile
Concomitant Antimicrobials: Pipercillin/Tazobactam
- Assessment - Trough Based Monitoring
Trough Value: 14.3
Level Today was: Appropriate
Level Comments: drawn ~30min before dose #5
Previous dose 05/07 0611 - Trough level drawn ~11hrs after prior dose
- Dosing Plan
Continue: Vanc 750mg Q12H
- Monitoring Plan
No level(s) ordered at this time: Consider repeat level in the next few days to assess accumulation
- Follow Up
Pharmacy will continue to follow.
Vancomycin Follow UP
- -
Patient Age: 88
Patient Sex: Male
Vancomycin Day #: 4
Indication: Pulmonary/Respiratory
Requesting Provider: KEVEN
Pertinent Antimicrobial Allergies:
NKDA
Height / Weight:
Height 5 ft 10.5 in
Actual Weight 60.328 kg
IBW in k.2
Pertinent Past Medical History: BMI 18.8;
- Vital Signs / Lab Results
Temp Pulse Resp BP Pulse Ox
97.7 F 74 16 108/46 94
05/07/24 07:28 05/07/24 08:04 05/07/24 07:28 05/07/24 08:04 05/07/24 07:28
Lab Results - Hematology
05/04/24 05/05/24 05/06/24
16:11 06:00 22:00
WBC 11.3 H Cancelled Cancelled
05/07/24
05:23
WBC 9.6
Lab Results - Chemistry
05/04/24 05/05/24 05/06/24
16:11 06:00 22:00
BUN 26 H Cancelled Cancelled
Creatinine 0.8 Cancelled Cancelled
Estimated Creat Clear 56 Cancelled Cancelled
Albumin 3.6
05/07/24
05:23
BUN 20
Creatinine 0.9
Estimated Creat Clear 48
Albumin
05/04/24 05/04/24
16:11 19:30
Lactic Acid 1.1 Cancelled
Microbiology Results
05/04/24 16:11 Blood Culture - Preliminary
Blood/Venous No Growth in 48 hours- Final report to follow
Therapeutic Drug Monitoring
Vancomycin Trough 14.3 ug/ml (5-20) 05/07/24 05:23
[2024-05-07 10:49] VITALS: BP 114/48
--- NOTE | 2024-05-07 11:06 | W.PN.HOSP.TC ---
Today's Communication/Plan
-
continue IV Abx and follow ID recs
monitor CT outputs and follow pulm/IR recs
Assessment / Plan
Assessment / Plan
Assessment:
R sided pleural effusion, suspected empyema
- recent episode in March s/p 1 week IV Abx (path was negative for malignancy)
- reoccurrence could be related to aspiration pneumonia per pulmonary
- s/p thoracentesis 05/04 with green/pus like drainage of 150 cc
- fluid culture growing strep species
- continue broad spectrum Abx (Vanco requires intensive monitoring, Zosyn). ID following.
- s/p chest tube placement 05/05
- s/p new chest tube placement 05/06; septations were broken up and 60 cc output
- Keep chest tube to suction at -[id number] and monitor outputs
- will need to consider repeat CT when CT outputs minimal (<5/-10 cc in a day)
- IR and Pulm following
Hyperkalemia
- low K diet
- monitor BMP (pt intermittently refuses labs)
History of atrial fibrillation
history of Bifascicular block
History of nonischemic cardiomyopathy
- off AC due to fall risks
- continue Amiodarone
Anemia of chronic disease
History of prostate Ca s/p radical prostatectomy
History of cerebellar stroke
History of normal pressure hydrocephalus
DVT ppx: Lovenox
Code: Full
Anticipated Discharge: > 48 hours
Subjective/Interval History
-
Date of Service: May 07, 2024
continues with chest tube
states breathing is stable
Objective Data
-
Labs:
Laboratory Results
05/06/24 05/07/24
22:00 05:23
WBC Cancelled 9.6
Hgb Cancelled 10.6 L
Hct Cancelled 30.9 L
Plt Count Cancelled 266
Sodium Cancelled 134 L
Potassium Cancelled 4.7
Chloride Cancelled 99
Carbon Dioxide Cancelled 23
BUN Cancelled 20
Creatinine Cancelled 0.9
Glucose Cancelled 101 H
Calcium Cancelled 9.1
Vital Signs:
Vital Signs
Temp Pulse Resp BP Pulse Ox
98.0 F 85 17 114/48 94
05/07/24 10:49 05/07/24 10:49 05/07/24 10:49 05/07/24 10:49 05/07/24 10:49
I&O
05/06/24 05/07/24 05/08/24
06:59 06:59 06:59
Intake Total 520 / 520 240 / 240
Output Total 0 / 0 145 / 145
Balance 520 / 520 95 / 95
Physical Exam
-
General: No Apparent Distress
HEENT: Normocephalic and Atraumatic
Respiratory: Decreased Breath Sounds and Chest Tubes
Cardiac: Regular Rhythm and S1/S2
GI: Soft
Genito-urinary: No Costovertebral Tender
Musculoskeletal: No Edema
Neuro: AO x 3
Psych: Calm
Data Reviewed
-
Total Time Spent with Patient (in minutes): 51
Labs: Labs Reviewed by me
[2024-05-07 11:20] LABS: Glucose - Point of Care 141 mg/dl (70-99)
--- NOTE | 2024-05-07 13:33 | W.PN.ID1 ---
Date of Service
Date of Service: May 07, 2024
Today's Communication
Continue antibiotics. Transition to ceftriaxone. Await final strep species identification.
Assessment / Plan
Right-sided empyema
-Cultures with strep species
Leukocytosis
Prostate cancer
A-fib
Pleural effusion
Anemia
Hx cerebellar CVA
Hx normal pressure hydrocephalus
Recommendations:
Continue antibiotics. Given recovery of strep, transition to ceftriaxone 2 g IV every 24 hours
Monitor white count and temperature curve.
Monitor chest tube output.
Await further cultures to guide antibiotic selection and potential de-escalation.
Further recommendations as additional data is returned.
Chief Complaint
-: Other (Right-sided empyema)
Subjective / Review of Systems
Patient seen and examined. Reports some ongoing discomfort at the chest tube site.
Review of Systems: No Fever and No Chills
Vital Signs / Physical Exam
Vital Signs
Vital Signs
Temp Pulse Resp BP Pulse Ox
98.0 F 85 17 114/48 94
05/07/24 10:49 05/07/24 10:49 05/07/24 10:49 05/07/24 10:49 05/07/24 11:49
Physical Exam
Constitutional: No Acute Distress, Comfortable, Chronically Ill and Non-toxic
Eyes: Sclera Anicteric
Oropharyngeal: Poor Dention
Cardiovascular: S1/S2; Negative S3/S4
Pulmonary: Non Labored and Other (Right-sided chest tube in place.); Negative Wheezes or Rales
Gastrointestinal: Soft and Non Distended
Skin: Negative Rash or Jaundice
Psychological: Calm
Objective Data
Lab Data
Lab Results
05/07/24 05:23
05/07/24 05:23
Estimated Creat Clear 48 ml/min 05/07/24 05:23
Lactic Acid Cancelled 05/04/24 19:30
Total Bilirubin 0.5 mg/dl (0.2-1.3) 05/04/24 16:11
AST 29 U/L (17-59) 05/04/24 16:11
ALT 19 U/L (0-50) 05/04/24 16:11
Alkaline Phosphatase 91 U/L (38-126) 05/04/24 16:11
Most recent labs reviewed.
Micro Results:
05/04/24 16:11 Blood Culture - Preliminary
Blood/Venous No Growth in 48 hours- Final report to follow
SPEC #: [id number] BHAVESH: 05/04/24-1351 STATUS: RES REQ #: [id number]
RECD: 05/04/24-[address]: Jordyn Anand
SOURCE: PLEURAL ENTR: 05/04/24-1355 [facility] DR: Jose Antonio JINAG,[facility]
SPDESC:
ORDERED: Fluid Culture
QUERIES: Date Specimen was Collected 05/04/24
Time Specimen was Collected 1340
Procedure Result Verified
Fluid Cult/not urine Preliminary 05/07/24-1004
Moderate Streptococcus species
CRITICAL VALUE called to and read back verification by
TAB Gomez on 05/07/24 at 0958 by TONEY.
Gram Stain Preliminary 05/07/24-1004
Many WBC
No Organisms Seen
Imaging:
05/04/2024 CT chest with contrast: Small moderate right pleural effusion is present. Within the posterior fusion, there is a slightly smaller loculated air and fluid collection with a slightly thickened enhancing rim, suggesting a loculated
hydropneumothorax. Measurements given above. Superimposed infection of this collection cannot be excluded in this patient with a reported history of empyema. Confluent parenchymal opacity within the adjacent posterior right lower lobe of the lung,
with main differential considerations of pneumonia and/or atelectasis. Bronchiectasis within the lower lungs. Linear densities within the lower lungs, compatible with linear atelectasis and/or scarring.
Care Review
Plan reviewed with: Physician (Hospitalist)
--- NOTE | 2024-05-07 14:08 | W.PN.PUL3 ---
Today's Communication / Plan
-
Remains on baseline O2 use, no new complaints
Chest tube drainage about 20cc so far
Repeat CXR in AM
If output remains minimal, can consider discontinuation tomorrow
Assessment
-
88-year-old male with a past medical history of prostate cancer, A-fib, history of COVID-19 and multiple falls who presents with worsening cough. He had a scheduled thoracentesis on 05/04/2024 and they removed 150 cc of greenish-yellow pus. Zosyn
given in the ER. Labs showed mild leukocytosis to 11.3, mild anemia to 11.2, and pleural fluid studies consistent with empyema with glucose <30, pH <6.8, and 388,900 white blood cells which are monocyte predominant. CT chest performed showing
suspected loculated hydropneumothorax in the right lower lobe. Chest tube was placed today by IR. Patient remains on vancomycin/Zosyn. Patient denies any recent travel or recent illnesses prior to this current admission. He says that he did
follow-up with [facility] pulmonology and had a CXR recently. Pulmonary service now consulted for additional management/recommendations. Of note he was recently hospitalized here from 03/24/2024 with chest tube placed on 03/20
for right lower lobe empyema; chest tube removed on 03/23 and he was discharged home on 03/24 with home health aide.
Impression:
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
#RLL PNA (HAP given recent hospitalization last month)
#Acute on chronic cough - likely due to above; suspect component of chronic aspiration
#Anemia (mild)
#Hyponatremia (mild)
#Personal history of COVID-19
#History of prostate cancer
#DM type II
#History of A-fib
#History of CVA
#Recurrent right sided pleural effusion
#Valvular heart disease with moderate�severe AI, mild�moderate MR and mild TR with mild pulmonary hypertension (via TTE from 03/05/2024)
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
postoperative DVT. History of COVID infection hospitalized in 2022. Multiple falls in the past
Plan
Treatment for Empyema
Continue broad spectrum ABx - currently on IV vanco + zosyn
ID on board; recs appreciated
Keep chest tube to suction at -[id number]
Given minimal drainage from first chest tube, chest tube was replaced today by IR
Trend chest tube output while on negative suction at -[id number]
Once output is <5-10cc in a day, then check CT chest to assess for full drainage of empyema; no current need for tPA/dornase
Repeat CXR yesterday appears clear, there is about 20mL so far on chest tube
Will repeat CXR in AM and evaluate drainage, if minimal can consider discontinuation
Unclear what caused this recurrent empyema, but suspicious for aspiration PNA
ANYA dior saw pt today --> he has mild oropharyngeal dysphagia and was cleared for regular solids with thin liquids with aspiration precautions
Follow-up pleural fluid cultures --> growing Streptococcus spp
Follow-up blood cultures (collected 05/04/2024)
Check immunoglobulin levels to see if any risk factors for recurrent pneumonia exists
Given his severe AI with valvular heart disease, he is at risk of ADHF.
Monitor I/O; consider repeating TTE if pt's right effusion worsens
- Maintain SpO2 >90-94% with supplemental O2 as needed
- Incentive spirometer encouraged
- Obtain medical records from prior chest imaging from [facility] to see if any recent PNA was seen
- Replete electrolytes with K>4, Mg>2
- Maintain euglycemia with goal BG >100 and <180
- prn nebulized bronchodilators - pt not currently bronchospastic
- DVT ppx: start LMWH
Diagnostic Data
CT Chest with IV contrast 05/04/2024: Small moderate right pleural effusion is present. Within the posterior fusion, there is a slightly smaller loculated air and fluid collection with a slightly thickened enhancing rim, suggesting a loculated
hydropneumothorax. Measurements given above. Superimposed infection of this collection cannot be excluded in this patient with a reported history of empyema. Confluent parenchymal opacity within the adjacent posterior right lower lobe of the lung,
with main differential considerations of pneumonia and/or atelectasis. Bronchiectasis within the lower lungs. Linear densities within the lower lungs, compatible with linear atelectasis and/or scarring.
CXR 05/06/2024:
1. Tiny right pleural effusion, without significant change. Pleural effusion was better visualized on prior CT chest dated 05/04/2024.
2. Hazy opacity at the right lung base, likely reflective of right lower lobe pneumonia or subsegmental atelectasis.
ECHO 03/05/24- Normal left ventricular chamber size. Low normal left ventricular systolic function. No gross regional wall motion abnormalities. Left ventricular ejection fraction is 50-55% by visual estimate. Mild concentric left ventricular
hypertrophy. Normal right ventricular size and function. Mild to moderate mitral regurgitation. Moderate to severe aortic regurgitation. Mild tricuspid regurgitation. Estimated pulmonary artery pressure of 32 mmHg assuming a right atrial pressure
of 3 mmHg. No prior study for comparison
-----
Total time spent today was 50 minutes for this encounter. Time includes reviewing laboratory test/imaging results, reviewing pertinent medical records, obtaining and reviewing medical history, performing an appropriate exam, ordering medications,
tests and procedures. Time also includes documentation of this encounter, coordinating patient care and communicating with other healthcare professionals. Total time does not include separately billed tests performed on this date of service.
Subjective Data
-
Date of Service:
Date of Service: May 07, 2024
Chief Complaint: Pulmonary Follow Up
Subjective:
no new events ON
remains on 3L NC, which is his baseline
no new complaints
Objective Data
Data Reviewed
Vital Signs / I&O / Oxygen:
Vital Signs
Temp Pulse Resp BP Pulse Ox
98.0 F 85 17 114/48 94
05/07/24 10:49 05/07/24 10:49 05/07/24 10:49 05/07/24 10:49 05/07/24 11:49
Intake and Output
05/06/24 05/07/24 05/08/24
06:59 06:59 06:59
Intake Total 520 / 520 240 / 240
Output Total 0 / 0 145 / 145
Balance 520 / 520 95 / 95
SaO2 94
Nasal Cannula flow liters per 3
minute
Physical Exam
General: Respiratory Distress (negative), Comfortable, Pain (negative), Chills (negative) and Sweats (negative)
HEENT: Normocephalic and Anicteric
Cardiovascular: S1-S2 and Peripheral Edema (negative)
Respiratory: Clear, Wheeze (negative), Rhonchi (negative), Non-Labored Respirations and Chest Tube (Right posterior hemithorax)
GI: Soft, Non Distended, Non Tender and Normal Bowel Sounds
Neurology: Awake, Alert, Oriented, AO x 3, No Motor Deficits and Tremors (negative)
Skin: Warm, Dry and Jaundice (negative)
Labs/Micro/Reports
Lab Data
05/07/24 05:23
05/07/24 05:23
Microbiology
05/04/24 16:11 Blood/Venous Blood Culture - Preliminary
No Growth in 48 hours- Final report to follow
--- NOTE | 2024-05-07 14:11 | PN.CDI ---
CDI
- -
CDI:
Physician Documentation Request
Admit Date: 05/04/24 17:27
Dear Doctor Ayla,
Please review the following and provide your response in the progress notes.
Clinical Indicators:
Height: 5'10.5'
Weight: 133lbs
BMI: 18.8
If possible, please provide an associated diagnosis related to the abnormal BMI, such as:
BMI < or = to 19
Underweight
Weight Loss
Cachectic
Other
Use of terms such as suspected, likely, concern for, or probable (associated with a specific diagnosis that is being evaluated, monitored, or treated as if it exists) are acceptable and can be coded in the inpatient setting, when documented at the
time of discharge.
Thank you,
Mk Gibson RN
CDI Specialist
Please use your independent medical judgment in providing your response.
[2024-05-07] MEDS: STERILE WATER FOR INJECTION 20 ML IV (14:45)
[2024-05-07] MEDS: ROCEPHIN 2000 MG IV (14:46)
[2024-05-07 15:00] VITALS: BP 110/45
--- NOTE | 2024-05-07 16:27 | CM ---
Pt has chest tube.
Pt on oxygen 3 liter Pox 95%. Pt has home oxygen with [employer].
Pt has a disabilities caregiver daily.
As per ID appears he will need IV abx at dc.Spoke with pt if he had anyone who help him give home abx. He said he has no one.
Pt refuses SNF.
PLAN DC planning on going
[2024-05-07] MEDS: LOVENOX SC (17:53)
[2024-05-07 19:45] VITALS: BP 124/55
[2024-05-07 23:15] VITALS: BP 110/48
[2024-05-08 03:00] VITALS: BP 105/51
[2024-05-08 05:48] VITALS: BMI 18.5
--- NOTE | 2024-05-08 05:48 | PTCARENOTE ---
Pt slept well overnight. No issues to report. Pt cooperative with care. Right sided chest tube with 35ml out overnight. Pt grossly inc, sujatha care provided. Pt denies any complaints. Pt remains on 3 LO2 NC. No changes in assessment noted at this
time. Will continue to monitor.
[2024-05-08 07:22] VITALS: BP 109/50
--- NOTE | 2024-05-08 09:01 | W.PN.HOSP.TC ---
Today's Communication/Plan
-
monitor CT outputs, may consider removal in 24 hours
follow imaging
continue IV abx per ID
Assessment / Plan
Assessment / Plan
Assessment:
R sided pleural effusion, suspected empyema
- recent episode in March s/p 1 week IV Abx (path was negative for malignancy)
- reoccurrence could be related to aspiration pneumonia per pulmonary. Patient refusing VSE.
- s/p thoracentesis 05/04 with green/pus like drainage of 150 cc
- fluid culture growing strep species
- continue Ceftriaxone per ID. May need PICC line.
- s/p chest tube placement 05/05
- s/p new chest tube placement 05/06; septations were broken up and 60 cc output
- Keep chest tube to suction at -[id number] and monitor outputs
- will need to consider repeat imaging when CT outputs minimal (<5/-10 cc in a day)
- IR and Pulm following
Hyperkalemia
- low K diet
- monitor BMP (pt intermittently refuses labs)
History of atrial fibrillation
history of Bifascicular block
History of nonischemic cardiomyopathy
- off AC due to fall risks
- continue Amiodarone
Anemia of chronic disease
History of prostate Ca s/p radical prostatectomy
History of cerebellar stroke
History of normal pressure hydrocephalus
Underweight
DVT ppx: Lovenox
Code: Full
Anticipated Discharge: > 48 hours
Subjective/Interval History
-
Date of Service: May 08, 2024
CT output remains 35
denies any complaints
Objective Data
-
Labs:
Laboratory Results
05/08/24
06:00
WBC Pending
Hgb Pending
Hct Pending
Plt Count Pending
Sodium Pending
Potassium Pending
Chloride Pending
Carbon Dioxide Pending
BUN Pending
Creatinine Pending
Glucose Pending
Calcium Pending
Vital Signs:
Vital Signs
Temp Pulse Resp BP Pulse Ox
97.6 F 73 16 109/50 96
05/08/24 07:22 05/08/24 07:22 05/08/24 07:22 05/08/24 07:22 05/08/24 07:22
I&O
05/07/24 05/08/24 05/09/24
06:59 06:59 06:59
Intake Total 240 / 240 570 / 570
Output Total 145 / 145 385 / 385
Balance 95 / 95 185 / 185
Physical Exam
-
General: No Apparent Distress
HEENT: Normocephalic and Atraumatic
Respiratory: Chest Tubes
Cardiac: Regular Rhythm and S1/S2
GI: Soft
Musculoskeletal: No Edema
Neuro: AO x 3
Hematologic / Lymphatic: No Lymphadenopathy
Psych: Calm
Data Reviewed
-
Total Time Spent with Patient (in minutes): 42
Labs: Labs Reviewed by me
--- NOTE | 2024-05-08 09:14 | W.PN.PUL3 ---
Today's Communication / Plan
-
Remains on baseline O2 of 3L, no change
CXR showing stable findings/improved, minimal output noted in tube
If remains low in next 24 hours, will discontinue
VSE planning today, initially declined but now agreeable
Continue IV abx per ID
Wished patient a happy birthday!
Assessment
-
88-year-old male with a past medical history of prostate cancer, A-fib, history of COVID-19 and multiple falls who presents with worsening cough. He had a scheduled thoracentesis on 05/04/2024 and they removed 150 cc of greenish-yellow pus. Zosyn
given in the ER. Labs showed mild leukocytosis to 11.3, mild anemia to 11.2, and pleural fluid studies consistent with empyema with glucose <30, pH <6.8, and 388,900 white blood cells which are monocyte predominant. CT chest performed showing
suspected loculated hydropneumothorax in the right lower lobe. Chest tube was placed today by IR. Patient remains on vancomycin/Zosyn. Patient denies any recent travel or recent illnesses prior to this current admission. He says that he did
follow-up with [facility] pulmonology and had a CXR recently. Pulmonary service now consulted for additional management/recommendations. Of note he was recently hospitalized here from 03/24/2024 with chest tube placed on 03/20
for right lower lobe empyema; chest tube removed on 03/23 and he was discharged home on 03/24 with home health aide.
Impression:
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
#RLL PNA (HAP given recent hospitalization last month)
#Acute on chronic cough - likely due to above; suspect component of chronic aspiration
#Anemia (mild)
#Hyponatremia (mild)
#Personal history of COVID-19
#History of prostate cancer
#DM type II
#History of A-fib
#History of CVA
#Recurrent right sided pleural effusion
#Valvular heart disease with moderate�severe AI, mild�moderate MR and mild TR with mild pulmonary hypertension (via TTE from 03/05/2024)
Chronic conditions [employer]: Tachyarrhythmia, history of prostate cancer, diabetes, history of atrial fibrillation not on anticoagulation, cardiomyopathy, records that suggest exertional rhabdomyolysis, history of total hip replacement complicated by
postoperative DVT. History of COVID infection hospitalized in 2022. Multiple falls in the past
Plan
Treatment for Empyema
Continue broad spectrum ABx - currently on IV vanco + zosyn
ID on board; recs appreciated
Keep chest tube to suction at -[id number]
Given minimal drainage from first chest tube, chest tube was replaced today by IR
Trend chest tube output while on negative suction at -[id number]
Once output is <5-10cc in a day, then check CT chest to assess for full drainage of empyema; no current need for tPA/dornase
Repeat CXR yesterday appears clear, there is about 20mL so far on chest tube
Repeat CXR in AM showing stability/improvment
Can observe tube output another 24 hours, if minimal can d/c tube
Unclear what caused this recurrent empyema, but suspicious for aspiration PNA
ANYA dior saw pt today --> he has mild oropharyngeal dysphagia and was cleared for regular solids with thin liquids with aspiration precautions
VSE planning
Follow-up pleural fluid cultures --> growing Streptococcus spp
Follow-up blood cultures (collected 05/04/2024)
Check immunoglobulin levels to see if any risk factors for recurrent pneumonia exists
Given his severe AI with valvular heart disease, he is at risk of ADHF.
Monitor I/O; consider repeating TTE if pt's right effusion worsens
- Maintain SpO2 >90-94% with supplemental O2 as needed
- Incentive spirometer encouraged
- Obtain medical records from prior chest imaging from [facility] to see if any recent PNA was seen
- Replete electrolytes with K>4, Mg>2
- Maintain euglycemia with goal BG >100 and <180
- prn nebulized bronchodilators - pt not currently bronchospastic
- DVT ppx: start LMWH
Diagnostic Data
CT Chest with IV contrast 05/04/2024: Small moderate right pleural effusion is present. Within the posterior fusion, there is a slightly smaller loculated air and fluid collection with a slightly thickened enhancing rim, suggesting a loculated
hydropneumothorax. Measurements given above. Superimposed infection of this collection cannot be excluded in this patient with a reported history of empyema. Confluent parenchymal opacity within the adjacent posterior right lower lobe of the lung,
with main differential considerations of pneumonia and/or atelectasis. Bronchiectasis within the lower lungs. Linear densities within the lower lungs, compatible with linear atelectasis and/or scarring.
CXR 05/06/2024:
1. Tiny right pleural effusion, without significant change. Pleural effusion was better visualized on prior CT chest dated 05/04/2024.
2. Hazy opacity at the right lung base, likely reflective of right lower lobe pneumonia or subsegmental atelectasis.
ECHO 03/05/24- Normal left ventricular chamber size. Low normal left ventricular systolic function. No gross regional wall motion abnormalities. Left ventricular ejection fraction is 50-55% by visual estimate. Mild concentric left ventricular
hypertrophy. Normal right ventricular size and function. Mild to moderate mitral regurgitation. Moderate to severe aortic regurgitation. Mild tricuspid regurgitation. Estimated pulmonary artery pressure of 32 mmHg assuming a right atrial pressure
of 3 mmHg. No prior study for comparison
-----
Total time spent today was 50 minutes for this encounter. Time includes reviewing laboratory test/imaging results, reviewing pertinent medical records, obtaining and reviewing medical history, performing an appropriate exam, ordering medications,
tests and procedures. Time also includes documentation of this encounter, coordinating patient care and communicating with other healthcare professionals. Total time does not include separately billed tests performed on this date of service.
Subjective Data
-
Date of Service:
Date of Service: May 08, 2024
Chief Complaint: Pulmonary Follow Up
Subjective:
no acute events ON, remains on supplemental O2 baseline use of 3L
minimal output in chest tube
Objective Data
Data Reviewed
Vital Signs / I&O / Oxygen:
Vital Signs
Temp Pulse Resp BP Pulse Ox
97.6 F 73 16 109/50 96
05/08/24 07:22 05/08/24 07:22 05/08/24 07:22 05/08/24 07:22 05/08/24 07:22
Intake and Output
05/07/24 05/08/24 05/09/24
06:59 06:59 06:59
Intake Total 240 / 240 570 / 570
Output Total 145 / 145 385 / 385
Balance 95 / 95 185 / 185
SaO2 96
Nasal Cannula flow liters per 3
minute
Physical Exam
General: Respiratory Distress (negative), Comfortable, Pain (negative), Chills (negative) and Sweats (negative)
HEENT: Normocephalic and Anicteric
Cardiovascular: S1-S2 and Peripheral Edema (negative)
Respiratory: Clear, Wheeze (negative), Rhonchi (negative), Non-Labored Respirations and Chest Tube (Right posterior hemithorax)
GI: Soft, Non Distended, Non Tender and Normal Bowel Sounds
Neurology: Awake, Alert, Oriented, AO x 3, No Motor Deficits and Tremors (negative)
Skin: Warm, Dry and Jaundice (negative)
Labs/Micro/Reports
Microbiology
05/04/24 16:11 Blood/Venous Blood Culture - Preliminary
No Growth in 72 hours- Final report to follow
[2024-05-08] MEDS: PACERONE 200 MG PO (10:29)
[2024-05-08 10:53] VITALS: BP 123/59
--- NOTE | 2024-05-08 11:35 | PTOTSP ---
Speech Language Pathology
Spoke with pt at bedside. Pulmonology notes state that recurrent empyema at least partially suspected to be related to aspiration PNA. VSE was recommended on recent admission in March 2023, and pt refused, stating study was 'foolish and worthless.'
Reviewed with pt recommendations from last admission and pulmonology concern for aspiration, with VSE being way to assess this. Pt continued to refuse. Swallow of secretions noted to be significantly audible. He declined any P.O. trials. FOREPART REDUCER to
sign off as pt not interested in further testing.
[2024-05-08] MEDS: STERILE WATER FOR INJECTION 20 ML IV (14:30)
[2024-05-08] MEDS: ROCEPHIN 2000 MG IV (14:30)
[2024-05-08 15:18] VITALS: BP 126/74
--- NOTE | 2024-05-08 15:30 | W.PN.ID1 ---
Date of Service
Date of Service: May 08, 2024
Today's Communication
Continue abx.
Assessment / Plan
Right-sided empyema
-Cultures with Streptococcus anginosus
Leukocytosis
- improved
Prostate cancer
A-fib
Pleural effusion
Anemia
Hx cerebellar CVA
Hx normal pressure hydrocephalus
Recommendations:
Continue ceftriaxone 2 g IV every 24 hours. Pt will need a 6 week course of abx.
Monitor white count and temperature curve.
Monitor chest tube output.
����������������������������������������������������������
Chief Complaint
-: Other (Right-sided empyema)
Subjective / Review of Systems
Review of Systems: No Fever, No Chills, No Cough and No Sputum Production
Vital Signs / Physical Exam
Vital Signs
Vital Signs
Temp Pulse Resp BP Pulse Ox
98.0 F 68 16 126/74 94
05/08/24 15:18 05/08/24 15:18 05/08/24 15:18 05/08/24 15:18 05/08/24 15:18
Physical Exam
Constitutional: No Acute Distress, Comfortable, Chronically Ill and Non-toxic
Eyes: Sclera Anicteric
Oropharyngeal: Poor Dention
Cardiovascular: S1/S2; Negative S3/S4
Pulmonary: Non Labored and Other (Right-sided chest tube in place.); Negative Wheezes or Rales
Gastrointestinal: Soft and Non Distended
Skin: Negative Rash or Jaundice
Psychological: Calm
Objective Data
Lab Data
Estimated Creat Clear 48 ml/min 05/07/24 05:23
Lactic Acid Cancelled 05/04/24 19:30
Total Bilirubin 0.5 mg/dl (0.2-1.3) 05/04/24 16:11
AST 29 U/L (17-59) 05/04/24 16:11
ALT 19 U/L (0-50) 05/04/24 16:11
Alkaline Phosphatase 91 U/L (38-126) 05/04/24 16:11
Most recent labs reviewed.
Micro Results:
05/04/24 16:11 Blood Culture - Preliminary
Blood/Venous No Growth in 72 hours- Final report to follow
SPEC #: [id number] BHAVESH: 05/04/24-1351 STATUS: RES REQ #: [id number]
RECD: 05/04/24-[address]: Dewey BARTH,Jordyn Beltran
SOURCE: PLEURAL ENTR: 05/04/24-[address]: Jose Antonio JIANG,Jeannine
SPDESC:
ORDERED: Fluid Culture
QUERIES: Date Specimen was Collected 05/04/24
Time Specimen was Collected 1340
Procedure Result Verified
Fluid Cult/not urine Preliminary 05/07/24-1004
Moderate Streptococcus species
CRITICAL VALUE called to and read back verification by
TAB Gomez on 05/07/24 at 0958 by TONEY.
Gram Stain Preliminary 05/07/24-1004
Many WBC
No Organisms Seen
Imaging:
05/04/2024 CT chest with contrast: Small moderate right pleural effusion is present. Within the posterior fusion, there is a slightly smaller loculated air and fluid collection with a slightly thickened enhancing rim, suggesting a loculated
hydropneumothorax. Measurements given above. Superimposed infection of this collection cannot be excluded in this patient with a reported history of empyema. Confluent parenchymal opacity within the adjacent posterior right lower lobe of the lung,
with main differential considerations of pneumonia and/or atelectasis. Bronchiectasis within the lower lungs. Linear densities within the lower lungs, compatible with linear atelectasis and/or scarring.
[2024-05-08] MEDS: LOVENOX SC (17:45)
[2024-05-08 19:35] VITALS: BP 130/54
[2024-05-08 23:50] VITALS: BP 116/56
[2024-05-09 03:05] VITALS: BP 113/51
[2024-05-09 04:54] LABS: IgG Subclass 1 674 mg/dL (240-1118); IgG Subclass 2 372 mg/dL (124-549); IgG Subclass 3 202 mg/dL (21-134); IgG Subclass 4 17 mg/dL (1-123)
[2024-05-09 06:00] VITALS: BMI 18.9
[2024-05-09 07:00] VITALS: BP 108/45
--- NOTE | 2024-05-09 08:34 | W.PN.PUL3 ---
Today's Communication / Plan
-
Reviewed case with son via phone and patient at bedside
Can trial dornase via tube (w/o tPA) and observe another 24 hours per patient wishes
Will discuss with IR
Can follow up CT as outpatient (preferred in 4-6 weeks), son was agreeable
Prolonged IV abx per ID
Assessment
-
88-year-old male with a past medical history of prostate cancer, A-fib, history of COVID-19 and multiple falls who presents with worsening cough. He had a scheduled thoracentesis on 05/04/2024 and they removed 150 cc of greenish-yellow pus. Zosyn
given in the ER. Labs showed mild leukocytosis to 11.3, mild anemia to 11.2, and pleural fluid studies consistent with empyema with glucose <30, pH <6.8, and 388,900 white blood cells which are monocyte predominant. CT chest performed showing
suspected loculated hydropneumothorax in the right lower lobe. Chest tube was placed today by IR. Patient remains on vancomycin/Zosyn. Patient denies any recent travel or recent illnesses prior to this current admission. He says that he did
follow-up with [facility] pulmonology and had a CXR recently. Pulmonary service now consulted for additional management/recommendations. Of note he was recently hospitalized here from 03/24/2024 with chest tube placed on 03/20
for right lower lobe empyema; chest tube removed on 03/23 and he was discharged home on 03/24 with home health aide.
Impression:
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
#RLL PNA (HAP given recent hospitalization last month)
#Acute on chronic cough - likely due to above; suspect component of chronic aspiration
#Anemia (mild)
#Hyponatremia (mild)
#Personal history of COVID-19
#History of prostate cancer
#DM type II
#History of A-fib
#History of CVA
#Recurrent right sided pleural effusion
#Valvular heart disease with moderate�severe AI, mild�moderate MR and mild TR with mild pulmonary hypertension (via TTE from 03/05/2024)
Chronic conditions DIAMOND CLEAVER: Tachyarrhythmia, history of prostate cancer, diabetes, history of atrial fibrillation not on anticoagulation, cardiomyopathy, records that suggest exertional rhabdomyolysis, history of total hip replacement complicated by
postoperative DVT. History of COVID infection hospitalized in 2022. Multiple falls in the past
Plan
Treatment for Empyema
Continue broad spectrum ABx - currently on IV CTX
ID on board; recs appreciated, likely abx to be 6 weeks
Keep chest tube to suction at -[id number]
Given minimal drainage from first chest tube, chest tube was replaced today by IR
Trend chest tube output while on negative suction at -[id number]
Once output is <5-10cc in a day, then check CT chest to assess for full drainage of empyema; no current need for tPA/dornase
Repeat CXR yesterday appears clear, there is about 20mL so far on chest tube
Repeat CXR 05/08/24 showing stability/improvement
Reviewed plan of care with son, Dr Paulson (EP Doc)--FU CT likely not to give additional information in regards to drainage
But if desired by patient, can try Pulmozyme without tPA (output a little bloody) and clamp for 2 hours with drainage additional 24 hours
We discussed this for a long time with patient/his /tearoom hostess and he is willing to try
Will discuss with IR
Can observe tube output another 24 hours, if minimal can d/c tube post dornase instillation
Unclear what caused this recurrent empyema, but suspicious for aspiration PNA
PRINT SHOP MANAGER barby saw pt today --> he has mild oropharyngeal dysphagia and was cleared for regular solids with thin liquids with aspiration precautions
VSE with normal results
Follow-up pleural fluid cultures --> growing Streptococcus spp
Follow-up blood cultures (collected 05/04/2024)
Check immunoglobulin levels to see if any risk factors for recurrent pneumonia exists
Given his severe AI with valvular heart disease, he is at risk of ADHF.
Monitor I/O; consider repeating TTE if pt's right effusion worsens
- Maintain SpO2 >90-94% with supplemental O2 as needed
- Incentive spirometer encouraged
- Obtain medical records from prior chest imaging from [facility] to see if any recent PNA was seen
- Replete electrolytes with K>4, Mg>2
- Maintain euglycemia with goal BG >100 and <180
- prn nebulized bronchodilators - pt not currently bronchospastic
- DVT ppx: start LMWH
Updated son via phone today
Diagnostic Data
CT Chest with IV contrast 05/04/2024: Small moderate right pleural effusion is present. Within the posterior fusion, there is a slightly smaller loculated air and fluid collection with a slightly thickened enhancing rim, suggesting a loculated
hydropneumothorax. Measurements given above. Superimposed infection of this collection cannot be excluded in this patient with a reported history of empyema. Confluent parenchymal opacity within the adjacent posterior right lower lobe of the lung,
with main differential considerations of pneumonia and/or atelectasis. Bronchiectasis within the lower lungs. Linear densities within the lower lungs, compatible with linear atelectasis and/or scarring.
CXR 05/06/2024:
1. Tiny right pleural effusion, without significant change. Pleural effusion was better visualized on prior CT chest dated 05/04/2024.
2. Hazy opacity at the right lung base, likely reflective of right lower lobe pneumonia or subsegmental atelectasis.
ECHO 03/05/24- Normal left ventricular chamber size. Low normal left ventricular systolic function. No gross regional wall motion abnormalities. Left ventricular ejection fraction is 50-55% by visual estimate. Mild concentric left ventricular
hypertrophy. Normal right ventricular size and function. Mild to moderate mitral regurgitation. Moderate to severe aortic regurgitation. Mild tricuspid regurgitation. Estimated pulmonary artery pressure of 32 mmHg assuming a right atrial pressure
of 3 mmHg. No prior study for comparison
-----
Total time spent today was 65 minutes for this encounter. Time includes reviewing laboratory test/imaging results, reviewing pertinent medical records, obtaining and reviewing medical history, performing an appropriate exam, ordering medications,
tests and procedures. Time also includes documentation of this encounter, coordinating patient care and communicating with other healthcare professionals. Total time does not include separately billed tests performed on this date of service.
Subjective Data
-
Date of Service:
Date of Service: May 09, 2024
Chief Complaint: Pulmonary Follow Up
Subjective:
No new events, weaned off O2, stable on RA
No new complaints, minimal output via chest tube
Objective Data
Data Reviewed
Vital Signs / I&O / Oxygen:
Vital Signs
Temp Pulse Resp BP Pulse Ox
98.2 F 77 19 113/51 91
05/09/24 03:05 05/09/24 03:05 05/09/24 03:05 05/09/24 03:05 05/09/24 03:05
Intake and Output
05/08/24 05/09/24 05/10/24
06:59 06:59 06:59
Intake Total 570 / 570 450 / 450
Output Total 385 / 385 216 / 216
Balance 185 / 185 234 / 234
SaO2 91
Nasal Cannula flow liters per 3
minute
Physical Exam
General: Respiratory Distress (negative), Comfortable, Pain (negative), Chills (negative) and Sweats (negative)
HEENT: Normocephalic and Anicteric
Cardiovascular: S1-S2 and Peripheral Edema (negative)
Respiratory: Clear (decreased at R base), Wheeze (negative), Rhonchi (negative), Non-Labored Respirations and Chest Tube (Right posterior hemithorax)
GI: Soft, Non Distended, Non Tender and Normal Bowel Sounds
Neurology: Awake, Alert, Oriented, AO x 3, No Motor Deficits and Tremors (negative)
Skin: Warm, Dry and Jaundice (negative)
Labs/Micro/Reports
Microbiology
05/04/24 16:11 Blood/Venous Blood Culture - Preliminary
No Growth in 4 days- Final report to follow
[2024-05-09] MEDS: PACERONE 200 MG PO (08:40)
--- NOTE | 2024-05-09 10:00 | PTOTSP ---
Speech Language Pathology
VIDEOFLUOROSCOPIC SWALLOWING EXAMINATION (VSE) completed. Overall, pt with mild pharyngeal dysphagia with pharyngeal residue, at least partially secondary to retroverted epiglottis. No penetration/aspiration noted during study despite coughing
episode x1.
Recommend:
(1) Continue regular solids/thin liquids
(2) General aspiration precautions
(3) Meds as tolerated
(4) NUCLEAR STATION OPERATOR to sign off. Please reconsult as indicated
[2024-05-09 11:00] VITALS: BP 111/52
--- NOTE | 2024-05-09 11:05 | W.PN.HOSP.TC ---
Today's Communication/Plan
-
Chest tube management per IR/Pulm
Assessment / Plan
Assessment / Plan
Assessment:
R sided pleural effusion, suspected empyema
- recent episode in March s/p 1 week IV Abx (path was negative for malignancy)
- reoccurrence could be related to aspiration pneumonia per pulmonary. Patient refusing VSE.
- s/p thoracentesis 05/04 with green/pus like drainage of 150 cc
- fluid culture growing strep species
- continue Ceftriaxone per ID. May need PICC line.
- s/p chest tube placement 05/05
- s/p new chest tube placement 05/06; septations were broken up and 60 cc output
- Keep chest tube to suction at -[id number] and monitor outputs
- will need to consider repeat imaging when CT outputs minimal (<5/-10 cc in a day)
- IR and Pulm following
Hyperkalemia
- low K diet
- monitor BMP (pt intermittently refuses labs)
History of atrial fibrillation
history of Bifascicular block
History of nonischemic cardiomyopathy
- off AC due to fall risks
- continue Amiodarone
Anemia of chronic disease
History of prostate Ca s/p radical prostatectomy
History of cerebellar stroke
History of normal pressure hydrocephalus
Underweight
DVT ppx: Lovenox
Code: Full
Anticipated Discharge: > 48 hours
Subjective/Interval History
-
Date of Service: May 09, 2024
did well with VSE
Objective Data
-
Labs:
Laboratory Results
05/09/24
06:00
WBC Pending
Hgb Pending
Hct Pending
Plt Count Pending
Sodium Pending
Potassium Pending
Chloride Pending
Carbon Dioxide Pending
BUN Pending
Creatinine Pending
Glucose Pending
Calcium Pending
Vital Signs:
Vital Signs
Temp Pulse Resp BP Pulse Ox
97.7 F 72 17 108/45 92
05/09/24 07:00 05/09/24 07:00 05/09/24 07:00 05/09/24 07:00 05/09/24 07:00
I&O
05/08/24 05/09/24 05/10/24
06:59 06:59 06:59
Intake Total 570 / 570 450 / 450
Output Total 385 / 385 216 / 216
Balance 185 / 185 234 / 234
Physical Exam
-
General: No Apparent Distress
HEENT: Normocephalic and Atraumatic
Respiratory: Chest Tubes; Negative Wheezes
Cardiac: Regular Rhythm and S1/S2
GI: Soft and Nontender
Musculoskeletal: No Edema
Neuro: AO x 3
Hematologic / Lymphatic: No Lymphadenopathy
Psych: Calm
Data Reviewed
-
Total Time Spent with Patient (in minutes): 45
Labs: Labs Reviewed by me
--- NOTE | 2024-05-09 12:15 | W.PN.ID1 ---
Date of Service
Date of Service: May 09, 2024
Today's Communication
Continue antibiotics.
Assessment / Plan
Right-sided empyema
-Cultures with Streptococcus anginosus
Leukocytosis
- improved
Prostate cancer
A-fib
Pleural effusion
Anemia
Hx cerebellar CVA
Hx normal pressure hydrocephalus
Recommendations:
Continue ceftriaxone 2 g IV every 24 hours. Pt will need a 6 week course of abx.
Home infusion sheet has been completed and given to case management, and placed on paper chart.
Will follow-up weekly labs, including BMP, CBC and LFTs, which will be faxed to our office.
Monitor white count and temperature curve.
Monitor chest tube output.
����������������������������������������������������������
Chief Complaint
-: Other (Right-sided empyema)
Subjective / Review of Systems
Review of Systems: No Fever, No Chills and Sputum Production (Minimal)
Vital Signs / Physical Exam
Vital Signs
Vital Signs
Temp Pulse Resp BP Pulse Ox
97.7 F 72 17 108/45 92
05/09/24 07:00 05/09/24 07:00 05/09/24 07:00 05/09/24 07:00 05/09/24 07:00
Physical Exam
Constitutional: No Acute Distress, Comfortable, Chronically Ill and Non-toxic
Eyes: Sclera Anicteric
Oropharyngeal: Poor Dention
Cardiovascular: S1/S2; Negative S3/S4
Pulmonary: Non Labored and Other (Right-sided chest tube in place to Pleur-evac.); Negative Wheezes or Rales
Gastrointestinal: Soft and Non Distended
Skin: Negative Rash or Jaundice
Neurological: Awake and Alert
Psychological: Calm
Objective Data
Lab Data
Estimated Creat Clear Cancelled 05/08/24 06:00
Lactic Acid Cancelled 05/04/24 19:30
Total Bilirubin 0.5 mg/dl (0.2-1.3) 05/04/24 16:11
AST 29 U/L (17-59) 05/04/24 16:11
ALT 19 U/L (0-50) 05/04/24 16:11
Alkaline Phosphatase 91 U/L (38-126) 05/04/24 16:11
Most recent labs reviewed.
Micro Results:
05/04/24 16:11 Blood Culture - Preliminary
Blood/Venous No Growth in 4 days- Final report to follow
SPEC #: [id number] BHAVESH: 05/04/24-1352 STATUS: RES REQ #: [id number]
RECD: 05/04/24-[address]: Jordyn Anand
SOURCE: PLEURAL ENTR: 05/04/24-[address]: Jose Antonio JIANG,[facility]
SPDESC:
ORDERED: Fluid Culture
QUERIES: Date Specimen was Collected 05/04/24
Time Specimen was Collected 1340
Procedure Result Verified
Fluid Cult/not urine Preliminary 05/08/24-1243
Moderate Streptococcus anginosus
CRITICAL VALUE called to and read back verification by
TAB Gomez on 05/07/24 at 0958 by TONEY.
Gram Stain Preliminary 05/07/24-1004
Many WBC
No Organisms Seen
Imaging:
05/04/2024 CT chest with contrast: Small moderate right pleural effusion is present. Within the posterior fusion, there is a slightly smaller loculated air and fluid collection with a slightly thickened enhancing rim, suggesting a loculated
hydropneumothorax. Measurements given above. Superimposed infection of this collection cannot be excluded in this patient with a reported history of empyema. Confluent parenchymal opacity within the adjacent posterior right lower lobe of the lung,
with main differential considerations of pneumonia and/or atelectasis. Bronchiectasis within the lower lungs. Linear densities within the lower lungs, compatible with linear atelectasis and/or scarring.
Care Review
Plan reviewed with: Physician (Hospitalist)
[2024-05-09] MEDS: STERILE WATER FOR INJECTION 20 ML IV (13:36)
[2024-05-09] MEDS: ROCEPHIN 2000 MG IV (13:37)
--- NOTE | 2024-05-09 13:37 | VATNOTE ---
OK per Dr. Sun to place PICC with blood cultures pending.
[2024-05-09 15:00] VITALS: BP 125/57
--- NOTE | 2024-05-09 15:20 | CM ---
Addendum entered by Ammy Amin RN 05/09/24 17:09:
Spoke with Tisha horner explained a family member will have to be taught IV antibiotics.She will find a family member to be taught.
Original Note:
Right chest tube remains.
Pt on oxygen 3 liter Pox 95%. Pt has home oxygen with [employer].
ID provided IV antibiotics script .Pt declined SNF.Pt said he would like home IV infusion.Agreed to use [facility].
Spoke with Judi IV abx script and clinical faxed to [facility] . Judi will check benefits.
Family said care givers will be able to administer IV abx.
Judi Dyer said a care team coordinator scheduler can not be taught. A Family member would have to be taught.
Will speak with family .
Pt refuses SNF.
PLAN Home with Elder BROOKS and IV infusion with [facility]
--- NOTE | 2024-05-09 16:34 | PTCARENOTE ---
Pt refusing labs. States 'most labs are just routine', 'I don't need the trauma to my arms'
[2024-05-09] MEDS: LOVENOX 40 MG SC (18:43)
[2024-05-09 19:35] LABS: Hematocrit 29.2 % (39.0-52.0); Hemoglobin 9.8 g/dL (13.0-18.0); Mean Corp Hgb Conc. 33.6 g/dL (33.0-37.0); Mean Corpuscular Hgb 29.6 pg (27.0-31.0); Mean Corpuscular Volume 88.2 fL (80.0-94.0); Mean Platelet Volume 9.7 fL (7.4-10.4); Platelet Count 288 10^3/uL (130-400); Red Blood Cell Count 3.31 10^6/uL (4.70-6.10); Red Cell Dist. Width 17.1 % (11.5-14.5); White Blood Cell Count 8.7 10^3/uL (4.8-10.8)
[2024-05-09 19:40] LABS: Blood Urea Nitrogen 17 mg/dl (9-20); Calcium 8.6 mg/dl (8.4-10.2); Carbon Dioxide 27 mmol/L (22-30); Chloride 100 mmol/L (98-107); Estimated Creatinine Clearance 48 ml/min; Glucose 107 mg/dl (70-99); Potassium 4.9 mmol/L (3.5-5.1); Sodium 136 mmol/L (135-145); eGFR > 60.00
[2024-05-09 20:07] VITALS: BP 102/44
[2024-05-09 23:36] VITALS: BP 110/54
[2024-05-10] VITALS (8 sets, daily range): BP systolic 109–139; BP diastolic 50–71; PULSE 85; O2SAT 92; BMI 20.6
[2024-05-10] MEDS: PACERONE 200 MG PO (08:38)
--- NOTE | 2024-05-10 10:50 | W.PN.HOSP.TC ---
Today's Communication/Plan
-
Dornase/Pulmozyme per IR/Pulm
continue IV Abx
Assessment / Plan
Assessment / Plan
Assessment:
R sided pleural effusion, suspected empyema
- recent episode in March s/p 1 week IV Abx (path was negative for malignancy)
- reoccurrence could be related to aspiration pneumonia per pulmonary. passed VSE
- s/p thoracentesis 05/04 with green/pus like drainage of 150 cc
- fluid culture growing strep species
- continue Ceftriaxone per ID x 6 weeks. PICC line inserted.
- s/p chest tube placement 05/05
- s/p new chest tube placement 05/06; septations were broken up and 60 cc output
- Keep chest tube to suction at -[id number] and monitor outputs
- IR and Pulm following
- Dornase/Pulmozyme being considered.
Hyperkalemia
- low K diet
- monitor BMP (pt intermittently refuses labs)
History of atrial fibrillation
history of Bifascicular block
History of nonischemic cardiomyopathy
- off AC due to fall risks
- continue Amiodarone
Anemia of chronic disease
History of prostate Ca s/p radical prostatectomy
History of cerebellar stroke
History of normal pressure hydrocephalus
Underweight
DVT ppx: Lovenox
Code: Full
Anticipated Discharge: > 48 hours
Subjective/Interval History
-
Date of Service: May 10, 2024
denies any new complaints at present, feels better
Objective Data
-
Vital Signs:
Vital Signs
Temp Pulse Resp BP Pulse Ox
97.7 F 75 18 117/53 94
05/10/24 07:54 05/10/24 08:38 05/10/24 07:54 05/10/24 08:38 05/10/24 07:54
I&O
05/09/24 05/10/24 05/11/24
06:59 06:59 06:59
Intake Total 450 / 450 380 / 380
Output Total 216 / 216
Balance 234 / 234 350 / 350
Physical Exam
-
General: No Apparent Distress
HEENT: Normocephalic and Atraumatic
Respiratory: Negative Wheezes
Cardiac: Regular Rhythm and S1/S2
GI: Soft
Genito-urinary: No Costovertebral Tender
Neuro: AO x 3
Hematologic / Lymphatic: No Lymphadenopathy
Psych: Calm
Data Reviewed
-
Total Time Spent with Patient (in minutes): 44
Labs: Labs Reviewed by me
--- NOTE | 2024-05-10 11:17 | W.PN.PUL3 ---
Today's Communication / Plan
-
Declined tPA/dornase instillation
Discontinue chest tube today, reviewed with care team
Repeat CXR tomorrow post removal
Ongoing IV abx per ID, PICC line in place
Assessment
-
88-year-old male with a past medical history of prostate cancer, A-fib, history of COVID-19 and multiple falls who presents with worsening cough. He had a scheduled thoracentesis on 05/04/2024 and they removed 150 cc of greenish-yellow pus. Zosyn
given in the ER. Labs showed mild leukocytosis to 11.3, mild anemia to 11.2, and pleural fluid studies consistent with empyema with glucose <30, pH <6.8, and 388,900 white blood cells which are monocyte predominant. CT chest performed showing
suspected loculated hydropneumothorax in the right lower lobe. Chest tube was placed today by IR. Patient remains on vancomycin/Zosyn. Patient denies any recent travel or recent illnesses prior to this current admission. He says that he did
follow-up with [facility] pulmonology and had a CXR recently. Pulmonary service now consulted for additional management/recommendations. Of note he was recently hospitalized here from 03/24/2024 with chest tube placed on 03/20
for right lower lobe empyema; chest tube removed on 03/23 and he was discharged home on 03/24 with home health aide.
Impression:
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
#RLL PNA (HAP given recent hospitalization last month)
#Acute on chronic cough - likely due to above; suspect component of chronic aspiration
#Anemia (mild)
#Hyponatremia (mild)
#Personal history of COVID-19
#History of prostate cancer
#DM type II
#History of A-fib
#History of CVA
#Recurrent right sided pleural effusion
#Valvular heart disease with moderate�severe AI, mild�moderate MR and mild TR with mild pulmonary hypertension (via TTE from 03/05/2024)
Chronic conditions [employer]: Tachyarrhythmia, history of prostate cancer, diabetes, history of atrial fibrillation not on anticoagulation, cardiomyopathy, records that suggest exertional rhabdomyolysis, history of total hip replacement complicated by
postoperative DVT. History of COVID infection hospitalized in 2022. Multiple falls in the past
Plan
Treatment for Empyema
Continue broad spectrum ABx - currently on IV CTX
ID on board; recs appreciated, likely abx to be 6 weeks
Keep chest tube to suction at -[id number]
Given minimal drainage from first chest tube, chest tube was replaced today by IR
Trend chest tube output while on negative suction at -[id number]
Once output is <5-10cc in a day, then check CT chest to assess for full drainage of empyema; no current need for tPA/dornase
Repeat CXR yesterday appears clear, there is about 20mL so far on chest tube
Repeat CXR 05/08/24 showing stability/improvement
Reviewed plan of care with son, Dr Paulson (EP Doc)--FU CT likely not to give additional information in regards to drainage
Has declined tpA/Dornase instillation
Will D/c chest tube
Unclear what caused this recurrent empyema, but suspicious for aspiration PNA
ANYA dior saw pt today --> he has mild oropharyngeal dysphagia and was cleared for regular solids with thin liquids with aspiration precautions
VSE with normal results
Follow-up pleural fluid cultures --> growing Streptococcus spp
Follow-up blood cultures (collected 05/04/2024)
Check immunoglobulin levels to see if any risk factors for recurrent pneumonia exists
Given his severe AI with valvular heart disease, he is at risk of ADHF.
Monitor I/O; consider repeating TTE if pt's right effusion worsens
- Maintain SpO2 >90-94% with supplemental O2 as needed
- Incentive spirometer encouraged
- Obtain medical records from prior chest imaging from [facility] to see if any recent PNA was seen
- Replete electrolytes with K>4, Mg>2
- Maintain euglycemia with goal BG >100 and <180
- prn nebulized bronchodilators - pt not currently bronchospastic
- DVT ppx: start LMWH
Updated son via phone 05/09/[address] Chest with IV contrast 05/04/2024: Small moderate right pleural effusion is present. Within the posterior fusion, there is a slightly smaller loculated air and fluid collection with a slightly thickened enhancing rim, suggesting a loculated
hydropneumothorax. Measurements given above. Superimposed infection of this collection cannot be excluded in this patient with a reported history of empyema. Confluent parenchymal opacity within the adjacent posterior right lower lobe of the lung,
with main differential considerations of pneumonia and/or atelectasis. Bronchiectasis within the lower lungs. Linear densities within the lower lungs, compatible with linear atelectasis and/or scarring.
CXR 05/06/2024:
1. Tiny right pleural effusion, without significant change. Pleural effusion was better visualized on prior CT chest dated 05/04/2024.
2. Hazy opacity at the right lung base, likely reflective of right lower lobe pneumonia or subsegmental atelectasis.
ECHO 03/05/24- Normal left ventricular chamber size. Low normal left ventricular systolic function. No gross regional wall motion abnormalities. Left ventricular ejection fraction is 50-55% by visual estimate. Mild concentric left ventricular
hypertrophy. Normal right ventricular size and function. Mild to moderate mitral regurgitation. Moderate to severe aortic regurgitation. Mild tricuspid regurgitation. Estimated pulmonary artery pressure of 32 mmHg assuming a right atrial pressure
of 3 mmHg. No prior study for comparison
-----
Total time spent today was 51 minutes for this encounter. Time includes reviewing laboratory test/imaging results, reviewing pertinent medical records, obtaining and reviewing medical history, performing an appropriate exam, ordering medications,
tests and procedures. Time also includes documentation of this encounter, coordinating patient care and communicating with other healthcare professionals. Total time does not include separately billed tests performed on this date of service.
Subjective Data
-
Date of Service:
Date of Service: May 10, 2024
Chief Complaint: Pulmonary Follow Up
Subjective:
No new events, he has declined tPA/pulmozyme instillation
Remains stable on RA
Objective Data
Data Reviewed
Vital Signs / I&O / Oxygen:
Vital Signs
Temp Pulse Resp BP Pulse Ox
97.7 F 75 18 117/53 94
05/10/24 07:54 05/10/24 08:38 05/10/24 07:54 05/10/24 08:38 05/10/24 08:00
Intake and Output
05/09/24 05/10/24 05/11/24
06:59 06:59 06:59
Intake Total 450 / 450 380 / 380
Output Total 216 / 216 / 30
Balance 234 / 234 350 / 350
SaO2 94
Nasal Cannula flow liters per 3
minute
Physical Exam
General: Respiratory Distress (negative), Comfortable, Pain (negative), Chills (negative) and Sweats (negative)
HEENT: Normocephalic and Anicteric
Cardiovascular: S1-S2 and Peripheral Edema (negative)
Respiratory: Clear (decreased at R base), Wheeze (negative), Rhonchi (negative), Non-Labored Respirations and Chest Tube (Right posterior hemithorax)
GI: Soft, Non Distended, Non Tender and Normal Bowel Sounds
Neurology: Awake, Alert, Oriented, AO x 3, No Motor Deficits and Tremors (negative)
Skin: Warm, Dry and Jaundice (negative)
Labs/Micro/Reports
Lab Data
05/09/24 16:58
05/09/24 16:58
Microbiology
05/04/24 16:11 Blood/Venous Blood Culture - Final
No Growth - Final Report
--- NOTE | 2024-05-10 11:48 | W.PN.ID1 ---
Date of Service
Date of Service: May 10, 2024
Today's Communication
Continue antibiotics.
Assessment / Plan
Right-sided empyema
-Cultures with Streptococcus anginosus
Leukocytosis
- improved
Prostate cancer
A-fib
Pleural effusion
Anemia
Hx cerebellar CVA
Hx normal pressure hydrocephalus
Recommendations:
Continue ceftriaxone 2 g IV every 24 hours to complete a 6 week course of abx.
Home infusion sheet has been completed and given to case management, and placed on paper chart.
Will follow-up weekly labs, including BMP, CBC and LFTs, which will be faxed to our office.
Monitor white count and temperature curve.
Monitor chest tube output.
����������������������������������������������������������
Chief Complaint
-: Other (Right-sided empyema)
Subjective / Review of Systems
Review of Systems: No Fever and No Chills
Vital Signs / Physical Exam
Vital Signs
Vital Signs
Temp Pulse Resp BP Pulse Ox
97.7 F 75 18 117/53 94
05/10/24 07:54 05/10/24 08:38 05/10/24 07:54 05/10/24 08:38 05/10/24 08:00
Physical Exam
Constitutional: No Acute Distress, Comfortable, Chronically Ill and Non-toxic
Eyes: Sclera Anicteric
Oropharyngeal: Poor Dention
Cardiovascular: S1/S2; Negative S3/S4
Pulmonary: Non Labored and Other (Right-sided chest tube in place to Pleur-evac.); Negative Wheezes or Rales
Gastrointestinal: Soft and Non Distended
Skin: Warm and Dry; Negative Rash or Jaundice
Neurological: Awake, Alert and Oriented
Psychological: Calm
Objective Data
Lab Data
Lab Results
05/09/24 16:58
05/09/24 16:58
Estimated Creat Clear 48 ml/min 05/09/24 16:58
Lactic Acid Cancelled 05/04/24 19:30
Total Bilirubin 0.5 mg/dl (0.2-1.3) 05/04/24 16:11
AST 29 U/L (17-59) 05/04/24 16:11
ALT 19 U/L (0-50) 05/04/24 16:11
Alkaline Phosphatase 91 U/L (38-126) 05/04/24 16:11
Most recent labs reviewed.
Micro Results:
05/04/24 16:11 Blood Culture - Final
Blood/Venous No Growth - Final Report
SPEC #: [id number] BHAVESH: 05/04/24-1352 STATUS: RES REQ #: [id number]
RECD: 05/04/24-[address] [facility] [address]: Jordyn Anand
SOURCE: PLEURAL ENTR: 05/04/24-1355 [facility] DR: Jose Antonio JIANG,[facility]
SPDESC:
ORDERED: Fluid Culture
QUERIES: Date Specimen was Collected 05/04/24
Time Specimen was Collected 1340
Procedure Result Verified
Fluid Cult/not urine Preliminary 05/08/24-1243
Moderate Streptococcus anginosus
CRITICAL VALUE called to and read back verification by
TAB Gomez on 05/07/24 at 0958 by TONEY.
Gram Stain Preliminary 05/07/24-1004
Many WBC
No Organisms Seen
Imaging:
05/04/2024 CT chest with contrast: Small moderate right pleural effusion is present. Within the posterior fusion, there is a slightly smaller loculated air and fluid collection with a slightly thickened enhancing rim, suggesting a loculated
hydropneumothorax. Measurements given above. Superimposed infection of this collection cannot be excluded in this patient with a reported history of empyema. Confluent parenchymal opacity within the adjacent posterior right lower lobe of the lung,
with main differential considerations of pneumonia and/or atelectasis. Bronchiectasis within the lower lungs. Linear densities within the lower lungs, compatible with linear atelectasis and/or scarring.
Care Review
Plan reviewed with: Physician (Hospitalist)
[2024-05-10] MEDS: ROCEPHIN 2000 MG IV (14:11)
[2024-05-10] MEDS: STERILE WATER FOR INJECTION 20 ML IV (14:11)
--- NOTE | 2024-05-10 16:21 | PN.IRAD.UPD ---
Update Note - IRAD
- -
Right sided chest tube removed at bedside. New,clean,dry dressing placed over site. Patient tolerated procedure well.
--- NOTE | 2024-05-10 19:17 | CM ---
met with patient at bedside.robert from [facility] care met with patient. cost of meds and supplies is $178/week.faxed [facility] abx script and picc line information.patient able to dc home after his dose of iv rocephin. i also spoke with cousin deyanira ty
[phone] who will be instructing golf course assistant to give iv abx.georgiana will visit patient on tuesday between 8 and 9 am for teaching.patient signed imm letter.attending notified of dc plan.
--- NOTE | 2024-05-10 20:54 | PTCARENOTE ---
Pt requested to wash face and brush teeth. This RN assisted. Patient and family very concerned about proper hygiene being maintained. Call fletcher is within reach, care is ongoing.
[2024-05-11 03:25] VITALS: BP 108/48
[2024-05-11 04:39] LABS: % Basophils 1.5 % (0-2); % Immature Granulocytes 0.3 % (0-0.5); % Lymphocytes 36.9 % (20.5-51.1); % Monocytes 10.6 % (1.7-9.3); % Neutrophils 42.7 % (42.2-75.2); Absolute Basophils 0.1 10^3/uL (0-0.2); Absolute Eosinophils 0.6 10^3/uL (0-0.7); Absolute Lymphocytes 2.6 10^3/uL (1.2-3.4); Absolute Monocytes 0.8 10^3/uL (0.1-0.6); Absolute Neutrophils 3.1 10^3/uL (1.4-6.5); Hematocrit 29.4 % (39.0-52.0); Hemoglobin 9.9 g/dL (13.0-18.0); Mean Corp Hgb Conc. 33.7 g/dL (33.0-37.0); Mean Corpuscular Hgb 29.7 pg (27.0-31.0); Mean Corpuscular Volume 88.3 fL (80.0-94.0); Mean Platelet Volume 8.9 fL (7.4-10.4); Nucleated Red Blood Cells % 0 % (-); Platelet Count 247 10^3/uL (130-400); Red Blood Cell Count 3.33 10^6/uL (4.70-6.10); Red Cell Dist. Width 16.8 % (11.5-14.5); White Blood Cell Count 7.2 10^3/uL (4.8-10.8)
[2024-05-11 05:17] LABS: Blood Urea Nitrogen 16 mg/dl (9-20); Calcium 9.1 mg/dl (8.4-10.2); Carbon Dioxide 23 mmol/L (22-30); Chloride 103 mmol/L (98-107); Estimated Creatinine Clearance 58 ml/min; Glucose 88 mg/dl (70-99); Potassium 4.8 mmol/L (3.5-5.1); Sodium 134 mmol/L (135-145); eGFR > 60.00
[2024-05-11 06:00] VITALS: BMI 17.8
[2024-05-11 07:50] VITALS: BP 113/53
[2024-05-11] MEDS: PACERONE 200 MG PO (09:23)
[2024-05-11 11:55] VITALS: BP 116/47
--- NOTE | 2024-05-11 12:09 | W.PN.PUL3 ---
Today's Communication / Plan
-
Chest tube discontinued, follow up CXR looks stable/clear
He has remained stable on RA
PT/OT at home, he has declined SNF
Discharge planning per team
Assessment
-
88-year-old male with a past medical history of prostate cancer, A-fib, history of COVID-19 and multiple falls who presents with worsening cough. He had a scheduled thoracentesis on 05/04/2024 and they removed 150 cc of greenish-yellow pus. Zosyn
given in the ER. Labs showed mild leukocytosis to 11.3, mild anemia to 11.2, and pleural fluid studies consistent with empyema with glucose <30, pH <6.8, and 388,900 white blood cells which are monocyte predominant. CT chest performed showing
suspected loculated hydropneumothorax in the right lower lobe. Chest tube was placed today by IR. Patient remains on vancomycin/Zosyn. Patient denies any recent travel or recent illnesses prior to this current admission. He says that he did
follow-up with [facility] pulmonology and had a CXR recently. Pulmonary service now consulted for additional management/recommendations. Of note he was recently hospitalized here from 03/24/2024 with chest tube placed on 03/20
for right lower lobe empyema; chest tube removed on 03/23 and he was discharged home on 03/24 with home health aide.
Impression:
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
#RLL PNA (HAP given recent hospitalization last month)
#Acute on chronic cough - likely due to above; suspect component of chronic aspiration
#Anemia (mild)
#Hyponatremia (mild)
#Personal history of COVID-19
#History of prostate cancer
#DM type II
#History of A-fib
#History of CVA
#Recurrent right sided pleural effusion
#Valvular heart disease with moderate�severe AI, mild�moderate MR and mild TR with mild pulmonary hypertension (via TTE from 03/05/2024)
Chronic conditions [employer]: Tachyarrhythmia, history of prostate cancer, diabetes, history of atrial fibrillation not on anticoagulation, cardiomyopathy, records that suggest exertional rhabdomyolysis, history of total hip replacement complicated by
postoperative DVT. History of COVID infection hospitalized in 2022. Multiple falls in the past
Plan
Treatment for Empyema
Continue broad spectrum ABx - currently on IV CTX
ID on board; recs appreciated, likely abx to be 6 weeks
Keep chest tube to suction at -[id number]
Given minimal drainage from first chest tube, chest tube was replaced today by IR
Trend chest tube output while on negative suction at -[id number]
Once output is <5-10cc in a day, then check CT chest to assess for full drainage of empyema; no current need for tPA/dornase
Repeat CXR yesterday appears clear, there is about 20mL so far on chest tube
Repeat CXR 05/08/24 showing stability/improvement
Reviewed plan of care with son, Dr Paulson (EP Doc)--FU CT likely not to give additional information in regards to drainage
Has declined tpA/Dornase instillation
D/c chest tube 05/10/24
Repeat CXR today showing improvement
Unclear what caused this recurrent empyema, but suspicious for aspiration PNA
ANYA dior saw pt today --> he has mild oropharyngeal dysphagia and was cleared for regular solids with thin liquids with aspiration precautions
VSE with normal results
Follow-up pleural fluid cultures --> growing Streptococcus spp
Follow-up blood cultures (collected 05/04/2024)
Check immunoglobulin levels to see if any risk factors for recurrent pneumonia exists
Given his severe AI with valvular heart disease, he is at risk of ADHF.
Monitor I/O; consider repeating TTE if pt's right effusion worsens
- Maintain SpO2 >90-94% with supplemental O2 as needed
- Incentive spirometer encouraged
- Obtain medical records from prior chest imaging from [facility] to see if any recent PNA was seen
- Replete electrolytes with K>4, Mg>2
- Maintain euglycemia with goal BG >100 and <180
- prn nebulized bronchodilators - pt not currently bronchospastic
- DVT ppx: start LMWH
Updated son via phone 05/09/24
[address] Chest with IV contrast 05/04/2024: Small moderate right pleural effusion is present. Within the posterior fusion, there is a slightly smaller loculated air and fluid collection with a slightly thickened enhancing rim, suggesting a loculated
hydropneumothorax. Measurements given above. Superimposed infection of this collection cannot be excluded in this patient with a reported history of empyema. Confluent parenchymal opacity within the adjacent posterior right lower lobe of the lung,
with main differential considerations of pneumonia and/or atelectasis. Bronchiectasis within the lower lungs. Linear densities within the lower lungs, compatible with linear atelectasis and/or scarring.
CXR 05/06/2024:
1. Tiny right pleural effusion, without significant change. Pleural effusion was better visualized on prior CT chest dated 05/04/2024.
2. Hazy opacity at the right lung base, likely reflective of right lower lobe pneumonia or subsegmental atelectasis.
ECHO 03/05/24- Normal left ventricular chamber size. Low normal left ventricular systolic function. No gross regional wall motion abnormalities. Left ventricular ejection fraction is 50-55% by visual estimate. Mild concentric left ventricular
hypertrophy. Normal right ventricular size and function. Mild to moderate mitral regurgitation. Moderate to severe aortic regurgitation. Mild tricuspid regurgitation. Estimated pulmonary artery pressure of 32 mmHg assuming a right atrial pressure
of 3 mmHg. No prior study for comparison
-----
Total time spent today was 51 minutes for this encounter. Time includes reviewing laboratory test/imaging results, reviewing pertinent medical records, obtaining and reviewing medical history, performing an appropriate exam, ordering medications,
tests and procedures. Time also includes documentation of this encounter, coordinating patient care and communicating with other healthcare professionals. Total time does not include separately billed tests performed on this date of service.
Subjective Data
-
Date of Service:
Date of Service: May 11, 2024
Chief Complaint: Pulmonary Follow Up
Subjective:
Doing well today, stable on RA
Comfortable appearing, no pain
Chest tube discontinued
Objective Data
Data Reviewed
Vital Signs / I&O / Oxygen:
Vital Signs
Temp Pulse Resp BP Pulse Ox
97.8 F 73 18 113/53 92
05/11/24 07:50 05/11/24 07:50 05/11/24 07:50 05/11/24 07:50 05/11/24 07:50
Intake and Output
05/10/24 05/11/24 05/12/24
06:59 06:59 06:59
Intake Total 380 / 380 900 / 900 100 / 100
Output Total
Balance 350 / 350 900 / 900 100 / 100
SaO2 92
Nasal Cannula flow liters per 3
minute
Physical Exam
General: Respiratory Distress (negative), Comfortable, Pain (negative), Chills (negative) and Sweats (negative)
HEENT: Normocephalic and Anicteric
Cardiovascular: S1-S2 and Peripheral Edema (negative)
Respiratory: Clear (decreased at R base), Wheeze (negative), Rhonchi (negative), Non-Labored Respirations and Chest Tube (Right posterior hemithorax)
GI: Soft, Non Distended, Non Tender and Normal Bowel Sounds
Neurology: Awake, Alert, Oriented, AO x 3, No Motor Deficits and Tremors (negative)
Skin: Warm, Dry and Jaundice (negative)
Labs/Micro/Reports
Lab Data
05/11/24 04:23
05/11/24 04:23
Microbiology
05/04/24 16:11 Blood/Venous Blood Culture - Final
No Growth - Final Report
--- NOTE | 2024-05-11 12:24 | CM ---
Right chest tube removed.
Pt on room air to oxygen 3 liter Pox 95%. Pt has home oxygen with [employer].
ID provided IV antibiotics script .Pt declined SNF.
Spoke with [facility]. IV abx and supplies to be delivered tonight to home.
Pt has care givers which will drive him home .
Spoke with Grecia at [facility] resumption of care to resume tomorrow at 8-9am in his home.
Spoke with Jaye sainz and evens Giles . They agree with plan home with iv antibiotics with [facility] . Family to be taught by [facility] .
PLAN Home with [facility] and IV infusion with [facility]
--- NOTE | 2024-05-11 12:47 | W.PN.ID1 ---
Date of Service
Date of Service: May 11, 2024
Today's Communication
Continue ceftriaxone 2 g IV every 24 hours to complete a 6 week course of abx.
Home infusion sheet has been completed and given to case management, and placed on paper chart.
Will follow-up weekly labs, including BMP, CBC and LFTs, which will be faxed to our office.
Monitor white count and temperature curve.
Stable for dc from ID perspective when home IV antibiotics set up
Assessment / Plan
Right-sided empyema
-Cultures with Streptococcus anginosus
Leukocytosis
- improved
Prostate cancer
A-fib
Pleural effusion
Anemia
Hx cerebellar CVA
Hx normal pressure hydrocephalus
Recommendations:
Continue ceftriaxone 2 g IV every 24 hours to complete a 6 week course of abx.
Home infusion sheet has been completed and given to case management, and placed on paper chart.
Will follow-up weekly labs, including BMP, CBC and LFTs, which will be faxed to our office.
Monitor white count and temperature curve.
Stable for dc from ID perspective when home IV antibiotics set up
����������������������������������������������������������
Chief Complaint
-: Other (Right-sided empyema)
Subjective / Review of Systems
afebrile
chest tube removed
cxr no acute disease of the chest
Vital Signs / Physical Exam
Vital Signs
Vital Signs
Temp Pulse Resp BP Pulse Ox
97.8 F 80 18 116/47 94
05/11/24 11:55 05/11/24 11:55 05/11/24 11:55 05/11/24 11:55 05/11/24 11:55
Physical Exam
Constitutional: No Acute Distress
Cardiovascular: Regular Rate and S1/S2; Negative Murmur or Rub
Pulmonary: Clear and Symmetric; Negative Wheezes or Rales
Gastrointestinal: Soft, Non Tender, Non Distended and Normal Bowel Sounds
Skin: Warm and Dry; Negative Rash or Jaundice
Objective Data
Lab Data
Lab Results
05/11/24 04:23
05/11/24 04:23
Estimated Creat Clear 58 ml/min 05/11/24 04:23
Lactic Acid Cancelled 05/04/24 19:30
Total Bilirubin 0.5 mg/dl (0.2-1.3) 05/04/24 16:11
AST 29 U/L (17-59) 05/04/24 16:11
ALT 19 U/L (0-50) 05/04/24 16:11
Alkaline Phosphatase 91 U/L (38-126) 05/04/24 16:11
Most recent labs reviewed.
Micro Results:
05/04/24 16:11 Blood Culture - Final
Blood/Venous No Growth - Final Report
SPEC #: [id number] BHAVESH: 05/04/24-1352 STATUS: RES REQ #: [id number]
RECD: 05/04/24-[address]: Jordyn Anand
SOURCE: PLEURAL ENTR: 05/04/24-[address]: Jose Antonio JIANGJeannine
SPDESC:
ORDERED: Fluid Culture
QUERIES: Date Specimen was Collected 05/04/24
Time Specimen was Collected 1340
Procedure Result Verified
Fluid Cult/not urine Preliminary 05/08/24-1243
Moderate Streptococcus anginosus
CRITICAL VALUE called to and read back verification by
TAB Gomez on 05/07/24 at 0958 by TONEY.
Gram Stain Preliminary 05/07/24-1004
Many WBC
No Organisms Seen
Imaging:
05/04/2024 CT chest with contrast: Small moderate right pleural effusion is present. Within the posterior fusion, there is a slightly smaller loculated air and fluid collection with a slightly thickened enhancing rim, suggesting a loculated
hydropneumothorax. Measurements given above. Superimposed infection of this collection cannot be excluded in this patient with a reported history of empyema. Confluent parenchymal opacity within the adjacent posterior right lower lobe of the lung,
with main differential considerations of pneumonia and/or atelectasis. Bronchiectasis within the lower lungs. Linear densities within the lower lungs, compatible with linear atelectasis and/or scarring.
[2024-05-11] MEDS: ROCEPHIN 2000 MG IV (13:19)
[2024-05-11] MEDS: STERILE WATER FOR INJECTION 20 ML IV (13:19)
--- NOTE | 2024-05-11 13:23 | W.PN.HOSP.TC ---
Today's Communication/Plan
-
dc home/VN and IV Abx
Assessment / Plan
Assessment / Plan
Assessment:
R sided pleural effusion, suspected empyema
- recent episode in March s/p 1 week IV Abx (path was negative for malignancy)
- reoccurrence could be related to aspiration pneumonia per pulmonary. passed VSE
- s/p thoracentesis 05/04 with green/pus like drainage of 150 cc
- fluid culture growing strep species
- continue Ceftriaxone per ID x 6 weeks. PICC line inserted.
- s/p chest tube placement 05/05
- s/p new chest tube placement 05/06; septations were broken up and 60 cc output
- now CT removed 05/10 and repeat CXR showing improvement
Hyperkalemia
- resolved
History of atrial fibrillation
history of Bifascicular block
History of nonischemic cardiomyopathy
- off AC due to fall risks
- continue Amiodarone
Anemia of chronic disease
History of prostate Ca s/p radical prostatectomy
History of cerebellar stroke
History of normal pressure hydrocephalus
Underweight
DVT ppx: Lovenox
Code: Full
More than 30 minutes spent in discharge including
Final examination of the patient
Summarizing hospital stay
Instructions for continuing care to all relevant caregivers
Preparation of discharge records, prescriptions, and referral forms
Total time spent (in minutes): 41
Anticipated Discharge: Today
Subjective/Interval History
-
Date of Service: May 11, 2024
feels well no complaints currently
Objective Data
-
Labs:
Laboratory Results
05/11/24
04:23
WBC 7.2
Hgb 9.9 L
Hct 29.4 L
Plt Count 247
Sodium 134 L
Potassium 4.8
Chloride 103
Carbon Dioxide 23
BUN 16
Creatinine 0.8
Glucose 88
Calcium 9.1
Vital Signs:
Vital Signs
Temp Pulse Resp BP Pulse Ox
97.8 F 80 18 116/47 94
05/11/24 11:55 05/11/24 11:55 05/11/24 11:55 05/11/24 11:55 05/11/24 11:55
I&O
05/10/24 05/11/24 05/12/24
06:59 06:59 06:59
Intake Total 380 / 380 900 / 900 100 / 100
Output Total
Balance 350 / 350 900 / 900 100 / 100
Physical Exam
-
General: No Apparent Distress
HEENT: Normocephalic and Atraumatic
Respiratory: Negative Wheezes
Cardiac: Regular Rhythm and S1/S2
GI: Soft
Genito-urinary: No Costovertebral Tender
Neuro: AO x 3
Psych: Calm
Data Reviewed
-
Total Time Spent with Patient (in minutes): 41
Labs: Labs Reviewed by me
--- NOTE | 2024-05-11 13:26 | W.DS.TRANS ---
DC Summary - [employer]
-
Discharge Instructions:
Discharge Diagnosis/Procedures Right sided Empyema s/p chest tube. Strep in
cultures on 6 weeks IV antibiotics. Hypoxia
which is resolved.
Diet Low Cholesterol
Activity As tolerated
Other Services VN,PT,OT
Instructions:
Stand-Alone Forms:
Changes to Home Medications: No
Discharge Medications:
DC Medications w/original date entered in [facility]
amiodarone 200 mg tablet 200 mg PO DAILY Arrhythmia 05/04/24
ceftriaxone 2 gram solution for injection 2,000 mg IV Q24H #37 ea 05/10/24
Home Medication Changes
Pending Results: No
Total time spent discharging patient (in min): 41
[2024-05-11 15:00] VITALS: BP 112/58
== END 2024-05-11 15:15 | disposition home health service (06) | DRG 177 ==
LOC: 3 WEST ACU 17:27
PROVIDERS: Radiology Vascular & Interventional Radiology; Registered Nurse; ADMITTING PHYSICIAN Internal Medicine; CONSULT PHYSICIAN Internal Medicine Critical Care Medicine; CONSULT PHYSICIAN Internal Medicine Infectious Disease; EMERGENCY PHYSICIAN Emergency Medicine; FAMILY PHYSICIAN Internal Medicine
PROC: 0W9930Z Drainage of Right Pleural Cavity with Drainage Device, Percutaneous Approach (ICD-10-PCS; 2024-05-05)
DX: J86.9 Pyothorax without fistula (principal); J69.0 Pneumonitis due to inhalation of food and vomit; E87.1 Hypo-osmolality and hyponatremia; J90 Pleural effusion, not elsewhere classified; I42.8 Other cardiomyopathies; I45.2 Bifascicular block; Z68.1 Body mass index [BMI] 19.9 or less, adult; R09.02 Hypoxemia; E87.5 Hyperkalemia; E11.9 Type 2 diabetes mellitus without complications; Z86.73 Personal history of transient ischemic attack (TIA), and cerebral infarction without residual deficits; Z85.46 Personal history of malignant neoplasm of prostate
CPT/HCPCS: 32555; 32557; 71045; 71046; 71260; 74230; 80048; 80053; 80202; 82784; 82787; 82945; 82962; 83605; 83615; 83880; 83986; 84145; 84157; 85025; 85027; 87015; 87040; 87070; 87077; 87102; 87116; 87205; 87206; 89051; 92610; 92611; 93005; 96365; 96375; 97163; 97167; 99152; 99153; 99284; C1729; C1769; J2997; Q9967

== ENCOUNTER 2024-05-15 11:03 | Inpatient (IN) | payer MEDICARE, OTHER, SELFPAY ==
[2024-05-13 18:27] VITALS: BP 125/50; BMI 19.5
[2024-05-13 18:50] LABS: % Basophils 0.9 % (0-2); % Eosinophils 3.3 % (0-6); % Immature Granulocytes 0.6 % (0-0.5); % Lymphocytes 28.7 % (20.5-51.1); % Monocytes 11.4 % (1.7-9.3); % Neutrophils 55.1 % (42.2-75.2); Absolute Basophils 0.1 10^3/uL (0-0.2); Absolute Eosinophils 0.3 10^3/uL (0-0.7); Absolute Immature Granulocytes 0.1 10^3/uL (0-0.05); Absolute Lymphocytes 2.3 10^3/uL (1.2-3.4); Absolute Monocytes 0.9 10^3/uL (0.1-0.6); Absolute Neutrophils 4.4 10^3/uL (1.4-6.5); Hematocrit 29.7 % (39.0-52.0); Hemoglobin 10.4 g/dL (13.0-18.0); Mean Corpuscular Volume 85.6 fL (80.0-94.0); Mean Platelet Volume 8.5 fL (7.4-10.4); Nucleated Red Blood Cells % 0 % (-); Platelet Count 248 10^3/uL (130-400); Red Blood Cell Count 3.47 10^6/uL (4.70-6.10); Red Cell Dist. Width 16.8 % (11.5-14.5)
[2024-05-13 19:00] VITALS: BP 119/54
[2024-05-13 19:18] LABS: COVID-19 Antigen Positive (Negative)
[2024-05-13 19:20] LABS: ALT (SGPT) 18 U/L (0-50); AST (SGOT) 35 U/L (17-59); Albumin 3.3 g/dl (3.5-5.0); Alkaline Phosphatase 90 U/L (38-126); Blood Urea Nitrogen 19 mg/dl (9-20); Calcium 8.6 mg/dl (8.4-10.2); Carbon Dioxide 20 mmol/L (22-30); Chloride 101 mmol/L (98-107); Estimated Creatinine Clearance 55 ml/min; Glucose 100 mg/dl (70-99); Potassium 4.6 mmol/L (3.5-5.1); Sodium 131 mmol/L (135-145); Total Bilirubin 0.3 mg/dl (0.2-1.3); Total Protein 6.2 g/dl (6.3-8.2); eGFR > 60.00
--- NOTE | 2024-05-13 19:44 | ED.GENMED ---
History of Present Illness
General
Chief Complaint: Weakness
Source: patient
Exam Limitations: none
Time Seen by Provider: 05/13/24 19:35
Nursing documentation reviewed up to this point in time: agreed with
History of Present Illness
History of Present Illness:
89-year-old male who was recently admitted 05/04 to 05/11/2024 for right-sided empyema status post chest tube, is on 6 weeks of IV antibiotics, discharged to home with and personal Home Health Aides 8a-8p arranged by family.
Pt does not know why he was sent here. He denies pain anywhere, denies SOB, CP, Abd pain. He is noted to have an inter mittent cough.
Spoke with son Clifton, a physician, who states pt was sent home on 6 weeks of ceftriaxone, son spoke to pt two days ago and he 'sounded great, mentating well.' Today son got a message from one of the home health aides that pt is very weak and his
mental status has declined. Pts daughter visited him last week and notified the family today that she tested positive for COVID yesterday. Because of his decline today, the did a home Covid test which was positive. Son is in [place] and when
home health aide told him he had mental status changes he had them sent him to the ER.
Son states patient's is physically okay but not mentally. Pt would not be able to go home tonight.
Children just ordered a hospital bed that will be delivered tomorrow to be put on the first floor. Son states patient wants a at home.
Pt on amiodarone for A-fib, not a candidate for Paxlovid. No hypoxemia here.
Past History
Past History
ED Past Medical History: Arrthythmia, Cancer (Prostate), Hypercholesterolemia and NIDDM
ED Past Surgical History: Orthopedic (L hip replaced) and Urological
Social History
Tobacco: Former smoker
Alcohol: None
Drug: None
Personal:
Living: with family
Employment: Retired
Family History
Family History: Other
Review of Systems
Review of Systems
Allergies reviewed?: Yes
All Other Systems: ROS reviewed and negative except as documented in HPI and ROS
Constitutional: Reports fatigue; Denies fever or chills
Respiratory: Reports cough; Denies trouble breathing
Cardiac: Denies chest pain
ABD/GI: Denies abdominal pain, nausea, vomiting or diarrhea
: Denies dysuria or difficulty voiding
Musculoskeletal: Denies edema
Skin: Reports no symptoms
Neurological: Reports no symptoms
Phy Exam
Physical Exam
Physical Exam:
GENERAL: No acute distress. A&Ox3. Elderly and frail
CONSTITUTIONAL: Afebrile.
EYES: PERRL, conjunctivae normal
ENMT: moist mucus membranes, Pharynx nl
RESPIRATORY: Regular respirations, nonlabored, lungs clear. occasional coarse junky cough. Pulse ox 96% on 3L N.C.
CARDIOVASCULAR: Regular rate and rhythm, no murmurs, no rubs.
GI: Soft, nontender, normal BS
MUSCULOSKELETAL: Moves with ease. Well perfused.
SKIN: Warm, dry, pink
PSYCH: Normal mood and affect. Well kept, interactive and appropriate
NEUROLOGIC: Awake, alert and oriented. Speech clear. CN 2-12 intact. No focal neurological deficits. Hand grasps equal 4/5. Strength in legs 3/5, equal.
Course
Orders/Labs/Results
Orders:
Orders
05/13/24 18:39
Electrocardiogram (*1) Urgent
Reason for Study: Fatigue / Weakness
EKG- Treatment ONCE
05/13/24 18:43
COVID-19 Antigen Urgent
Source: Nasal Swab
Complete Blood Count/With Diff Urgent
Comprehensive Metabolic Panel Urgent
05/13/24 19:29
CR Chest - 2 Views Urgent
Comment:
Reason For Exam: sob
Abnormal Lab Results
05/13/24
18:43
RBC 3.47 L 10^6/uL
(4.70-6.10)
Hgb 10.4 L g/dL
(13.0-18.0)
Hct 29.7 L %
(39.0-52.0)
RDW 16.8 H %
(11.5-14.5)
Abs Immat Gran (auto) 0.1 H 10^3/uL
(0-0.05)
Absolute Monos (auto) 0.9 H 10^3/uL
(0.1-0.6)
Immature Gran % 0.6 H %
(0-0.5)
Monocytes % 11.4 H %
(1.7-9.3)
Sodium 131 L mmol/L
(135-145)
Carbon Dioxide 20 L mmol/L
(22-30)
Glucose 100 H mg/dl
(70-99)
Total Protein 6.2 L g/dl
(6.3-8.2)
Albumin 3.3 L g/dl
(3.5-5.0)
SARS-CoV-2 Antigen Positive A
(Negative)
05/13/24 18:43
05/13/24 18:43
Vital Signs
Initial and Last Documented VS:
Initial Vital Signs
Temp Pulse Resp BP Pulse Ox
98.6 F 87 31 125/50 94
05/13/24 18:27 05/13/24 18:27 05/13/24 18:27 05/13/24 18:27 05/13/24 18:27
Last Documented Vital Signs
Temp Pulse Resp BP Pulse Ox
98.6 F 88 27 109/52 96
05/13/24 18:27 05/13/24 20:00 05/13/24 20:00 05/13/24 20:00 05/13/24 20:52
MDM/Problems Addressed
Differential Diagnosis Includes:
Covid, dehydration
MDM/Problems Addressed:
89-year-old male who was recently admitted 05/04 to 05/11/2024 for right-sided empyema status post chest tube, is on 6 weeks of IV antibiotics, discharged to home with and personal Home Health Aides 8a-8p arranged by family.
Pt does not know why he was sent here. He denies pain anywhere, denies SOB, CP, Abd pain. He is noted to have an inter mittent cough.
Spoke with son Clifton, a physician, who states pt was sent home on 6 weeks of ceftriaxone, son spoke to pt two days ago and he 'sounded great, mentating well.' Today son got a message from one of the home health aides that pt is very weak and his
mental status has declined. Pt is on O2 3L NC at home.
Pts daughter visited him last week and notified the family today that she tested positive for COVID yesterday. Because of his decline today, the did a home Covid test which was positive. Son is in [place] and when home health aide told him he
had mental status changes he had them sent him to the ER.
Son states patient's is physically okay but not mentally. Pt would not be able to go home tonight.
Children just ordered a hospital bed that will be delivered tomorrow to be put on the first floor. Son states patient wants a at home.
Pt on amiodarone for A-fib, not a candidate for Paxlovid. No hypoxemia here.
CBC, CMP with no clinically significant abnormality
Pulse ox maintaining 95-96% on 3L N.C.
8:40 p.m.
Plan: Admit, Covid with decline in mental state.
Case Management to confirm proper home care available. Son, a physician, requests all communications go through him.
Hospitalist notified of admission.
*Critical Care Note
Total Time (30-74mins, 75-104mins- exclusive of procedures): Not Applicable
ED Attending Note
-
Portions of this chart may have been created with voice recognition software.� Occasional wrong word or��sound alike� substitutions may have occurred due to the inherent limitations of voice recognition software.
Discharge Plan
Departure
Patient Disposition: Admit
Date of Disposition: 05/13/24
Time of Disposition: 20:38
Admit to: Med/Surg
Presentation/result/management discussed w/ accepting MD/DO: Hospitalist
Condition: Fair
Covid-19: Confirmed COVID-19
Discharge Problem:
COVID-19, General weakness
Prescriptions:
No Action
amiodarone 200 mg tablet
200 mg PO DAILY
ceftriaxone 2 gram Recon Soln
2,000 mg IV Q24H Qty: 37 0RF
Rx Instructions:
completed 5 days in hospital, 37 further to complete 42 days (6 weeks)
Referrals:
UNKNOWN - PT NOT,INTERVIEWE [Family Provider] -
Interventions
Interventions:
*Risk Screen - Suicide Last Done: 05/13/24 18:27
*General Assessment Last Done: 05/13/24 18:27
*Neglect/Abuse Screening Last Done: 05/13/24 18:27
ED- Cardiac Assessment Last Done: 05/13/24 18:32
ED- Neurological Assessment Last Done: 05/13/24 18:32
ED- Pulmonary Assessment Last Done: 05/13/24 18:32
Discharge Date and Time
Print Language: MOZAMBICAN
[2024-05-13 20:00] VITALS: BP 109/52
--- NOTE | 2024-05-13 20:41 | HPS.HSE ---
Addendum entered and electronically signed by Jessica Rhoades DO 05/13/24 21:23:
I saw and examined the patient.
The SPEED OPERATOR's Jesica Pittman's note was reviewed. See Update Note dated 05/13/2024 for Attending attestation.
Original Note:
Family Physician
-
Family Physician: INTERVIEWE UNKNOWN - PT NOT
Chief Complaint
-
generalized weakness
History of Present Illness
89-year-old male who was recently admitted 05/04 to 05/11/2024 for right-sided empyema status post chest tube, is on 6 weeks of IV antibiotics, discharged to home with and personal Home Health Aides 8a-8p arranged by family. patient complained of
generalized weakness for past few days. he complained of cough. denied fever, chills, chest pain sob. denied abdominal pain,n,v.d. denied dysuria or hematuria.
Medical History
Past Medical History
Past Medical History: Reports Other
Additional Past Medical History:
A-fib
Prostate cancer
Emphyema
Past Surgical History: Reports Other
Additional Past Surgical History:
Left hip
Social History
Tobacco: Non-smoker
Alcohol: None
Drug: None
Personal:
Living: With Family
Family History
Family History: Not pertinent
Allergies / Home Medications
Allergies reflects when Allergies were last updated in [email or web address].
Home Medications with original date entered in [email or web address]
Allergy/Medication List:
Allergies
Allergy/AdvReac Type Severity Reaction Status Date / Time
No Known Allergies Allergy Verified 05/13/24 20:17
Home Medications
amiodarone 200 mg tablet 200 mg PO DAILY Arrhythmia 05/04/24
ceftriaxone 2 gram solution for injection 2,000 mg IV Q24H #37 ea 05/10/24
Review of Systems
-
Constitutional: Reports No Symptoms
EENT: Reports No Symptoms
Respiratory: Reports Cough
Cardiac: Reports No Symptoms
Abdomen/GI: Reports No Symptoms
: Reports No Symptoms
Musculoskeletal: Reports No Symptoms
Skin: Reports No Symptoms
Neurological: Reports Weakness
Endocrine: Reports No Symptoms
Hematologic/Lymphatic: Reports No Symptoms
Psych: Reports No Symptoms
Physical Exam
Vital Signs
Vital Signs
Temp Pulse Resp BP Pulse Ox
98.6 F 88 27 109/52 95
05/13/24 18:27 05/13/24 20:00 05/13/24 20:00 05/13/24 20:00 05/13/24 20:00
Physical Exam
General: Well Developed, Well Nourished and No Apparent Distress
HEENT: NormoCephalic, Moist mucous membranes and Atraumatic
Respiratory: Clear
Cardiac: S1/S2 and Regular Rhythm; No Murmur or Rub
GI: Soft, Non Tender, Non Distended and Normal Bowel Sounds; No Organomegaly
Rectal: Deferred by Provider
Musculoskeletal: No Clubbing, No Cyanosis and No Edema
Skin: No Rash
Neuro: Nonfocal/grossly intact
Psych: Calm
Laboratory Results
-
05/13/24 18:43
05/13/24 18:43
Laboratory Results
Total Bilirubin 0.3 mg/dl (0.2-1.3) 05/13/24 18:43
AST 35 U/L (17-59) 05/13/24 18:43
ALT 18 U/L (0-50) 05/13/24 18:43
Alkaline Phosphatase 90 U/L (38-126) 05/13/24 18:43
Data Reviewed
-
Diagnostic Radiology: Report Reviewed by me
Lab Data: Labs Reviewed by me
Impression/Plan
-
# Generalized weakness likely from acute COVID infection
-PT/OT consulted
# acute COVID-19 infection
-iv Decadron
-continue to monitor
-nebs prn for sob/wheezing
# Anemia of chronic disease
-Hemoglobin stable at 10.4
-No active bleeding
-Continue to monitor
# Hyponatremia likely hypovolemic
-Sodium 131
-Normal saline continued
# Recent R sided pleural effusion, suspected empyema
- recent episode in March s/p 1 week IV Abx (path was negative for malignancy)
- reoccurrence could be related to aspiration pneumonia per pulmonary. passed VSE
- s/p thoracentesis 05/04 with green/pus like drainage of 150 cc
- fluid culture growing strep species
- continue Ceftriaxone per ID x 6 weeks.
-Chest tube was placed on 05/05, removed on 829 with repeat x-ray showing improvement
#History of atrial fibrillation
#history of Bifascicular block
#History of nonischemic cardiomyopathy
- off AC due to fall risks
- continue Amiodarone
#History of prostate Ca s/p radical prostatectomy
#History of cerebellar stroke
#History of normal pressure hydrocephalus
Underweight
#DVT ppx: Lovenox
#Code: Full
--- NOTE | 2024-05-13 20:48 | W.PN.UPDATE ---
Update Note
Progress Note Update
I saw and examined the patient.
The PHYSICAL THERAPIST CENTER MANAGER Jesica Pittman's H&P was reviewed and I agree with the note with following editions below:
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
Ca s/p prostatectomy who presents to ER with gen weakness and cough since recent discharge from on 05/11. Pt is unhappy about returning. States his visiting home nurse was concerned for weakness and AMS. Pt also reports a cough with minimal
productive clear mucous x 2 days. Pt states he rarely uses his home oxygen, but has 2-3LNC prescribed. Denies fever, chills, dizziness/LH, CP, palps, wheezing, abd pain, n/v/d/c, dysuria, calf or leg pain.
ER course: Pt presents HR 95, BP 108/48, RR 22-31, Sat 92-95%, other V.S.S. WBC 8.0K, Hgb 10.4 g/dL, Na 131, BUN/Cr 19/0.8 (baseline), BG 100. COVID (+). CXR mod right perihilar atelectasis vs scarring, not significantly changed from 05/11 CXR.
Physical Exam:
GEN: AAOx3, Following commands, Frail appearing
HEENT: NCAT, Neck Supple, Dry MM, No oropharyngeal exudates
CVS: RRR, +S1/S2, No M/R/G
PULM: Diminished breath sounds, poor inspiratory effort
GI: Soft/NT/ND, +BS
: No fry, no CVA tenderness
EXT: MAEx4, Distal Pulses +2/4 symmetrically intact, No LE Edema
Neuro: No focal deficits. Generalized weakness UE/LE 4/5. Sensation intact throughout
Psych: Irritable
A/P:
Gen Weakness
- Likely 2/2 physical deconditioning and dehydration in setting of recent hospitalization and new covid illness
- No focal findings on exam. Defer neuro imaging at this time.
- TSH wnl 02/2024. Check B12 Levels
- Check orthostatics. Continue IVF
- Consult PT, pt would likely benefit from rehab, but has refused in past.
COVID-19
- New Diagnosis, (+) on admission 05/13/2024
- CXR relatively unchanged
- Does not appear to be any clear evidence of acute hypoxia
- Will trial pt on decadron with likely plan for quick prednisone taper
- Avoid paxlovid given amio use
- Will hold off on remdesevir and pt is eager for early discharge, 'does not understand why they brought him to hospital'
Chronic Hypoxic Resp Failure
- Pt has prescribed home O2 which he uses rarely, PRN
- Target SPO2>92%
- Hx recent right sided empyema (see plan below)
- Continue pulm toiletting - nebs, mucolytics, IS
Right Sided Empyema
- recent episode in March s/p 1 week IV Abx (path was negative for malignancy)
- reoccurrence could be related to aspiration pneumonia per pulmonary. passed VSE
- s/p thoracentesis 05/04 with green/pus like drainage of 150 cc
- Chest tube was placed on 05/05, removed on 829 with repeat x-ray showing improvement
- fluid culture growing strep species.
- Continue 2gm IV Rocephin Via PICC daily x 6 weeks
Hyponatremia
- Na 131 on admission
- Suspect hypoosmotic hyppovolemic etiology
- Continue NS and trend
- Consider fluid restriction
Hx CVA - Hx noted. Not on aspirin/statin therapy.
PAfib
- Sinus on exam
- Continue amiodarone, not on A.C.
Anemia of chronic disease
- Hgb 10.4 g/dL. At or near baseline. Follow trends
Hx Prostate cancer
-Status post prostatectomy
Diet: Cholesterol Lowering Diet
DVT PPx: Lovenox
Code Status: Full Code.
[2024-05-13 21:00] VITALS: BP 110/48
[2024-05-13 22:00] VITALS: BP 111/46
[2024-05-13 22:52] VITALS: BP 106/50; BMI 18.8
--- NOTE | 2024-05-13 23:18 | PTCARENOTE ---
Patient arrived from the ED via stretcher at approximately 2230. Patient pulled over from bed to stretcher x3 assist. Patient AAOx2 - disoriented to time. Patient forgetful/confused @ times, [place]. VSS as documented. Assessment as documented. Patient
oriented to room. Bed in lowest position. Bed alarm in place for patient safety. Call fletcher within reach.
[2024-05-13] MEDS: NSS 1000 IV (23:44)
[2024-05-13] MEDS: DECADRON IV (23:45)
[2024-05-14] VITALS (8 sets, daily range): BP systolic 89–120; BP diastolic 38–56; BMI 18.8
--- NOTE | 2024-05-14 01:09 | PTCARENOTE ---
Patient arrived from the ED via stretcher at approximately 2230. Patient pulled over from stretcher to bed x3 assist. Patient AAOx2 - disoriented to time. Patient forgetful/confused @ times, [place]. VSS as documented. Assessment as documented. Patient
oriented to room. Bed in lowest position. Bed alarm in place for patient safety. Call fletcher within reach.
[2024-05-14 06:08] LABS: % Basophils 1.3 % (0-2); % Eosinophils 3.6 % (0-6); % Immature Granulocytes 0.5 % (0-0.5); % Lymphocytes 35.7 % (20.5-51.1); % Monocytes 12.6 % (1.7-9.3); % Neutrophils 46.3 % (42.2-75.2); Absolute Basophils 0.1 10^3/uL (0-0.2); Absolute Eosinophils 0.2 10^3/uL (0-0.7); Absolute Monocytes 0.7 10^3/uL (0.1-0.6); Absolute Neutrophils 2.6 10^3/uL (1.4-6.5); Hematocrit 29.4 % (39.0-52.0); Mean Corpuscular Hgb 30.5 pg (27.0-31.0); Mean Corpuscular Volume 89.6 fL (80.0-94.0); Mean Platelet Volume 8.9 fL (7.4-10.4); Nucleated Red Blood Cells % 0 % (-); Platelet Count 219 10^3/uL (130-400); Red Blood Cell Count 3.28 10^6/uL (4.70-6.10); Red Cell Dist. Width 16.7 % (11.5-14.5); White Blood Cell Count 5.5 10^3/uL (4.8-10.8)
[2024-05-14 06:21] LABS: D-Dimer 1.82 ug/mlFEU (0.00-0.50)
[2024-05-14 06:30] LABS: Blood Urea Nitrogen 18 mg/dl (9-20); Calcium 8.6 mg/dl (8.4-10.2); Carbon Dioxide 24 mmol/L (22-30); Chloride 101 mmol/L (98-107); Estimated Creatinine Clearance 53 ml/min; Glucose 87 mg/dl (70-99); Potassium 4.3 mmol/L (3.5-5.1); Sodium 134 mmol/L (135-145); eGFR > 60.00
[2024-05-14 07:22] LABS: Vitamin B12 661 pg/ml (239-931)
[2024-05-14] MEDS: PACERONE 200 MG PO (09:08)
[2024-05-14] MEDS: DECADRON IV ×2 (09:09→09:24)
--- NOTE | 2024-05-14 09:23 | PTCARENOTE ---
pt refusing morning does of Decadron. Dr. Alvarado notified.
--- NOTE | 2024-05-14 11:09 | PTCARENOTE ---
spoke with pts son Babatunde and gave update.
[2024-05-14] MEDS: NSS 1000 IV (11:25)
[2024-05-14] MEDS: DECADRON 6 MG IV (11:26)
--- NOTE | 2024-05-14 11:39 | PTCARENOTE ---
pt pressure 96/[address] Alvarado notfied- hold BP meds.
--- NOTE | 2024-05-14 12:38 | W.PN.HOSP.TC ---
Today's Communication/Plan
-
see A/P
Assessment / Plan
Assessment / Plan
HPI: 89-year-old male who was recently admitted 05/04 to 05/11/2024 for right-sided empyema status post chest tube, was on 6 weeks of IV antibiotics, discharged to home with and personal Home Health Aides 8a-8p arranged by family. Patient
returned complaining of generalized weakness for past few days. Also with cough.
Denied fever, chills, chest pain, SOB.
A/P:
# Generalized weakness likely from acute COVID infection
PT/OT consulted
# acute COVID-19 infection
On 2L NC
Check sat on RA
son prefers NO Paxlovid due to interaction with amiodarone
If requires O2, could consider adding remD with current IV Decadron
Albuterol inhaler PRN for sob/wheezing
# Anemia of chronic disease
Hemoglobin stable at 10.4
No active bleeding
Continue to monitor
# Mild Hyponatremia
s/p NSS
# Recent R sided pleural effusion, suspected empyema
# reoccurrence could be related to aspiration pneumonia per pulmonary.
Passed VSE
s/p thoracentesis 05/04 with green/pus like drainage of 150 cc
fluid culture growing strep species
continue Ceftriaxone per ID x 6 weeks.
Chest tube was placed on 05/05, removed on 05/10 with repeat x-ray showing improvement
# History of atrial fibrillation
# history of Bifascicular block
# History of nonischemic cardiomyopathy
off AC due to fall risks
continue Amiodarone
# History of prostate Ca s/p radical prostatectomy
# History of cerebellar stroke
# History of normal pressure hydrocephalus
# Underweight
DVT ppx: Lovenox SQ
Code: Full
DW RN
updated son on the phone
Anticipated Discharge: 24 - 48 hours
Subjective/Interval History
-
Date of Service: May 14, 2024
Objective Data
-
Labs:
Laboratory Results
05/14/24
06:02
WBC 5.5
Hgb 10.0 L
Hct 29.4 L
Plt Count 219
Sodium 134 L
Potassium 4.3
Chloride 101
Carbon Dioxide 24
BUN 18
Creatinine 0.8
Glucose 87
Calcium 8.6
Vital Signs:
Vital Signs
Temp Pulse Resp BP Pulse Ox
36.4 C 73 18 96/38 93
05/14/24 11:25 05/14/24 11:25 05/14/24 11:25 05/14/24 11:36 05/14/24 11:25
I&O
05/13/24 05/14/24 05/15/24
06:59 06:59 06:59
Intake Total 450 / 450
Balance 450 / 450
Review of Systems
-
Constitutional: Reports Fatigue
Physical Exam
-
General: Well Developed, Well Nourished, Comfortable and Conversant
HEENT: Normocephalic, Atraumatic and Oxygen (2L NC)
Respiratory: Clear to Auscultation, Wheezes and Non Labored Respirations; Negative Accessory Resp Muscle Use
Cardiac: Regular Rhythm and S1/S2
GI: Soft
Neuro: Awake and Alert
Psych: Calm and Intact Judgement/Insight
Data Reviewed
-
Labs: Labs Reviewed by me
[2024-05-14] MEDS: STERILE WATER FOR INJECTION 20 ML IV (13:18)
[2024-05-14] MEDS: ROCEPHIN 2000 MG IV (13:19)
--- NOTE | 2024-05-14 13:34 | PTCARENOTE ---
pulse ox check per Dr. Alvarado. Patient stating at 95% on 3L of 02. Pt dropped to 90% on room air. Pt stated that at home he keeps it above 89%. Pt wanted 2L of 02 on prior to me leaving the room. Dr. Alvarado notified.
[2024-05-14] MEDS: NSS 30 IV (14:27)
[2024-05-14] MEDS: VEKLURY 250 MG IV (14:27)
--- NOTE | 2024-05-14 14:36 | CM ---
Reviewed the chart notes and spoke with the patient via telephone due to Covid + status. The patient is being admitted under observational status. The [facility] letter was provided and explained. The patient had no questions with regards to the letter.
The patient was recently hospitalized (05/04-05/11) and discharged to home with [facility] and [facility] for IV abx. The patient resides with his spouse in a two story home with 11 steps to enter. The patient has a rolling walker, home O2, and a
stair glide. The patient has a caregiver five days a week from 8am-8pm. The patient confirmed his pharmacy of choice is [facility]. CM continues to be available to patient/family and is monitoring medical plan for needs at discharge.
Plan: Discharge plans will depend on the patient's progress. Per PT evaluation, patient is a max assist of 2 for bed mobility.
[2024-05-14] MEDS: NSS 250 IV (17:10)
[2024-05-15 03:15] VITALS: BP 101/42
[2024-05-15 04:59] LABS: % Basophils 0.2 % (0-2); % Immature Granulocytes 0.7 % (0-0.5); % Lymphocytes 25.7 % (20.5-51.1); % Monocytes 7.2 % (1.7-9.3); % Neutrophils 66.2 % (42.2-75.2); Absolute Lymphocytes 1.5 10^3/uL (1.2-3.4); Absolute Monocytes 0.4 10^3/uL (0.1-0.6); Absolute Neutrophils 3.8 10^3/uL (1.4-6.5); Hematocrit 29.9 % (39.0-52.0); Hemoglobin 9.9 g/dL (13.0-18.0); Mean Corp Hgb Conc. 33.1 g/dL (33.0-37.0); Mean Corpuscular Hgb 29.9 pg (27.0-31.0); Mean Corpuscular Volume 90.3 fL (80.0-94.0); Mean Platelet Volume 9.2 fL (7.4-10.4); Nucleated Red Blood Cells % 0 % (-); Platelet Count 241 10^3/uL (130-400); Red Blood Cell Count 3.31 10^6/uL (4.70-6.10); Red Cell Dist. Width 16.4 % (11.5-14.5); White Blood Cell Count 5.7 10^3/uL (4.8-10.8)
[2024-05-15 05:23] LABS: Blood Urea Nitrogen 25 mg/dl (9-20); Calcium 9.1 mg/dl (8.4-10.2); Carbon Dioxide 23 mmol/L (22-30); Chloride 103 mmol/L (98-107); Estimated Creatinine Clearance 60 ml/min; Glucose 103 mg/dl (70-99); Potassium 4.5 mmol/L (3.5-5.1); Sodium 135 mmol/L (135-145); eGFR > 60.00
[2024-05-15 07:35] VITALS: BP 105/44
[2024-05-15] MEDS: PACERONE 200 MG PO (08:44)
[2024-05-15] MEDS: DECADRON 6 MG IV (08:44)
--- NOTE | 2024-05-15 11:02 | W.PN.HOSP.TC ---
Today's Communication/Plan
-
see A/P
Assessment / Plan
Assessment / Plan
HPI: 89-year-old male who was recently admitted 05/04 to 05/11/2024 for right-sided empyema status post chest tube, was on 6 weeks of IV antibiotics, discharged to home with and personal Home Health Aides 8a-8p arranged by family. Patient
returned complaining of generalized weakness for past few days. Also with cough.
Denied fever, chills, chest pain, SOB.
A/P:
# Generalized weakness likely from acute COVID infection
PT/OT recc HH vs SNF
# acute COVID-19 infection
remained on 2L NC
son prefers NO Paxlovid due to interaction with AUTOMOBILE BODY REPAIRER HELPER amiodarone
Added remD with IV Decadron for persistent hypoxia
Albuterol inhaler PRN for sob/wheezing
# Elevated d dimer
PE ruled out
Check US legs
# Anemia of chronic disease
Hemoglobin stable at 10.4
No active bleeding
Continue to monitor
# Mild Hyponatremia, resolved
s/p NSS
# Recent R sided pleural effusion, suspected empyema
# reoccurrence could be related to aspiration pneumonia per pulmonary.
Passed VSE
s/p thoracentesis 05/04 with green/pus like drainage of 150 cc
fluid culture growing strep species
continue Ceftriaxone per ID x 6 weeks.
Chest tube was placed on 05/05, removed on 05/10 with repeat x-ray showing improvement
# History of atrial fibrillation
# history of Bifascicular block
# History of nonischemic cardiomyopathy
off AC due to fall risks
continue Amiodarone
# History of prostate Ca s/p radical prostatectomy
# History of cerebellar stroke
# History of normal pressure hydrocephalus
# Underweight
DVT ppx: Lovenox SQ
Code: Full
left voicemail for son
Anticipated Discharge: 24 - 48 hours
Subjective/Interval History
-
Date of Service: May 15, 2024
Objective Data
-
Labs:
Laboratory Results
05/15/24
04:17
WBC 5.7
Hgb 9.9 L
Hct 29.9 L
Plt Count 241
Sodium 135
Potassium 4.5
Chloride 103
Carbon Dioxide 23
BUN 25 H
Creatinine 0.7
Glucose 103 H
Calcium 9.1
Vital Signs:
Vital Signs
Temp Pulse Resp BP Pulse Ox
36.3 C 66 16 105/44 94
05/15/24 07:35 05/15/24 08:44 05/15/24 07:35 05/15/24 08:44 05/15/24 07:35
I&O
05/14/24 05/15/24 05/16/24
06:59 06:59 06:59
Intake Total 450 / 450 2089
Output Total 1200 / 1200
Balance 450 / 450 890 / 890
Review of Systems
-
Constitutional: Reports Fatigue
Physical Exam
-
General: Well Developed, Well Nourished, Comfortable and Conversant
HEENT: Normocephalic, Atraumatic and Oxygen (2L NC)
Respiratory: Clear to Auscultation and Non Labored Respirations; Negative Accessory Resp Muscle Use
Cardiac: Regular Rhythm and S1/S2
GI: Soft
Neuro: Awake and Alert
Psych: Calm and Intact Judgement/Insight
Data Reviewed
-
CT Scan: Report Reviewed by me
Labs: Labs Reviewed by me
[2024-05-15 11:47] VITALS: BP 110/43
[2024-05-15] MEDS: STERILE WATER FOR INJECTION 20 ML IV (13:38)
[2024-05-15] MEDS: VEKLURY 250 MG IV (13:38)
[2024-05-15] MEDS: NSS 30 IV (13:39)
[2024-05-15] MEDS: ROCEPHIN 2000 MG IV (14:41)
[2024-05-15 15:55] VITALS: BP 115/48
[2024-05-15 19:13] VITALS: BP 123/44
[2024-05-15 23:04] VITALS: BP 105/44
[2024-05-16] VITALS (7 sets, daily range): BP systolic 104–137; BP diastolic 41–70; PULSE 75–83; O2SAT 83
[2024-05-16 06:45] LABS: % Basophils 0.1 % (0-2); % Immature Granulocytes 0.6 % (0-0.5); % Lymphocytes 24.9 % (20.5-51.1); % Monocytes 6.2 % (1.7-9.3); % Neutrophils 68.2 % (42.2-75.2); Absolute Immature Granulocytes 0.1 10^3/uL (0-0.05); Absolute Monocytes 0.5 10^3/uL (0.1-0.6); Absolute Neutrophils 5.4 10^3/uL (1.4-6.5); Hematocrit 29.2 % (39.0-52.0); Hemoglobin 9.8 g/dL (13.0-18.0); Mean Corp Hgb Conc. 33.6 g/dL (33.0-37.0); Mean Corpuscular Hgb 29.5 pg (27.0-31.0); Mean Platelet Volume 9.2 fL (7.4-10.4); Nucleated Red Blood Cells % 0 % (-); Platelet Count 271 10^3/uL (130-400); Red Blood Cell Count 3.32 10^6/uL (4.70-6.10); Red Cell Dist. Width 16.4 % (11.5-14.5); White Blood Cell Count 7.9 10^3/uL (4.8-10.8)
[2024-05-16 07:35] LABS: Blood Urea Nitrogen 26 mg/dl (9-20); Carbon Dioxide 21 mmol/L (22-30); Chloride 107 mmol/L (98-107); Estimated Creatinine Clearance 60 ml/min; Glucose 94 mg/dl (70-99); Potassium 4.7 mmol/L (3.5-5.1); Sodium 135 mmol/L (135-145); eGFR > 60.00
[2024-05-16] MEDS: DECADRON 6 MG IV (08:48)
[2024-05-16] MEDS: PACERONE 200 MG PO (08:49)
[2024-05-16] MEDS: VEKLURY 250 MG IV (11:36)
[2024-05-16] MEDS: NSS 30 IV (11:36)
--- NOTE | 2024-05-16 12:18 | W.PN.HOSP.TC ---
Today's Communication/Plan
-
see A/P
Assessment / Plan
Assessment / Plan
HPI: 89-year-old male who was recently admitted 05/04 to 05/11/2024 for right-sided empyema status post chest tube, was on 6 weeks of IV antibiotics, discharged to home with and personal Home Health Aides 8a-8p arranged by family. Patient
returned complaining of generalized weakness for past few days. Also with cough.
Denied fever, chills, chest pain, SOB.
A/P:
# Generalized weakness likely from acute COVID infection
PT/OT recc HH vs SNF
# acute COVID-19 infection
remained on 2L NC
son prefers NO Paxlovid due to interaction with COLLECTION SYSTEMS CONSULTANT amiodarone
Cont remD with IV Decadron for persistent hypoxia
Albuterol inhaler PRN for sob/wheezing
# Elevated d dimer
PE ruled out
US legs negative for DVT
# Anemia of chronic disease
Hemoglobin stable at 9.8 today
No active bleeding
Continue to monitor
# Mild Hyponatremia, resolved
s/p NSS
# Recent R sided pleural effusion, suspected empyema
# reoccurrence could be related to aspiration pneumonia per pulmonary.
Passed VSE
s/p thoracentesis 05/04 with green/pus like drainage of 150 cc
fluid culture growing strep species
continue Ceftriaxone per ID x 6 weeks.
Chest tube was placed on 05/05, removed on 05/10 with repeat x-ray showing improvement
# History of atrial fibrillation
# history of Bifascicular block
# History of nonischemic cardiomyopathy
off AC due to fall risks
continue Amiodarone
# History of prostate Ca s/p radical prostatectomy
# History of cerebellar stroke
# History of normal pressure hydrocephalus
# Underweight
DVT ppx: Lovenox SQ
Code: Full
Anticipated Discharge: > 48 hours
Subjective/Interval History
-
Date of Service: May 16, 2024
Objective Data
-
Labs:
Laboratory Results
05/16/24
06:16
WBC 7.9
Hgb 9.8 L
Hct 29.2 L
Plt Count 271
Sodium 135
Potassium 4.7
Chloride 107
Carbon Dioxide 21 L
BUN 26 H
Creatinine 0.7
Glucose 94
Calcium 9.0
Vital Signs:
Vital Signs
Temp Pulse Resp BP Pulse Ox
36.3 C 83 16 137/59 93
05/16/24 11:56 05/16/24 11:56 05/16/24 11:56 05/16/24 11:56 05/16/24 11:56
I&O
05/15/24 05/16/24 05/17/24
06:59 06:59 06:59
Intake Total 2089 / 2089 1920 / 1920
Output Total 1200 / 1200 600 / 600
Balance 890 / 890 1320 / 1320
Review of Systems
-
All other systems: Reviewed and negative
Physical Exam
-
General: Well Developed, Well Nourished, Comfortable and Conversant
HEENT: Normocephalic, Atraumatic and Oxygen (2L NC)
Respiratory: Clear to Auscultation and Non Labored Respirations; Negative Accessory Resp Muscle Use
Cardiac: Regular Rhythm and S1/S2
GI: Soft
Neuro: Awake and Alert
Psych: Calm and Intact Judgement/Insight
Data Reviewed
-
CT Scan: Report Reviewed by me
Ultrasound: Report Reviewed by me
Labs: Labs Reviewed by me
[2024-05-16] MEDS: ROCEPHIN 2000 MG IV (13:06)
[2024-05-16] MEDS: STERILE WATER FOR INJECTION 20 ML IV (13:07)
--- NOTE | 2024-05-16 15:01 | CM ---
Reviewed the chart notes and spoke with the patient via telephone due to Covid + status. Discussed with the patient PT's recommendation of SNf/rehab prior to transitioning back to home. Patient is adamant that he wants to return to home with home
health aide and [facility]. Referral sent to [facility] via [facility]. CM continues to be available to patient/family and is monitoring medical plan for needs at discharge.
Plan: Discharge to home with resumption of [facility] and home health aides.
--- NOTE | 2024-05-16 15:27 | PN.CDI ---
CDI
- -
CDI:
Physician Documentation Request
Admit Date: 05/15/24 11:03
Dear Doctor Jenny,
Please review the following and provide your response in the progress notes.
Clinical Indicators:
Skin Assessment, 05/13
Selected Entries
05/14/24
02:36
Pressure injury stage [Present on admission Generalized Sacrum] Stage 1
Physician documentation of the type and location of wounds is required for compliant documentation. Based on the above clinical findings and your assessment, please provide the following in your progress note:
Yes, Stage 1 sacrum pressure injury, POA
No, Stage 1 sacrum pressure injury
Other(please specify)
1. Location of the ulcer/wound, including laterality.
2. Type (etiology) of ulcer/wound:
- Diabetic ulcer
- Arterial (ischemic) ulcer
- Traumatic wound
- Venous stasis ulcer
- Pressure (decubitus) ulcer
3. If a pressure ulcer, please also include the stage* of the ulcer:
- Stage 1 - Skin intact, non-blanchable redness
- Stage 2 - Partial thickness loss of dermis, includes intact or open blister
- Stage 3 - Full thickness tissue not including bone, tendon or muscle
- Stage 4 - Full thickness tissue loss, including exposed bone, tendon or muscle
Use of terms such as suspected, likely, concern for, or probable (associated with a specific diagnosis that is being evaluated, monitored, or treated as if it exists) are acceptable and can be coded in the inpatient setting, when documented at the
time of discharge.
Thank you,
Lori Almodovar RN BSN CCDS
CDI Specialist
please contact via tiger text
Please use your independent medical judgment in providing your response.
*Source: National Pressure Ulcer Advisory Panel (NPUAP)
[2024-05-17 02:47] VITALS: BP 101/47
[2024-05-17 06:31] LABS: % Basophils 0.1 % (0-2); % Immature Granulocytes 0.4 % (0-0.5); % Lymphocytes 27.9 % (20.5-51.1); % Monocytes 6.6 % (1.7-9.3); Absolute Lymphocytes 2.1 10^3/uL (1.2-3.4); Absolute Monocytes 0.5 10^3/uL (0.1-0.6); Absolute Neutrophils 4.9 10^3/uL (1.4-6.5); Hematocrit 28.5 % (39.0-52.0); Hemoglobin 9.6 g/dL (13.0-18.0); Mean Corp Hgb Conc. 33.7 g/dL (33.0-37.0); Mean Corpuscular Hgb 29.4 pg (27.0-31.0); Mean Corpuscular Volume 87.4 fL (80.0-94.0); Mean Platelet Volume 9.1 fL (7.4-10.4); Nucleated Red Blood Cells % 0 % (-); Platelet Count 269 10^3/uL (130-400); Red Blood Cell Count 3.26 10^6/uL (4.70-6.10); Red Cell Dist. Width 16.5 % (11.5-14.5); White Blood Cell Count 7.6 10^3/uL (4.8-10.8)
[2024-05-17 06:50] LABS: Blood Urea Nitrogen 28 mg/dl (9-20); Carbon Dioxide 20 mmol/L (22-30); Chloride 104 mmol/L (98-107); Estimated Creatinine Clearance 60 ml/min; Glucose 87 mg/dl (70-99); Potassium 4.4 mmol/L (3.5-5.1); Sodium 137 mmol/L (135-145); eGFR > 60.00
[2024-05-17 07:39] VITALS: BP 115/46
[2024-05-17] MEDS: DECADRON 6 MG IV (08:48)
[2024-05-17] MEDS: PACERONE 200 MG PO (08:48)
--- NOTE | 2024-05-17 10:18 | W.PN.HOSP.TC ---
Addendum entered and electronically signed by Ora Alvarado MD 05/17/24 11:33:
# Stage 1 sacrum pressure injury, POA
Original Note:
Today's Communication/Plan
-
see A/P
Assessment / Plan
Assessment / Plan
HPI: 89-year-old male who was recently admitted 05/04 to 05/11/2024 for right-sided empyema status post chest tube, was on 6 weeks of IV antibiotics, discharged to home with and personal Home Health Aides 8a-8p arranged by family. Patient
returned complaining of generalized weakness for past few days. Also with cough.
Denied fever, chills, chest pain, SOB.
A/P:
# Generalized weakness likely from acute COVID infection
PT/OT recc HH vs SNF
# acute COVID-19 infection
remained on 2L NC
son prefers NO Paxlovid due to interaction with ASSEMBLY SUPERVISOR amiodarone
Cont remD with IV Decadron for persistent hypoxia
Albuterol inhaler PRN for sob/wheezing
# Elevated d dimer
PE ruled out
US legs negative for DVT
# Anemia of chronic disease
Hemoglobin stable at 9.8 today
No active bleeding
Continue to monitor
# Mild Hyponatremia, resolved
s/p NSS
# Recent R sided pleural effusion, suspected empyema
# reoccurrence could be related to aspiration pneumonia per pulmonary.
Passed VSE
s/p thoracentesis 05/04 with green/pus like drainage of 150 cc
fluid culture growing strep species
continue Ceftriaxone per ID x 6 weeks.
Chest tube was placed on 05/05, removed on 05/10 with repeat x-ray showing improvement
# History of atrial fibrillation
# history of Bifascicular block
# History of nonischemic cardiomyopathy
off AC due to fall risks
continue Amiodarone
# History of prostate Ca s/p radical prostatectomy
# History of cerebellar stroke
# History of normal pressure hydrocephalus
# Underweight
DVT ppx: Lovenox SQ
Code: Full
DW RN
updated son on the phone
Anticipated Discharge: Within 24 hours
Subjective/Interval History
-
Date of Service: May 17, 2024
Objective Data
-
Labs:
Laboratory Results
05/17/24
06:15
WBC 7.6
Hgb 9.6 L
Hct 28.5 L
Plt Count 269
Sodium 137
Potassium 4.4
Chloride 104
Carbon Dioxide 20 L
BUN 28 H
Creatinine 0.7
Glucose 87
Calcium 9.0
Vital Signs:
Vital Signs
Temp Pulse Resp BP Pulse Ox
36.3 C 65 16 115/46 98
05/17/24 07:39 05/17/24 07:39 05/17/24 07:39 05/17/24 07:39 05/17/24 07:39
I&O
05/16/24 05/17/24 05/18/24
06:59 06:59 06:59
Intake Total 1920 / 1920 960 / 960
Output Total 600 / 600 475 / 475
Balance 1320 / 1320 485 / 485
Review of Systems
-
All other systems: Reviewed and negative
Physical Exam
-
General: Well Developed, Well Nourished, Comfortable and Conversant
HEENT: Normocephalic, Atraumatic and Oxygen (2L NC)
Respiratory: Clear to Auscultation and Non Labored Respirations; Negative Accessory Resp Muscle Use
Cardiac: Regular Rhythm and S1/S2
GI: Soft
Neuro: Awake and Alert
Psych: Calm and Intact Judgement/Insight
Data Reviewed
-
CT Scan: Report Reviewed by me
Ultrasound: Report Reviewed by me
Labs: Labs Reviewed by me
[2024-05-17 11:45] VITALS: BP 115/48
[2024-05-17] MEDS: VEKLURY 250 MG IV (12:38)
[2024-05-17] MEDS: NSS 30 IV (12:39)
[2024-05-17] MEDS: ROCEPHIN 2000 MG IV (14:05)
[2024-05-17] MEDS: STERILE WATER FOR INJECTION 20 ML IV (14:05)
[2024-05-17 15:49] VITALS: BP 123/48
--- NOTE | 2024-05-17 16:03 | CM ---
Reviewed the chart notes and spoke with the patient via telephone due to Covid + status. Reviewed IMM and placed on chart. Patient continues with wanting to return to home with resumption of VN. CM continues to be available to patient/family and
is monitoring medical plan for needs at discharge.
Plan: Discharge to home with resumption of [facility] and home health aides.
[2024-05-17 19:57] VITALS: BP 123/53
[2024-05-17 23:21] VITALS: BP 115/47
[2024-05-18 03:11] VITALS: BP 98/41
[2024-05-18 04:48] LABS: % Immature Granulocytes 0.7 % (0-0.5); % Lymphocytes 29.1 % (20.5-51.1); % Monocytes 8.4 % (1.7-9.3); % Neutrophils 61.8 % (42.2-75.2); Absolute Immature Granulocytes 0.1 10^3/uL (0-0.05); Absolute Lymphocytes 2.2 10^3/uL (1.2-3.4); Absolute Monocytes 0.6 10^3/uL (0.1-0.6); Absolute Neutrophils 4.7 10^3/uL (1.4-6.5); Hematocrit 29.6 % (39.0-52.0); Mean Corp Hgb Conc. 33.8 g/dL (33.0-37.0); Mean Corpuscular Volume 88.9 fL (80.0-94.0); Mean Platelet Volume 9.2 fL (7.4-10.4); Nucleated Red Blood Cells % 0 % (-); Platelet Count 268 10^3/uL (130-400); Red Blood Cell Count 3.33 10^6/uL (4.70-6.10); Red Cell Dist. Width 16.3 % (11.5-14.5); White Blood Cell Count 7.5 10^3/uL (4.8-10.8)
[2024-05-18 05:02] LABS: Blood Urea Nitrogen 29 mg/dl (9-20); Calcium 9.1 mg/dl (8.4-10.2); Carbon Dioxide 20 mmol/L (22-30); Chloride 103 mmol/L (98-107); Estimated Creatinine Clearance 60 ml/min; Glucose 91 mg/dl (70-99); Potassium 4.5 mmol/L (3.5-5.1); Sodium 135 mmol/L (135-145); eGFR > 60.00
[2024-05-18 07:55] VITALS: BP 118/46
[2024-05-18] MEDS: DECADRON 6 MG IV (09:04)
[2024-05-18] MEDS: PACERONE 200 MG PO (09:04)
--- NOTE | 2024-05-18 10:06 | W.PN.HOSP.TC ---
Addendum entered and electronically signed by Ora Alvarado MD 05/18/24 12:55:
total DC time 36 min
Original Note:
Today's Communication/Plan
-
see A/P
Assessment / Plan
Assessment / Plan
HPI: 89-year-old male who was recently admitted 05/04 to 05/11/2024 for right-sided empyema status post chest tube, was on 6 weeks of IV antibiotics, discharged to home with and personal Home Health Aides 8a-8p arranged by family. Patient
returned complaining of generalized weakness for past few days. Also with cough.
Denied fever, chills, chest pain, SOB.
A/P:
# Generalized weakness likely from acute COVID infection
PT/OT recc HH vs SNF. Pt prefers HH.
# acute COVID-19 infection
weaned off 2L NC to RA (sat 95%)
with resolution of hypoxia, no need for further RemD (received 4 days) or Decadron.
Albuterol inhaler PRN for sob/wheezing
# Elevated d dimer
PE ruled out
US legs negative for DVT
# Anemia of chronic disease
Hemoglobin stable at 9.8 today
No active bleeding
Continue to monitor
# Mild Hyponatremia, resolved
s/p NSS
# Recent R sided pleural effusion, suspected empyema
# reoccurrence could be related to aspiration pneumonia per pulmonary.
Passed VSE
s/p thoracentesis 05/04 with green/pus like drainage of 150 cc
fluid culture growing strep species
continue Ceftriaxone per ID x 6 weeks.
Chest tube was placed on 05/05, removed on 05/10 with repeat x-ray showing improvement
# History of atrial fibrillation
# history of Bifascicular block
# History of nonischemic cardiomyopathy
off AC due to fall risks
continue Amiodarone
# History of prostate Ca s/p radical prostatectomy
# History of cerebellar stroke
# History of normal pressure hydrocephalus
# Underweight
DVT ppx: Lovenox SQ
Code: Full
DW RN
updated son on the phone
DW pt's [facility]pt [facility], who will help make follow up appointment in coming week.
Anticipated Discharge: Today
Subjective/Interval History
-
Date of Service: May 18, 2024
Objective Data
-
Labs:
Laboratory Results
05/18/24
04:17
WBC 7.5
Hgb 10.0 L
Hct 29.6 L
Plt Count 268
Sodium 135
Potassium 4.5
Chloride 103
Carbon Dioxide 20 L
BUN 29 H
Creatinine 0.7
Glucose 91
Calcium 9.1
Vital Signs:
Vital Signs
Temp Pulse Resp BP Pulse Ox
36.3 C 66 16 118/46 95
05/18/24 07:55 05/18/24 09:04 05/18/24 07:55 05/18/24 09:04 05/18/24 07:55
I&O
05/17/24 05/18/24 05/19/24
06:59 06:59 06:59
Intake Total 960 / 960 1680 / 1680
Output Total 475 / 475 850 / 850
Balance 485 / 485 830 / 830
Review of Systems
-
All other systems: Reviewed and negative
Physical Exam
-
General: Well Developed, Well Nourished, Comfortable and Conversant
HEENT: Normocephalic and Atraumatic; Negative Oxygen
Respiratory: Clear to Auscultation and Non Labored Respirations; Negative Accessory Resp Muscle Use
Cardiac: Regular Rhythm and S1/S2
GI: Soft
Neuro: Awake and Alert
Psych: Calm and Intact Judgement/Insight
Data Reviewed
-
CT Scan: Report Reviewed by me
Ultrasound: Report Reviewed by me
Labs: Labs Reviewed by me
--- NOTE | 2024-05-18 10:44 | CM ---
Addendum entered by Romina Lewis RN 05/18/24 12:11:
Faxed clinicals and rx for resumption of home IV abx to [facility].
Addendum entered by Romina Lewis RN 05/18/24 11:42:
Patient will be going via ambulance.
Medical necessity and transport forms on chart.
Son informed.
Addendum entered by Romina Lewis RN 05/18/24 10:50:
CM updated son Babatunde regarding discharge plans via telephone.
Addendum entered by Romina Lewis RN 05/18/24 10:48:
[facility] fax: [phone]
Original Note:
Reviewed the chart notes. Patient is being discharged to home today. CM continues to be available to patient/family and is monitoring medical plan for needs at discharge.
Plan: Discharge to home with resumption of [facility] and [facility] for IV abx.
[2024-05-18 11:20] VITALS: BP 110/48
--- NOTE | 2024-05-18 12:38 | W.DCSUMMARY ---
Discharge Summary
Discharge Data
Date of Admission: 05/15/24
Date of Discharge: 05/18/24
-
Pending Results: No
Hospital Course
Principal Diagnosis:
Acute COVID-19 infection
Chronic Diagnoses:�
Anemia of chronic disease
Recent Right sided pleural effusion/suspected empyema s/p chest tube placement and subsequent removal; continue IV antibiotic ceftriaxone for total 6 weeks
History of atrial fibrillation
History of Bifascicular block
History of nonischemic cardiomyopathy
History of prostate Ca s/p radical prostatectomy
History of cerebellar stroke
History of normal pressure hydrocephalus
Consultations:�
None
Procedures:�
None
Clinical course:�
This is a 89-year-old male with past medical history as stated above, who presented with generalized weakness and mild cough.
Problem 1:
Generalized weakness due to acute COVID infection.
Although he was recommended by PT OT for SNF, the patient prefers to go home with home health.
Problem 2:
Acute COVID-19 infection.
He initially required 2 L nasal cannula, and for this reason, he was started with remdesivir and IV Decadron.
Oxygen was later weaned off with good saturation (95% on room air), hence no further remdesivir was needed (he received 4 days during his hospital stay).
His D-dimer was noted to be elevated at 1.82, which was likely due to acute COVID infection; VTE was ruled out with negative PE and bilateral lower extremity ultrasound.
As for the rest of his medical problems, they were stable during his hospital stay.
Discharge Plan
-
Patient Disposition: Home with Home Care
Discharge Diagnosis/Procedures: Acute COVID-19 infection with resolved hypoxia (received RemD x4 days and Decadron during hospital stay);
Recent R sided empyema status post chest tube on ceftriaxone
Condition: Fair
Diet: As tolerated, Low Fat, Low Cholesterol and Low Sodium
Activity: As tolerated
Driving Restrictions: Not until seen by your Dr
Activity Restrictions/Additional Instructions:
Continue COVID isolation for 5 more days
Referrals:
Jeannine Brady MD [Family Provider] - in less than 1 week
[facility] MD [Active] - in one week
Prescriptions:
Continued
amiodarone 200 mg tablet
200 mg PO DAILY
ceftriaxone 2 gram Recon Soln
2,000 mg IV Q24H Qty: 37 0RF
Rx Instructions:
completed 5 days in hospital, 37 further to complete 42 days (6 weeks)
Discharge Orders:
Discharge Patient (As Directed); Ordered 05/18/24
Ordered By: Ora Alvarado
Discharge Date and Time
Print Language: OCCITAN
[2024-05-18] MEDS: NSS IV (12:41)
[2024-05-18] MEDS: STERILE WATER FOR INJECTION 20 ML IV (13:17)
[2024-05-18] MEDS: ROCEPHIN 2000 MG IV (13:17)
--- NOTE | 2024-05-18 14:39 | PTCARENOTE ---
Patient discharged home, transported by [facility]. This RN removed patient's tele pack, patient dressed and patient's belongings gathered in room with assistance of tech. Condom catheter removed and patient dressed in brief. R PICC left in
place for course of IV abx at home. Discharge instructions and medications reviewed with patient, patient verbalized understanding. Copy of discharge paperwork placed in patient's bag to take home, bag handed to transport team, phone given to
patient to hold per patient's request.
== END 2024-05-18 14:51 | disposition home health service (06) | DRG 177 ==
LOC: 2 NORTH 11:03
PROVIDERS: Registered Nurse; ADMITTING PHYSICIAN Internal Medicine; ATTENDING PHYSICIAN Internal Medicine; EMERGENCY PHYSICIAN Emergency Medicine; FAMILY PHYSICIAN Internal Medicine
DX: U07.1 COVID-19 (principal); J69.0 Pneumonitis due to inhalation of food and vomit; E87.1 Hypo-osmolality and hyponatremia; G91.2 (Idiopathic) normal pressure hydrocephalus; I42.8 Other cardiomyopathies; I45.2 Bifascicular block; Z68.1 Body mass index [BMI] 19.9 or less, adult; D63.8 Anemia in other chronic diseases classified elsewhere; I48.91 Unspecified atrial fibrillation; R63.6 Underweight; E11.9 Type 2 diabetes mellitus without complications; L89.151 Pressure ulcer of sacral region, stage 1; Z85.46 Personal history of malignant neoplasm of prostate; Z86.73 Personal history of transient ischemic attack (TIA), and cerebral infarction without residual deficits; Z79.84 Long term (current) use of oral hypoglycemic drugs
CPT/HCPCS: 71046; 71275; 80048; 80053; 82607; 82728; 85025; 85379; 86140; 87811; 93005; 93970; 97163; 97167; 97530; 97535; 99285; J0248; Q9967

== ENCOUNTER 2024-07-06 15:46 | Emergency (ER) | payer MEDICARE, OTHER, SELFPAY ==
[2024-07-06 15:58] VITALS: BP 149/58
[2024-07-06 15:59] VITALS: BMI 19.9
[2024-07-06 16:00] VITALS: BP 134/58
[2024-07-06 16:55] LABS: % Basophils 0.3 % (0-2); % Eosinophils 0.7 % (0-6); % Immature Granulocytes 0.5 % (0-0.5); % Lymphocytes 23.8 % (20.5-51.1); % Monocytes 12.1 % (1.7-9.3); % Neutrophils 62.6 % (42.2-75.2); Absolute Eosinophils 0.1 10^3/uL (0-0.7); Absolute Immature Granulocytes 0.1 10^3/uL (0-0.05); Absolute Lymphocytes 2.6 10^3/uL (1.2-3.4); Absolute Monocytes 1.3 10^3/uL (0.1-0.6); Absolute Neutrophils 6.9 10^3/uL (1.4-6.5); Hematocrit 41.2 % (39.0-52.0); Hemoglobin 14.4 g/dL (13.0-18.0); Mean Corpuscular Volume 88.8 fL (80.0-94.0); Nucleated Red Blood Cells % 0 % (-); Platelet Count 228 10^3/uL (130-400); Red Blood Cell Count 4.64 10^6/uL (4.70-6.10); Red Cell Dist. Width 15.3 % (11.5-14.5); White Blood Cell Count 11.1 10^3/uL (4.8-10.8)
[2024-07-06 17:00] VITALS: BP 123/53
[2024-07-06 17:06] LABS: COVID-19 Antigen Negative (Negative)
[2024-07-06 17:14] LABS: ALT (SGPT) 25 U/L (0-50); AST (SGOT) 25 U/L (17-59); Albumin 4.2 g/dl (3.5-5.0); Alkaline Phosphatase 81 U/L (38-126); Blood Urea Nitrogen 23 mg/dl (9-20); Calcium 9.5 mg/dl (8.4-10.2); Carbon Dioxide 24 mmol/L (22-30); Chloride 99 mmol/L (98-107); Estimated Creatinine Clearance 64 ml/min; Glucose 94 mg/dl (70-99); Potassium 4.9 mmol/L (3.5-5.1); Sodium 134 mmol/L (135-145); Total Bilirubin 0.5 mg/dl (0.2-1.3); Total Protein 6.9 g/dl (6.3-8.2); eGFR > 60.00
--- NOTE | 2024-07-06 18:35 | ED.GENMED ---
History of Present Illness
General
Chief Complaint: Weakness
Time Seen by Provider: 07/06/24 15:48
History of Present Illness
History of Present Illness:
89-year-old male presents to the emergency department via EMS for evaluation of altered mental status, he has apparently been more fatigued and altered than his normal baseline. He has also been significantly weaker than normal despite ambulating
daily with PT and OT. Has 12 hours of in-home nursing care daily. Patient has also apparently been complaining of bilateral flank pain on occasion and is newly incontinent of stool. He offers no complaints on arrival however the majority of the
history is provided by the patient's son Clifton via telephone
Past History
Past History
ED Past Medical History: Arrthythmia, Cancer (Prostate), Hypercholesterolemia and NIDDM
ED Past Surgical History: Orthopedic (L hip replaced) and Urological
Social History
Tobacco: Former smoker
Alcohol: None
Drug: None
Personal:
Living: with family
Employment: Retired
Family History
Family History: Other
Review of Systems
Review of Systems
Allergies reviewed?: Yes
All Other Systems: ROS reviewed and negative except as documented in HPI and ROS
Phy Exam
Physical Exam
Physical Exam:
GEN: Well appearing, NAD, WDWN
HEENT: Oral mucosa moist, no scleral icterus
Cardiac: Regular rate and rhythm, no murmurs
Lung: No respiratory distress, no tachypnea, lungs clear to auscultation bilaterally
Abdomen: Slightly distended particular in suprapubic space, nontender
MSK: No gross deformity or injuries
Skin: Good color, no pallor or jaundice, no rashes
Neuro: Alert, oriented to self and place, disoriented to events
Psych: Calm, cooperative
Course
Orders/Labs/Results
Orders:
Orders
07/06/24 16:03
CR Chest Portable - 1 View Urgent
Comment:
Reason For Exam: hypoxia/weakness
Reason Study Needs to be Portable: Other
07/06/24 16:31
COVID-19 Antigen Urgent
Source: Nasal Swab
Complete Blood Count/With Diff Urgent
Comprehensive Metabolic Panel Urgent
07/06/24 18:07
CT Abd/pel Without Iv Or Oral Urgent
Comment:
Reason For Exam: flank pain
Straight cath- Treatment ONCE
07/06/24 19:27
Urinalysis Reflex To Culture Urgent
Date Specimen was Collected: 07/06/24
Time Specimen was Collected: 19:21
Abnormal Lab Results
07/06/24
16:31
WBC 11.1 H 10^3/uL
(4.8-10.8)
RBC 4.64 L 10^6/uL
(4.70-6.10)
RDW 15.3 H %
(11.5-14.5)
Abs Immat Gran (auto) 0.1 H 10^3/uL
(0-0.05)
Absolute Neuts (auto) 6.9 H 10^3/uL
(1.4-6.5)
Absolute Monos (auto) 1.3 H 10^3/uL
(0.1-0.6)
Monocytes % 12.1 H %
(1.7-9.3)
Sodium 134 L mmol/L
(135-145)
BUN 23 H mg/dl
(9-20)
07/06/24 16:31
07/06/24 16:31
Vital Signs
Initial and Last Documented VS:
Initial Vital Signs
Pulse Ox
91
07/06/24 15:55
Last Documented Vital Signs
Pulse Resp BP Pulse Ox
90 20 132/52 91
07/06/24 20:30 07/06/24 20:30 07/06/24 19:00 07/06/24 20:30
MDM/Problems Addressed
MDM/Problems Addressed:
Unclear etiology to the patient's symptoms. He does have mild leukocytosis however no evidence for pneumonia on imaging or urinary tract infection. He did have a large fecal impaction that was gently disimpacted however a large volume of liquid
stool was passed at the bedside. Overall workup was grossly benign. I discussed the case with the patient's son Clifton, the patient does have significant in-home nursing care however they will not be available to him until the morning thus he will
admit her observation in the emergency department until medical transport home
*Critical Care Note
Total Time (30-74mins, 75-104mins- exclusive of procedures): Not Applicable
ED Attending Note
-
Portions of this chart may have been created with voice recognition software.� Occasional wrong word or��sound alike� substitutions may have occurred due to the inherent limitations of voice recognition software.
Discharge Plan
Departure
Patient Disposition: Home (Routine Discharge)
Date of Disposition: 07/06/24
Time of Disposition: 21:19
Patient with high blood pressure during this ER visit?: No
Discharge Problem:
Transient confusion, Generalized weakness
Instructions: Generalized Weakness (DC)
Prescriptions:
No Action
amiodarone 200 mg tablet
200 mg PO DAILY
ceftriaxone 2 gram Recon Soln
2,000 mg IV Q24H Qty: 37 0RF
Rx Instructions:
completed 5 days in hospital, 37 further to complete 42 days (6 weeks)
Referrals:
NONE,* [Family Provider] -
Interventions
Interventions:
*Risk Screen - Suicide Last Done: 07/06/24 16:00
*General Assessment Last Done: 07/06/24 16:03
*Neglect/Abuse Screening Last Done: 07/06/24 16:00
*ED COVID-19 Vaccine History Last Done: 07/06/24 15:59
ED- Cardiac Assessment Last Done: 07/06/24 16:37
ED- Neurological Assessment Last Done: 07/06/24 16:04
ED- Pulmonary Assessment Last Done: 07/06/24 16:37
Discharge Date and Time
Print Language: MAURITANIAN
[2024-07-06 19:00] VITALS: BP 132/52
[2024-07-06 19:56] LABS: Urine Albumin Negative (Neg - Trace); Urine Bilirubin Negative (Negative); Urine Character Clear (Clear); Urine Color Yellow; Urine Glucose Negative (Negative); Urine Ketone Negative (Negative); Urine Leukocyte Negative (Negative); Urine Nitrite Negative (Negative); Urine Occult Blood Negative (Negative); Urine Specific Gravity 1.025 (<1.030); Urine Urobilinogen Negative (Neg - 1+)
[2024-07-07 06:18] LABS: Hematocrit 36.9 % (39.0-52.0); Mean Corp Hgb Conc. 35.2 g/dL (33.0-37.0); Mean Platelet Volume 8.9 fL (7.4-10.4); Platelet Count 209 10^3/uL (130-400); Red Blood Cell Count 4.34 10^6/uL (4.70-6.10); Red Cell Dist. Width 15.2 % (11.5-14.5)
[2024-07-07 08:39] VITALS: BP 112/53
[2024-07-07] MEDS: PACERONE 200 MG PO (08:41)
--- NOTE | 2024-07-07 11:45 | CM ---
CM reviewed chart. CM consult placed for safety concerns at home. Bedside RN explained she had some concerns about patient's swallowing (he would cough on solid foods, but did better on thick liquids and items such as a yogurt. She also shared that
patient was unable to move his body from side to side in the bed. PT/OT was placed. Patient was agreeable when CM discussed a consult to ST and PT/OT.
[2024-07-07 12:11] VITALS: BP 127/62
[2024-07-07 12:39] VITALS: BP 127/62; PULSE 85
[2024-07-07 12:40] VITALS: BP 127/62; PULSE 87
--- NOTE | 2024-07-07 12:58 | CM ---
Addendum entered by Berenice Owens 07/07/24 13:11:
While Clifton was on the phone, also educated patient the importance of turning and positioning every 2 hours to prevent the tissue injury from advancing. Gold said, 'I know, I know'.
Original Note:
Spoke with patient, who happened to have his son, Clifton, on the phone as well. CM went over PT's recommendations. Clifton is a physician here at and has been watching his father's case throughout this ED stay. Clifton stated that he is ok with his
father returning home. He shared that his father is a 2 person assist, this is baseline for Gold. He shared that his father has almost 24 hour care and has enough assistance at home.
Gold and Clifton wanted to know more about the skin products that were used for Gold's skin problem. CM explained what barrier cream and optifoam were. Clifton said he's like it in his father's d/c paperwork. CM showered Gold that products packaging and
what they looked like and that they were from [employer]. Gold verbalized understanding and wanted to hold on to the packaging.
PLAN: D/C via ambulance to home with and caregiver.
== END 2024-07-07 14:25 | disposition home or self-care (01) ==
LOC: EMR 15:46
PROVIDERS: Physician Assistant; EMERGENCY PHYSICIAN Student in an Organized Health Care Education/Training Program
DX: R41.0 Disorientation, unspecified (principal); R53.1 Weakness; E78.00 Pure hypercholesterolemia, unspecified; E11.9 Type 2 diabetes mellitus without complications; Z87.891 Personal history of nicotine dependence; Z85.46 Personal history of malignant neoplasm of prostate
CPT/HCPCS: 99284; 71045; 74176; 80053; 81003; 85025; 85027; 87811

== ENCOUNTER → 2024-08-01 10:18 | Outpatient (REF) | payer MEDICARE, OTHER, SELFPAY | LOC: REG 10:18 | PROVIDERS: ATTENDING PHYSICIAN Internal Medicine Cardiovascular Disease | DX: R19.7 Diarrhea, unspecified (principal) | CPT/HCPCS: 87045; 87046; 87077; 87324; 87427; 87449 ==

== ENCOUNTER 2024-08-20 14:38 | Inpatient (IN) | payer MEDICARE, OTHER, SELFPAY ==
[2024-08-20] VITALS (7 sets, daily range): BP systolic 96–108; BP diastolic 41–50; BMI 19.9; BMI 18.0
--- NOTE | 2024-08-20 10:44 | EDRN ---
Dr. Ireland currently at the pts bedside
--- NOTE | 2024-08-20 10:49 | ED.GENMED ---
History of Present Illness
General
Chief Complaint: Change in Mental Status
Source: patient and ambulance crew
Exam Limitations: none
Time Seen by Provider: 08/20/24 10:41
Nursing documentation reviewed up to this point in time: agreed with
History of Present Illness
History of Present Illness:
89-year-old male presents emergency department due to diarrhea, C. difficile and concern for altered mental status. His son request that he be seen because of his altered mental status.
Past History
Past History
ED Past Medical History: Arrthythmia, Cancer (Prostate), Hypercholesterolemia and NIDDM
ED Past Surgical History: Orthopedic (L hip replaced) and Urological
Social History
Tobacco: Former smoker
Alcohol: None
Drug: None
Personal:
Living: with family
Employment: Retired
Family History
Family History: Other
Review of Systems
Review of Systems
Allergies reviewed?: Yes
All Other Systems: Not applicable
Constitutional: Reports no symptoms
EENT: Reports no symptoms
Respiratory: Reports no symptoms
Cardiac: Reports no symptoms
ABD/GI: Reports diarrhea
: Reports no symptoms
Musculoskeletal: Reports no symptoms
Skin: Reports no symptoms
Neurological: Reports no symptoms
Endocrine: Reports no symptoms
Hematologic/Lymphatic: Reports no symptoms
Psychiatric: Reports no symptoms
Phy Exam
Physical Exam
Physical Exam:
Physical Exam
General: Afebrile, blood pressure 105/41
Neck: supple. no meningeal signs. normal posterior pharynx
Heart: s1/s2 regular rate and rhythm, no murmur. equal radial
pulses.
HEENT: Pupils equal round reactive to light, EOMI
Lungs: no acute respiratory distress. clear bilaterally
Abdomen: normal bowel sounds. not tender. no CVAT
Neuro: alert and oriented to person and place. no focal neurological deficits cranial nerves II through XII intact
Skin: no rash
Psychiatric: well kept. interactive and cooperative
Extremities: no edema. no calf tenderness. negative homans. good distal pulses
Course
Orders/Labs/Results
Orders:
Orders
08/20/24 10:47
Cardiac Monitoring- Treatment ONCE
IV Insert/Care/Rem.- Treatment PRN
Urinalysis Reflex To Culture Urgent
Date Specimen was Collected: 08/20/24
Time Specimen was Collected: 11:53
08/20/24 10:48
Electrocardiogram (*1) Stat
Reason for Study: Abdominal Pain
CT Head W/o Iv Contrast Urgent
Comment:
Reason For Exam: confusion
EKG- Treatment ONCE
08/20/24 10:58
Complete Blood Count/With Diff Urgent
08/20/24 12:04
Comprehensive Metabolic Panel Routine
Lipase Routine
08/20/24 13:34
Vancomycin HCl [Firvanq] 250 mg PO NOW STA
08/20/24 13:38
Admit/Transfer Patient As Directed
Co-Sign Provider:
Level of Care: Inpatient admission
Assign to:: Telemetry
Physician / Group: alok boswell
Diagnosis: c diff colitis
Reason for Telemetry: Arrhythmia
Date to Stop Telemetry: 08/23/24
Time to Stop Telemetry: 11:00
Reason for Hospitalization: c diff colitis
Expected length of stay greater than two midnights?: Yes
ELOS- Estimated Length of Stay in days: 3
I certify the patient meets the requirements for IP care: Yes
08/20/24 13:43
Code Status As Directed
Resuscitation Status: Full Code
PRN Pain Medication Management As Directed
May give lesser potent ordered pain med per pt: Yes
preference::
Protocol:: Medication orders for pain may be administered in a
manner that supports deferring to patient preference
when the pt is:
- Requesting an ordered lesser potent pain medication.
Least to most potent pain medications are defined
as: acetaminophen < NSAID < tramadol < opioids
(morphine, oxycodone, hydromorphone).
- Requesting a lesser dose of the same medication IF
ORDERED.
- Requesting a less intrusive route of administration
if both routes are prescribed by the provider (PO <
IV).
08/20/24 13:47
Chest [CR Chest - 2 Views ] Routine
Comment:
Reason For Exam: sob
08/23/24 11:00
DC Protocol for Telemetry ONCE
Abnormal Lab Results
08/20/24 08/20/24
10:58 12:04
WBC 22.9 H 10^3/uL
(4.8-10.8)
RBC 4.39 L 10^6/uL
(4.70-6.10)
RDW 15.4 H %
(11.5-14.5)
Abs Immat Gran (auto) 0.2 H 10^3/uL
(0-0.05)
Absolute Neuts (auto) 18.6 H 10^3/uL
(1.4-6.5)
Absolute Monos (auto) 1.5 H 10^3/uL
(0.1-0.6)
Immature Gran % 0.7 H %
(0-0.5)
Neutrophils % 81.3 H %
(42.2-75.2)
Lymphocytes % 10.9 L %
(20.5-51.1)
BUN 26 H mg/dl
(9-20)
Total Protein 5.9 L g/dl
(6.3-8.2)
Lipase 18 L U/L
(23-300)
08/20/24 10:58
08/20/24 12:04
Vital Signs
Initial and Last Documented VS:
Initial Vital Signs
Pulse Resp
84 21
08/20/24 10:41 08/20/24 10:41
Last Documented Vital Signs
Temp Pulse Resp BP Pulse Ox
97.5 F 84 22 96/43 96
08/20/24 10:45 08/20/24 13:15 08/20/24 13:15 08/20/24 13:12 08/20/24 13:15
MDM/Problems Addressed
Differential Diagnosis Includes:
Colitis, CVA
MDM/Problems Addressed:
89-year-old male with C. difficile colitis. No respiratory issues. Oral vancomycin ordered. Admit to hospitalist.
Chronic conditions affecting care: Arrhythmia
Acute Exacerbation and/or Progression of Chronic Illness: Arrhythmia
*Radiology
Radiology exam reviewed: radiology read reviewed (CT head no acute findings)
*Pulse Oximetry
Patient hypoxic: no
*EKG
Interpreted by ED Provider?: Yes
EKG Intrepretation Date: 08/20/24
EKG Intrepretation Time: 10:54
Interpretation: abnormal
Comparison EKG: changes noted
Heart Rate: 84
Rate: normal
Rhythm: sinus
[place]: normal axis
Interval: normal interval
QRS Pattern: other (LAFB)
Ischemia: no ischemia
*Internal Audit Manager Interpretation
Rate: normal
Interpretation: normal
Heart Rate: 82
Rhythm: sinus
*Critical Care Note
Total Time (30-74mins, 75-104mins- exclusive of procedures): Not Applicable
Data Reviewed
Review of Other/Old Records Reveals: Labs
Patient Management
Social determinants of health affecting care: Living situation
Discussion with other providers: Hospitalist
Escalation/DeEscalation of care consider admission/obs:
admit indicated
ED Attending Note
-
Portions of this chart may have been created with voice recognition software.� Occasional wrong word or��sound alike� substitutions may have occurred due to the inherent limitations of voice recognition software.
Discharge Plan
Departure
Patient Disposition: Admit
Date of Disposition: 08/20/24
Time of Disposition: 13:10
Admit to: Telemetry
Presentation/result/management discussed w/ accepting MD/DO: Hospitalist
Patient with high blood pressure during this ER visit?: No
Condition: Fair
Discharge Problem:
C. difficile colitis, Acute alteration in mental status
Prescriptions:
No Action
amiodarone 200 mg tablet
200 mg PO DAILY
Theragen Tablet
1 tab PO DAILY
ascorbic acid (vitamin C) [Vitamin C] 250 mg Tablet
250 mg PO DAILY
vitamin E 268 mg (400 unit) Capsule
268 mg PO DAILY
cholecalciferol (vitamin D3) [Vitamin D3] 50 mcg (2,000 unit) Tablet
50 mcg PO DAILY
Referrals:
UNKNOWN - PT DOES,NOT KNOW [Family Provider] -
Interventions
Interventions:
*Risk Screen - Suicide Last Done: 08/20/24 10:45
*General Assessment Last Done: 08/20/24 10:45
*Neglect/Abuse Screening Last Done: 08/20/24 10:45
ED- Fall Risk Assessment Last Done: 08/20/24 10:45
*ED COVID-19 Vaccine History Last Done: 08/20/24 10:45
ED-Psychological Assessment Last Done: 08/20/24 10:45
ED- Neurological Assessment Last Done: 08/20/24 10:45
ED- Cardiac Assessment Last Done: 08/20/24 10:45
ED Swallowing Screen Last Done: 08/20/24 10:45
Discharge Date and Time
Print Language: AFGHAN
[2024-08-20 11:10] LABS: % Basophils 0.3 % (0-2); % Eosinophils 0.1 % (0-6); % Immature Granulocytes 0.7 % (0-0.5); % Lymphocytes 10.9 % (20.5-51.1); % Monocytes 6.7 % (1.7-9.3); % Neutrophils 81.3 % (42.2-75.2); Absolute Basophils 0.1 10^3/uL (0-0.2); Absolute Immature Granulocytes 0.2 10^3/uL (0-0.05); Absolute Lymphocytes 2.5 10^3/uL (1.2-3.4); Absolute Monocytes 1.5 10^3/uL (0.1-0.6); Absolute Neutrophils 18.6 10^3/uL (1.4-6.5); Hematocrit 39.8 % (39.0-52.0); Hemoglobin 13.2 g/dL (13.0-18.0); Mean Corp Hgb Conc. 33.2 g/dL (33.0-37.0); Mean Corpuscular Hgb 30.1 pg (27.0-31.0); Mean Corpuscular Volume 90.7 fL (80.0-94.0); Mean Platelet Volume 9.4 fL (7.4-10.4); Nucleated Red Blood Cells % 0 % (-); Platelet Count 248 10^3/uL (130-400); Red Blood Cell Count 4.39 10^6/uL (4.70-6.10); Red Cell Dist. Width 15.4 % (11.5-14.5); White Blood Cell Count 22.9 10^3/uL (4.8-10.8)
[2024-08-20 12:33] LABS: ALT (SGPT) 31 U/L (0-50); AST (SGOT) 26 U/L (17-59); Albumin 3.5 g/dl (3.5-5.0); Alkaline Phosphatase 61 U/L (38-126); Blood Urea Nitrogen 26 mg/dl (9-20); Calcium 9.2 mg/dl (8.4-10.2); Carbon Dioxide 23 mmol/L (22-30); Chloride 102 mmol/L (98-107); Estimated Creatinine Clearance 56 ml/min; Glucose 99 mg/dl (70-99); Potassium 3.8 mmol/L (3.5-5.1); Sodium 136 mmol/L (135-145); Total Bilirubin 0.8 mg/dl (0.2-1.3); Total Protein 5.9 g/dl (6.3-8.2); eGFR > 60.00
--- NOTE | 2024-08-20 13:17 | HPS.HSE ---
Family Physician
-
Family Physician: NOT KNOW UNKNOWN - PT DOES
Chief Complaint
-
diarrhea
History of Present Illness
89-year-old male with past medical history for prostate cancer, type 2 diabetes, CVA, A-fib presented to us diarrhea .patient was tested positive for C. difficile diarrhea on Tuesday. He was noted confused which prompted them to bring him to the
hospital.patient. Patient denies any headache, dizziness, syncope. Patient denied fever, chills, chest pain, short of breath. Patient denied abdominal pain, nausea, vomiting. Denied dysuria hematuria.
d/w son, stated patient has recurrent c diff. he finished the course of vanco a week. now he is very confused, sleeping more than usual. he uses oxygen, when is he is requiring all the time. no recenet abx. he was on iv abx sometime in May
for 6 weeks.
Patient was started on oral Vanco. Admitting for further management
Medical History
Past Medical History
Past Medical History: Reports Other
Additional Past Medical History:
Beta-hemolytic Streptococcus
Prostate cancer
Pneumonia
Valvular heart disease
Type 2 diabetes
Pleural lymphedema
CVA
A-fib
DVT
C. difficile
Past Surgical History: Reports Other
Additional Past Surgical History:
Thoracentesis
Left hip total
Social History
Tobacco: Non-smoker
Alcohol: None
Drug: None
Personal:
Living: With Family
Family History
Family History: Not pertinent
Allergies / Home Medications
Allergies reflects when Allergies were last updated in [facility].
Home Medications with original date entered in [facility]
Allergy/Medication List:
Allergies
Allergy/AdvReac Type Severity Reaction Status Date / Time
No Known Allergies Allergy Verified 07/06/24 16:00
Home Medications
amiodarone 200 mg tablet 200 mg PO DAILY Arrhythmia 08/23/24
ascorbic acid (vitamin C) 250 mg tablet (Vitamin C) 250 mg PO DAILY 08/20/24
cholecalciferol (vitamin D3) 50 mcg (2,000 unit) tablet (Vitamin D3) 50 mcg PO DAILY 08/20/24
therapeutic multivitamin 1 tab PO DAILY 08/20/24
vitamin E 268 mg (400 unit) capsule 268 mg PO DAILY 08/20/24
Review of Systems
-
Constitutional: Reports No Symptoms
EENT: Reports No Symptoms
Respiratory: Reports No Symptoms
Cardiac: Reports No Symptoms
Abdomen/GI: Reports Diarrhea
: Reports No Symptoms
Musculoskeletal: Reports No Symptoms
Skin: Reports No Symptoms
Neurological: Reports No Symptoms
Endocrine: Reports No Symptoms
Hematologic/Lymphatic: Reports No Symptoms
Psych: Reports No Symptoms
Physical Exam
Vital Signs
Vital Signs
Temp Pulse Resp BP Pulse Ox
97.5 F 83 18 106/41 96
08/20/24 10:45 08/20/24 10:45 08/20/24 10:45 08/20/24 10:45 08/20/24 10:45
Physical Exam
General: Well Developed, Well Nourished and No Apparent Distress
HEENT: NormoCephalic, Moist mucous membranes and Atraumatic
Respiratory: Clear
Cardiac: S1/S2 and Regular Rhythm; No Murmur or Rub
GI: Soft, Non Tender, Non Distended and Normal Bowel Sounds; No Organomegaly
Rectal: Deferred by Provider
Musculoskeletal: No Clubbing, No Cyanosis and No Edema
Skin: No Rash
Neuro: Nonfocal/grossly intact
Psych: Confused
Laboratory Results
-
08/20/24 10:58
08/20/24 12:04
Laboratory Results
Total Bilirubin 0.8 mg/dl (0.2-1.3) 08/20/24 12:04
AST 26 U/L (17-59) 08/20/24 12:04
ALT 31 U/L (0-50) 08/20/24 12:04
Alkaline Phosphatase 61 U/L (38-126) 08/20/24 12:04
Lipase Cancelled 08/20/24 10:58
Data Reviewed
-
Lab Data: Labs Reviewed by me
Impression/Plan
-
# Altered mental status likely from c diff colitis
-WBCs 22.9
-Head CT with no acute intracranial abnormality, moderate atrophy with sequelae of moderate small vessel ischemic
-Continue oral Vanco
-obtain stool culture, c diff
# Anemia of chronic disease
Hemoglobin stable at 13.8
No active bleeding
Continue to monitor
#hxt of Recent R sided pleural effusion, suspected empyema
#chronic respiratory failure requiring oxygen prn.
-s/p thoracentesis 05/04 with green/pus like drainage of 150 cc
fluid culture growing strep species
-patient was on iv abx for 6 weeks.
-obtain chest x ray
# History of atrial fibrillation
# history of Bifascicular block
# History of nonischemic cardiomyopathy
-off AC due to fall risks
-continue Amiodarone
# History of prostate Ca s/p radical prostatectomy
# History of cerebellar stroke
# History of normal pressure hydrocephalus
DVT ppx: Lovenox SQ
Code: Full
[2024-08-20 13:19] LABS: Lipase 18 U/L (23-300)
[2024-08-20] MEDS: LR 500 IV (14:23)
[2024-08-20] MEDS: FIRVANQ 250 MG PO (14:24)
--- NOTE | 2024-08-20 14:46 | CON.ID ---
Consultation
-
Date/Time Consultation Requested: August 20, 2024 1400
Date/Time Consultation Performed: August 20, 2024 1425
Requesting Provider: TAB Starr
Performing Provider: Dr. Miracle Barry
Reason for Consultation: C. difficile diarrhea
Chief Complaint / Past History
Chief Complaint
Diarrhea
History of Present Illness
89-year-old male with history of atrial fibrillation, CVA, normal pressure hydrocephalus, Streptococcus anginosus right sided empyema in April 2024 status post drainage and 6 weeks of IV ceftriaxone. He was doing well at pulmonary rehab but
developed weakness from diarrhea. 08/01/24 Stool for C. diff positive. He had follow-up with pulmonary the next day and was started on oral vancomycin x 10. He reports a diarrhea did improve. However soon after he completed the vancomycin,
diarrhea quickly returned since Wednesday 10/18. He had about 9 bowel movements a day. Patient became very weak decreased mental status and therefore he was brought to the ER today. His white count was 22.9. The nurse just cleaned him up from the
diarrhea. No fevers or chills. No abdominal pain. Appetite is fair.
Past History
Additional Past Medical History:
DM
A-fib
nonischemic cardiomyopathy
Anemia
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
Hx cerebellar CVA
Hx normal pressure hydrocephalus
DVT
C. diff
prostate ca s/p radical prostatectomy
R THR
Allergy History:
No Known Allergies Allergy (Verified 07/06/24 16:00)
Medications Reviewed: Yes
Current Antibiotics:
P.o. vancomycin
Social History
Tobacco: Non-Smoker
Alcohol: None
Drug: None
Personal:
Living: With Family
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
Family History
Family History: Not Pertinent
Review of Systems
Review of Systems
General: Change in Appetite; Negative Fever or Chills
HEENT: Negative Sinus Problems or Headache
Cardiovascular: Negative Chest Pain or Dyspnea
Respiratory: Negative Dyspnea or Cough
Gasteroenterology: Diarrhea; Negative Nausea or Vomiting
Genital / Urological: Negative Dysuria or Flank Pain
Skin / Hair / Nails: Negative Rash
Neurological: Negative Dizziness
All systems: All other systems were reviewed and were negative
Vital Signs
Temp Pulse Resp BP Pulse Ox
97.5 F 84 22 96/43 96
08/20/24 10:45 08/20/24 13:15 08/20/24 13:15 08/20/24 13:12 08/20/24 13:15
Physical Exam
Physical Exam
Constitutional: Acutely Ill
Eyes: No Conjunctival Hemorrhage and Sclera Anicteric
Cardiovascular: Regular Rate and S1/S2
Pulmonary: Clear
Gastrointestinal: Soft, Non Tender and Non Distended
Extremities: Negative Edema
Neurological: Awake and Alert
Lab / Diagnostic Study Results
08/20/24 10:58
08/20/24 12:04
Abs Immat Gran (auto) 0.2 10^3/uL (0-0.05) H 08/20/24 10:58
Absolute Neuts (auto) 18.6 10^3/uL (1.4-6.5) H 08/20/24 10:58
Absolute Lymphs (auto) 2.5 10^3/uL (1.2-3.4) 08/20/24 10:58
Absolute Monos (auto) 1.5 10^3/uL (0.1-0.6) H 08/20/24 10:58
Absolute Basos (auto) 0.1 10^3/uL (0-0.2) 08/20/24 10:58
Immature Gran % 0.7 % (0-0.5) H 08/20/24 10:58
Neutrophils % 81.3 % (42.2-75.2) H 08/20/24 10:58
Lymphocytes % 10.9 % (20.5-51.1) L 08/20/24 10:58
Monocytes % 6.7 % (1.7-9.3) 08/20/24 10:58
Eosinophils % 0.1 % (0-6) 08/20/24 10:58
Basophils % 0.3 % (0-2) 08/20/24 10:58
Microbiology Results
08/20/[address]: No acute intracranial abnormality noted. Moderate atrophy with sequelae of moderate small vessel ischemic disease.
Assessment / Plan
# C. diff, first recurrence
# Leukocytosis
- Recently treated first episode with po Vancomycin completed a week ago.
- Start fidaxomicin 200mg po bid x 10.
- DC po Vancomycin.
- Follow WBC.
- Follow stool output and consistency.
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
DM
A-fib
nonischemic cardiomyopathy
Anemia
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
Hx cerebellar CVA
Hx normal pressure hydrocephalus
DVT
C. diff
prostate ca s/p radical prostatectomy
R THR
--- NOTE | 2024-08-20 15:28 | W.PN.UPDATE ---
Update Note
Progress Note Update
I could not get any information from the patient is confused
Information gathered by chart review and speaking with the ER staff.
This note serves as an addendum to the H&P by fare register repairer SPEEDY Jesica KEVEN
HPI
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
- Diarrhea - POS C Diff on 10/18/23
- acute confusional state with excessive lethargy : . very confused, sleeping more than usual.
- Per Physician son - HX recurrent c Diff S/P 6wweks of vanco a week
- Uses Home O2 when is he is requiring all the time.
- No recent ABx
- HX IV ABx ( ?) May for 6 weeks.
ROS
denies any headache, dizziness, syncope. Patient denied fever, chills, chest pain, short of breath. Patient denied abdominal pain, nausea, vomiting. Denied dysuria hematuria.
PHX
Chronic Diagnoses:
Anemia of chronic disease
Recent Right sided pleural effusion/suspected empyema s/p chest tube placement and subsequent removal; continue IV antibiotic ceftriaxone for total 6 weeks
History of atrial fibrillation
History of Bifascicular block
History of nonischemic cardiomyopathy
History of prostate Ca s/p radical prostatectomy
History of cerebellar stroke
History of normal pressure hydrocephalus
Reviewed VS:
Vital Signs
Temp Pulse Resp BP Pulse Ox
97.5 F 83 18 101/43 97
08/20/24 10:45 08/20/24 14:45 08/20/24 14:45 08/20/24 14:00 08/20/24 14:45
PE
Gen: confused , thin
HEENT: dry OM
Neck: supple
Lungs: CTA
Cor: RRR S1 S2
Abdomen: soft , benign
YARD RIGGER: confused
MS: no edema
Psych: confused
Abnormal Lab Results
08/20/24 08/20/24
10:58 12:04
WBC 22.9 H
RBC 4.39 L
RDW 15.4 H
Abs Immat Gran (auto) 0.2 H
Absolute Neuts (auto) 18.6 H
Absolute Monos (auto) 1.5 H
Immature Gran % 0.7 H
Neutrophils % 81.3 H
Lymphocytes % 10.9 L
BUN 26 H
Total Protein 5.9 L
Lipase 18 L
EKG report
NORMAL SINUS RHYTHM
LEFT AXIS DEVIATION
INFERIOR INFARCT , AGE UNDETERMINED
ABNORMAL ECG
WHEN COMPARED WITH ECG OF 13-MAY-2024 18:30,
LEFT ANTERIOR FASCICULAR BLOCK IS NO LONGER PRESENT
INCOMPLETE RIGHT BUNDLE BRANCH BLOCK IS NO LONGER PRESENT
NONSPECIFIC T WAVE ABNORMALITY NOW EVIDENT IN LATERAL LEADS
QT HAS SHORTENED
HCT : No acute intracranial abnormality noted.
Last hospitalist admission: Date of Admission: 05/15/24 - Date of Discharge: 05/18/24
Principal Diagnosis:
Acute COVID-19 infection
ASSESSMENT & PLAN
C Diff colitis complicated with AMS 2/2 TME due to
- NEG HCT
- Recently completed PO Vancomycin 1 week ago -will resume till ID Evaluation
- Repeat C Diff
- IVF
- ID consult
ACDz: Hgb at 13.8
- No active bleeding
HX Recent R sided pleural effusion, suspected empyema
Chronic respiratory failure on PRN O2 prn.
S/p thoracentesis 05/04 with green/pus like drainage of 150 cc
fluid culture growing strep species
- s/p IV ABx for 6 weeks.
HX atrial fibrillation : off AC due to fall risks
HX Bifascicular block
HX NICM
-continue Amiodarone
HX prostate Ca s/p radical prostatectomy
HX cerebellar stroke
HX normal pressure hydrocephalus
DVT ppx: Lovenox SQ
Code: Full
IP TLM
[2024-08-20] MEDS: LOVENOX SC (20:28)
[2024-08-20] MEDS: DIFICID 200 MG PO (21:14)
[2024-08-21 03:00] VITALS: BP 102/48
[2024-08-21 07:30] VITALS: BP 110/45
[2024-08-21] MEDS: PACERONE 200 MG PO (08:22)
[2024-08-21] MEDS: DIFICID 200 MG PO ×2 (08:22→20:49)
--- NOTE | 2024-08-21 09:30 | PTCARENOTE ---
Patient refusing lab draw this morning, MD Blake notified. will continue to monitor.
[2024-08-21 11:14] LABS: Hematocrit 36.5 % (39.0-52.0); Hemoglobin 11.7 g/dL (13.0-18.0); Mean Corp Hgb Conc. 32.1 g/dL (33.0-37.0); Mean Corpuscular Hgb 29.5 pg (27.0-31.0); Mean Corpuscular Volume 92.2 fL (80.0-94.0); Mean Platelet Volume 9.1 fL (7.4-10.4); Platelet Count 200 10^3/uL (130-400); Red Blood Cell Count 3.96 10^6/uL (4.70-6.10); Red Cell Dist. Width 15.3 % (11.5-14.5)
[2024-08-21 11:39] VITALS: BP 114/47
--- NOTE | 2024-08-21 12:18 | CM ---
Addendum entered by Sheri España 08/21/24 15:43:
CM received consult for cost of Fidaxomicin (Dificid) 200 mg 2x day for 10 days- CM spoke with [facility], informed medication is not in stock, patient does not have prescription coverage, medication will likely be very costly. CM placed call
to patients son, confirmed patient does not have prescription coverage, looking for assistance if possible. Patients son confirmed patient has caregivers 7 days a week along with [facility].
Original Note:
Patient seen bedside, initial assessment completed. Patient resides with his in a multiple story home, 11 steps to enter. Patient reports he is current with [facility], denies SNF history. Patient reports he has a caregiver in home 6 days a
week. Patient confirms pharmacy [facility] in [place], when asked if followed by a PCP, patient said 'not really'. Patient reports he has a walker and wheelchair at home, is on home O2- patient reports he wears at night. Return of care referral sent
to [facility]. CM will continue to follow for all discharge planning needs.
Plan; home with [facility], private caregivers.
--- NOTE | 2024-08-21 14:15 | W.PN.ID1 ---
Date of Service
Date of Service: August 21, 2024
Today's Communication
- Continue fidaxomicin 200mg po bid (d2) x 10d through 08/30/24 am dose.
- Prior to discharge, need to check for insurance coverage and availability of fidaxomicin at his local pharmacy.
Assessment / Plan
# C. diff, first recurrence
# Leukocytosis - improving
- Recently treated first episode with po Vancomycin completed a week ago.
- Continue fidaxomicin 200mg po bid (d2) x 10 through 08/30/24 am dose.
- Prior to discharge, need to check for insurance coverage and availability of fidaxomicin at his local pharmacy.
- Follow stool output and consistency.
-Follow wbc.
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
DM
A-fib
nonischemic cardiomyopathy
Anemia
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
Hx cerebellar CVA
Hx normal pressure hydrocephalus
DVT
C. diff
prostate ca s/p radical prostatectomy
R THR
Chief Complaint
-: C-diff
Subjective / Review of Systems
No BM this morning. Feels better.
Vital Signs / Physical Exam
Vital Signs
Vital Signs
Temp Pulse Resp BP Pulse Ox
97.6 F 89 18 114/47 97
08/21/24 11:39 08/21/24 11:39 08/21/24 11:39 08/21/24 11:39 08/21/24 11:39
Physical Exam
Constitutional: No Acute Distress and Comfortable
Gastrointestinal: Soft, Non Tender and Non Distended
Extremities: Negative Edema
Neurological: Awake and Alert
Objective Data
Lab Data
Lab Results
08/21/24 10:38
Estimated Creat Clear 56 ml/min 08/20/24 12:04
Total Bilirubin 0.8 mg/dl (0.2-1.3) 08/20/24 12:04
AST 26 U/L (17-59) 08/20/24 12:04
ALT 31 U/L (0-50) 08/20/24 12:04
Alkaline Phosphatase 61 U/L (38-126) 08/20/24 12:04
Most recent labs reviewed.
Micro Results:
08/20/24 18:24 Salmonella/Shigella Culture - Preliminary
Feces/Stool Culture in Progress
Campylobacter Culture - Preliminary
Culture in Progress
Shiga Toxin Test - Pending
08/20/24 18:25 Stool Leukocytes - Final
Feces/Stool
08/20/24 18:25 C. difficile GDH Antigen & Toxins - Final
Feces/Stool Toxigenic C.difficile Positive
08/20/[address]: No acute intracranial abnormality noted. Moderate atrophy with sequelae of moderate small vessel ischemic disease.
[2024-08-21 15:31] LABS: Blood Urea Nitrogen 23 mg/dl (9-20); Calcium 9.1 mg/dl (8.4-10.2); Carbon Dioxide 23 mmol/L (22-30); Chloride 103 mmol/L (98-107); Estimated Creatinine Clearance 50 ml/min; Glucose 96 mg/dl (70-99); Potassium 3.7 mmol/L (3.5-5.1); Sodium 137 mmol/L (135-145); eGFR > 60.00
[2024-08-21 15:47] VITALS: BP 102/54
[2024-08-21] MEDS: LOVENOX SC (17:05)
[2024-08-21 19:00] VITALS: BP 107/51
--- NOTE | 2024-08-21 19:03 | W.PN.HOSP.TC ---
Today's Communication/Plan
-
Dificid
Assessment / Plan
Assessment / Plan
# Altered mental status likely from c diff colitis
-WBCs 22.9-->11.0
-Head CT with no acute intracranial abnormality, moderate atrophy with sequelae of moderate small vessel ischemic
-Continue Dificid
stool + C.Diff
# Anemia of chronic disease
Hemoglobin stable at 13.8
No active bleeding
Continue to monitor
#hxt of Recent R sided pleural effusion, suspected empyema
#chronic respiratory failure requiring oxygen prn.
-s/p thoracentesis 05/04 with green/pus like drainage of 150 cc
fluid culture growing strep species
-patient was on iv abx for 6 weeks.
-chest x ray: Right greater than left bibasilar opacities, similar in appearance to prior and favored to represent atelectasis/scarring.
Likely trace bilateral pleural effusions.
# History of atrial fibrillation
# history of Bifascicular block
# History of nonischemic cardiomyopathy
-off AC due to fall risks
-continue Amiodarone
# History of prostate Ca s/p radical prostatectomy
# History of cerebellar stroke
# History of normal pressure hydrocephalus
DVT ppx: Lovenox SQ
Code: Full
Anticipated Discharge: > 48 hours
Subjective/Interval History
-
Date of Service: August 21, 2024
Recurrent C. Diff symptoms
Objective Data
-
Labs:
Laboratory Results
08/21/24 08/21/24
10:38 14:57
WBC 11.0 H
Hgb 11.7 L
Hct 36.5 L
Plt Count 200
Sodium 137
Potassium 3.7
Chloride 103
Carbon Dioxide 23
BUN 23 H
Creatinine 0.8
Glucose 96
Calcium 9.1
Vital Signs:
Vital Signs
Temp Pulse Resp BP Pulse Ox
97.6 F 88 18 102/54 96
08/21/24 15:47 08/21/24 15:47 08/21/24 15:47 08/21/24 15:47 08/21/24 15:47
I&O
08/20/24 08/21/24 08/22/24
06:59 06:59 06:59
Intake Total 960 / 960
Balance 960 / 960
Review of Systems
-
History Source: Patient and Guardian
Constitutional: Denies Fever
EENT: Reports No Symptoms Reported
Respiratory: Reports No Symptoms
Cardiac: Reports No Symptoms
Abdomen/GI: Reports Diarrhea
Neuro: Reports Weakness
Physical Exam
-
General: Well Developed, Well Nourished and No Apparent Distress
HEENT: Normocephalic, Atraumatic and Moist Mucous Membranes
Respiratory: Clear to Auscultation; Negative Wheezes, Rales or Rhonchi
Cardiac: S1/S2
GI: Soft, Nontender, Nondistended and Normal Bowel Sounds
Musculoskeletal: No Clubbing, No Cyanosis and No Edema
Neuro: Awake, Alert and Oriented
[2024-08-21 23:00] VITALS: BP 111/53
[2024-08-22 03:00] VITALS: BP 106/47
[2024-08-22 07:30] VITALS: BP 107/46
--- NOTE | 2024-08-22 09:40 | PN.CDI ---
CDI
- -
CDI:
Physician Documentation Request
Admit Date: 08/20/24 14:38
Dear Doctor Lou,
Patient admitted C Diff colitis.
Selected Entries
08/21/24
00:19
Appearance- [Present on admission Sacrum] [place] wound bed
Dressing appearance [Present on admission Sacrum] Dry/intact
Non-pressure related type of wound [Present on admission Sacrum] 2nd degree burn
Non-pressure wound appearance comments [Present on admission Sacrum] red/purple
Pressure injury stage [Present on admission Sacrum] Stage 2
Physician documentation of the type and location of wounds is required for compliant documentation. Based on the above clinical findings and your assessment, please provide the following in your progress note:
1. Location of the ulcer/wound, including laterality.
2. Type (etiology) of ulcer/wound:
- Diabetic ulcer
- Arterial (ischemic) ulcer
- Traumatic wound
- Venous stasis ulcer
- Pressure (decubitus) ulcer
- Non-healing surgical wound
- Other
- Unable to determine
3. For a non-pressure ulcer, please indicate the depth/severity:
- Limited to the breakdown of skin
- With fat layer exposed
- With necrosis of muscle
- With necrosis of bone
- Other
- Unable to determine
4. If a pressure ulcer, please also include the stage* of the ulcer:
- Stage 1 - Skin intact, non-blanchable redness
- Stage 2 - Partial thickness loss of dermis, includes intact or open blister
- Stage 3 - Full thickness tissue not including bone, tendon or muscle
- Stage 4 - Full thickness tissue loss, including exposed bone, tendon or muscle
- Unstageable - Full thickness loss in which the base of the ulcer is covered by slough (yellow, vasquez, kimble, green or brown) and/or eschar (vasquez, brown or black) in the wound bed.
- Unable to determine
Use of terms such as suspected, likely, concern for, or probable (associated with a specific diagnosis that is being evaluated, monitored, or treated as if it exists) are acceptable and can be coded in the inpatient setting, when documented at the
time of discharge.
Thank you,
Xena Lema RN, BSN
CDI Specialist
Available via [employer] text
Please use your independent medical judgment in providing your response.
*Source: National Pressure Ulcer Advisory Panel (NPUAP)
[2024-08-22] MEDS: PACERONE 200 MG PO (09:43)
[2024-08-22] MEDS: DIFICID 200 MG PO (09:44)
--- NOTE | 2024-08-22 09:44 | PN.CDI ---
CDI
- -
CDI:
Physician Documentation Request
Admit Date: 08/20/24 14:38
Dear Doctor Lou,
Patient admitted for C Diff colitis.
Please review the following and provide your response in the progress notes.
Clinical Indicators:
Height: 5' 10'
Weight: 125 lbs
BMI: 18.0
If possible, please provide an associated diagnosis related to the abnormal BMI, such as:
Underweight
Cachectic
BMI is not significant
Other
BMI < or = to 19.9
Underweight
Weight Loss
Cachectic
Anorexia
Use of terms such as suspected, likely, concern for, or probable (associated with a specific diagnosis that is being evaluated, monitored, or treated as if it exists) are acceptable and can be coded in the inpatient setting, when documented at the
time of discharge.
Thank you,
Xena Lema RN, BSN
CDI Specialist
Available via [employer] text
Please use your independent medical judgment in providing your response.
[2024-08-22 11:28] VITALS: BP 107/62
--- NOTE | 2024-08-22 12:27 | W.PN.ID1 ---
Date of Service
Date of Service: August 22, 2024
Today's Communication
Vancomycin 125mg po qid x 10 days, then
Vancomycin 125mg po tid x 7 days, then
Vancomycin 125mg po bid x 7 days, then
Vancomycin 125mg po qd x 7 days, then
Vancomycin 125mg po q0d x 7 days.
- Will arrange for Bezlotoxumab IV x 1 at OID towards the end of vancomycin taper.
Assessment / Plan
# C. diff, first recurrence - improving
# Leukocytosis - improving
- Recently treated first episode with po Vancomycin completed a week ago.
- Unfortunately fidaxomicin cost-prohibitive, without insurance coverage
- DC fidaxomicin 200mg po bid (d2)
- Plan:
Vancomycin 125mg po qid x 10 days, then
Vancomycin 125mg po tid x 7 days, then
Vancomycin 125mg po bid x 7 days, then
Vancomycin 125mg po qd x 7 days, then
Vancomycin 125mg po q0d x 7 days.
- Will arrange for Bezlotoxumab IV x 1 at OID towards the end of vancomycin taper.
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
DM
A-fib
nonischemic cardiomyopathy
Anemia
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
Hx cerebellar CVA
Hx normal pressure hydrocephalus
DVT
C. diff
prostate ca s/p radical prostatectomy
R THR
Chief Complaint
-: C-diff
Subjective / Review of Systems
Feels good. No diarrhea.
Vital Signs / Physical Exam
Vital Signs
Vital Signs
Temp Pulse Resp BP Pulse Ox
98.3 F 81 18 107/62 98
08/22/24 11:28 08/22/24 11:28 08/22/24 11:28 08/22/24 11:28 08/22/24 11:28
Physical Exam
Constitutional: No Acute Distress and Comfortable
Gastrointestinal: Soft, Non Tender and Non Distended
Extremities: Negative Edema
Neurological: AO x 3
Objective Data
Lab Data
Estimated Creat Clear 50 ml/min 08/21/24 14:57
Total Bilirubin 0.8 mg/dl (0.2-1.3) 08/20/24 12:04
AST 26 U/L (17-59) 08/20/24 12:04
ALT 31 U/L (0-50) 08/20/24 12:04
Alkaline Phosphatase 61 U/L (38-126) 08/20/24 12:04
Most recent labs reviewed.
Micro Results:
08/20/24 18:24 Salmonella/Shigella Culture - Preliminary
Feces/Stool Culture in Progress
Campylobacter Culture - Final
No Campylobacter species isolated.
Shiga Toxin Test - Pending
08/20/24 18:25 Stool Leukocytes - Final
Feces/Stool
08/20/24 18:25 C. difficile GDH Antigen & Toxins - Final
Feces/Stool Toxigenic C.difficile Positive
08/20/[address]: No acute intracranial abnormality noted. Moderate atrophy with sequelae of moderate small vessel ischemic disease.
Care Review
Plan reviewed with: Physician (Dr. Blake)
[2024-08-22] MEDS: FIRVANQ 125 MG PO ×3 (13:07→23:14)
--- NOTE | 2024-08-22 15:22 | CM ---
CM reviewed chart, reviewed with Hospitalist. Patient seen bedside, inquiring about discharge. TT to Hospitalist for PT evaluations. CM will continue to follow for all discharge planning needs.
Plan; home with , caregivers, watch for PT evaluations for further recommendations.
[2024-08-22 15:30] VITALS: BP 105/47
[2024-08-22] MEDS: LOVENOX 40 MG SC (17:33)
--- NOTE | 2024-08-22 18:00 | W.PN.HOSP.TC ---
Today's Communication/Plan
-
Continue Vancomycin
Plan dc to home (has home health aide) in 1-2 days
Assessment / Plan
Assessment / Plan
# Altered mental status likely from c diff colitis
-WBCs 22.9-->11.0
-Head CT with no acute intracranial abnormality, moderate atrophy with sequelae of moderate small vessel ischemic
-Continue Dificid
stool + C.Diff
# Anemia of chronic disease
Hemoglobin stable at 13.2-->11.7
No active bleeding
Continue to monitor
Pt is clearly Underweight, but does not make cachexic with albumin 3.5
Pressure injury stage [Present on admission Sacrum] Stage 2
#hxt of Recent R sided pleural effusion, suspected empyema 05/04-
Covid-19 hospitalization 05/15-02/2024
#chronic respiratory failure requiring oxygen prn.
-s/p thoracentesis 05/04 with green/pus like drainage of 150 cc
fluid culture growing strep species
-patient was on iv Ceftriaxone for 6 weeks.
-chest x ray: Right greater than left bibasilar opacities, similar in appearance to prior and favored to represent atelectasis/scarring.
Likely trace bilateral pleural effusions.
# History of atrial fibrillation
# history of Bifascicular block
# History of nonischemic cardiomyopathy
-off AC due to fall risks
-continue Amiodarone
# History of prostate Ca s/p radical prostatectomy
# History of cerebellar stroke
# History of normal pressure hydrocephalus
Plan was to treat with Dificid. CM determined did not have prescription plan and ID changed to Vancomycin
DVT ppx: Lovenox SQ
Code: Full
Anticipated Discharge: 24 - 48 hours
Subjective/Interval History
-
Date of Service: August 22, 2024
Diarrhea has lessened, but remains very weak
Objective Data
-
Labs:
Laboratory Results
08/22/24
17:36
WBC Cancelled
Hgb Cancelled
Hct Cancelled
Plt Count Cancelled
Sodium Cancelled
Potassium Cancelled
Chloride Cancelled
Carbon Dioxide Cancelled
BUN Cancelled
Creatinine Cancelled
Glucose Cancelled
Calcium Cancelled
Vital Signs:
Vital Signs
Temp Pulse Resp BP Pulse Ox
97.6 F 82 24 105/47 92
08/22/24 15:30 08/22/24 15:30 08/22/24 15:30 08/22/24 15:30 08/22/24 15:30
I&O
08/21/24 08/22/24 08/23/24
06:59 06:59 06:59
Intake Total 1440 / 1440
Balance 1440 / 1440
Review of Systems
-
History Source: Patient and Coordinated Provider
Constitutional: Denies Fever
EENT: Reports No Symptoms Reported
Respiratory: Reports No Symptoms
Cardiac: Reports No Symptoms
Abdomen/GI: Reports Diarrhea
Neuro: Reports Weakness
Physical Exam
-
General: Well Developed, Well Nourished and No Apparent Distress
HEENT: Normocephalic, Atraumatic and Moist Mucous Membranes
Respiratory: Clear to Auscultation; Negative Wheezes, Rales or Rhonchi
Cardiac: S1/S2
GI: Soft, Nontender, Nondistended and Normal Bowel Sounds
Musculoskeletal: No Clubbing, No Cyanosis and No Edema
Neuro: Awake, Alert and Oriented
[2024-08-22 19:00] VITALS: BP 116/41
[2024-08-22 23:00] VITALS: BP 100/44
[2024-08-23] VITALS (8 sets, daily range): BP systolic 96–120; BP diastolic 41–53; PULSE 75; O2SAT 96
[2024-08-23] MEDS: FIRVANQ 125 MG PO ×4 (05:19→23:22)
[2024-08-23] MEDS: PACERONE 200 MG PO (08:40)
--- NOTE | 2024-08-23 12:22 | PTCARENOTE ---
Pt seen by doctor and told that he does not want to go to rehab. He wants to rehab at home.
--- NOTE | 2024-08-23 16:17 | W.PN.HOSP.TC ---
Today's Communication/Plan
-
recheck labs in AM, potential dc tomorrow
Dr. Barry will try to arrange outpt Bezlotoxumab IV x 1 at OID towards the end of vancomycin taper.
Assessment / Plan
Assessment / Plan
# Altered mental status likely from c diff colitis
-WBCs 22.9-->11.0
-Head CT with no acute intracranial abnormality, moderate atrophy with sequelae of moderate small vessel ischemic
-Continue Dificid
stool + C.Diff
# Anemia of chronic disease
Hemoglobin stable at 13.2-->11.7
No active bleeding
Continue to monitor
Pt is clearly Underweight, but does not make cachexic with albumin 3.5
Pressure injury stage [Present on admission Sacrum] Stage 2
#hxt of Recent R sided pleural effusion, suspected empyema 05/04-
Covid-19 hospitalization 05/15-02/2024
#chronic respiratory failure requiring oxygen prn.
-s/p thoracentesis 05/04 with green/pus like drainage of 150 cc
fluid culture growing strep species
-patient was on iv Ceftriaxone for 6 weeks.
-chest x ray: Right greater than left bibasilar opacities, similar in appearance to prior and favored to represent atelectasis/scarring.
Likely trace bilateral pleural effusions.
# History of atrial fibrillation
# history of Bifascicular block
# History of nonischemic cardiomyopathy
-off AC due to fall risks
-continue Amiodarone
# History of prostate Ca s/p radical prostatectomy
# History of cerebellar stroke
# History of normal pressure hydrocephalus
#Pt is obviously very weak. Does not want to get out of bed to sit in the chair.
discussed going to a rehab, even possibly acute rehab, pt totally refuses
call placed to review with son, Dr. Babatunde Paulson, no answer left message
Plan was to treat with Dificid. CM determined did not have prescription plan and ID changed to Vancomycin
DVT ppx: Lovenox SQ
Code: Full
Anticipated Discharge: 24 - 48 hours
Subjective/Interval History
-
Date of Service: August 23, 2024
Generally feeling better, remains very weak
Objective Data
-
Vital Signs:
Vital Signs
Temp Pulse Resp BP Pulse Ox
97.4 F 84 18 96/41 96
08/23/24 12:00 08/23/24 12:00 08/23/24 12:00 08/23/24 12:00 08/23/24 12:00
I&O
08/22/24 08/23/24 08/24/24
06:59 06:59 06:59
Intake Total 1440 / 1440 840 / 840 120 / 120
Output Total 100 / 100
Balance 1440 / 1440 840 / 840 20 / 20
Review of Systems
-
History Source: Patient and Coordinated Provider
Constitutional: Denies Fever
EENT: Reports No Symptoms Reported
Respiratory: Reports No Symptoms
Cardiac: Reports No Symptoms
Abdomen/GI: Reports Diarrhea (still with loose stools, but has decreased in freq)
Neuro: Reports Weakness (pt does not want to get out of bed)
Physical Exam
-
General: Well Developed, Well Nourished, No Apparent Distress and Appears Chronically Ill
HEENT: Normocephalic, Atraumatic and Moist Mucous Membranes
Respiratory: Clear to Auscultation; Negative Wheezes, Rales or Rhonchi
Cardiac: S1/S2
GI: Soft, Nontender, Nondistended and Normal Bowel Sounds
Musculoskeletal: No Clubbing, No Cyanosis and No Edema
Neuro: Awake, Alert and Oriented
--- NOTE | 2024-08-23 16:52 | W.PN.ID1 ---
Date of Service
Date of Service: August 23, 2024
Today's Communication
Vancomycin 125mg po qid x 14 days through 09/02/24, then
Vancomycin 125mg po tid x 7 days, then
Vancomycin 125mg po bid x 7 days, then
Vancomycin 125mg po qd x 7 days, then
Vancomycin 125mg po qod x 7 days.
- Bezlotoxumab IV x 1 at OID towards the end of vancomycin taper; can arrange as outpatient.
Assessment / Plan
# C. diff, first recurrence - improving
# Leukocytosis - improving
- Recently treated first episode with po Vancomycin completed a week ago.
- Unfortunately fidaxomicin cost-prohibitive, without insurance coverage
- Plan:
Vancomycin 125mg po qid x 14 days through 09/02/24, then
Vancomycin 125mg po tid x 7 days, then
Vancomycin 125mg po bid x 7 days, then
Vancomycin 125mg po qd x 7 days, then
Vancomycin 125mg po qod x 7 days.
- Bezlotoxumab IV x 1 at OID towards the end of vancomycin taper; can arrange as outpatient.
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
DM
A-fib
nonischemic cardiomyopathy
Anemia
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
Hx cerebellar CVA
Hx normal pressure hydrocephalus
DVT
C. diff
prostate ca s/p radical prostatectomy
R THR
Chief Complaint
-: C-diff
Subjective / Review of Systems
Feels better. No diarrhea.
Vital Signs / Physical Exam
Vital Signs
Vital Signs
Temp Pulse Resp BP Pulse Ox
97.4 F 84 18 96/41 96
08/23/24 12:00 08/23/24 12:00 08/23/24 12:00 08/23/24 12:00 08/23/24 12:00
Physical Exam
Constitutional: Chronically Ill
Pulmonary: Clear
Gastrointestinal: Soft, Non Tender, Non Distended and Normal Bowel Sounds
Neurological: Awake and Alert
Objective Data
Lab Data
Lab Results
08/23/24 06:00
08/23/24 06:00
Estimated Creat Clear Cancelled 08/23/24 06:00
Total Bilirubin 0.8 mg/dl (0.2-1.3) 08/20/24 12:04
AST 26 U/L (17-59) 08/20/24 12:04
ALT 31 U/L (0-50) 08/20/24 12:04
Alkaline Phosphatase 61 U/L (38-126) 08/20/24 12:04
Most recent labs reviewed.
Micro Results:
08/20/24 18:24 Salmonella/Shigella Culture - Final
Feces/Stool No Salmonella, Shigella, Aeromonas or Plesiomonas species
isolated.
Campylobacter Culture - Final
No Campylobacter species isolated.
Shiga Toxin Test - Final
No E. coli Shiga Toxin 1 or 2 detected.
08/20/24 18:25 Stool Leukocytes - Final
Feces/Stool
08/20/24 18:25 C. difficile GDH Antigen & Toxins - Final
Feces/Stool Toxigenic C.difficile Positive
08/20/[address]: No acute intracranial abnormality noted. Moderate atrophy with sequelae of moderate small vessel ischemic disease.
Care Review
Plan reviewed with: Physician (Dr. Blake)
[2024-08-23] MEDS: LOVENOX SC (17:48)
[2024-08-23] MEDS: D5/0.45%NSS with KCL 10 MEQ 1000 IV (18:43)
[2024-08-24 03:15] VITALS: BP 107/48
[2024-08-24] MEDS: FIRVANQ 125 MG PO ×2 (05:22→12:20)
[2024-08-24] MEDS: D5/0.45%NSS with KCL 10 MEQ 1000 IV (06:14)
[2024-08-24 07:30] VITALS: BP 110/55
--- NOTE | 2024-08-24 09:30 | W.PN.HOSP.TC ---
Today's Communication/Plan
-
dc today
Assessment / Plan
Assessment / Plan
# Altered mental status likely from c diff colitis
-WBCs 22.9-->11.0
-Head CT with no acute intracranial abnormality, moderate atrophy with sequelae of moderate small vessel ischemic
-Continue Dificid
stool + C.Diff
# Anemia of chronic disease
Hemoglobin stable at 13.2-->11.7
No active bleeding
Continue to monitor
Pt is clearly Underweight, but does not make cachexic with albumin 3.5
Pressure injury stage [Present on admission Sacrum] Stage 2
#hxt of Recent R sided pleural effusion, suspected empyema 05/04-
Covid-19 hospitalization 05/15-02/2024
#chronic respiratory failure requiring oxygen prn.
-s/p thoracentesis 05/04 with green/pus like drainage of 150 cc
fluid culture growing strep species
-patient was on iv Ceftriaxone for 6 weeks.
-08/20 chest x ray: Right greater than left bibasilar opacities, similar in appearance to prior and favored to represent atelectasis/scarring.
Likely trace bilateral pleural effusions.
# History of atrial fibrillation
# history of Bifascicular block
# History of nonischemic cardiomyopathy
-off AC due to fall risks
-continue Amiodarone
# History of prostate Ca s/p radical prostatectomy
# History of cerebellar stroke
# History of normal pressure hydrocephalus
#Pt is obviously very weak. Does not want to get out of bed to sit in the chair.
discussed going to a rehab, even possibly acute rehab, pt totally refuses
call placed to review with son, Dr. Babatunde Paulson, long discussion on options. He wishes to defer to his father's decision
I believe pt would benefit going to a SNF, but will defer to pt and son for him to return home
Plan was to treat with Dificid. CM determined did not have prescription plan and ID changed to Vancomycin
DVT ppx: Lovenox SQ
Code: Full
reviewed with RN, CM and pt
call placed to pharmacy to review Vancomycin dosing
Anticipated Discharge: Today
Subjective/Interval History
-
Date of Service: August 24, 2024
Still with diarrhea as of yesterday, none today
Pt refused to allow labs
Objective Data
-
Labs:
Laboratory Results
08/24/24
06:00
WBC Pending
Hgb Pending
Hct Pending
Plt Count Pending
Sodium Pending
Potassium Pending
Chloride Pending
Carbon Dioxide Pending
BUN Pending
Creatinine Pending
Glucose Pending
Calcium Pending
Vital Signs:
Vital Signs
Temp Pulse Resp BP Pulse Ox
98.3 F 74 16 110/55 93
08/24/24 07:30 08/24/24 07:30 08/24/24 07:30 08/24/24 07:30 08/24/24 07:30
I&O
08/23/24 08/24/24 08/25/24
06:59 06:59 06:59
Intake Total 840 / 840 1320 / 1320
Output Total 100 / 100
Balance 840 / 840 1220 / 1220
Review of Systems
-
History Source: Patient and Coordinated Provider
Constitutional: Denies Fever
EENT: Reports No Symptoms Reported
Respiratory: Reports No Symptoms
Cardiac: Reports No Symptoms
Abdomen/GI: Reports Diarrhea (still with loose stools, but has decreased in freq)
Neuro: Reports Weakness (pt does not want to get out of bed)
Physical Exam
-
General: Well Developed, No Apparent Distress, Appears Chronically Ill and Cachectic (appearing, but alb was 3.5 on admission)
HEENT: Normocephalic, Atraumatic and Moist Mucous Membranes
Respiratory: Clear to Auscultation; Negative Wheezes, Rales or Rhonchi
Cardiac: Regular Rhythm and S1/S2
GI: Soft, Nontender, Nondistended and Normal Bowel Sounds
Musculoskeletal: No Clubbing, No Cyanosis and No Edema
Neuro: Awake, Alert and Oriented (fully oriented and very conversational)
[2024-08-24] MEDS: PACERONE 200 MG PO (10:21)
[2024-08-24] MEDS: FLUAD (65 yr+) 2024-2025 FORMULA 0.5 ML IM (10:21)
[2024-08-24 11:00] VITALS: BP 101/50
--- NOTE | 2024-08-24 11:00 | W.PN.ID1 ---
Date of Service
Date of Service: August 24, 2024
Today's Communication
Vancomycin 125mg po qid x 14 days through 09/02/24, then
Vancomycin 125mg po tid x 7 days, then
Vancomycin 125mg po bid x 7 days, then
Vancomycin 125mg po qd x 7 days, then
Vancomycin 125mg po qod x 7 days.
- Bezlotoxumab IV 600mg IV x 1 to be given week of Sep 17, 2024. Prescription submitted to Outpatient Infusion Dept. who will call patient for appointment.
- DC home today.
Assessment / Plan
# C. diff, first recurrence - resolving
# Leukocytosis - improving
- Recently treated first episode with po Vancomycin completed a week ago.
- Unfortunately fidaxomicin cost-prohibitive, without insurance coverage
- Plan:
Vancomycin 125mg po qid x 14 days through 09/02/24, then
Vancomycin 125mg po tid x 7 days, then
Vancomycin 125mg po bid x 7 days, then
Vancomycin 125mg po qd x 7 days, then
Vancomycin 125mg po qod x 7 days.
- Bezlotoxumab IV 600mg IV x 1 to be given week of Sep 17, 2024. Prescription submitted to Outpatient Infusion Dept. who will call patient for appointment.
- DC home today.
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
DM
A-fib
nonischemic cardiomyopathy
Anemia
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
Hx cerebellar CVA
Hx normal pressure hydrocephalus
DVT
C. diff
prostate ca s/p radical prostatectomy
R THR
Chief Complaint
-: C-diff
Subjective / Review of Systems
No diarrhea.
Vital Signs / Physical Exam
Vital Signs
Vital Signs
Temp Pulse Resp BP Pulse Ox
98.3 F 74 16 110/55 93
08/24/24 07:30 08/24/24 10:21 08/24/24 07:30 08/24/24 10:21 08/24/24 07:30
Physical Exam
Constitutional: Chronically Ill
Pulmonary: Clear
Gastrointestinal: Soft, Non Tender, Non Distended and Normal Bowel Sounds
Neurological: Awake and Alert
Objective Data
Lab Data
Estimated Creat Clear Cancelled 08/23/24 06:00
Total Bilirubin 0.8 mg/dl (0.2-1.3) 08/20/24 12:04
AST 26 U/L (17-59) 08/20/24 12:04
ALT 31 U/L (0-50) 08/20/24 12:04
Alkaline Phosphatase 61 U/L (38-126) 08/20/24 12:04
Most recent labs reviewed.
Micro Results:
08/20/24 18:24 Salmonella/Shigella Culture - Final
Feces/Stool No Salmonella, Shigella, Aeromonas or Plesiomonas species
isolated.
Campylobacter Culture - Final
No Campylobacter species isolated.
Shiga Toxin Test - Final
No E. coli Shiga Toxin 1 or 2 detected.
08/20/24 18:25 Stool Leukocytes - Final
Feces/Stool
08/20/24 18:25 C. difficile GDH Antigen & Toxins - Final
Feces/Stool Toxigenic C.difficile Positive
08/20/[address]: No acute intracranial abnormality noted. Moderate atrophy with sequelae of moderate small vessel ischemic disease.
Care Review
Plan reviewed with: Physician (Dr. Blake)
--- NOTE | 2024-08-24 11:01 | CM ---
Addendum entered by Sheri España 08/24/24 11:44:
CM spoke with patients son, will provide Medicare contact number to look into prescription coverage on patients discharge. Son confirmed address, 2-3 steps to enter home, confirmed caregiver will be present. IMM reviewed, son agreeable to discharge,
placed in chart. Transport scheduled for 3:00 p.m.
Original Note:
CM reviewed chart, reviewed with Hospitalist, patient for discharge today. Return of care referral placed to [facility] services. Patient will require ambulance transport, call placed to patients son, voicemail left confirming home address and that
caregiver will be home to receive patient. CM will continue to follow for all discharge planning needs.
Plan; home with caregiver, [facility]
--- NOTE | 2024-08-24 11:04 | WOUNDNOTE ---
WO RN note: Patient admitted with altered mentation/C-diff
See H&P for complete history.
PMH: Per physician note Beta-hemolytic Streptococcus,Prostate cancer, Pneumonia, Valvular heart disease,Type 2 diabetes
Pleural lymphedema, CVA, A-fib. DVT, C-diff
Wound Location and type/assessment: Patient admitted with recurrent C-diff. Staff have been providing frequent incontinence care with use of barrier ointment and patient is on an air mattress and turning schedule. Some scattered open areas noted on
sacrum (stage 2 PI) likely caused by a combination of pressure and moisture. Heels intact.
Appetite: Fair, BMI 18
Pressure redistribution devices in place: as mentioned above.
Plan: Continue frequent incontinence care and off-loading of sacrum. This RN called for bariatric air cushion to be used in hospital and home when sitting and repositioning/off-loading. Discharge instructions and care plan updated. Patient for d/c
to home today. RN Will given update.
Note to case management of equipment requested for discharge:
Recommend follow up at wound care center upon discharge.
--- NOTE | 2024-08-24 13:50 | W.DS.TRANS ---
DC Summary - [employer]
-
Discharge Instructions:
Discharge Diagnosis/Procedures Recurrent C. Diff
Diet Regular
Activity With assistance
Driving Restrictions No driving
Bathing Restrictions None
Blood Work CBC, BMP in 1 week
Other Services VN
Instructions:
Stand-Alone Forms:
Changes to Home Medications: Yes
Discharge Medications:
DC Medications w/original date entered in [facility]
amiodarone 200 mg tablet 200 mg PO DAILY Arrhythmia 05/04/24
ascorbic acid (vitamin C) 250 mg tablet (Vitamin C) 250 mg PO DAILY Supplement 08/20/24
cholecalciferol (vitamin D3) 50 mcg (2,000 unit) tablet (Vitamin D3) 50 mcg PO DAILY Supplement 08/20/24
therapeutic multivitamin 1 tab PO DAILY Supplement 08/20/24
vitamin E 268 mg (400 unit) capsule 268 mg PO DAILY Supplement 08/20/24
vancomycin 125 mg capsule 125 mg PO QID #106 caps 08/24/24
Home Medication Changes
Vancomycin tapering dose
Will receive 1 dose of Bezlotoxumab in 5-6 weeks in an infusion center to be arranged by Dr. Barry
Pending Results: No
== END 2024-08-24 15:45 | disposition home health service (06) | DRG 371 ==
LOC: 4 WEST ACU 14:38
PROVIDERS: Registered Nurse; ADMITTING PHYSICIAN Internal Medicine; ATTENDING PHYSICIAN Internal Medicine; CONSULT PHYSICIAN Internal Medicine Infectious Disease; EMERGENCY PHYSICIAN Emergency Medicine; FAMILY PHYSICIAN Internal Medicine
PROC: 3E02340 Introduction of Influenza Vaccine into Muscle, Percutaneous Approach (ICD-10-PCS; 2024-08-24)
DX: A04.71 Enterocolitis due to Clostridium difficile, recurrent (principal); G93.41 Metabolic encephalopathy; Z68.1 Body mass index [BMI] 19.9 or less, adult; I42.8 Other cardiomyopathies; J96.10 Chronic respiratory failure, unspecified whether with hypoxia or hypercapnia; I45.2 Bifascicular block; E78.00 Pure hypercholesterolemia, unspecified; E11.9 Type 2 diabetes mellitus without complications; R62.7 Adult failure to thrive; D63.8 Anemia in other chronic diseases classified elsewhere; R63.6 Underweight; L89.152 Pressure ulcer of sacral region, stage 2; I48.0 Paroxysmal atrial fibrillation; Z23 Encounter for immunization; Z86.73 Personal history of transient ischemic attack (TIA), and cerebral infarction without residual deficits; Z87.891 Personal history of nicotine dependence; Z90.79 Acquired absence of other genital organ(s); Z85.46 Personal history of malignant neoplasm of prostate; Z96.642 Presence of left artificial hip joint; Z79.899 Other long term (current) drug therapy
CPT/HCPCS: 70450; 71046; 80048; 80053; 83690; 85025; 85027; 87045; 87046; 87077; 87324; 87427; 87449; 89055; 90662; 93005; 97163; 97167; 99285; G0008; J3480